=== PATIENT | female | born 1950 | race Caucasian/White ===

== ENCOUNTER → 2021-10-05 09:48 | Outpatient (BNVA) | payer MEDICARE, OTHER, SELFPAY | PROVIDERS: PCP Internal Medicine; Visit Provider Internal Medicine Rheumatology | DX: M17.0 Bilateral primary osteoarthritis of knee (principal) | CPT/HCPCS: 99212 ==

== ENCOUNTER 2024-05-24 13:53 | Outpatient (AMB) | payer MEDICARE, OTHER, SELFPAY ==
[2024-05-24 14:07] VITALS: BP 130/62; PULSE 86; O2SAT 96; BMI 20.4
--- NOTE | 2024-05-24 14:07 | A.OFFVIS_ITS ---
Vital Signs 05/24/24 14:07 Height 5 ft 7 in Weight 130 lb 1.164 oz BMI 20.4 BP 130/62 Blood Pressure Location Lt brachial Position Sitting Pulse 86 Pulse Source Pulse Oximeter Pulse Oximetry (%) 96 Oxygen Delivery Method Nasal Cannula Oxygen Flow Rate 0.5 Intake Visit Reasons: lymph nodes Plating Engineer Required: No Allergies No Known Allergies Allergy (Unverified 05/24/24 14:11) HPI Comments Details: The patient is here for pulmonary evaluation. The patient is a 74-year-old woman with known history of lymphoma who apparently had been on Keytruda started developing worsening respiratory symptoms. Initially back in February she presented to the hospital with acute respiratory failure. She had a CT scan of the chest PE protocol that demonstrated bilateral patchy consolidations and ground-glass opacities. He was given antibiotics and also was evaluated by Lizy adorno there. She did undergo a bronchoscopy. I do not have the results of the cultures but apparently per report there were negative for any infectious process and also had biopsies that I do not have a this time. The patient did have some bleeding during the biopsies so therefore only limited biopsies were gather. She was able to be discharged on oxygen and a prednisone taper. The patient did complete the antibiotics. Once she tapered off the prednisone her symptoms worsen and even on the oxygen she desaturated down to 70%. Therefore her son called 911 she was brought back to [facility] where she was readmitted to the hospital. She had a repeat CT scan of the chest I do not have the results and the patient was evaluated by Oncology. Is felt that based on the negative cultures from the bronchoscopy that this was likely related to the immune therapy resulting in pneumonitis. Therefore she was taken off the immune therapy and placed on prednisone. Currently she is on 30 mg of prednisone and will tapering down slowly from there. The patient also placed on gemcitabine which she seems to be tolerating well for her lymphoma. The patient otherwise is feeling well today we did a 6 minute walk test the patient did very well and did not require any additional oxygen at this time. Although we will reassess as she is weaning off the prednisone. She will come back for a pulmonary function study and also request a chest x-ray at that time. And will follow-up after the breathing studies. Hopefully she can wean off the prednisone and we can consider inhaled cortical steroids to provide her some anti-inflammatory effect in the meantime. She will follow-up with Oncology and she will have additional imaging studies at [facility]. [facility] Medical History (Updated 05/24/24 @ 21:36 by Salvador Feliciano MD) Pneumonia Pneumonitis History of left breast cancer Osteoarthritis of knees, bilateral Hodgkin lymphoma Social History Household Members: Spouse Housing: House Are you a primary director of critical care to a significant other at home: No Do you presently have visiting nurse or other home services: No 75 years or older and lives alone: No Alcohol intake: never Patient Tobacco Use Status: Never used Tobacco e-Cigarette/Vaping Use: Never Used service: No Current occupational status: retired Review of Systems Const Reports weakness Eyes Reports no additional complaints ENT Reports no additional complaints Card Denies chest pain and Reports dyspnea on exertion Resp Reports dyspnea on exertion and Denies wheezing GI Reports no additional complaints Musc Reports myalgias and Reports muscle weakness Skin/Breast Denies rash Neuro Reports weakness Psych Reports no additional complaints Terry/Lymph Denies easy bleeding and Denies easy bruising Aller/Immun Denies wheezing Physical Exam Vital Signs: Last Vital Signs Pulse 86 05/24/24 14:07 BP 130/62 05/24/24 14:07 Pulse Ox 96 05/24/24 14:07 Oxygen Delivery Method Nasal Cannula 05/24/24 14:07 Oxygen Flow Rate 0.5 05/24/24 14:07 BMI result Body Mass Index 20.4 Const General: comfortable HEENT Head: Yes normocephalic Neck Neck: Yes supple Chest Chest palpation & inspection: normal inspection of the chest Resp Effort & Inspection: normal respiratory effort Auscultation: no rales, no rhonchi, no wheezes and diminished lung sounds Cardio Heart sounds: S1 normal heart sound present and S2 normal heart sound present GI Palpation (GI): Soft to palpation Skin General skin exam: no rashes or lesions noted Extrem General: Yes no clubbing, cyanosis or edema Results Reviewed Results Reviewed: reviewed CT chest 02/2024 Assessment & Plan Assessment & Plan (1) Pneumonitis: Comment: Likely due to the Ketruda Code(s): J98.4 - Other disorders of lung Category: Medical (2) Pneumonia: Code(s): J18.9 - Pneumonia, unspecified organism Category: Medical Qualifiers: Pneumonia type: due to unspecified organism Laterality: bilateral Lung location: unspecified part of lung Qualified Code(s): J18.9 - Pneumonia, unspec ified organism (3) Acute respiratory failure: Code(s): J96.00 - Acute respiratory failure, unspecified whether with hypoxia or hypercapnia Category: Medical Qualifiers: Respiratory failure complication: hypoxia Qualified Code(s): J96.01 - Acute respiratory failure with hypoxia (4) Hodgkin lymphoma: Code(s): C81.90 - Hodgkin lymphoma, unspecified, unspecified site Category: Medical Qualifiers: Hodgkin lymphoma type: unspecified type Lymphoma site: unspecified region Qualified Code(s): C81.90 - Hodgkin lymphoma, unspecified, unspecified site Plan Wean off oxygen, keep pox 92-96% continue slow prednisone taper PFTs CXR consider inhaled corticosteroids once on a lower dose prednisone F/U 6-8 weeks Coding Level of Care Code New Pt Level 5 (64152) Diagnoses Pneumonitis J98.4 Pneumonia of both lungs due to infectious organism, unspecified part of lung J18.9 Pneumonia type: due to unspecified organism Laterality: bilateral Lung location: unspecified part of lung Acute respiratory failure with hypoxia J96.01 Respiratory failure complication: hypoxia Hodgkin lymphoma, unspecified Hodgkin lymphoma type, unspecified body region C81.90 Hodgkin lymphoma type: unspecified type Lymphoma site: unspecified region Time Spent (min) 60
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
--- OUTSIDE RECORDS SUMMARY | 2024-05-24 17:47 | XMS_ITS | Encounter Summary ---
Author Organization [facility] Address [address] [place] [address] Care Team Providers Care Car Runner Name Role Phone Justin Larose MD Primary Care Provider [phone] Reason for Visit * Reason Onset Date Comments VNA Order 04/04/2024 [facility] #[id number] Encounter Details Date Type Department Care Team (Late st Contact Info) Description 04/04/2024 Telephone Adult Medicine [address] [phone] Justin Larose MD [address] [place] [address] VNA Order ([facility]Order #[id number]) Social History Tobacco Use Types Packs/Day Years [...] as of this encounter Progress Notes * Harriett Fields MA - 04/24/2024 1:18 PM EST Order signed,faxed,confirmation received * Paulettejuan Praks - 04/04/2024 3:26 PM EST Received faxed order [id number] from [facility] and placed in provider bin. Please review, sign, and fax to [phone]. documented in this encounter Plan of Treatment Upcoming Encounters Date Type Department Care Team (Late st Contact Info) Description 05/29/2024 9:[address] [facility] [address] [facility] 2nd [place] [phone] 06/12/2024 9:45 AM EST Office Visit [facility] Hematology Oncology [address] [place] [phone] Albert Mg MD [address] [place] [phone] 10/01/2024 1:45 PM EDT Office Visit Orthopedic Surgery [facility] [address] [phone] Noemi Jones PA [address] [phone] 11/16/2024 3:30 PM EDT Office Visit Adult Medicine [address] [phone] Justin Larose MD [address] [place] [address] documented as of this encounter Visit Diagnoses Not on filedocumented in this encounter Additional Health Concerns Infection Onset Date Last Indicated Resolved Time Respiratory Rule-Out 04/10/2024 04/10/2024 024 10:55 AM EST COVID-19 Rule-Out 04/10/2024 04/10/2024 04/10/2024 10:55 AM EST documented as of this encounter Care Teams Car Runner Relationship Specialty Start Date End Date Justin Larose MD [address] [place] [address] PCP - General Internal Medicine 02/28/24 Inés Alexander MD, PhD [address] [place] [address] Consulting Physician Hematology and Oncology 04/25/23 documented as of this encounter
--- OUTSIDE RECORDS SUMMARY | 2024-05-24 17:47 | XMS_ITS | Encounter Summary ---
Author Organization [facility] Address [address] [place] [address] Care Team Providers Care Truck Striker Name Role Phone Justin Larose MD Primary Care Provider [phone] Reason for Visit * Reason Onset Date Comments faxed order 03/28/2024 [facility] order# [id number] Encounter Details Date Type Department Care Team ([facility] st Contact Info) Description 03/28/2024 Telephone Adult Medicine [address] [phone] Giovana Barroso [place] faxed order ([facility] order# [id number]) Social History Tobacco Use Types Packs/Day Years [...] Notes * Giovana Barroso MA - 03/28/2024 8:50 PM EST Received orders from [facility] order# [id number]. Please sign and fax to [phone] documented in this encounter Plan of Treatment Upcoming Encounters Date Type Department Care Team (Late st Contact Info) Description 05/29/2024 9:00 AM EST Appointment [facility] [address] [facility] 2nd [place] [phone] 06/12/2024 9:45 AM EST Office Visit [facility] Hematology Oncology [address] [place] [phone] Albert Mg MD [address] [place] [phone] 10/01/2024 1:45 PM EDT Office Visit Orthopedic Surgery [facility] [address] [phone] Noemi Jones PA [address] [phone] 11/16/2024 3:30 PM EDT Office Visit Adult Medicine [facility] [address] [place] [phone] Justin Larose MD [address] [place] [address] documented as of this encounter Visit Diagnoses Not on filedocumented in this encounter Additional Health Concerns Infection Onset Date Last Indicated Resolved Time Respiratory Rule-Out 04/10/2024 04/10/2024 024 10:55 AM EST COVID-19 Rule-Out 04/10/2024 04/10/2024 04/10/2024 10:55 AM EST documented as of this encounter Care Teams Truck Striker Relationship Specialty Start Date End Date Justin Larose MD [address] [place] [address] PCP - General Internal Medicine 02/28/24 Inés Alexander MD, PhD [address] [place] [address] Consulting Physician Hematology and Oncology 04/25/23 documented as of this encounter
--- OUTSIDE RECORDS SUMMARY | 2024-05-24 17:48 | XMS_ITS | Encounter Summary ---
Author Organization [facility] Address [address] [place] [address] Care Team Providers Care Forestry Adviser Name Role Phone Justin Larose MD Primary Care Provider [phone] Reason for Visit * Reason Onset Date Comments faxed order 05/07/2024 [facility] order #[id number] Encounter Details Date Type Department Care Team ([facility] st Contact Info) Description 05/07/2024 Telephone Adult Medicine [address] [phone] Giovana Barroso [place] faxed order ([facility] order #[id number]) Social History Tobacco Use Types Packs/Day Years [...] on file documented as of this encounter Functional Status Functional Status Response Date of Assess ment Are you deaf or do you have serious difficulty h earing? No 04/10/2024 Are you blind or do you have serious difficulty seeing, even when wearing glasses? No 04/10/2024 Do you have serious difficul ty walking or climbing stairs? No 04/10/2024 Do you have serious difficulty dressing or bathi ng? No 04/10/2024 Because of a physical, menta l, or emotional condition, do you have serious difficulty doing errands alone such as visiting the doctor? No 04/10/2024 Cognitive Status Response Date of Assessm ent Because of a physical, menta l, or emotional condition, do you have serious difficulty concentrating, remembering, or making decisions? (5 years old or older) No 04/10/2024 documented as of this encounter Progress Notes * Giovana Barroso MA - 05/07/2024 9:53 AM EST Received orders from [facility] order #[id number]. Please sign and fax to [phone] documented in this encounter Plan of Treatment Upcoming Encounters Date Type Department Care Team (Late st Contact Info) Description 05/29/2024 9:00 AM EST Appointment [facility] [address] [facility] 2nd [place] [phone] 06/12/2024 9:45 AM EST Office Visit [facility] Hematology Oncology [address] [place] [phone] Albert Mg MD [address] [place] [phone] 10/01/2024 1:45 PM EDT Office Visit Orthopedic Surgery [facility] [address] [phone] Noemi Jones PA [address] [phone] 11/16/2024 3:30 PM EDT Office Visit Adult Medicine [address] [phone] Justin Larose MD [address] [place] [address] documented as of this encounter Visit Diagnoses Not on filedocumented in this encounter Care Teams Forestry Adviser Relationship Specialty Start Date End Date Justin Larose MD [address] [place] [address] PCP - General Internal Medicine 02/28/24 Inés Alexander MD, PhD [address] [place] [address] Consulting Physician Hematology and Oncology 04/25/23 documented as of this encounter
--- OUTSIDE RECORDS SUMMARY | 2024-05-24 17:48 | XMS_ITS | Encounter Summary ---
Author Organization [facility] Address [address] [place] [address] Care Team Providers Care Consumer Services Consultant Name Role Phone Justin Larose MD Primary Care Provider [phone] Reason for Visit * Reason Onset Date Comments Referral 04/06/2024 Encounter Details Date Type Department Care Team (Late st Contact Info) Description 04/06/2024 Telephone [facility] Hematology Oncology [address] [place] [address] Albert Mg MD [address] [place] [address] Referral Social History Tobacco Use Types Packs/Day Years [...] as of this encounter Progress Notes * Bianca Lopez - 05/16/2024 9:11 AM EST APPT WITH DR TONEY 05/24/24 215PM, PATIENT NOTIF[place] [facility] * Bianca Lopez - 04/06/2024 4:19 PM EST Referral sent to: [facility] [address] [place] [address] documented in this encounter Plan of Treatment Upcoming Encounters Date Type Department Care Team (Late st Contact Info) Description 05/29/2024 9:00 AM EST Appointment [facility] [address] [facility] 2nd [place] [phone] 06/12/2024 9:45 AM EST Office Visit [facility] Hematology Oncology [address] [place] [phone] Albert Mg MD [address] [place] [phone] 10/01/2024 1:45 PM EDT Office Visit Orthopedic Surgery [facility] [address] [phone] Noemi Jones PA [address] [phone] 11/16/2024 3:30 PM EDT Office Visit Adult Medicine [address] [phone] Justin Larose MD [address] [place] [address] documented as of this encounter Visit Diagnoses Not on filedocumented in this encounter Additional Health Concerns Infection Onset Date Last Indicated Resolved Time Respiratory Rule-Out 04/10/2024 04/10/2024 024 10:55 AM EST COVID-19 Rule-Out 04/10/2024 04/10/2024 04/10/2024 10:55 AM EST documented as of this encounter Care Teams Consumer Services Consultant Relationship Specialty Start Date End Date Justin Larose MD [address] [place] [address] PCP - General Internal Medicine 02/28/24 Inés Alexander MD, PhD [address] [place] [address] Consulting Physician Hematology and Oncology 04/25/23 documented as of this encounter
--- OUTSIDE RECORDS SUMMARY | 2024-05-24 17:48 | XMS_ITS | Encounter Summary ---
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 ([facility]/HCC) Albert Mg MD [address] [place] [phone] [facility] Infusion Center [address] [place] [phone] Referral ID Status Reason Start Date Expiration Date V isits Requested Visits Authorized [id number] Authorized 04/26/2024 04/26/2025 1 15 Encounter Details Date Type Department Care Team (Latest Contact Info) Description 05/08/2024 9:00 AM EST - 05/08/2024 11:59 PM EST Hospital Encounter [facility] Infusion Center [address] [place] [phone] Albert Mg MD [address] [place] [address] Myelodysplasia (myelodysplastic syndrome) (CMS/HCC) (Primary Dx); 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); Lymphadenopathy, generalized; Hodgkin's lymphoma of bone marrow (CMS/HCC) Discharge Disposition: Home or Self Care Social History Tobacco Use Types Packs/Day Years [...] on file documented as of this encounter Last Filed Vital Signs Vital Sign Reading Time Taken Comments Blood Pressure 109/74 05/08/2024 9:24 AM EST Pulse 74 05/08/2024 9:24 AM EST Temperature 36.1 ??C (97 ??F) 05/08/2024 9:2 4 AM EST Respiratory Rate 18 05/08/2024 9:24 AM EST Oxygen Saturation 100% 05/08/2024 9:2 4 AM EST Inhaled Oxygen Concentration - - Weight 55.2 kg (121 lb 9.6 oz) 05/08/2024 9:24 AM EST wearing a winter coat Height - - Body Mass Index 19.05 04/27/2024 1:39 PM EST documented in this encounter Functional Status Functional Status Response [...] No 04/10/2024 documented as of this encounter Medications at Time of Discharge Medication Sig Dispensed Refills Start Date End Date acetaminophen (TYLENOL 8 HOUR) 650 mg 8 hr tablet Take 1 tablet (650 mg total) by mouth 2 (two) times a day. gabapentin (NEURONTIN) 300 mg capsule Take 1 capsule (300 mg total) by mouth at bedtime. 04/11/2023 levothyroxine (SYNTHROID, LEVOTHROID) 50 mcg tablet Take 25 mcg by mouth. 09/01/2023 pantoprazole (PROTONIX) 40 mg EC tablet Take 1 tablet (40 mg total) by mouth 1 (one) time each day before breakfast. Do not crush, chew, or split. 30 each 1 04/26/2024 06/25/2024 predniSONE (DELTASONE) 20 mg tablet Take 2 tablets (40 mg total) by mouth 1 (one) time each day. 60 tablet 04/26/2024 05/26/2024 pregabalin (LYRICA) 50 mg capsule Take 1 capsule (50 mg total) by mouth at bedtime. sertraline (ZOLOFT) 100 mg tablet Take 1 tablet (100 mg total) by mouth 1 (one) time each day. 10/20/2023 05/24/2024 documented as of this encounter Discharge Disposition Disposition Code Departure Means Destination Home or Self Care documented in this encounter Progress Notes * Paige Ravi, RADHA - 05/08/2024 9:00 AM EST Patient arrives via wheelchair, accompanied by her for Cycle 2 Day 1, gemcitibine. Patient states that she's doing ok , stating that the usual . Patient has no questions/concerns for the provider at this time. states that patient is now only on o2 1 LPM. O2 sat today is 100%. Portaccessed, +BR. Labs collected per standing order. Labs sent stat. Patient left accessed, is comfortable in recliner waiting on lab results. at chairside. 2571 Dr. Gurrola aware of labs; hgb 8.0, from 7.7, plt count 87. Orders per Dr. Gurrola is to hold off onblood transfusion. Ok to treat with Gemcitabine. Patient and are in agreement with plan. Treatment released to pharmacy. NS KVO. 1108 Zofran administered IVP without incident. 1152 Gemcitibine infusing at this time, over 30 minutes. Call jara within reach. at chairside. 1224 Patient tolerated treatment well, without adverse reaction/complaint. Patient currently eatinglunch. NS KVO until patient finishes. 1250 Patient ate full lunch, went to the bathroom. Next appt scheduled. Port flushed per protocol. Deaccesed, intact. Patient discharged stable, via wheelchair, accompanied by . documented in this encounter Plan of Treatment Upcoming Encounters Date Type Department Care Team (Late st Contact Info) Description 05/29/2024 9:00 AM EST Appointment [facility] Infusion Center [address] 2nd [place] [phone] 06/12/2024 9:45 AM EST Office Visit [facility] Hematology Oncology [address] [place] [phone] Albert Mg MD [address] [place] [phone] 10/01/2024 1:45 PM EDT Office Visit Orthopedic Surgery [facility] [address] [phone] Noemi Jones PA [address] [phone] 11/16/2024 3:30 PM EDT Office Visit Adult Medicine [address] [phone] Justin Larose MD [address] [place] [phone] documented as of this encounter Procedures Procedure Name Priority Date/Time Associated Diagnosis Comments CBC WITH AUTO DIFFERENTIAL Routine 05/08/2024 9:46 AM EST 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) CBC AND DIFFERENTIAL Routine 05/08/2024 9:46 AM EST 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) TYPE AND SCREEN STAT 05/08/2024 9:46 AM EST 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) Myelodysplasia (myelodysplastic syndrome) (CMS/HCC) COMPREHENSIVE METABOLIC PANEL Routine 05/08/2024 9:46 AM EST 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) documented in this encounter Results * (ABNORMAL) CBC auto differential (05/08/2024 9:46 AM EST) Pathologist [facility] WBC 3.5(L) 4.8 - 10.8 K/mcL LAB HEMETOLOGY METHOD 05/08/2024 10:37 AM [facility] RBC 2.60(L) 3.80 - 4.80 M/mcL LAB HEMETOLOGY METHOD 05/08/2024 10:37 AM [facility] Hemoglobin 8.0(L) 11.5 - 16.0 g/dL LAB HEMETOLOGY METHOD 05/08/2024 10:37 AM [facility] LAB Hematocrit 24.4(L) 35.0 - 47.0 % LAB HEMETOLOGY METHOD 05/08/2024 10:37 AM [facility] MCV 94.2 79.0 - 98.0 FL LAB HEMETOLOGY METHOD 05/08/2024 10:37 AM [facility] LAB MCH 30.9 27.0 - 32.0 pcg LAB HEMETOLOGY METHOD 05/08/2024 10:37 AM [facility] LAB MCHC 32.8 32.0 - 37.0 g/dL LAB HEMETOLOGY METHOD 05/08/2024 10:37 AM [facility] LAB RDW 19.6(H) 11.0 - 15.0 % LAB HEMETOLOGY METHOD 05/08/2024 10:37 AM [facility] Platelets 87(L) 130 - 400 K/mcL LAB HEMETOLOGY METHOD 05/08/2024 10:37 AM [facility] LAB Comment:reviewed by slide MPV 10.6 7.0 - 11.0 FL LAB HEMETOLOGY METHOD 05/08/2024 10:37 AM [facility] LAB NRBC 0.9 <1.0 % LAB HEMETOLOGY METHOD 05/08/2024 10:37 AM [facility] NRBC Absolute 0.03 <0.10 K/mcL LAB HEMETOLOGY METHOD 05/08/2024 10:37 AM [facility] Neutrophils Relative 66.2 % LAB HEMETOLOGY METHOD 05/08/2024 10:37 AM [facility] Lymphocytes Relative 27.2 % LAB HEMETOLOGY METHOD 05/08/2024 10:37 AM [facility] Monocytes Relative 4.9 % LAB HEMETOLOGY METHOD 05/08/2024 10:37 AM [facility] Eosinophils Relative 0.3 % LAB HEMETOLOGY METHOD 05/08/2024 10:37 AM [facility] Basophils Relative 0.0 % LAB HEMETOLOGY METHOD 05/08/2024 10:37 AM [facility] Immature Granulocytes Relative 1.4 % LAB HEMETOLOGY METHOD 05/08/2024 10:37 AM [facility] Neutrophils Absolute 2.29 1.50 - 7.00 K/mcL LAB HEMETOLOGY METHOD 05/08/2024 10:37 AM [facility] LAB Lymphocytes Absolute 0.94(L) 1.00 - 5.00 K/[facility] LAB HEMETOLOGY METHOD 05/08/2024 10:37 AM EST [facility] LAB Monocytes Absolute 0.17(L) 0.20 - 1.00 K/[facility] LAB HEMETOLOGY METHOD 05/08/2024 10:37 AM EST [facility] LAB Eosinophils Absolute 0.01 0.00 - 0.50 K/[facility] LAB HEMETOLOGY METHOD 05/08/2024 10:37 AM EST [facility] Basophils Absolute 0.00 0.00 - 0.20 K/[facility] LAB HEMETOLOGY METHOD 05/08/2024 10:37 AM EST [facility] Immature Granulocytes Absolute 0.05(H) 0.00 - 0.03 K/[facility] LAB HEMETOLOGY METHOD 05/08/2024 10:37 AM EST [facility] Blood Blood sample taken from central line / Unknown Existing Catheter / Unknown 05/08/2024 9:46 AM EST 05/08/2024 10:08 AM EST Subramony Saurav SAMANIE[facility] LAB BLOOD O RDERABLES [facility] [address] [place] [address], * Type and screen (05/08/2024 9:46 AM EST) ABO Group A 05/08/2024 11:08 AM EST [facility] Rh Type Negative 05/08/2024 11:08 AM EST [facility] Antibody Screen Negative 05/08/2024 11:08 AM EST [facility] Blood Blood sample taken from central line / Unknown Existing Catheter / Unknown 05/08/2024 9:46 AM EST 05/08/2024 10:08 AM EST Subramony Saurav SAMANIEGO LAB BLOOD B ANK TEST ORDERABLES [facility] [address] [place] [address], * (ABNORMAL) Comprehensive metabolic panel (05/08/2024 9:46 AM EST) Sodium 136 133 - 145 mmol/L LAB CHEMISTRY METHOD 05/08/2024 10:42 AM EST [facility] Potassium 3.9 3.5 - 5.5 mmol/L LAB CHEMISTRY METHOD 05/08/2024 10:42 AM [facility] Chloride 102 96 - 110 mmol/L LAB CHEMISTRY METHOD 05/08/2024 10:42 AM [facility] CO2 29 21 - 32 mmol/L LAB CHEMISTRY METHOD 05/08/2024 10:42 AM [facility] Anion Gap 5 3 - 11 LAB CHEMISTRY METHOD 05/08/2024 10:42 AM [facility] Glucose 117(H) 70 - 100 mg/dL LAB CHEMISTRY METHOD 05/08/2024 10:42 AM [facility] BUN 24 5 - 25 mg/dL LAB CHEMISTRY METHOD 05/08/2024 10:42 AM [facility] Creatinine 0.77 0.50 - 1.10 mg/dL LAB CHEMISTRY METHOD 05/08/2024 10:42 AM [facility] eGFR 81 >=60 mL/min/1. 73m2 LAB CHEMISTRY METHOD 05/08/2024 10:42 AM [facility] Comment:Calculation based on the??Chronic Kidney Disease Epidemiology Collaboration (CKD-EPI) equation refit??without adjustment for race. BUN/Creatinine Ratio 31.2 LAB CHEMISTRY METHOD 05/08/2024 10:42 AM [facility] Calcium 9.0 8.5 - 10.5 mg/dL LAB CHEMISTRY METHOD 05/08/2024 10:42 AM [facility] AST (SGOT) 11 10 - 42 unit/L LAB CHEMISTRY METHOD 05/08/2024 10:42 AM [facility] ALT (SGPT) 36 10 - 60 unit/L LAB CHEMISTRY METHOD 05/08/2024 10:42 AM [facility] Alkaline Phosphatase 71 42 - 121 unit/L LAB CHEMISTRY METHOD 05/08/2024 10:42 AM [facility] Total Protein 5.6(L) 6.0 - 8.0 g/dL LAB CHEMISTRY METHOD 05/08/2024 10:42 AM [facility] Albumin 3.7 3.2 - 5.0 g/dL LAB CHEMISTRY METHOD 05/08/2024 10:42 AM [facility] Total Bilirubin 1.1 0.0 - 1.4 mg/dL LAB CHEMISTRY METHOD 05/08/2024 10:42 AM [facility] Blood Blood sample taken from central line / Unknown Existing Catheter / Unknown 05/08/2024 9:46 AM EST 05/08/2024 10:08 AM EST Albert Mg MD LAB BLOOD O RDERABLES [facility] [address] [place] [address], documented in this encounter Visit Diagnoses Diagnosis Myelodysplasia (myelodysplastic syndrome) (CMS/HCC)- Primary Myelodysplastic syndrome, unspecified 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 Order Dose 1,000 mg/m2 Admin Dose 1,640 mg. DOSE ROUNDED TO 1640 MG PER PROTOCOL NS Flush Only. HAZARDOUS Drug Precautions - High Risk (Category C/NIOSH Group 1) Antineoplastic: - Double pair of ASTM standard D6978 certified chemotherapy gloves - Chemotherapy gown - Closed-System Transfer Device (CSTD) recommended - Eye protection (goggles or face shield) required only with a potential for facial contact (i.e. concern for spitting or vomiting of the dose during or after administration) New Bag 05/08/2024 11:52 AM EST 1,600 mg 584.2 mL/hr ondansetron (PF) (ZOFRAN) injection 8 mg 8 mg, intravenous, Once, On Tue05/08/24 at 1115, For 1 dose Given 05/08/2024 11:08 AM EST 8 mg sodium chloride 0.9 % infusion 20 mL/hr, intravenous, As needed, To keep vein open per institutional policy, Starting on Tue05/08/24 at 1052, For 1 day New Bag 05/08/2024 11:08 AM EST 20 mL/hr 20 mL/hr documented in this encounter Orders Nursing Count Last Ordered Date First Orde red Date ONC NURSING COMMUNICATION 1 05/08/2024 ONC NURSING COMMUNICATION 10 1 05/08/2024 ONC NURSING COMMUNICATION 11 1 05/08/2024 TREATMENT CONDITIONS 2 05/08/2024 documented in this encounter Care Teams Yeast Distiller Relationship Specialty Start Date End Date Justin Larose MD [address] [place] [phone] PCP - General Internal Medicine 02/28/24 Inés Alexander MD, PhD [address] [place] [phone] Consulting Physician Hematology and Oncology 04/25/23 documented as of this encounter
--- OUTSIDE RECORDS SUMMARY | 2024-05-24 17:48 | XMS_ITS | Encounter Summary ---
Author Organization [facility] Address [address] [place] [address] Care Team Providers Care Math And Science Division Chair Name Role Phone Justin Larose MD Primary Care Provider [phone] Reason for Visit * Reason Comments Follow-up 6 mo Encounter Details Date Type Department Care Team (Late st Contact Info) Description 05/11/2024 2:30 PM EST Office Visit Adult Medicine [address] [phone] Justin Larose MD [address] [place] [phone] Acute on chronic respiratory failure with hypoxia (CMS/HCC) (Primary Dx); Hodgkin's lymphoma of bone marrow (CMS/HCC); Pneumonitis Social History Tobacco Use Types Packs/Day Years Used Date Smoking Tobacco: Never Smokeless Tobacco: Never Tobacco Cessation:Counseling Given: Not Answered Alcohol Use Standard Drinks/Week Comments Not Currently [...] Sign Reading Time Taken Comments Blood Pressure 107/54 05/11/2024 2:10 PM EST Pulse 92 05/11/2024 2:10 PM EST Temperature 36.3 ??C (97.4 ??F) 05/11/2024 2:10 PM ES T Respiratory Rate 14 05/11/2024 2:10 PM EST Oxygen Saturation 99% 05/11/2024 2:10 PM EST Inhaled Oxygen Concentration - - Weight 54.8 kg (120 lb 12.8 oz) 05/11/2024 2:10 PM EST Height 170.2 cm (5' 7 ) 05/11/2024 2:10 PM EST Body Mass Index 18.92 05/11/2024 2:10 PM EST documented in this encounter Functional [...] as of this encounter Progress Notes * Justin Larose MD - 05/11/2024 2:30 PM EST CHIEF COMPLAINT: Follow-up (6 mo) IDENTIFIER: Lynn Reilly is a 74 y.o. old female. HPI: history significant for Hodgkin's lymphoma/myelodysplasia and breast cancer status post left mastectomy currently on immunotherapy followed by oncologist Dr. Gurrola, hypothyroidism, hypercholesteremia Pt was admitted to the [facility] from 04/10-04/16/2024 Pt presented from home wht shortness of breath pt is on chronc 02 at 4lnc via ems sats were in the 70;s pt had hospital stay the prior month for PNA but was later dx immune checkpoint pneumonitis(silva) CT chest angio:No acute pulmonary embolus demonstrated. Incomplete opacification in the subpulmonicaspect of the pulmonary outflow tract. Chest x-ray:At least moderately severe bilateral perihilar opacities could represent edema or pneumonia. In comparison with 03/19/2024 this may be slightly improved. EKG: Sinus rhythm with PACs, T wave abnormality Initial laboratory results: Mainly unremarkable BMP with the exception of glucose 137, CBC with differential reveals H&H 7.5/22.6, respiratory virus panel negative for infection. In the emergency department the above was performed and patient received 3.375 g Zosyn and 1250 mg vancomycin. Bilateral pleural effusions, status post left thoracentesis with 300 cc cloudy yellow fluid removal. Reportedly exudative effusion. Fluid culture and cytology negative Acute on chronic anemia-likely due to lymphoma and chemotherapy related. Status post 2 units of packed RBCs this admission. H&H with improvement and stable. 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 pt was d/aniceto on pred taper pt was d/aniceto on 2lnc Pt is now down to 1lnc pt has 99-100% at home Pt is 99% in the office today Keytruda was d/aniceto Pt has f/u oncology 07/2024 (adriana) Pt is currently on gemcitabine Pt notes dyspnea at baseline Pt has f/u pulm(girish) 05/2024 ROS: GENERAL: Negative for malaise, significant weight loss and fever RESPIRATORY: See HPI CARDIOVASCULAR: Negative for chest pain, leg swelling and palpitations PAST MEDICAL HISTORY: Patient Active Problem List Diagnosis Date Noted Pneumonitis 04/13/2024 Hypoxia 03/15/2024 Acute respiratory failure with hypoxia (CMS/HCC) 03/15/2024 Acute CHF (CMS/HCC) 03/15/2024 Acute hypoxemic respiratory failure (CMS/HCC) 03/15/2024 Hypothyroidism due to medication 03/07/2024 Hungry bone syndrome 03/06/2024 Hodgkin's lymphoma of bone marrow (CMS/HCC) 01/31/2024 Hypothyroidism 11/07/2023 Myelodysplasia (myelodysplastic syndrome) (CMS/HCC) 10/18/2023 Shortness of breath 04/28/2023 Supraclavicular lymphadenopathy 02/14/2023 Dizzy spells 07/30/2021 Acute left-sided low back pain without sciatica 07/30/2021 Primary osteoarthritis of both knees 02/23/2021 Acute cystitis without hematuria 05/19/2020 Nausea 05/05/2020 Drug-induced peripheral neuropathy ([facility]) 04/08/2020 Diarrhea due to drug 2020 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 ([facility]) 02/28/2020 Night sweats 02/28/2020 Symptomatic anemia 01/30/2020 Other fatigue 01/30/2020 Hypercalcemia 01/21/2020 Lymphadenopathy, generalized 01/21/2020 Splenomegaly 01/21/2020 Migraine with aura and without status migrainosus, not intractable 02/23/2017 Hypercholesterolemia 08/27/2016 Osteopenia 08/27/2016 Hearing loss of both ears 08/27/2016 History of left mastectomy 08/27/2016 SOCIAL HISTORY: Social History Tobacco Use Smoking status: Never Smokeless tobacco: Never Substance Use Topics Alcohol use: Not Currently FAMILY HISTORY: Family Status Relation Name Status Mother (Not Specified) Father (Not Specified) MGM (Not Specified) PGM Aunt Uncle (Not Specified) No partnership data on file Family History Problem Relation Name Age of Onset Breast cancer Mother 70.00 at 78 of mets, Arthritis Other (Other: Heart Disease) Father at 78 Other cancer Maternal Grandmother 69.00 stomach CA Other (Other: Other) Paternal Grandmother in her 90s Other cancer Aunt 72.00 pancreatic, maternal aunt Other (Other: pancreatic cancer) Aunt Arthritis Other (Other: pancreatic cancer) Uncle 58.00 maternal aunt ACTIVE MEDICATIONS: Outpatient Medications Marked as Taking for the 05/11/24 encounter (Office Visit) with Justin Larose MD Medication Sig Dispense Refill acetaminophen (TYLENOL 8 HOUR) 650 mg 8 hr tablet Take 1 tablet (650 mg total) by mouth 2 (two) times a day. gabapentin (NEURONTIN) 300 mg capsule Take 1 capsule (300 mg total) by mouth at bedtime. levothyroxine (SYNTHROID, LEVOTHROID) 50 mcg tablet Take 25 mcg by mouth. pantoprazole (PROTONIX) 40 mg EC tablet Take 1 tablet (40 mg total) by mouth 1 (one) time each day before breakfast. Do not crush, chew, or split. 30 each 1 predniSONE (DELTASONE) 20 mg tablet Take 2 tablets (40 mg total) by mouth 1 (one) time each day. 60tablet 0 pregabalin (LYRICA) 50 mg capsule Take 1 capsule (50 mg total) by mouth at bedtime. sertraline (ZOLOFT) 100 mg tablet Take 1 tablet (100 mg total) by mouth 1 (one) time each day. ALLERGIES: Patient has no known allergies. PHYSICAL EXAM: Blood pressure 107/54, pulse 92, temperature 36.3 ??C (97.4 ??F), temperature source Temporal, resp. rate 14, height 1.702 m (67 ), weight 54.8 kg (120 lb 12.8 oz), SpO2 99%. Body mass index is 18.92kg/m??. BMI is 18.5 to 24.9 (within the normal range) and will be followed APPEARANCE: Alert and in no acute distress EYES: PERRLA, conjunctiva and sclera normal HEART: RRR with normal S1 and S2, no murmurs, no gallops, no JVD appreciated LUNG: clear to auscultation bilaterally EXTREMITIES: Extremities warm and well perfused without clubbing, cyanosis, or edema LABS: none IMPRESSION: 1. Acute on chronic respiratory failure with hypoxia (CMS/HCC) 2. Hodgkin's lymphoma of bone marrow (CMS/HCC) 3. Pneumonitis PLAN: Pt with hodgkin's lymphoma,chronic resp failure on , last month pt was admitted to the [facility] for acute on chronic resp failure, pt required high flow , the month previous pt was in house for pna.Pt during the most recent hospital stay noted to not have PNA but instead immune check point pneumonitis as a result keytruda has been d/aniceto. Pt is now back to her baseline breathing 02 has been weaned down to 1lnc 02 today 99%, pt now on gemcitabine. Pt to f/u with oncology as scheduled 07/2024 pt has f/u with pulm next month No orders of the defined types were placed in this encounter. ADDITIONAL ORDERS: None Justin Larose MD on 05/11/2024 at 2:12 PM EST documented in this encounter Plan of Treatment Upcoming Encounters Date Type Department Care Team (Late st Contact Info) Description 05/29/2024 9:00 AM EST Appointment [facility] Infusion Center [address] [facility] 2nd [place] [phone] 06/12/2024 9:45 AM EST Office Visit [facility] Hematology Oncology [address] [place] [phone] Albert Mg MD [address] [place] [phone] 10/01/2024 1:45 PM EDT Office Visit Orthopedic Surgery [facility] [address] [phone] Noemi Jones PA [address] [phone] 11/16/2024 3:30 PM EDT Office Visit Adult [facility] [address] [place] [phone] Justin Larose MD [address] [place] [phone] documented as of this encounter Visit Diagnoses Diagnosis Acute on chronic respiratory failure with hypoxia (CMS/HCC)- Primary Hodgkin's lymphoma of bone marrow (CMS/HCC) Pneumonitis Pneumonia, organism unspecified documented in this encounter Care Teams Math And Science Division Chair Relationship Specialty Start Date End Date Justin Larose MD [address] [place] [phone] PCP - General Internal Medicine 02/28/24 Inés Alexander MD, PhD [address] [place] [phone] Consulting Physician Hematology and Oncology 04/25/23 documented as of this encounter
--- OUTSIDE RECORDS SUMMARY | 2024-05-24 17:48 | XMS_ITS | Encounter Summary ---
Author Organization [facility] Address [address] [place] [address] Care Team Providers Care Label Folder Name Role Phone Justin Larose MD Primary Care Provider [phone] Reason for Visit * Reason Onset Date Comments faxed order 05/21/2024 [facility] order #[id number] Encounter Details Date Type Department Care Team ([facility] st Contact Info) Description 05/21/2024 Telephone Adult Medicine [address] [phone] Giovana Barroso MA faxed order ([facility] order #[id number]) Social History Tobacco Use Types Packs/Day Years [...] Progress Notes * Giovana Barroso MA - 05/21/2024 11:35 AM EST Received orders from [employer] order #[id number]. Please sign and fax to [phone] documented in this encounter Plan of Treatment Upcoming Encounters Date Type Department Care Team (Late st Contact Info) Description 05/29/2024 9:00 AM EST Appointment [facility] Infusion Center 271 [facility] 2nd [place] [phone] 06/12/2024 9:45 AM EST Office Visit [facility] Hematology Oncology [address] [place] [phone] Albert Mg MD 271 [place] [phone] 10/01/2024 1:45 PM EDT Office Visit Orthopedic Surgery [facility] [address] [phone] Noemi Jones PA [address] [phone] 11/16/2024 3:30 PM EDT Office Visit Adult Medicine [address] [phone] Justin Larose MD [address] [place] [address] documented as of this encounter Visit Diagnoses Not on filedocumented in this encounter Care Teams Label Folder Relationship Specialty Start Date End Date Justin Larose MD [address] [place] [address] PCP - General Internal Medicine 02/28/24 Inés Alexander MD, PhD [address] [place] [address] Consulting Physician Hematology and Oncology 04/25/23 documented as of this encounter
--- OUTSIDE RECORDS SUMMARY | 2024-05-24 17:48 | XMS_ITS | Encounter Summary ---
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 ([facility]/HCC) Hypothyroidism due to medication Subramonia-Albert Gurrola MD [address] [place] [phone] [facility] Infusion Center [address] [place] [phone] Referral ID Status Reason Start Date Expiration Date V isits Requested Visits Authorized [id number] Authorized 03/07/2024 03/07/2025 1 20 Encounter Details Date Type Department Care Team (Latest Contact Info) Description 04/24/2024 9:00 AM EST - 04/24/2024 11:59 PM [facility] Hospital Encounter Infusion Center [address] [place] [phone] 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 09/01/2023 pregabalin (LYRICA) 50 mg capsule Take 1 capsule (50 mg total) by mouth at bedtime. pantoprazole (PROTONIX) 40 mg EC tablet Take 1 tablet (40 mg total) by mouth 1 (one) time each day before breakfast. Do not crush, chew, or split. 30 each 04/15/2024 04/26/2024 predniSONE (DELTASONE) 20 mg tablet Take 3 tablets (60 mg total) by mouth 1 (one) time each day for 14 doses. 42 tablet 04/14/2024 04/26/2024 sertraline (ZOLOFT) 100 mg tablet Take 1 tablet (100 mg total) by mouth 1 (one) time each day. 10/20/2023 05/24/2024 documented as of this encounter Discharge Disposition Disposition Code Departure Means Destination Home or Self Care documented in this encounter Progress Notes * Kae Meyer RN - 04/24/2024 9:00 AM EST 0930- Pt arrived today via WC, accompanied by , for stat labs and possible need for transfusion. Pt reports feeling well overall with complaints of mild headache. Denies other acute complaintsor changes at this time. states Her oxygen has been pretty good. It's been staying at 97% and she even hit 99% once! Port accessed without diff. Labs collected/sent stat. Pt resting comfortably watching TV at this time. Call jara in reach. 1110- Labs resulted and WNL. Hgb: 8.5. No need for blood transfusion today. Pt with MD HOLLAND on at 10:15. Infusion room appt scheduled for 9:45. Pt will have stat labs done, go downstairs to see the doctor while labs result, and return to infusion room for any necessary treatment. Pt and verbalized understanding and agree to plan. No further questions. Port flushed/deaccessed per protocol. Pt up to BR without issue. Left unit via WC with . Stable at D/C. documented in this encounter Plan of Treatment Upcoming Encounters Date Type Department Care Team (Late st Contact Info) Description 05/29/2024 9:00 AM EST Appointment Infusion Center 271 [facility] 2nd [place] [phone] 06/12/2024 9:45 AM EST Office Visit Hematology Oncology 271 [place] [phone] Albert Mg MD 271 [place] [phone] 10/01/2024 1:45 PM EDT Office Visit Orthopedic Surgery - [place] [address] [phone] Noemi Jones PA [address] [phone] 11/16/2024 3:30 PM EDT Office Visit Adult [facility] [address] [place] [phone] Justin Larose MD [address] [place] [address] documented as of this encounter Procedures Procedure Name Priority Date/Time Associated Diagnosis Comments CBC WITH AUTO DIFFERENTIAL STAT 04/24/2024 9:25 AM EST 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 RBC 3.00(L) 3.80 - 4.80 M/mcL LAB HEMETOLOGY METHOD 04/24/2024 9:[address] [facility] Hemoglobin 8.5(L) 11.5 - 16.0 g/dL LAB HEMETOLOGY METHOD 04/24/2024 9:[address] [facility] Hematocrit 26.2(L) 35.0 - 47.0 % LAB HEMETOLOGY METHOD 04/24/2024 9:[address] [facility] MCV 88.8 79.0 - 98.0 FL LAB HEMETOLOGY METHOD 04/24/2024 9:[address] [facility] MCH 28.8 27.0 - 32.0 pcg LAB HEMETOLOGY METHOD 04/24/2024 9:[address] [facility] MCHC 32.4 32.0 - 37.0 g/dL LAB HEMETOLOGY METHOD 04/24/2024 9:[address] [facility] RDW 14.4 11.0 - 15.0 % LAB HEMETOLOGY METHOD 04/24/2024 9:[address] [facility] Platelets 306 130 - 400 K/mcL LAB HEMETOLOGY METHOD 04/24/2024 9:[address] [facility] MPV 10.2 7.0 - 11.0 FL LAB HEMETOLOGY METHOD 04/24/2024 9:[address] [facility] NRBC 0.3 <1.0 % LAB HEMETOLOGY METHOD 04/24/2024 9:[address] [facility] NRBC Absolute 0.04 <0.10 K/[facility] LAB HEMETOLOGY METHOD 04/24/2024 9:[address] [facility] Neutrophils Relative 81.0 % LAB HEMETOLOGY METHOD 04/24/2024 9:[address] [facility] Lymphocytes Relative 11.1 % LAB HEMETOLOGY METHOD 04/24/2024 9:[address] [facility] Monocytes Relative 4.2 % LAB HEMETOLOGY METHOD 04/24/2024 9:[address] [facility] Eosinophils Relative 0.1 % LAB HEMETOLOGY METHOD 04/24/2024 9:[address] [facility] Basophils Relative 0.2 % LAB HEMETOLOGY METHOD 04/24/2024 9:[address] [facility] Immature Granulocytes Relative 3.4 % LAB HEMETOLOGY METHOD 04/24/2024 9:[address] [facility] Neutrophils Absolute 10.64(H) 1.50 - 7.00 K/mcL LAB HEMETOLOGY METHOD 04/24/2024 9:[address] [facility] Lymphocytes Absolute 1.46 1.00 - 5.00 K/mcL LAB HEMETOLOGY METHOD 04/24/2024 9:[address] [facility] Monocytes Absolute 0.55 0.20 - 1.00 K/mcL LAB HEMETOLOGY METHOD 04/24/2024 9:[address] [facility] Eosinophils Absolute 0.01 0.00 - 0.50 K/mcL LAB HEMETOLOGY METHOD 04/24/2024 9:[address] [facility] Basophils Absolute 0.03 0.00 - 0.20 K/mcL LAB HEMETOLOGY METHOD 04/24/2024 9:[address] [facility] Immature Granulocytes Absolute 0.45(H) 0.00 - 0.03 K/mcL LAB HEMETOLOGY METHOD 04/24/2024 9:[address] [facility] Blood Blood sample taken from central line / Unknown Existing Catheter / Unknown 04/24/2024 9:25 AM EST 04/24/2024 9:45 AM EST [facility] BLOOD O RDERABLES Performing Organization Address City/[facility]/ZIP Co de Phone Number [facility] [address] [place] [address], * Type and screen (04/24/2024 9:25 AM EST) ABO Group A 04/24/2024 10:43 AM EST [facility] Rh Type Negative 04/24/2024 10:43 AM EST [facility] Antibody Screen Negative 04/24/2024 10:43 AM EST [facility] Blood Blood sample taken from central line / Unknown Existing Catheter / Unknown 04/24/2024 9:25 AM EST 04/24/2024 9:45 AM EST [facility] BLOOD B ANK TEST ORDERABLES Performing Organization Address [facility]/ZIP Co de Phone Number [facility] [address] [place] [address], documented in this encounter Visit Diagnoses Diagnosis 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
--- OUTSIDE RECORDS SUMMARY | 2024-05-24 17:48 | XMS_ITS | Encounter Summary ---
Author Organization [facility] Address [address] [place] [address] Care Team Providers Care Airport Operations Manager Name Role Phone Justin Larose MD Primary Care Provider [phone] Encounter Details Date Type Department Care Team (Latest Contact Info) Description 04/30/2024 7:49 AM EST - 04/30/2024 11:59 PM EST Hospital Encounter [facility] Ortho Xray [address] [place] [address] Pain Discharge Disposition: Home or Self Care Social [...] or Self Care documented in this encounter Plan of Treatment Upcoming Encounters Date Type Department Care Team (Late st Contact Info) Description 05/29/2024 9:00 AM EST Appointment [facility] Infusion Center [address] [phone] 06/12/2024 9:45 AM EST Office Visit [facility] Hematology Oncology [address] [place] [phone] Albert Mg MD 271 [place] [phone] 10/01/2024 1:45 PM EDT Office Visit Orthopedic Surgery - [place] 175 [facility] 140 [place] [phone] Noemi Jones PA 174 [facility] [address] [place] [phone] 11/16/2024 3:30 PM EDT Office Visit Adult Medicine [facility] [address] [place] [address] Justin Larose MD [address] [place] [phone] documented as of this encounter Procedures Procedure Name Priority Date/Time Associated Diagnosis Comments XR SHOULDER 2+ VIEWS LEFT Routine 04/30/2024 9:24 AM EST Pain documented in this encounter Results * XR Shoulder 2+ Views Left (04/30/2024 9:24 AM EST) Narrative RIS PACS/VR - 04/30/2024 9:24 AM EST This order has been auto-finalized and does not contain a result. Nehemias Ordoñez MD IMG XR PROCEDURES RIS PACS/VR documented in this encounter Visit Diagnoses Diagnosis Pain Generalized pain documented in this encounter Care Teams Airport Operations Manager Relationship Specialty Start Date End Date Justin Larose MD [address] [place] [phone] PCP - General Internal Medicine 02/28/24 Inés Alexander MD, PhD [address] [place] [address] Consulting Physician Hematology and Oncology 04/25/23 documented as of this encounter
--- OUTSIDE RECORDS SUMMARY | 2024-05-24 17:48 | XMS_ITS | Encounter Summary ---
Author Organization [facility] Address [address] [place] [address] Care Team Providers Care Project Controls Specialist Name Role Phone Justin Larose MD Primary Care Provider [phone] Reason for Visit * Reason Onset Date Comments faxed order 04/01/2024 [employer] order #[id number] Encounter Details Date Type Department Care Team ([facility] st Contact Info) Description 04/01/2024 Telephone Adult Medicine [address] [phone] Giovana Barroso [place] faxed order ([facility] order #[id number]) Social History Tobacco Use Types Packs/Day Years [...] Progress Notes * Giovana Barroso MA - 04/01/2024 9:03 PM EST Received orders from [facility] order #[id number]. Please sign and fax to [phone] documented in this encounter Plan of Treatment Upcoming Encounters Date Type Department Care Team (Late st Contact Info) Description 05/29/2024 9:00 AM EST Appointment [facility] Infusion Center 271 [facility] 2nd [place] [phone] 06/12/2024 9:45 AM EST Office Visit [facility] Hematology Oncology [address] [place] [phone] Albert Mg MD 271 [place] [phone] 10/01/2024 1:45 PM EDT Office Visit Orthopedic Surgery [facility] [address] [phone] Noemi Jones PA [address] [phone] 11/16/2024 3:30 PM EDT Office Visit Adult [facility] [address] [place] [phone] Justin Larose MD [address] [place] [address] documented as of this encounter Visit Diagnoses Not on filedocumented in this encounter Additional Health Concerns Infection Onset Date Last Indicated Resolved Time Respiratory Rule-Out 04/10/2024 04/10/2024 024 10:55 AM EST COVID-19 Rule-Out 04/10/2024 04/10/2024 04/10/2024 10:55 AM EST documented as of this encounter Care Teams Project Controls Specialist Relationship Specialty Start Date End Date Justin Larose MD [address] [place] [address] PCP - General Internal Medicine 11/5/24 Inés Alexander MD, PhD [address] [place] [address] Consulting Physician Hematology and Oncology 04/25/23 documented as of this encounter
--- OUTSIDE RECORDS SUMMARY | 2024-05-24 17:48 | XMS_ITS | Encounter Summary ---
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) Myelodysplasia (myelodysplastic syndrome) ([facility]/HCC) Albert Mg MD [address] [place] [phone] [facility] Infusion Center [address] [place] [phone] Referral ID Status Reason Start Date Expiration Date V isits Requested Visits Authorized [id number] Pending Review 02/27/2024 02/26/2025 1 1 Encounter Details Date Type Department Care Team (Latest Contact Info) Description 05/17/2024 9:30 AM EST - 05/17/2024 11:59 PM EST Hospital Encounter [facility] Infusion Center [address] [place] [phone] Albert Mg MD [address] [place] [address] 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 ([facility]/HCC) (Primary Dx); Myelodysplasia (myelodysplastic syndrome) ([facility]) Discharge Disposition: Home or Self Care Social [...] Sign Reading Time Taken Comments Blood Pressure 115/55 05/17/2024 1:29 PM EST Pulse 78 05/17/2024 1:29 PM EST Temperature 37 ??C (98.6 ??F) 05/17/2024 1:29 PM EST Respiratory Rate 18 05/17/2024 1:29 PM EST Oxygen Saturation 100% 05/17/2024 1:29 PM EST 1LNC Inhaled Oxygen Concentration - - Weight 55.7 kg (122 lb 12.8 oz) 05/17/2024 9:48 AM EST Height - - Body Mass Index 19.23 05/11/2024 2:10 PM EST documented in this [...] documented in this encounter Progress Notes * Lauren Leiva RN - 05/17/2024 9:30 AM EST Pt arrives for second unit of blood this week due to fluid overload prevention. Pt to receive lasix 20mg with transfusion today per epic plan. Pt will see Dr Gurrola next week with stat labs and treatment. Pt reports stable assessment. Wears 1L NC and denies any issues. Portacath accessed and blood bank notified to release 1 unit PRBC. 1215- Pt resting, enjoying lunch. Blood infusing. at side. Dneies any issues. 1350- Pt completed infusion without issue. Lasix given as ordered and pt up to void prior to discharge. documented in this encounter Plan of Treatment Upcoming Encounters Date Type Department Care Team (Late st Contact Info) Description 05/29/2024 9:00 AM EST Appointment [facility] Infusion Center [address] [facility] 2nd [place] [phone] 06/12/2024 9:45 AM EST Office Visit [facility] Hematology Oncology [address] [place] [phone] Albert Mg MD 271 [place] [phone] 10/01/2024 1:45 PM EDT Office Visit Orthopedic Surgery [facility] [address] [phone] Noemi Jones PA [address] [phone] 11/16/2024 3:30 PM EDT Office Visit Adult [facility] 444 [place] [address] Justin Larose MD [address] [place] [address] documented as of this encounter Procedures Procedure Name Priority Date/Time Associated Diagnosis Comments TRANSFUSE RED BLOOD CELLS Routine 05/17/2024 10:55 AM EST 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) Myelodysplasia (myelodysplastic syndrome) ([facility]/HCC) PREPARE RBC Routine 05/17/2024 10:45 AM EST 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 ([facility]/HCC) Myelodysplasia (myelodysplastic syndrome) ([facility]/HCC) documented in this encounter Results * Transfuse RBC (05/17/2024 1:33 PM EST) Kim Tony DO BLOOD TRANSFU RUPAL ORDERABLES * Transfuse RBC: 1 Units (05/17/2024 1:33 PM EST) Kim Tony DO BLOOD TRANSFU RUPAL ORDERABLES * Prepare RBC: 1 Units (05/17/2024 10:45 AM EST) Product Code [id number] 05/17/2024 10:57 AM EST [facility] Unit Number [id number] 05/17/19 10:57 AM EST [facility] Crossmatch Compatible 05/17/2024 10:46 AM EST [facility] Dispense Status Transfused 05/17/2024 10:57 AM [facility] Unit ABO Rh ANEG 05/17/2024 10:57 AM [facility] Unit Expiration Date Time 05/17/2024 10:57 AM [facility] Unit Blood Type 0600 05/17/2024 10:57 AM [facility] Blood Venous blood specimen / Unknown 05/17/2024 10:45 AM EST 05/15/2024 10:33 AM EST Kim Tony DO BLOOD BANK GA ODUCT ORDERABLES [facility] [address] [place] [address], documented in this encounter Visit Diagnoses Diagnosis 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 Given 05/17/2024 1:31 PM EST 20 mg documented in this encounter Orders Medications Ordered That Juan Carlos ht Not Have Been Administered Count Last Ordered Date First Ordered Date furosemide (LASIX) injection 20 mg 1 2024 Nursing Count Last Ordered Date First Orde red Date ONC NURSING COMMUNICATION 5 1 05/17/2024 documented in this encounter Care Teams Manager Project Management Relationship Specialty Start Date End Date Justin Larose MD [address] [place] [address] PCP - General Internal Medicine 02/28/24 Inés Alexander MD, PhD [address] [place] [address] Consulting Physician Hematology and Oncology 04/25/23 documented as of this encounter
--- OUTSIDE RECORDS SUMMARY | 2024-05-24 17:48 | XMS_ITS | Encounter Summary ---
Author Organization [facility] Address [address] [place] [address] Care Team Providers Care Director Of Revenue Name Role Phone Justin Larose MD Primary Care Provider [phone] Reason for Visit * Reason Onset Date Comments faxed order 05/07/2024 [facility] [facility] order #[id number], Encounter Details Date Type Department Care Team (Late st Contact Info) Description 05/07/2024 Telephone Adult Medicine [address] [phone] Giovana Barroso [place] faxed order ([facility] order #[id number], ) Social History Tobacco Use Types Packs/Day Years [...] Notes * Giovana Barroso MA - 05/07/2024 9:54 AM EST Received orders from [facility] [employer] order #[id number]. Please sign and fax to [phone] documented in this encounter Plan of Treatment Upcoming Encounters Date Type Department Care Team (Late st Contact Info) Description 05/29/2024 9:00 AM EST Appointment [facility] Infusion Center 271 [facility] 2nd [place] [phone] 06/12/2024 9:45 AM EST Office Visit [facility] Hematology Oncology 271 [place] [phone] Albert Mg MD 271 [place] [phone] 10/01/2024 1:45 PM EDT Office Visit Orthopedic Surgery - [place] [address] [phone] Noemi Jones PA [address] [phone] 11/16/2024 3:30 PM EDT Office Visit Adult [address] [phone] Justin Larose MD [address] [place] [phone] documented as of this encounter Visit Diagnoses Not on filedocumented in this encounter Care Teams Director Of Revenue Relationship Specialty Start Date End Date Justin Larose MD [address] [place] [phone] PCP - General Internal Medicine 02/28/24 Inés Alexander MD, PhD [address] [place] [address] Consulting Physician Hematology and Oncology 04/25/23 documented as of this encounter
--- OUTSIDE RECORDS SUMMARY | 2024-05-24 17:48 | XMS_ITS | Encounter Summary ---
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) (Primary Dx); Hodgkin's lymphoma of bone marrow (CMS/HCC); Symptomatic anemia; Supraclavicular lymphadenopathy; Pneumonitis; Acute respiratory failure with hypoxia (CMS/HCC) Social History Tobacco Use Types Packs/Day Years [...] Sign Reading Time Taken Comments Blood Pressure 118/58 05/22/2024 9:31 AM EST Pulse 75 05/22/2024 9:31 AM EST Temperature 36.7 ??C (98.1 ??F) 05/22/2024 9:31 AM ES T Respiratory Rate - - Oxygen Saturation 100% 05/22/2024 9:31 AM EST Inhaled Oxygen Concentration - - Weight 57.8 kg (127 lb 6.4 oz) 05/22/2024 9:31 A M EST Height - - Body Mass Index 19.95 05/11/2024 2:10 PM EST documented in this [...] as of this encounter Progress Notes * Albert Mg MD - 05/22/2024 9:30 AM EST Decrease prednisone to 20 mg daily to Tuesday, continue for 2 weeks thereafter 10 Mg daily x 2 to 3 weeks * Albert Mg MD - 05/22/2024 9:30 AM EST CHIEF COMPLAINT: No chief complaint on file. Hodgkin Lymphoma Stage IV disease - B , weight loss, night sweats August 2020-- A+ AVD regimen March 2023-pembrolizumab for recurrent disease June 2023-Retacrit for anemia; then Lustapercept, then stopped IDENTIFIER:Lynn Reilly is a 74 y.o. female. HPI: The patient returns for follow up of recurrent/progressive Hodgkin lymphoma And new problem-acute hypoxic respiratory failure suspected pneumonitis Enrique For details of initial diagnosis and follow up until FEB 24, 2024- please refer to notes from prior [facility] EMR last note dated 01/26/24 The patient returns for recurrent malignancy-now diagnosed as Hodgkin Lymphoma with bone marrow involvement , Stage IV, with isk factors, low serum albumin, anemia, stage IV disease and older age, therefore 4/7 IPS score. She has completed 6 cycles of brentuximab plus AVD regimen, in July 2020; thereafter developed subcarinal lymph node that was biopsied in September 2020-benign Patient developed widespread recurrence about 2.5 years after clinical surveillance, biopsy-proven right supraclavicular lymph node with recurrence , patient had a second opinion evaluation with Dr. Marsh at [facility]. Recommendation was to initiate pembrolizumab. She completed 13 cycles of the medication However discontinued due to pneumonitis currently on prednisone taper with significant improvement in hypoxia symptoms Prednisone 30 mg daily, will complete 2 weeks by this Tuesday and thereafter will switch to 20 mg daily Systemic therapy-she is on gemcitabine, tolerated first cycle x 2 treatments quite well Today she is ambulating using a rolling walker. No longer using the wheelchair. Weight gain noted. Denies any nausea. Remains more active at home. Has not used antianxiety medication for the last week is tapering the oxygenation, currently on 1 L, planning to cut back to 0.5 L. She also has a second opinion evaluation pulmonology at [place]-Dr. Feliciano The following is copied, reviewed and edited Cancer Staging No matching staging information was found for the patient. 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) 03/08/2024 - 04/03/2024 Chemotherapy alteplase (CATHFLO ACTIVASE) injection 2 mg, 2 mg, intra-catheter, As needed, 2 of 18 cycles pembrolizumab (KEYTRUDA) 200 mg in sodium chloride 108 mL chemo IVPB, 200 mg, intravenous, Once, 2 of 18 cycles Administration: 200 mg (03/08/2024), 200 mg (04/03/2024) 05/01/2024 - Chemotherapy ondansetron (PF) (ZOFRAN) injection 8 mg, 8 mg, intravenous, Once, 2 of 6 cycles Administration: 8 mg (05/01/2024), 8 mg (05/08/2024) gemcitabine (GEMZAR) 1,600 mg in sodium chloride 292.08 mL chemo IVPB, 1,640 mg (80 % of original dose 1,250 mg/m2), intravenous, Once, 2 of 6 cycles Dose modification: 1,000 mg/m2 (80 % of original dose 1,250 mg/m2, Cycle 1, Reason: Dose Not Tolerated) Administration: 1,600 mg (05/01/2024), 1,600 mg (05/08/2024) alteplase (CATHFLO ACTIVASE) injection 2 mg, 2 mg, intra-catheter, As needed, 2 of 6 cycles Hodgkin's lymphoma of bone marrow (CMS/HCC) 01/31/2024 Initial Diagnosis Hodgkin's lymphoma of bone marrow (CMS/HCC) 03/08/2024 - 04/03/2024 Chemotherapy alteplase (CATHFLO ACTIVASE) injection 2 mg, 2 mg, intra-catheter, As needed, 2 of 18 cycles pembrolizumab (KEYTRUDA) 200 mg in sodium chloride 108 mL chemo IVPB, 200 mg, intravenous, Once, 2 of 18 cycles Administration: 200 mg (03/08/2024), 200 mg (04/03/2024) 05/01/2024 - Chemotherapy ondansetron (PF) (ZOFRAN) injection 8 mg, 8 mg, intravenous, Once, 2 of 6 cycles Administration: 8 mg (05/01/2024), 8 mg (05/08/2024) gemcitabine (GEMZAR) 1,600 mg in sodium chloride 292.08 mL chemo IVPB, 1,640 mg (80 % of original dose 1,250 mg/m2), intravenous, Once, 2 of 6 cycles Dose modification: 1,000 mg/m2 (80 % of original dose 1,250 mg/m2, Cycle 1, Reason: Dose Not Tolerated) Administration: 1,600 mg (05/01/2024), 1,600 mg (05/08/2024) alteplase (CATHFLO ACTIVASE) injection 2 mg, 2 mg, intra-catheter, As needed, 2 of 6 cycles Oncology History Overview Note 12/2019-- 69 y/o with weight loss, night sweats, fatigue and near syncope. Also progressive anemia. elevated ferritin, elevated LDH at 460, Hypercalcemia The patient received 1 unit of PRBC transfusion Imaging: Splenomegaly, extensive abdominal adenopathy, SCLN indeterminate lucent lesions in T7 and T11 vertebral bodies. 01/14/2020-- SCLN biopsy - Malignant cells-- no further characterisation PET CT scan- Abnormal FDG uptake within the spleen, multiple lymph nodes, and throughout the bone marrow 02/13-- Bone marrow biopsy -- extensive involvement - classical hodgkin Lymphoma 02/25/2020-- RP LN biopsy -- Classical Hodgkin Lymphoma, MIxed cellularity subtype . 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 CT abdomen and pelvis showed moderate splenomegaly, spleen size was not provided, and ill-defined extensive lymphadenopathy. Review of imaging with a radiologist also indicates left supraclavicular adenopathy about 1-2 cm in size. 01/31/2020 - Initial Cancer Staged PET CT scan-- Abnormal FDG uptake within the spleen, multiple lymph nodes, and throughout the bone marrow 02/14/2020 Biopsy A-C. BONE MARROW ASPIRATE, CELL BLOCK AND CORE BIOPSY: - EXTENSIVE INVOLVEMENT BY LYMPHOMA, HIGHLY SUSPICIOUS FOR CLASSICAL HODGKIN LYMPHOMA. -CONVENTIONAL CHROMOSOME ANALYSIS SHOWED A NORMAL FEMALE KARYOTYPE 02/25/2020 Biopsy LYMPH NODE, RETROPERITONEAL, CORE BIOPSY: - CLASSICAL HODGKIN LYMPHOMA, FAVOR MIXED CELLULARITY SUBTYPE. In situ hybridization for Ezekiel-Leon virus encoded RNA (GIL) is negative. 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 IMPRESSION: Abnormal recurrent metabolically active thoracic lymph nodes when compared to 01/31/2020 must be considered neoplastic (lymphoma) until proven othe rwise. 12/25/[address] scan Positive response to therapy with decreased size and FDG uptake within small mediastinal lymph nodes as above. 04/07/2023 - Chemotherapy [facility] BCN OP PEMBROLIZUMAB (200 MG) Plan Provider: Albert Gurrola MD Treatment goal: Palliative Line of treatment: Second Line The following is copied, reviewed and edited 01/14 -- Hospitalisation The patient is a 69-year-old lady, who was admitted via the Emergency Room, after she presented with an episode of fatigue and near syncope. The patient had evaluation at her PCP office, and was found to have gradually progressive anemia. Her hemoglobin in 10/2018 was 12.4, and more recently on 01/10/2020, she had a hemoglobin of 7.7. Further workup revealed elevated ferritin, consistent with anemia of inflammation. This was rechecked when she came to the hospital showing a ferritin of 1059. She also had an elevated LDH at 460, B12 and folate were normal. The patient received 1 unit of PRBC transfusion; however, reports persistent fatigue. She also reports new onset leg edema and weight loss approximately 12 pounds over the last few weeks. Familial stressors, the patient's is also undergoing workup for possible abnormal cytology of urine and cardiac issues. The patient had imaging studies in the ER with a CT scan of the chest, and abdomen and pelvis, that demonstrated no pulmonary thromboembolism, trace bilateral effusions and indeterminate lucent lesions in T7 and T11 vertebral bodies. CT abdomen and pelvis showed moderate splenomegaly, spleen size was not provided, and ill-defined extensive lymphadenopathy. Review of imaging with a radiologist also indicates left supraclavicular adenopathy about 1-2 cm in size. PLAN -- A 69-year-old lady with anemia of inflammation with elevated ferritin, elevated LDH, who was found to have extensive retroperitoneal and abdominal lymphadenopathy, as well as supraclavicular lymphadenopathy on imaging. I reviewed the imaging studies with the interventional radiologist. These skeletal lesions appear to be quite mild, there is no soft tissue mass associated with the T7 or T11 area. After review, I recommend obtaining a biopsy of the supraclavicular lymph node on the left side, a core biopsy is requested. 1. Hypercalcemia, with low PTH, likely related to malignancy as well. 2. Anemia of inflammation, the patient continues to be quite fatigued despite 03/2024- She had restaging PET CT scan in February. This showed disease progression. Unfortunately over the next 2 weeks he also became more dyspneic and hypoxic. She was admitted with acute respiratory failure. She continues on 2.5 to 4 L of oxygen with saturations in the high 80s to 90s. She has lost someweight. Patient is feeling more fatigued. reports that he is also will be needing to give her more of the anxiety medication. During hospitalization she was followed by Dr. Paul, who performed bronchoscopy, cultures, and a biopsy of the lung. Biopsy of the lung revealed benign tissue. Therewas no clear evidence of drug- induced pneumonitis as suspected, possibly pembrolizumab contributingto her acute hypoxic failure. Patient came back to infusion room and had a further dose of Keytrudaon 04/03/2024. She returns for follow-up. Feels that her breathing has worsened a little. She requests a second opinion pulmonology. She will also need a further discussion with Dr. Marsh regarding changing treatment as she appears to have progressive disease and also intolerance to Keytruda. She may be able to tolerate single agent such as gemcitabine, will discuss 04/2024- Update-since last clinic visit, patient received 1 more dose of pembrolizumab, last treatment on 04/03/2024. Since then she had progressive dyspnea and weakness and was admitted to hospital on 04/10/2024. Shewas placed on high flow oxygen due to hypoxia issues. 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 She was started on high-dose Solu- Medrol injections, as well as antibiotics to cover possible underlying pneumonia. After 2 days she had significant improvement with the steroids antibiotics were discontinued. She was transitioned to prednisone 60 mg daily that she continues now. She has been placed on pantoprazole. Further discussion with the patient and family regarding further steps in treatment could involve a regimen such as gemcitabine/oxaliplatin however she has severe neuropathy t herefore would start with gemcitabine alone. At her request we will also involve Dr. Alexander at [facility],who has evaluated patient before. Today she comes in for follow-up. She is on 2 L of oxygen, oxygen saturation is consistently in the95 to 99% range. She may be able to wean off oxygen in the next 2 weeks. By this Tuesday she wouldhave completed 2 weeks on full dose prednisone and thereafter will reduce to 40 mg x 2 weeks and after that at back by 10 mg each week. She agrees ROS: GENERAL: No malaise, significant weight loss or fever NECK: No lumps, goiter, pain or significant neck swelling RESPIRATORY: No cough, wheezing or shortness of breath CARDIOVASCULAR: No chest pain, leg swelling or palpitations GI: No abdominal discomfort, blood in stools or black stools MUSCULOSKELETAL: No joint pain or swelling, back pain, or muscle pain. 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 ([facility]/HCC) 02/28/2020 Hypercalcemia 01/21/2020 Lymphadenopathy, generalized 01/21/2020 Hypercholesterolemia 08/27/2016 Hypothyroidism 11/07/2023 Symptomatic anemia 01/30/2020 Hodgkin's lymphoma of bone marrow ([facility]/HCC) 01/31/2024 Migraine with aura and without status migrainosus, not intractable 02/23/2017 Osteopenia 08/27/2016 Primary osteoarthritis of both knees 02/23/2021 Hearing loss of both ears 08/27/2016 History of left mastectomy 08/27/2016 Other fatigue 01/30/2020 Hungry bone syndrome 03/06/2024 Hypothyroidism due to medication 03/07/2024 Hypoxia 03/15/2024 Acute respiratory failure with hypoxia ([facility]/HCC) 03/15/2024 Acute CHF ([facility]/HCC) 03/15/2024 Acute hypoxemic respiratory failure ([facility]/HCC) 03/15/2024 Supraclavicular lymphadenopathy 02/14/2023 Splenomegaly 01/21/2020 Shortness of breath 04/28/2023 Night sweats 02/28/2020 Nausea 05/05/2020 Drug-induced peripheral neuropathy ([facility]/HCC) 04/08/2020 Dizzy spells 07/30/2021 Diarrhea due to drug 2020 Acute left-sided low back pain without sciatica 07/30/2021 Acute cystitis without hematuria 05/19/2020 Pneumonitis 04/13/2024 Resolved Ambulatory Problems Diagnosis Date Noted Anemia complicating neoplastic disease 01/11/2020 Pneumonia of both lungs due to infectious organism 03/15/2024 Past Medical History: Diagnosis Date Anemia Arthritis Breast cancer (CMS/HCC) History of breast cancer 08/27/2016 History of vitamin D deficiency 08/27/2016 Hodgkin's lymphoma ([facility]) Hypokalemia Migraine SOCIAL HISTORY: Social History Tobacco Use Smoking status: Never Smokeless tobacco: Never Substance Use Topics Alcohol use: Not Currently FAMILY HISTORY: Family History Problem Relation Name Age of Onset Breast cancer Mother 70.00 at 78 of mets, Arthritis Other (Other: Heart Disease) Father at 78 Other cancer Maternal Grandmother 69.00 stomach CA Other (Other: Other) Paternal Grandmother in her 90s Other cancer Aunt 72.00 pancreatic, maternal aunt Other (Other: pancreatic cancer) Aunt Arthritis Other (Other: pancreatic cancer) Uncle 58.00 maternal aunt Current Outpatient Medications: acetaminophen (TYLENOL 8 HOUR) 650 mg 8 hr tablet, Take 1 tablet (650 mg total) by mouth 2 (two) times a day., Disp: , Rfl: gabapentin (NEURONTIN) 300 mg capsule, Take 1 capsule (300 mg total) by mouth at bedtime., Disp: , Rfl: levothyroxine (SYNTHROID, LEVOTHROID) 50 mcg tablet, Take 25 mcg by mouth., Disp: , Rfl: pantoprazole (PROTONIX) 40 mg EC tablet, Take 1 tablet (40 mg total) by mouth 1 (one) time each daybefore breakfast. Do not crush, chew, or split., Disp: 30 each, Rfl: 1 predniSONE (DELTASONE) 20 mg tablet, Take 2 tablets (40 mg total) by mouth 1 (one) time each day. (Patient taking differently: Take 1.5 tablets (30 mg total) by mouth 1 (one) time each day.), Disp: 60 tablet, Rfl: 0 pregabalin (LYRICA) 50 mg capsule, Take 1 capsule (50 mg total) by mouth at bedtime., Disp: , Rfl: sertraline (ZOLOFT) 100 mg tablet, Take 1 tablet (100 mg total) by mouth 1 (one) time each day., Disp: , Rfl: No current facility-administered medications for this visit. Facility-Administered Medications Ordered in Other Visits: gemcitabine (GEMZAR) 1,600 mg in sodium chloride 292.08 mL chemo IVPB, 1,600 mg, intravenous, Once,Subramony Subramnabila-MD Izabela No Known Allergies PHYSICAL EXAM: Visit Vitals BP 118/58 (BP Location: Right arm, Patient Position: Sitting, BP Cuff Size: Small adult) Pulse 75 Temp 36.7 ??C (98.1 ??F) (Temporal) Wt 57.8 kg (127 lb 6.4 oz) SpO2 100% BMI 19.95 kg/m?? Smoking Status Never BSA 1.67 m?? APPEARANCE: Alert and in no acute distress Fatigued and anxious Hypoxic, oxygen on flow 2.5 L/min EYES: PERRL, conjunctiva pink and sclera are Normal without icterus ORAL CAVITY: No erythema or exudates NECK: Neck supple, no adenopathy, HEART: RRR with normal S1 and S2, no murmurs, no gallops, no JVD appreciated LUNG: clear to auscultation bilaterally Percussion note normal LYMPH NODES: No palpable superficial adenopathy ABDOMEN: Bowel sounds normoactive, no bruits, soft, non-tender, without organomegaly or palpable masses EXTREMITIES: Extremities warm and well perfused without clubbing, cyanosis, rash or edema NEURO: Oriented X 3, no focal weakness; sensation is normal In a wheelchair LABS: Review of Lab results , interpreted Lab Results Component Value Date WBC 4.0 (L) 05/22/2024 HGB 9.6 (L) 05/22/2024 HCT 29.7 (L) 05/22/2024 MCV 95.5 05/22/2024 PLT 312 05/22/2024 Lab Results Component Value Date NA 140 05/22/2024 K 4.1 05/22/2024 CL 104 05/22/2024 CO2 32 05/22/2024 GLUCOSE 101 (H) 05/22/2024 BUN 19 05/22/2024 CREATININE 0.68 05/22/2024 CALCIUM 9.1 05/22/2024 PROT 5.6 (L) 05/22/2024 ALBUMIN 3.6 05/22/2024 BILITOT 1.3 05/22/2024 AST 12 05/22/2024 ALT 22 05/22/2024 PHOS 2.6 04/16/2024 MG 2.3 04/16/2024 ALKPHOS 57 05/22/2024 EGFR 92 05/22/2024 Review of Imaging, interpreted XR Shoulder 2+ Views Left This order has been auto-finalized and does not contain a result. Review of External Documentation Tests ordered - IMPRESSION: 1. 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 Hodgkin's lymphoma of bone marrow (CMS/HCC) 3. Symptomatic anemia 4. Supraclavicular lymphadenopathy 5. Pneumonitis 6. Acute respiratory failure with hypoxia (CMS/HCC) PLAN: 74-year-old lady, ECOG 1 Limited by knee joint arthritis Recurrent Hodgkin lymphoma, mixed cellularity recurrence at 2.5 years after initial therapy with A-AVD regimen #1 Hodgkin lymphoma, mixed cellularity subtype, initial diagnosis in 12/2019, diagnosis after several biopsies, At the time of diagnosis-70 yo female, ECOG 1, with B symptoms, and high risk Stage IV B disease on A + AVD regimen -- Discussed about 80 -85% chance of cure with this regimen 6 cycles were recommended she completed treatment in July 2020. She had dose reduction of brentuximab for the last 2 cycles, due to peripheral neuropathy. 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 On prednisone 60 mg daily, written instructions for taper provided, will plan to wean off in the next 6-8 weeks #3 anemia of neoplastic disease recurrence, increasing transfusion requirements Bone marrow aspiration/biopsy completed, reviewed results in detail with him, likely secondary fibrosis, prior involvement with Hodgkin disease 90% cellularity Likely underlying myelodysplasia, erythroid hyper maturation Appears to have improved significantly with steroids, may plan to maintain on a small dose of prednisone 5 to 10 mg daily Patient has failed Retacrit and Lustapercept #4 peripheral neuropathy --continue gabapentin at nighttime # 5-second opinion evaluation at [facility], since she has had disease progression in the PET CT scan, question of further systemic chemotherapy such as gemcitabine/oxaliplatin However dosing may be limited due to her pre-existing neuropathy after brentuximab #6 fluid overload-plan to continue IV Lasix after each PRBC transfusion, she is off oral Lasix Monitor closely for dyspnea palpitations etc. #9 continue pantoprazole while on prednisone and for 2 to 4 weeks thereafter #7 anxiety-worsening, continues on on Zoloft 100 Mg, and Had to resume lorazepam after about 8 weeks, okay to use 2-3 times a day as needed #8 debility-may benefit from physical therapy/Occupational Therapy via [facility], will await patient's decision whether she wants to go through therapy Follow-up in 3 weeks, and sooner if new issues arise Pain Control--no issues Health Care Proxy--her Jose L Albert Mg MD Cc Justin Larose MD Cc TAWNYA FELICIANO -pulmonology, [place] Cc LISA ALEXANDER - [facility] documented in this encounter Plan of Treatment Upcoming Encounters Date Type Department Care Team (Late st Contact Info) Description 05/29/2024 9:00 AM EST Appointment [facility] [address] [place] [phone] 06/12/2024 9:45 AM EST Office Visit [facility] Hematology Oncology [address] [place] [phone] Albert Mg MD [address] [place] [phone] 10/01/2024 1:45 PM EDT Office Visit Orthopedic Surgery [facility] [address] [phone] Noemi Jones PA [address] [phone] 11/16/2024 3:30 PM EDT Office Visit Adult Medicine [address] [phone] Justin Larose MD [address] [place] [phone] documented as of this encounter Visit Diagnoses Diagnosis 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
--- OUTSIDE RECORDS SUMMARY | 2024-05-24 17:48 | XMS_ITS | Encounter Summary ---
Author Organization [facility] Address [address] [place] [address] Care Team Providers Care Ingredient Scaler Name Role Phone Justin Larose MD Primary Care Provider [phone] Encounter Details Date Type Department Care Team (Latest Contact Info) Description 04/26/2024 9:45 AM EST - 04/26/2024 11:59 PM EST Hospital Encounter [facility] [address] [facility] 2nd [place] [address] Myelodysplasia (myelodysplastic syndrome) (CMS/HCC) (Primary Dx); Hodgkin's lymphoma of bone marrow (CMS/HCC) Discharge [...] documented in this encounter Progress Notes * Nedra Cazares RN - 04/26/2024 9:45 AM EST Pt arrived with her for stat check of hgb to determine need for transfusion. Ricardo cath accessed , lab drawn - pt wearing current type & crossmatch bracelet. Port then flushed , clamped and capped. Pt and her to office for visit with . Pt returns with after visit. Labs resulted - hgb = 8.2. pt would like to wait and be rechecked on 05/01 . made aware , okay to do so . Pt will also be starting gemzar ( pending auth ) . CMP drawn in preparation for possible start on 05/01. Ricardo cath deaccessed per protocol. Pt tolerated well. Pt discharged via wheelchair. documented in this encounter Plan of Treatment Upcoming Encounters Date Type Department Care Team (Late st Contact Info) Description 05/29/2024 9:00 AM EST Appointment [facility] [address] [facility] 2[address] [place] [phone] 06/12/2024 9:45 AM EST Office Visit [facility] Hematology Oncology [address] [place] [phone] Albert Mg MD [address] [place] [phone] 10/01/2024 1:45 PM EDT Office Visit Orthopedic Surgery [facility] [address] [phone] Noemi Jones PA [address] [place] [address] [phone] 11/16/2024 3:30 PM EDT Office Visit Adult Medicine [facility] [address] [place] [phone] Justin Larose MD [address] [place] [address] documented as of this encounter Procedures Procedure Name Priority Date/Time Associated Diagnosis Comments COMPREHENSIVE METABOLIC PANEL Routine 04/26/2024 11:42 AM EST Hodgkin's lymphoma of bone marrow (CMS/HCC) Myelodysplasia (myelodysplastic syndrome) (CMS/HCC) CBC WITH AUTO DIFFERENTIAL STAT 04/26/2024 10:29 AM EST Hodgkin's lymphoma of bone marrow (CMS/HCC) CBC AND DIFFERENTIAL STAT 04/26/2024 10:29 AM EST Hodgkin's lymphoma of bone marrow (CMS/HCC) documented in this encounter Results * (ABNORMAL) Comprehensive metabolic panel (04/26/2024 11:42 AM EST) Pathologist [facility] Sodium 141 133 - 145 mmol/L LAB CHEMISTRY METHOD 04/26/2024 2:49 PM [facility] Potassium 3.9 3.5 - 5.5 mmol/L LAB CHEMISTRY METHOD 04/26/2024 2:49 PM [facility] Chloride 102 96 - 110 mmol/L LAB CHEMISTRY METHOD 04/26/2024 2:49 PM [facility] CO2 32 21 - 32 mmol/L LAB CHEMISTRY METHOD 04/26/2024 2:49 PM [facility] Anion Gap 7 3 - 11 LAB CHEMISTRY METHOD 04/26/2024 2:49 PM [facility] Glucose 76 70 - 100 mg/dL LAB CHEMISTRY METHOD 04/26/2024 2:49 PM [facility] BUN 21 5 - 25 mg/dL LAB CHEMISTRY METHOD 04/26/2024 2:49 PM [facility] Creatinine 0.62 0.50 - 1.10 mg/dL LAB CHEMISTRY METHOD 04/26/2024 2:49 PM [facility] eGFR 94 >=60 mL/min/1. 73m2 LAB CHEMISTRY METHOD 04/26/2024 2:49 PM [facility] Comment:Calculation based on the??Chronic Kidney Disease Epidemiology Collaboration (CKD-EPI) equation refit??without adjustment for race. BUN/Creatinine Ratio 33.9 LAB CHEMISTRY METHOD 04/26/2024 2:49 PM [facility] Calcium 8.8 8.5 - 10.5 mg/dL LAB CHEMISTRY METHOD 04/26/2024 2:49 PM [facility] AST (SGOT) 28 10 - 42 unit/L LAB CHEMISTRY METHOD 04/26/2024 2:49 PM [facility] ALT (SGPT) 59 10 - 60 unit/L LAB CHEMISTRY METHOD 04/26/2024 2:49 PM [facility] Alkaline Phosphatase 74 42 - 121 unit/L LAB CHEMISTRY METHOD 04/26/2024 2:49 PM [facility] Total Protein 5.2(L) 6.0 - 8.0 g/dL LAB CHEMISTRY METHOD 04/26/2024 2:49 PM [facility] Albumin 3.3 3.2 - 5.0 g/dL LAB CHEMISTRY METHOD 04/26/2024 2:49 PM [facility] Total Bilirubin 1.1 0.0 - 1.4 mg/dL LAB CHEMISTRY METHOD 04/26/2024 2:49 PM [facility] Blood Blood sample taken from central line / Unknown Existing Catheter / Unknown 04/26/2024 11:42 AM EST 04/26/2024 1:57 PM EST Subramrosalind Mg MD LAB BLOOD O RDERABLES Performing Organization Address City/State/[facility] Co de Phone Number [facility] [address] [place] [address], * (ABNORMAL) CBC auto differential (04/26/2024 10:29 AM EST) WBC 14.1(H) 4.8 - 10.8 K/mcL LAB HEMETOLOGY METHOD 04/26/2024 10:50 AM [facility] RBC 2.90(L) 3.80 - 4.80 M/mcL LAB HEMETOLOGY METHOD 04/26/2024 10:50 AM [facility] Hemoglobin 8.2(L) 11.5 - 16.0 g/dL LAB HEMETOLOGY METHOD 04/26/2024 10:50 AM [facility] Hematocrit 25.5(L) 35.0 - 47.0 % LAB HEMETOLOGY METHOD 04/26/2024 10:50 AM [facility] MCV 89.5 79.0 - 98.0 FL LAB HEMETOLOGY METHOD 04/26/2024 10:50 AM [facility] MCH 28.8 27.0 - 32.0 pcg LAB HEMETOLOGY METHOD 04/26/2024 10:50 AM [facility] MCHC 32.2 32.0 - 37.0 g/dL LAB HEMETOLOGY METHOD 04/26/2024 10:50 AM [facility] RDW 14.6 11.0 - 15.0 % LAB HEMETOLOGY METHOD 04/26/2024 10:50 AM [facility] Platelets 271 130 - 400 K/mcL LAB HEMETOLOGY METHOD 04/26/2024 10:50 AM [facility] MPV 10.1 7.0 - 11.0 FL LAB HEMETOLOGY METHOD 04/26/2024 10:50 AM [facility] NRBC 0.3 <1.0 % LAB HEMETOLOGY METHOD 04/26/2024 10:50 AM [facility] NRBC Absolute 0.04 <0.10 K/mcL LAB HEMETOLOGY METHOD 04/26/2024 10:50 AM [facility] Neutrophils Relative 81.1 % LAB HEMETOLOGY METHOD 04/26/2024 10:50 AM [facility] Lymphocytes Relative 10.7 % LAB HEMETOLOGY METHOD 04/26/2024 10:50 AM [facility] Monocytes Relative 3.8 % LAB HEMETOLOGY METHOD 04/26/2024 10:50 AM EST [facility] Eosinophils Relative 0.1 % LAB HEMETOLOGY METHOD 04/26/2024 10:50 AM EST [facility] Basophils Relative 0.1 % LAB HEMETOLOGY METHOD 04/26/2024 10:50 AM [facility] Immature Granulocytes Relative 4.2 % LAB HEMETOLOGY METHOD 04/26/2024 10:50 AM EST [facility] Neutrophils Absolute 11.47(H) 1.50 - 7.00 K/mcL LAB HEMETOLOGY METHOD 04/26/2024 10:50 AM EST [facility] Lymphocytes Absolute 1.51 1.00 - 5.00 K/mcL LAB HEMETOLOGY METHOD 04/26/2024 10:50 AM EST [facility] Monocytes Absolute 0.53 0.20 - 1.00 K/mcL LAB HEMETOLOGY METHOD 04/26/2024 10:50 AM EST [facility] Eosinophils Absolute 0.01 0.00 - 0.50 K/mcL LAB HEMETOLOGY METHOD 04/26/2024 10:50 AM EST [facility] Basophils Absolute 0.02 0.00 - 0.20 K/mcL LAB HEMETOLOGY METHOD 04/26/2024 10:50 AM EST [facility] Immature Granulocytes Absolute 0.59(H) 0.00 - 0.03 K/mcL LAB HEMETOLOGY METHOD 04/26/2024 10:50 AM EST [facility] Blood Blood sample taken from central line / Unknown Existing Catheter / Unknown 04/26/2024 10:29 AM EST 04/26/2024 10:41 AM EST Albert Mg MD LAB BLOOD O RDERABLES [facility] [address] [place] [address], documented in this encounter Visit Diagnoses Diagnosis Myelodysplasia (myelodysplastic syndrome) (CMS/HCC)- Primary Myelodysplastic syndrome, unspecified Hodgkin's lymphoma of bone marrow (CMS/HCC) documented in this encounter Care Teams Ingredient Scaler Relationship Specialty Start Date End Date Justin Larose MD [address] [place] [id number] PCP - General Internal Medicine 02/28/24 Inés Alexander MD, PhD [address] [place] [address] Consulting Physician Hematology and Oncology 04/25/23 documented as of this encounter
--- OUTSIDE RECORDS SUMMARY | 2024-05-24 17:48 | XMS_ITS | Encounter Summary ---
Author Organization [facility] Address [address] [place] [address] Care Team Providers Care Plastic Technician Name Role Phone Justin Larose MD Primary Care Provider [phone] Reason for Visit * Reason Onset Date Comments faxed order 04/03/2024 [facility] order #[id number] Encounter Details Date Type Department Care Team (Late st Contact Info) Description 04/03/2024 Telephone Adult Medicine [address] [phone] Giovana Barroso MA faxed order ([facility] order #[id number]) Social History Tobacco Use Types Packs/Day Years [...] Notes * Harriett Fields MA - 04/24/2024 2:02 PM EST Orders signed,faxed,confirmation received * Giovana Barroso MA - 04/03/2024 1:40 PM EST Received orders from [facility] order #[id number]. Please sign and fax to [phone] documented in this encounter Plan of Treatment Upcoming Encounters Date Type Department Care Team (Late st Contact Info) Description 05/29/2024 9:00 AM EST Appointment [facility] [address] [facility] 2nd [place] [phone] 06/12/2024 9:45 AM EST Office Visit [facility] Hematology Oncology [address] [place] [phone] Albert Mg MD [address] [place] [phone] 10/01/2024 1:45 PM EDT Office Visit Orthopedic Surgery [facility] [address] [phone] Noemi Jones PA [address] [phone] 11/16/2024 3:30 PM EDT Office Visit Adult Medicine [address] [phone] Justin Larose MD [address] [place] [address] documented as of this encounter Visit Diagnoses Not on filedocumented in this encounter Additional Health Concerns Infection Onset Date Last Indicated Resolved Time Respiratory Rule-Out 04/10/2024 04/10/2024 024 10:55 AM EST COVID-19 Rule-Out 04/10/2024 04/10/2024 04/10/2024 10:55 AM EST documented as of this encounter Care Teams Plastic Technician Relationship Specialty Start Date End Date Justin Larose MD [address] [place] [id number] PCP - General Internal Medicine 02/28/24 Inés Alexander MD, PhD [address] [place] [address] Consulting Physician Hematology and Oncology 04/25/23 documented as of this encounter
--- OUTSIDE RECORDS SUMMARY | 2024-05-24 17:48 | XMS_ITS | Encounter Summary ---
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 ([facility]/HCC) Albert Mg MD [address] [place] [address] [facility] [address] [place] [phone] Referral ID Status Reason Start Date Expiration Date V isits Requested Visits Authorized [id number] Authorized 04/26/2024 04/26/2025 1 15 Encounter Details Date Type Department Care Team (Latest Contact Info) Description 05/01/2024 9:00 AM EST - 05/01/2024 11:59 PM EST Hospital Encounter [facility] [address] [place] [phone] Albert Mg MD [address] [place] [address] Myelodysplasia (myelodysplastic syndrome) (CMS/HCC) (Primary Dx); 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); Hodgkin's lymphoma of bone marrow (CMS/HCC) Discharge [...] Sign Reading Time Taken Comments Blood Pressure 108/66 05/01/2024 1:30 PM EST Pulse 73 05/01/2024 1:30 PM EST Temperature 37.3 ??C (99.1 ??F) 05/01/2024 1:30 PM ES T Respiratory Rate 16 05/01/2024 1:30 PM EST Oxygen Saturation 99% 05/01/2024 10:02 AM EST Inhaled Oxygen Concentration - - Weight 55 kg (121 lb 4.1 oz) 05/01/2024 10:02 AM EST Height - - Body Mass Index 18.99 04/27/2024 1:39 PM EST documented in this [...] in this encounter Progress Notes * Kae Meyer, RN - 05/01/2024 9:00 AM EST 0930- Pt arrived today via , accompanied by , for stat labs and possible transfusion and possible start of chemotherapy. Pt reports feeling well overall. Denies acute complaints or changes since last visit. expressed that O2 at rest while home has been great and he decreased from 2L to 1.5LNC. Port accessed without diff. Labs collected/sent stat. Pt resting comfortably and watching TV at this time. Call jara in reach. 1120- Labs resulted and reviewed with Dr. Gurrola. OK to proceed with Gemcitabine, which this RN confirmed authorization with Jaymie. Hgb: 7.7. Orders obtained for 1 unit PRBC per hospital protocol today. Discussed plan for today with pt and who both verbalize understanding and agree to plan. Consent obtained. Blood obtained from blood bank. Transfusion initiated. Pt resting comfortably at this time. Call estefani in reach. 1340- Blood transfusion completed without incident. VSS throughout treatment. requested thelasix be given after chemotherapy so she doesn't need to get up too many times to use the bathroom.Chemotherapy reviewed in detail. All questions addressed. Consent obtained. Chemotherapy released. Pre meds given. Pt resting comfortably at this time. Call estefani in [facility]. 1515- Gemcitabine initiated and completed without incident. Pt rested comfortably throughout treatment. Lasix given. Port flushed/deaccessed per protocol. Pt up to BR without issue. Next appt made and provided via calendar. Pt will return in 1 week for stat labs, treatment, and possible transfusion. No further questions. Pt left unit, stable at D/C. documented in this encounter Plan of Treatment Upcoming Encounters Date Type Department Care Team (Late st Contact Info) Description 05/29/2024 9:00 AM EST Appointment [facility] [address] [facility] [address] [place] [phone] 06/12/2024 9:45 AM EST Office Visit [facility] Hematology Oncology [address] [place] [phone] Albert Mg MD [address] [place] [phone] 10/01/2024 1:45 PM EDT Office Visit Orthopedic Surgery [facility] [address] [phone] Noemi Jones PA [address] [phone] 11/16/2024 3:30 PM EDT Office Visit [facility] [address] [place] [phone] Justin Larose MD [address] [place] [address] documented as of this encounter Procedures Procedure Name Priority Date/Time Associated Diagnosis Comments TRANSFUSE RED BLOOD CELLS Routine 05/01/2024 11:20 AM EST 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) Myelodysplasia (myelodysplastic syndrome) (CMS/HCC) PREPARE RBC Routine 05/01/2024 10:14 AM EST 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) Myelodysplasia (myelodysplastic syndrome) (CMS/HCC) CBC WITH AUTO DIFFERENTIAL STAT 05/01/2024 9:25 AM EST 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) Myelodysplasia (myelodysplastic syndrome) (CMS/HCC) CBC AND DIFFERENTIAL STAT 05/01/2024 9:25 AM EST 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) Myelodysplasia (myelodysplastic syndrome) (CMS/HCC) TYPE AND SCREEN STAT 05/01/2024 9:25 AM EST 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) Myelodysplasia (myelodysplastic syndrome) (CMS/HCC) COMPREHENSIVE METABOLIC PANEL Routine 05/01/2024 9:25 AM EST 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) documented in this encounter Results * Transfuse RBC (05/01/2024 1:34 PM EST) Subramony Saurav SAMANIEGO BLOOD TRANS FUSION ORDERABLES * Transfuse RBC: 1 Units (05/01/2024 1:34 PM EST) Subramony Saurav SAMANIEGO BLOOD TRANS FUSION ORDERABLES * Prepare RBC: 1 Units (05/01/2024 10:14 AM EST) [facility] Signature Product Code [id number] 05/01/2024 11:16 AM EST [facility] Unit Number [id number] 05/01/19 11:16 AM [facility] Crossmatch Compatible 05/01/2024 10:37 AM [facility] Dispense Status Transfused 05/01/2024 11:16 AM [facility] Unit ABO Rh ANEG 05/01/2024 11:16 AM [facility] Unit Expiration Date Time [id number] 05/01/2024 11:16 AM [facility] Unit Blood Type 0600 05/01/2024 11:16 AM [facility] Blood Venous blood specimen / Unknown 05/01/2024 10:14 AM EST 05/01/2024 9:40 AM EST Subramony Saurav SAMANIEGO BLOOD BANK PRODUCT ORDERABLES [facility] [address] [place] [address], * (ABNORMAL) CBC auto differential (05/01/2024 9:25 AM EST) WBC 8.2 4.8 - 10.8 K/mcL LAB HEMETOLOGY METHOD 05/01/2024 9:54 AM [facility] RBC 2.60(L) 3.80 - 4.80 M/mcL LAB HEMETOLOGY METHOD 05/01/2024 9:54 AM [facility] Hemoglobin 7.7(L) 11.5 - 16.0 g/dL LAB HEMETOLOGY METHOD 05/01/2024 9:54 AM [facility] Hematocrit 24.2(L) 35.0 - 47.0 % LAB HEMETOLOGY METHOD 05/01/2024 9:54 AM [facility] MCV 94.9 79.0 - 98.0 FL LAB HEMETOLOGY METHOD 05/01/2024 9:54 AM [facility] MCH 30.2 27.0 - 32.0 pcg LAB HEMETOLOGY METHOD 05/01/2024 9:54 AM [facility] MCHC 31.8(L) 32.0 - 37.0 g/dL LAB HEMETOLOGY METHOD 05/01/2024 9:54 AM [facility] RDW 18.5(H) 11.0 - 15.0 % LAB HEMETOLOGY METHOD 05/01/2024 9:54 AM [facility] Platelets 182 130 - 400 K/mcL LAB HEMETOLOGY METHOD 05/01/2024 9:54 AM [facility] MPV 10.5 7.0 - 11.0 FL LAB HEMETOLOGY METHOD 05/01/2024 9:54 AM [facility] NRBC 0.2 <1.0 % LAB HEMETOLOGY METHOD 05/01/2024 9:54 AM [facility] NRBC Absolute 0.02 <0.10 K/mcL LAB HEMETOLOGY METHOD 05/01/2024 9:54 AM [facility] Neutrophils Relative 83.5 % LAB HEMETOLOGY METHOD 05/01/2024 9:54 AM [facility] Lymphocytes Relative 10.8 % LAB HEMETOLOGY METHOD 05/01/2024 9:54 AM [facility] Monocytes Relative 4.0 % LAB HEMETOLOGY METHOD 05/01/2024 9:54 AM [facility] Eosinophils Relative 0.1 % LAB HEMETOLOGY METHOD 05/01/2024 9:54 AM [facility] Basophils Relative 0.1 % LAB HEMETOLOGY METHOD 05/01/2024 9:54 AM [facility] Immature Granulocytes Relative 1.5 % LAB HEMETOLOGY METHOD 05/01/2024 9:54 AM [facility] Neutrophils Absolute 6.86 1.50 - 7.00 K/mcL LAB HEMETOLOGY METHOD 05/01/2024 9:54 AM EST [facility] Lymphocytes Absolute 0.89(L) 1.00 - 5.00 K/mcL LAB HEMETOLOGY METHOD 05/01/2024 9:54 AM EST [facility] Monocytes Absolute 0.33 0.20 - 1.00 K/[facility] LAB HEMETOLOGY METHOD 05/01/2024 9:54 AM EST [facility] Eosinophils Absolute 0.01 0.00 - 0.50 K/mcL LAB HEMETOLOGY METHOD 05/01/2024 9:54 AM EST [facility] Basophils Absolute 0.01 0.00 - 0.20 K/mcL LAB HEMETOLOGY METHOD 05/01/2024 9:54 AM [facility] Immature Granulocytes Absolute 0.12(H) 0.00 - 0.03 K/[facility] LAB HEMETOLOGY METHOD 05/01/2024 9:54 AM EST [facility] Blood Blood sample taken from central line / Unknown Existing Catheter / Unknown 05/01/2024 9:25 AM EST 05/01/2024 9:40 AM EST Subramrosalind Mg MD LAB BLOOD O RDERABLES [facility] [address] [place] [address], * (ABNORMAL) Comprehensive metabolic panel (05/01/2024 9:25 AM EST) Sodium 139 133 - 145 mmol/L LAB CHEMISTRY METHOD 05/01/2024 10:17 AM EST [facility] Potassium 4.0 3.5 - 5.5 mmol/L LAB CHEMISTRY METHOD 05/01/2024 10:17 AM EST [facility] Chloride 106 96 - 110 mmol/L LAB CHEMISTRY METHOD 05/01/2024 10:17 AM [facility] CO2 31 21 - 32 mmol/L LAB CHEMISTRY METHOD 05/01/2024 10:17 AM [facility] Anion Gap 2(L) 3 - 11 LAB CHEMISTRY METHOD 05/01/2024 10:17 AM [facility] Glucose 137(H) 70 - 100 mg/dL LAB CHEMISTRY METHOD 05/01/2024 10:17 AM [facility] BUN 20 5 - 25 mg/dL LAB CHEMISTRY METHOD 05/01/2024 10:17 AM [facility] Creatinine 0.67 0.50 - 1.10 mg/dL LAB CHEMISTRY METHOD 05/01/2024 10:17 AM [facility] eGFR 92 >=60 mL/min/1. 73m2 LAB CHEMISTRY METHOD 05/01/2024 10:17 AM [facility] Comment:Calculation based on the??Chronic Kidney Disease Epidemiology Collaboration (CKD-EPI) equation refit??without adjustment for race. BUN/Creatinine Ratio 29.9 LAB CHEMISTRY METHOD 05/01/2024 10:17 AM [facility] Calcium 8.7 8.5 - 10.5 mg/dL LAB CHEMISTRY METHOD 05/01/2024 10:17 AM [facility] AST (SGOT) 22 10 - 42 unit/L LAB CHEMISTRY METHOD 05/01/2024 10:17 AM [facility] ALT (SGPT) 41 10 - 60 unit/L LAB CHEMISTRY METHOD 05/01/2024 10:17 AM [facility] Alkaline Phosphatase 75 42 - 121 unit/L LAB CHEMISTRY METHOD 05/01/2024 10:17 AM [facility] Total Protein 5.3(L) 6.0 - 8.0 g/dL LAB CHEMISTRY METHOD 05/01/2024 10:17 AM [facility] Albumin 3.3 3.2 - 5.0 g/dL LAB CHEMISTRY METHOD 05/01/2024 10:17 AM EST [facility] Total Bilirubin 1.5(H) 0.0 - 1.4 mg/dL LAB CHEMISTRY METHOD 05/01/2024 10:17 AM EST [facility] Blood Blood sample taken from central line / Unknown Existing Catheter / Unknown 05/01/2024 9:25 AM EST 05/01/2024 9:40 AM EST Albert Mg MD LAB BLOOD O RDERABLES Performing Organization Address [facility]/ZIP Co de Phone Number [facility] [address] [place] [address], [place] [phone] * Type and screen (05/01/2024 9:25 AM EST) ABO Group A 05/01/2024 10:34 AM EST [facility] Rh Type Negative 05/01/2024 10:34 AM EST [facility] Antibody Screen Negative 05/01/2024 10:34 AM [facility] Blood Blood sample taken from central line / Unknown Existing Catheter / Unknown 05/01/2024 9:25 AM EST 05/01/2024 9:40 AM EST Albert Mg MD LAB BLOOD B ANK TEST ORDERABLES Performing Organization Address [facility]/ZIP Co de Phone Number [facility] [address] [place] [address], [place] [phone] documented in this encounter Visit Diagnoses Diagnosis Myelodysplasia (myelodysplastic syndrome) (CMS/HCC)- Primary Myelodysplastic syndrome, unspecified 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 Given 05/01/2024 3:09 PM EST 20 mg gemcitabine (GEMZAR) 1,600 mg in sodium chloride 292.08 mL chemo IVPB 1,600 mg, intravenous, at 584.2 mL/hr, Administer over 30 Minutes, Once, On Tue05/01/24 at 1400, For 1 dose, This agent is an irritant. Order Dose 1,000 mg/m 2= 1,640 mg rounded to 1600mg per policy NS Flush Only. HAZARDOUS Drug Precautions - High Risk (Category C/NIOSH Group 1) Antineoplastic: - Double pair of ASTM standard D6978 certified chemotherapy gloves - Chemotherapy gown - Closed-System Transfer Device (CSTD) recommended - Eye protection (goggles or face shield) required only with a potential for facial contact (i.e. concern for spitting or vomiting of the dose during or after administration) New Bag 05/01/2024 2:32 PM EST 1,600 mg 584.2 mL/hr ondansetron (PF) (ZOFRAN) injection 8 mg 8 mg, intravenous, Once, On Tue05/01/24 at 1330, For 1 dose Given 05/01/2024 1:38 PM EST 8 mg documented in this encounter Orders Medications Ordered That Juan Carlos ht Not Have Been Administered Count Last Ordered Date First Ordered Date sodium chloride 0.9 % infusion 1 05/01/2024 Nursing Count Last Ordered Date First Orde red Date NCCN PARAMETERS 1 05/01/2024 NCCN PARAMETERS - GEMCITABINE 1 05/01/2024 ONC NURSING COMMUNICATION 1 05/01/2024 ONC NURSING COMMUNICATION 10 1 05/01/2024 ONC NURSING COMMUNICATION 11 1 05/01/2024 ONC NURSING COMMUNICATION 5 1 05/01/2024 TREATMENT CONDITIONS 2 05/01/2024 TREATMENT CONDITIONS 32 1 05/01/2024 documented in this encounter Care Teams Blueprint Cutter Relationship Specialty Start Date End Date Justin Larose MD [address] [place] [address] PCP - General Internal Medicine 02/28/24 Inés Alexander MD, PhD [address] [place] [address] Consulting Physician Hematology and Oncology 04/25/23 documented as of this encounter
--- OUTSIDE RECORDS SUMMARY | 2024-05-24 17:48 | XMS_ITS | Encounter Summary ---
Author Organization [facility] Address [address] [place] [address] Care Team Providers Care Intermediate Teacher Name Role Phone Justin Larose MD Primary Care Provider [phone] Reason for Visit * Reason Onset Date Comments faxed order 04/01/2024 [facility] order #[id number] Encounter Details Date Type Department Care Team ([facility] st Contact Info) Description 04/01/2024 Telephone Adult Medicine [address] [phone] Giovana Barroso [place] faxed order ([facility] order #[id number]) Social History Tobacco Use Types Packs/Day Years [...] Notes * Giovana Barroso MA - 04/01/2024 9:02 PM EST Received orders from [employer] [facility] order #[id number]. Please sign and fax to [phone] documented in this encounter Plan of Treatment Upcoming Encounters Date Type Department Care Team (Late st Contact Info) Description 05/29/2024 9:00 AM EST Appointment [facility] [address] [facility] 2nd [place] [phone] 06/12/2024 9:45 AM EST Office Visit [facility] Hematology Oncology [address] [place] [phone] Albert Mg MD [address] [place] [phone] 10/01/2024 1:45 PM EDT Office Visit Orthopedic Surgery [facility] [address] [phone] Noemi Jones PA [address] [phone] 11/16/2024 3:30 PM EDT Office Visit Adult Medicine [facility] [address] [place] [phone] Justin Larose MD [address] [place] [address] documented as of this encounter Visit Diagnoses Not on filedocumented in this encounter Additional Health Concerns Infection Onset Date Last Indicated Resolved Time Respiratory Rule-Out 04/10/2024 04/10/2024 024 10:55 AM EST COVID-19 Rule-Out 04/10/2024 04/10/2024 04/10/2024 10:55 AM EST documented as of this encounter Care Teams Intermediate Teacher Relationship Specialty Start Date End Date Justin Larose MD [address] [place] [address] PCP - General Internal Medicine 02/28/24 Inés Alexander MD, PhD [address] [place] [address] Consulting Physician Hematology and Oncology 04/25/23 documented as of this encounter
--- OUTSIDE RECORDS SUMMARY | 2024-05-24 17:48 | XMS_ITS | Encounter Summary ---
Author Organization [facility] Address [address] [place] [address] Care Team Providers Care Agricultural Adviser Name Role Phone Justin Larose MD Primary Care Provider Reason for Visit * Reason Onset Date Comments faxed order 05/04/2024 [facility] [facility] order #[id number] Encounter Details Date Type Department Care Team ([facility] st Contact Info) Description 05/04/2024 Telephone Adult [address] [phone] Giovana Barroso [place] faxed order ([facility] order #[id number]) Social History Tobacco Use Types Packs/Day Years [...] Progress Notes * Giovana Barroso MA - 05/04/2024 10:11 AM EST Received orders from [employer] order #[id number]. Please sign and fax to [phone] documented in this encounter Plan of Treatment Upcoming Encounters Date Type Department Care Team (Late st Contact Info) Description 05/29/2024 9:00 AM EST Appointment [facility] Infusion Center [address] [facility] 2nd [place] [phone] 06/12/2024 9:45 AM EST Office Visit [facility] Hematology Oncology [address] [place] [phone] Albert Mg MD [address] [place] [phone] 10/01/2024 1:45 PM EDT Office Visit Orthopedic Surgery [facility] [address] [phone] Noemi Jones PA [address] [phone] 11/16/2024 3:30 PM EDT Office Visit Adult Medicine [address] [phone] Justin Larose MD [address] [place] [address] documented as of this encounter Visit Diagnoses Not on filedocumented in this encounter Care Teams Agricultural Adviser Relationship Specialty Start Date End Date Justin Larose MD [address] [place] [address] PCP - General Internal Medicine 02/28/24 Inés Alexander MD, PhD [address] [place] [address] Consulting Physician Hematology and Oncology 04/25/23 documented as of this encounter
--- OUTSIDE RECORDS SUMMARY | 2024-05-24 17:48 | XMS_ITS | Encounter Summary ---
Author Organization [facility] Address [address] [place] [address] Care Team Providers Care Utility Technician Name Role Phone Justin Larose MD Primary Care Provider [phone] Encounter Details Date Type Department Care Team (Latest Contact Info) Description 04/26/2024 10:15 AM EST Office Visit [facility] Hematology Oncology [address] [place] [address] Albert Mg MD [address] [place] [address] Drug-induced peripheral neuropathy (CMS/HCC) (Primary Dx); Acute respiratory failure with hypoxia (CMS/HCC); Osteopenia of multiple sites; Primary osteoarthritis of both knees; Hypercalcemia; 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); Lymphadenopathy, generalized; Hodgkin's lymphoma of bone marrow (CMS/HCC); Supraclavicular lymphadenopathy Social History Tobacco Use Types Packs/Day Years [...] Sign Reading Time Taken Comments Blood Pressure 100/53 04/26/2024 10:45 AM EST Pulse - - Temperature 36.7 ??C (98.1 ??F) 04/26/2024 1 0:45 AM EST Respiratory Rate - - Oxygen Saturation 100% 04/26/2024 10: 45 AM EST Inhaled Oxygen Concentration - - Weight 55.2 kg (121 lb 12.8 oz) 025 10:45 AM EST Height - - Body Mass Index 19.08 04/10/2024 9:07 AM EST documented in this encounter Functional Status [...] No 04/10/2024 documented as of this encounter Ordered Prescriptions Prescription Sig Dispensed Refills Start Date End Da te pantoprazole (PROTONIX) 40 mg EC tablet Take 1 tablet (40 mg total) by mouth 1 (one) time each day before breakfast. Do not crush, chew, or split. 30 each 1 04/26/2024 06/25/2024 predniSONE (DELTASONE) 20 mg tablet Take 2 tablets (40 mg total) by mouth 1 (one) time each day. 60 tablet 04/26/2024 05/26/2024 documented in this encounter Progress Notes * Subramony Scott-MD [place] - 04/26/2024 10:15 AM EST Prednisone 60 mg today / tomorrow From 1/4 -- Prednisone 40 mg From 05/12- Prednisone 30 mg ( 1.5 tablets of 20 mg) From 05/19 -- Prednisone 20 mg for a week * Albert Mg MD - 04/26/2024 10:15 AM EST Update-will forward notes to Dr. Lisa Alexander, [facility] regarding plan to initiate gemcitabine as we had to discontinue Keytruda due to pneumonitis. Holding of oxaliplatin as patient has significant neuropathy from brentuximab in the past CHIEF COMPLAINT: No chief complaint on file. Hodgkin Lymphoma Stage IV disease - B , weight loss, night sweats August 2020-- A+ AVD regimen March 2023-pembrolizumab for recurrent disease June 2023-Retacrit for anemia; then Lustapercept, then stopped IDENTIFIER:Lynn Reilly is a 74 y.o. female. HPI: The patient returns for follow up of recurrent/progressive Hodgkin lymphoma And new problem-acute hypoxic respiratory failure suspected pneumonitis Keytruda For details of initial diagnosis and follow up until FEB 24, 2024- please refer to notes from prior [facility] EMR last note dated 01/26/24 The patient [...] second opinion evaluation with Dr. Marsh at [facility]. Recommendation was to initiate pembrolizumab. Patient has been continuing on the medication completed 13 cycles Update-since last clinic visit, patient received 1 [...] the patient and family regarding further steps intreatment could involve a regimen such as gemcitabine/oxaliplatin however she has severe neuropathy therefore would start with gemcitabine alone. At her request we will also involve Dr. Alexander at [facility], who has evaluated patient before. Today she comes [...] by 10 mg each week. She agrees The following is copied, reviewed and edited [...] injection 8 mg, 8 mg, intravenous, Once, 0 of 6 cycles gemcitabine (GEMZAR) chemo IVPB, 1,000 mg/m2 = 1,640 mg (80 % of original dose 1,250 mg/m2), intravenous, Once, 0 of 6 cycles Dose modification: 1,000 mg/m2 (80 % of original dose 1,250 mg/m2, Cycle 1, Reason: Dose Not Tolerated) alteplase (CATHFLO ACTIVASE) injection 2 mg, 2 mg, intra-catheter, As needed, 0 of 6 cycles Hodgkin's lymphoma of bone [...] injection 8 mg, 8 mg, intravenous, Once, 0 of 6 cycles gemcitabine (GEMZAR) chemo IVPB, 1,000 mg/m2 = 1,640 mg (80 % of original dose 1,250 mg/m2), intravenous, Once, 0 of 6 cycles Dose modification: 1,000 mg/m2 (80 % of original dose 1,250 mg/m2, Cycle 1, Reason: Dose Not Tolerated) alteplase (CATHFLO ACTIVASE) injection 2 mg, 2 mg, intra-catheter, As needed, 0 of 6 cycles Oncology History Overview Note [...] Gurrola MD 07/05/2023 - 09/29/2023 Supportive Therapy [facility] BCN EPOETIN SUZETTE-EPBX (RETACRIT, EPOGEN) Plan Provider: [...] lymph nodes as above. 04/07/2023 - Chemotherapy [facility] BCN OP PEMBROLIZUMAB (200 MG) Plan Provider: [...] patient continues to be quite fatigued despite 1 03/2024- She had restaging PET CT scan [...] single agent such as gemcitabine, will discuss ROS: GENERAL: No malaise, significant weight loss [...] lymph nodes of multiple regions (CMS/HCC) 02/28/2020 Hypercalcemia 01/21/2020 Lymphadenopathy, generalized 01/21/2020 Hypercholesterolemia 08/27/2016 Hypothyroidism 11/07/2023 Symptomatic anemia 01/30/2020 Hodgkin's lymphoma of bone marrow ([facility]/HCC) 01/31/2024 Migraine with aura and without status migrainosus, not intractable 02/23/2017 Osteopenia 08/27/2016 Primary osteoarthritis of both knees 02/23/2021 Hearing loss of both ears 08/27/2016 History of left mastectomy 08/27/2016 Other fatigue 01/30/2020 Hungry bone syndrome 03/06/2024 Hypothyroidism due to medication 03/07/2024 Hypoxia 03/15/2024 Acute respiratory failure with hypoxia ([facility]) 03/15/2024 Acute CHF ([facility]) 03/15/2024 Acute hypoxemic respiratory failure ([facility]) 03/15/2024 Supraclavicular lymphadenopathy 02/14/2023 Splenomegaly 01/21/2020 Shortness of breath 04/28/2023 Night sweats 02/28/2020 Nausea 05/05/2020 Drug-induced peripheral neuropathy ([facility]) 04/08/2020 Dizzy spells 07/30/2021 Diarrhea due to drug 2020 Acute left-sided low back pain without sciatica 07/30/2021 Acute cystitis without hematuria 05/19/2020 Pneumonitis 04/13/2024 Resolved Ambulatory Problems Diagnosis Date Noted Anemia complicating neoplastic disease 01/11/2020 Pneumonia of both lungs due to infectious organism 03/15/2024 Past Medical History: Diagnosis Date Anemia Arthritis Breast cancer ([facility]) History of breast cancer 08/27/2016 History of vitamin D deficiency 08/27/2016 Hodgkin's lymphoma ([facility]) Hypokalemia Migraine SOCIAL HISTORY: Social History Tobacco [...] Uncle 58.00 maternal aunt Current Outpatient Medications: pantoprazole (PROTONIX) 40 mg EC tablet, Take 1 tablet (40 mg total) by mouth 1 (one) time each daybefore breakfast. Do not crush, chew, or split., Disp: 30 each, Rfl: 1 predniSONE (DELTASONE) 20 mg tablet, Take 2 tablets (40 mg total) by mouth 1 (one) time each day., Disp: 60 tablet, Rfl: 0 acetaminophen (TYLENOL 8 HOUR) 650 mg 8 hr tablet, Take 1 tablet (650 mg total) by mouth 2 (two) times a day., Disp: , Rfl: gabapentin (NEURONTIN) 300 mg capsule, Take 1 capsule (300 mg total) by mouth at bedtime., Disp: , Rfl: levothyroxine (SYNTHROID, LEVOTHROID) 50 mcg tablet, Take 25 mcg by mouth., Disp: , Rfl: pregabalin (LYRICA) 50 mg capsule, Take 1 capsule (50 mg total) by mouth at bedtime. Max Daily Amount: 50 mg, Disp: , Rfl: sertraline (ZOLOFT) 100 mg tablet, Take 1 tablet (100 mg total) by mouth 1 (one) time each day., Disp: , Rfl: No Known Allergies PHYSICAL EXAM: Visit Vitals BP 100/53 (BP Location: Right arm, Patient Position: Sitting, BP Cuff Size: Small adult) Temp 36.7 ??C (98.1 ??F) (Temporal) Wt 55.2 kg (121 lb 12.8 oz) SpO2 100% BMI 19.08 kg/m?? Smoking Status Never BSA 1.64 m?? APPEARANCE: Alert and in no acute [...] interpreted Lab Results Component Value Date WBC 14.1 (H) 04/26/2024 HGB 8.2 (L) 04/26/2024 HCT 25.5 (L) 04/26/2024 MCV 89.5 04/26/2024 PLT 271 04/26/2024 Lab Results Component Value Date NA 140 04/16/2024 K 3.6 04/16/2024 CL 104 04/16/2024 CO2 31 04/16/2024 GLUCOSE 106 (H) 04/16/2024 BUN 20 04/16/2024 CREATININE 0.52 04/16/2024 CALCIUM 9.0 04/16/2024 PROT 4.7 (L) 04/11/2024 ALBUMIN 1.9 (L) 04/11/2024 BILITOT 0.5 04/11/2024 AST 19 04/11/2024 ALT 34 04/11/2024 PHOS 2.6 04/16/2024 MG 2.3 04/16/2024 ALKPHOS 73 04/11/2024 EGFR 98 04/16/2024 Review of Imaging, interpreted Vascular US duplex lower extremity venous bilateral Narrative: EXAMINATION: Ultrasound duplex bilateral lower extremity venous study. CLINICAL INDICATION: Edema. COMPARISON: None. TECHNIQUE: Routine grayscale, color and Doppler imaging of bilateral legs was performed. FINDINGS: There is normal color flow, augmentation with respiration and Doppler imaging of bilateral common femoral, superficial femoral, popliteal, gastrocnemius, peroneal and posterior tibial veins. Normal flow seen in distal greater saphenous femoral veins as well. No Loaiza's cyst seen. The soft tissues are normal. Impression: Normal bilateral lower extremity venous study. No evidence of DVT. No Loaiza's cyst. -------- FINAL REPORT -------- Dictated By: Walter Davis Dictated Date: 04/17/2024 07:23 ET Assigned Physician: Walter Davis Reviewed and Electronically Signed By: Walter Davis Signed Date: 04/17/2024 07:26 ET Workstation ID: [id number] Transcribed By: Self Edit Transcribed Date: 04/17/2024 07:23 ET Review of External Documentation Tests ordered - IMPRESSION: 1. Drug-induced peripheral neuropathy (CMS/HCC) 2. Acute respiratory failure with hypoxia (CMS/HCC) 3. Osteopenia of multiple sites 4. Primary osteoarthritis of both knees 5. Hypercalcemia 6. 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 Lymphadenopathy, generalized 8. Hodgkin's lymphoma of bone marrow (CMS/HCC) 9. Supraclavicular lymphadenopathy PLAN: 73 -year-old lady, ECOG 1 Limited by knee joint [...] induced pneumonitis--and also disease progression Currently on steroids Will discuss with Dr. 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 Austin in [place] Total time today-review of clinicals, examination, counseling, care coordination, documentation- 45minutes Follow-up in 1 month, will initiate gemcitabine next week Pain Control--no issues Health Care Proxy--her Jose L Albert Mg MD Cc Justin Larose MD Cc TAWNYA TONEY -pulmonology, [place] Cc LISA ALEXANDER - DFCI documented in this encounter Plan of Treatment Upcoming Encounters Date Type Department Care Team (Late st Contact Info) Description 05/29/2024 9:00 AM EST Appointment [facility] [address] [facility] [address] [place] [phone] 06/12/2024 9:45 AM EST Office Visit [facility] Hematology Oncology [address] [place] [phone] Albert Mg MD [address] [place] [phone] 10/01/2024 1:45 PM EDT Office Visit Orthopedic Surgery [facility] [address] [phone] Noemi Jones PA [address] [phone] 11/16/2024 3:30 PM EDT Office Visit Adult [address] [phone] Justin Larose MD [address] [place] [address] Scheduled Orders Name Type Priority Associated Diagnoses Orde r Schedule CBC and differential Lab Routine 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) Hodgkin's lymphoma of bone marrow ([facility]/HCC) Expected: 05/29/2024, Expires: 05/29/2025 documented as of this encounter Results * (ABNORMAL) Comprehensive metabolic panel (05/22/2024 9:09 AM EST) Sodium 140 133 - 145 mmol/L LAB CHEMISTRY METHOD 05/22/2024 10:[address] [facility] Potassium 4.1 3.5 - 5.5 mmol/L LAB CHEMISTRY METHOD 05/22/2024 10:[address] [facility] Chloride 104 96 - 110 mmol/L LAB CHEMISTRY METHOD 05/22/2024 10:[address] [facility] CO2 32 21 - 32 mmol/L LAB CHEMISTRY METHOD 05/22/2024 10:[address] [facility] Anion Gap 4 3 - 11 LAB CHEMISTRY METHOD 05/22/2024 10:[address] [facility] Glucose 101(H) 70 - 100 mg/dL LAB CHEMISTRY METHOD 05/22/2024 10:[address] [facility] BUN 19 5 - 25 mg/dL LAB CHEMISTRY METHOD 05/22/2024 10:[address] [facility] Creatinine 0.68 0.50 - 1.10 mg/dL LAB CHEMISTRY METHOD 05/22/2024 10:[address] [facility] eGFR 92 >=60 mL/min/1. 73m2 LAB CHEMISTRY METHOD 05/22/2024 10:[address] [facility] Comment:Calculation based on the??Chronic Kidney Disease Epidemiology Collaboration (CKD-EPI) equation refit??without adjustment for race. BUN/Creatinine Ratio 27.9 LAB CHEMISTRY METHOD 05/22/2024 10:[address] [facility] Calcium 9.1 8.5 - 10.5 mg/dL LAB CHEMISTRY METHOD 05/22/2024 10:[address] [facility] AST (SGOT) 12 10 - 42 unit/L LAB CHEMISTRY METHOD 05/22/2024 10:[address] [facility] ALT (SGPT) 22 10 - 60 unit/L LAB CHEMISTRY METHOD 05/22/2024 10:[address] [facility] Alkaline Phosphatase 57 42 - 121 unit/L LAB CHEMISTRY METHOD 05/22/2024 10:[address] [facility] Total Protein 5.6(L) 6.0 - 8.0 g/dL LAB CHEMISTRY METHOD 05/22/2024 10:[address] [facility] Albumin 3.6 3.2 - 5.0 g/dL LAB CHEMISTRY METHOD 05/22/2024 10:[address] [facility] Total Bilirubin 1.3 0.0 - 1.4 mg/dL LAB CHEMISTRY METHOD 05/22/2024 10:[address] [facility] Blood Blood sample taken from central line / Unknown Existing Catheter / Unknown 05/22/2024 9:09 AM EST 05/22/2024 9:31 AM EST Subramrosalind Mg MD LAB BLOOD O RDERABLES [facility] [address] [place] [address], * (ABNORMAL) Comprehensive metabolic panel (05/01/2024 9:25 AM EST) Sodium 139 133 - 145 mmol/L LAB CHEMISTRY METHOD 05/01/2024 10:[address] [facility] Potassium 4.0 3.5 - 5.5 mmol/L LAB CHEMISTRY METHOD 05/01/2024 10:[address] [facility] Chloride 106 96 - 110 mmol/L LAB CHEMISTRY METHOD 05/01/2024 10:[address] [facility] CO2 31 21 - 32 mmol/L LAB CHEMISTRY METHOD 05/01/2024 10:[address] [facility] Anion Gap 2(L) 3 - 11 LAB CHEMISTRY METHOD 05/01/2024 10:[address] [facility] Glucose 137(H) 70 - 100 mg/dL LAB CHEMISTRY METHOD 05/01/2024 10:[address] [facility] BUN 20 5 - 25 mg/dL LAB CHEMISTRY METHOD 05/01/2024 10:[address] [facility] Creatinine 0.67 0.50 - 1.10 mg/dL LAB CHEMISTRY METHOD 05/01/2024 10:[address] [facility] eGFR 92 >=60 mL/min/1. 73m2 LAB CHEMISTRY METHOD 05/01/2024 10:[address] [facility] Comment:Calculation based on the??Chronic Kidney Disease Epidemiology Collaboration (CKD-EPI) equation refit??without adjustment for race. BUN/Creatinine Ratio 29.9 LAB CHEMISTRY METHOD 05/01/2024 10:[address] [facility] Calcium 8.7 8.5 - 10.5 mg/dL LAB CHEMISTRY METHOD 05/01/2024 10:[address] [facility] AST (SGOT) 22 10 - 42 unit/L LAB CHEMISTRY METHOD 05/01/2024 10:[address] [facility] ALT (SGPT) 41 10 - 60 unit/L LAB CHEMISTRY METHOD 05/01/2024 10:[address] [facility] Alkaline Phosphatase 75 42 - 121 unit/L LAB CHEMISTRY METHOD 05/01/2024 10:[address] [facility] Total Protein 5.3(L) 6.0 - 8.0 g/dL LAB CHEMISTRY METHOD 05/01/2024 10:[address] [facility] Albumin 3.3 3.2 - 5.0 g/dL LAB CHEMISTRY METHOD 05/01/2024 10:17 AM EST [facility] Total Bilirubin 1.5(H) 0.0 - 1.4 mg/dL LAB CHEMISTRY METHOD 05/01/2024 10:17 AM EST [facility] Blood Blood sample taken from central line / Unknown Existing Catheter / Unknown 05/01/2024 9:25 AM EST 05/01/2024 9:40 AM EST Albert Mg MD LAB BLOOD O RDERABLES [facility] [address] [place] [address], documented in this encounter Visit Diagnoses Diagnosis Drug-induced peripheral neuropathy (CMS/HCC)- Primary Acute respiratory failure with hypoxia (CMS/HCC) Osteopenia of multiple sites Primary osteoarthritis of both knees Hypercalcemia 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 Reorder 04/14/2024 04/26/2024 pantoprazole (PROTONIX) 40 mg EC tablet Take 1 tablet (40 mg total) by mouth 1 (one) time each day before breakfast. Do not crush, chew, or split. Reorder 04/15/2024 04/26/2024 documented as of this encounter Orders Appointment Requests Count Last Ordered Date Fi rst Ordered Date ONCBCN CALCULATED LENGTH INF USION APPOINTMENT REQUEST 1 1 05/22/2024 ONCBCN CALCULATED LENGTH INF USION APPOINTMENT REQUEST 2 1 04/26/2024 documented in this encounter Care Teams Utility Technician Relationship Specialty Start Date End Date Justin Larose MD [address] [place] [id number] PCP - General Internal Medicine 02/28/24 Lisa Alexander MD, PhD [address] [place] [address] Consulting Physician Hematology and Oncology 04/25/23 documented as of this encounter
--- OUTSIDE RECORDS SUMMARY | 2024-05-24 17:48 | XMS_ITS | Encounter Summary ---
Author Organization [facility] Address [address] [place] [address] Care Team Providers Care Client Associate Name Role Phone Justin Larose MD Primary Care Provider [phone] Reason for Visit * Reason Comments Follow-up Hosp f/u chronic res piratory failure Encounter Details Date Type Department Care Team (Late st Contact Info) Description 04/27/2024 1:30 PM EST Office Visit Adult Medicine [address] [phone] Justin Larose MD [address] [place] [address] Pneumonitis (Primary Dx); Acute hypoxemic respiratory failure (CMS/HCC); 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 IDENTIFIER: Lynn Reilly is a 74 y.o. old female. HPI: Pt with hodgkin's lymphoma/myleodysplasia hx of breast cancer s/p left mastectomy pt on immunotherapy(adriana), with pembrolizumab/keytruda, pt with hypothyroidism,high cholesterol, o2 dependent 4lnc Pt was admitted to the [facility] 04/10-04/16/2024 pt was sent for evaluation for shortness of breath pt present ems and was noted to be hypoxic with o2 in the 70's pt had recent hospital stay for pna. CTA (-) PE Incomplete opacification in the subpulmonic aspect of the pulm outflow tract. 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 Pt with chronic anemia pt gets scheduled tx next 05/01/2024 Pt immunotherapy has been d/aniceto. 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 ALLERGIES: Patient has no known allergies. PHYSICAL EXAM: Blood pressure 114/50, pulse 84, temperature 36.6 ??C (97.8 ??F), resp. rate 12, height 1.702 m (67 ), SpO2 100%. There is no height or weight on file to calculate BMI. Plan is deferred because the patient is aged 65 or older and a weight gain/reduction plan would complicate other health conditions APPEARANCE: Alert and in no acute distress EYES: PERRLA, conjunctiva and sclera normal HEART: RRR with normal S1 and S2, no murmurs, no gallops, no JVD appreciated LUNG: clear to auscultation bilaterally EXTREMITIES: Extremities warm and well perfused without clubbing, cyanosis, or edema LABS: Echo 03/2024 Left ventricle cavity size is normal. Left ventricular systolic function is in the normal range with an ejection fraction of 60-65%. No regional LV wall motion abnormalities noted. Right ventricle cavity is normal. Right ventricular systolic function is normal. Right atrium cavity is normal. Prominent chiari network/eustachian valve. There is trace regurgitation. The right ventricular systolic pressure is elevated at 40 mmHg. There is left pleural effusion. IMPRESSION: 1. Pneumonitis 2. Acute hypoxemic respiratory failure (CMS/HCC) 3. 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 Hodgkin's lymphoma of bone marrow (CMS/HCC) PLAN: Pt with hodgkin Lymphoma with bone marrow involvement , Stage IV pt with recent dx pna was /25/2025 pt returned the the [facility] 04/10/2024 with worsening shortness of breath and was in acute hypoxic failure. Pt was treated initially for pna with abx however it was determined pt had pneumonitis 2nd to the keytruda. This has since been d/aniceto. Pt on prolonged prednisone taper and Improvement in respiratory status. Pt is 100% on 2l oncology has suggested tapering down on the pt has notes sats > 90 on 1.5 liters. Pt encouraged to continue to wean down on the o2. Pt is to see pulmand oncology next week. Pt is to start gemcitabine next week. Pt continues with slow prednisone taper. Pt notes chest pressure in house pt has had non-ischemic EKG echo w/o wall motion abnormality. Pt will resume prn ativan, d.w pt if pain does not improve to contact me as at that point I would consider stress testing vs referral to cardiology Pt has f/u with me 05/11/2024 No orders of the defined types were placed in this encounter. ADDITIONAL ORDERS: None Justin Larose MD on 04/27/2024 at 11:52 AM EST documented in this encounter Plan of Treatment Upcoming Encounters Date Type Department Care Team (Late st Contact Info) Description 05/29/2024 9:00 AM EST Appointment [facility] [address] [facility] 2nd [place] [phone] 06/12/2024 9:45 AM EST Office Visit [facility] Hematology Oncology [address] [place] [phone] Albert Mg MD [address] [place] [phone] 10/01/2024 1:45 PM EDT Office Visit Orthopedic Surgery - [place] [address] [phone] Noemi Jones PA [address] [phone] 11/16/2024 3:30 PM EDT Office Visit Adult Medicine [facility] [address] [place] [phone] Justin Larose MD [address] [place] [address] documented as of this encounter Visit Diagnoses Diagnosis Pneumonitis- Primary Pneumonia, organism unspecified Acute hypoxemic respiratory failure (CMS/HCC) 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
--- OUTSIDE RECORDS SUMMARY | 2024-05-24 17:48 | XMS_ITS | Encounter Summary ---
Author Organization [facility] Address [address] [place] [address] Care Team Providers Care Soapstoner Name Role Phone Justin Larose MD Primary Care Provider [phone] Reason for Visit * Reason Onset Date Comments faxed order 05/07/2024 [facility] order #[id number] Encounter Details Date Type Department Care Team ([facility] st Contact Info) Description 05/07/2024 Telephone Adult Medicine [address] [phone] Giovana Barroso MA faxed order ([facility] order #[id number]) Social History Tobacco Use Types Packs/Day Years [...] Notes * Giovana Barroso MA - 05/07/2024 9:52 AM EST Received orders from [employer] order #[id number]. Please sign and fax to [phone] documented in this encounter Plan of Treatment Upcoming Encounters Date Type Department Care Team (Late st Contact Info) Description 05/29/2024 9:00 AM EST Appointment [facility] [address] [facility] 2nd [place] [phone] 06/12/2024 9:45 AM EST Office Visit [facility] Hematology Oncology [address] [place] [phone] Albert Mg MD 271 [place] [phone] 10/01/2024 1:45 PM EDT Office Visit Orthopedic Surgery [facility] [address] [phone] Noemi Jones PA [address] [phone] 11/16/2024 3:30 PM EDT Office Visit Adult Medicine [address] [phone] Justin Larose MD [address] [place] [address] documented as of this encounter Visit Diagnoses Not on filedocumented in this encounter Care Teams Soapstoner Relationship Specialty Start Date End Date Justin Larose MD [address] [place] [address] PCP - General Internal Medicine 02/28/24 Inés Alexander MD, PhD [address] [place] [address] Consulting Physician Hematology and Oncology 04/25/23 documented as of this encounter
--- OUTSIDE RECORDS SUMMARY | 2024-05-24 17:49 | XMS_ITS | Encounter Summary ---
Author Organization [facility] Address [address] [place] [address] Care Team Providers Care Edge Cutter Name Role Phone Justin Larose MD Primary Care Provider [phone] Reason for Visit * Reason Onset Date Comments Request For Order(s) 05/23/2024 [facility] order #'s [id number] (missed visit), [id number], [id number]. Placed in provider's bin. Please sign, date and fax back to [phone]. Encounter Details Date Type Department Care Team ([facility] Contact Info) Description 05/23/2024 Telephone Adult Medicine [address] [phone] Justin Larose MD [address] [place] [address] Request For Order(s) ([facility] order #'s [id number] (missed visit), [id number], [id number]. Placed in provider's bin. Please sign, date and fax back to [phone].) Social History Tobacco Use Types Packs/Day Years [...] as of this encounter Progress Notes * Lucie Silva - 05/23/2024 1:45 PM EST [facility] order #'s [id number] (missed visit), [id number], [id number]. Placed in provider's bin. Please sign, date and fax back to [phone]. documented in this encounter Plan of Treatment Upcoming Encounters Date Type Department Care Team (Late st Contact Info) Description 05/29/2024 9:00 AM EST Appointment [facility] Infusion Center [address] [place] [phone] 06/12/2024 9:45 AM EST Office Visit [facility] Hematology Oncology [address] [place] [phone] Albert Mg MD [address] [place] [phone] 10/01/2024 1:45 PM EDT Office Visit Orthopedic Surgery - [place] 175 [facility] [address] [place] [address] Noemi Jones PA 174 [facility] [address] [place] [phone] 11/16/2024 3:30 PM EDT Office Visit Adult Medicine [facility] [address] [place] [phone] Justin Larose MD [address] [place] [address] documented as of this encounter Visit Diagnoses Not on filedocumented in this encounter Care Teams Edge Cutter Relationship Specialty Start Date End Date Justin Larose MD [address] [place] [address] PCP - General Internal Medicine 02/28/24 Inés Alexander MD, PhD [address] [place] [address] Consulting Physician Hematology and Oncology 04/25/23 documented as of this encounter
--- OUTSIDE RECORDS SUMMARY | 2024-05-24 17:49 | XMS_ITS | Encounter Summary ---
Author Organization [facility] Address [address] [place] [address] Care Team Providers Care Chemical Inspector Name Role Phone Justin Larose MD Primary Care Provider [phone] Encounter Details Date Type Department Care Team (Late st Contact Info) Description 02/21/2024 10:32 AM EDT Hospital Encounter TH HISTORIC ENCOUNTERS EASTERN CONVERSION ONLY Social History Tobacco Use Types Packs/Day Years [...] - Inhaled Oxygen Concentration - - Weight 61.3 kg (135 lb 3.2 oz) 02/02/2024 10:58 AM EDT Height 170.2 cm (5' 7.01 ) 01/26/2024 10:52 AM E DT Body Mass Index 21.17 01/26/2024 10:52 AM EDT documented in this encounter Progress Notes * Historical, Notes Results - 02/21/2024 10:30 AM EDT Arrived in wheelchair with her , feeling weak, pt is pale. Left arm in sling, pain 1-2/10 atrest, but hurts when moving it. Now using tylenol at home for pain. CBC-d and hold clot drawn and sent STAT. 1111 Labs resulted, Hg 8.7 reported to Sary SEPULVEDA bone drier operator. No orders for blood today. Pt returnsfor luspatercept on , will get labs rechecked next week. Left in wheelchair with , stable at D/C. documented in this encounter Plan of Treatment Upcoming Encounters Date Type Department Care Team (Late st Contact Info) Description 05/29/2024 9:00 AM EST Appointment [facility] [address] [facility] 2nd [place] [phone] 06/12/2024 9:45 AM EST Office Visit [facility] Hematology Oncology [address] [place] [phone] Albert Mg MD 271 [place] [phone] 10/01/2024 1:45 PM EDT Office Visit Orthopedic Surgery [facility] [address] [phone] Noemi Jones PA [address] [phone] 11/16/2024 3:30 PM EDT Office Visit Adult Medicine [facility] [address] [place] [phone] Justin Larose MD [address] [place] [address] documented as of this encounter Visit Diagnoses [...] documented as of this encounter Care Teams Chemical Inspector Relationship Specialty Start Date End Date Justin Larose MD PCP - General Internal Medicine 09/29/20 02/27/24 Inés Alexander MD, PhD [address] [place] [address] Consulting Physician Hematology and Oncology 04/25/23 documented as of this encounter
--- OUTSIDE RECORDS SUMMARY | 2024-05-24 17:49 | XMS_ITS | Encounter Summary ---
Author Organization [facility] Address [address] [place] [address] Care Team Providers Care Transformer Inspector Name Role Phone Justin Larose MD Primary Care Provider [phone] Encounter Details Date Type Department Care Team (Latest Contact Info) Description 02/14/2024 10:30 AM EDT Hospital Encounter TH HISTORIC ENCOUNTERS EASTERN CONVERSION ONLY Hodgkin lymphoma, unspecified, unspecified site (CMS/HCC); Anemia in neoplastic disease Social History Tobacco [...] Progress Notes * Historical, Notes Results - 02/14/2024 10:30 AM EDT Patient arrives via wheelchair accompanied by for STAT labs and possible blood transfusion.Patient reporting increased fatigue and weakness. Patient's port accessed without difficulty. + blood return. Labs drawn and sent to lab. Patient resting comfortably in chair with call jara in reach. Labs resulted and reviewed with DERICK Okeefe. Due to patient being more symptomatic decision tariq to transfuse patient with 1 unit PRBC's today. Patient also wishes to have transfusion today and in agreement. Delay in receiving blood due to analyzer being down. 1505-1 unit PRBC's initiated per protocol. Patient rested during transfusion Per DERICK Okeefe administer 20 mg IV lasix at the end of transfusion. 1645-Patient resting with blood transfusing, report given to RADHA Pal. * Historical, Notes Results - 02/14/2024 10:30 AM EDT 1733- This RN assumed care of pt. Pt rested comfortably and watched TV throughout treatment. Pt tolerated remainder of blood transfusion without incident. VSS at completion of transfusion. Per orders, 20mg IVP lasix given. Port flushed/deaccessed per protocol. Pt up to BR without issue. Left unit via WC with , stable at D/C. documented in this encounter Plan of Treatment Upcoming Encounters Date Type Department Care Team (Late st Contact Info) Description 05/29/2024 9:00 AM EST Appointment [facility] Infusion Center [address] [phone] 06/12/2024 9:45 AM EST Office Visit [facility] Hematology Oncology [address] [place] [phone] Scott-Albert Gurrola MD [address] [place] [phone] 10/01/2024 1:45 PM EDT Office Visit Orthopedic Surgery - [place] [address] [facility] [address] [place] [phone] Noemi Jones PA [address] [facility] [address] [place] [phone] 11/16/2024 3:30 PM EDT Office Visit [facility] [address] [place] [address] Justin Larose MD [address] [place] [address] documented as of this encounter Visit Diagnoses Diagnosis Hodgkin lymphoma, unspecified, unspecified site (CMS/HCC) Anemia in neoplastic disease documented in this [...] documented as of this encounter Care Teams Transformer Inspector Relationship Specialty Start Date End Date Justin Larose MD PCP - General Internal Medicine 09/29/20 02/27/24 Inés Alexander MD, PhD [address] [place] [address] Consulting Physician Hematology and Oncology 04/25/23 documented as of this encounter
--- OUTSIDE RECORDS SUMMARY | 2024-05-24 17:49 | XMS_ITS | Encounter Summary ---
Author Organization [facility] Address [address] [place] [address] Care Team Providers Care Sole Layer Name Role Phone Justin Larose MD Primary Care Provider [phone] Encounter Details Date Type Department Care Team (Late st Contact Info) Description 02/16/2024 10:28 AM EDT Hospital Encounter TH HISTORIC ENCOUNTERS [...] Progress Notes * Historical, Notes Results - 02/16/2024 10:30 AM EDT Pt arrives with via wheelchair for treatment. Pt assessed and reports she feels okay but continues to have pain in left arm - pt taking tylenol but reports getting better relief at night withoxycodone 2.5 mg ( prescribed from ER Physician. Pt no longer has oxycodone - per pts , they will call pts PCP to inquire about getting a few more pills. Polly cath accessed . Pt tolerated well, watching television while waiting for treatment. Call jara in reach . Pembrolizumab infused without issue. Pt tolerating lunch easily. Pt reports pain is 3/10 ( acceptable to pt) . Line flushed and polly cath Polly cath flushed and deaccessed per protocol. Pt discharged with via wheelchair . Pt and aware of schedule. documented in this encounter Plan of Treatment Upcoming Encounters Date Type Department Care Team (Late st Contact Info) Description 05/29/2024 9:00 AM EST Appointment [facility] Infusion Center [address] [facility] 2nd [place] [phone] 06/12/2024 9:45 AM EST Office Visit [facility] Hematology Oncology 271 [place] [phone] Albert Mg MD 271 [place] [phone] 10/01/2024 1:45 PM EDT Office Visit Orthopedic Surgery [facility] [address] [phone] Noemi Jones PA [address] [phone] 11/16/2024 3:30 PM EDT Office Visit Adult Medicine [address] [phone] Justin Larose MD [address] [place] [address] documented as of this encounter Visit Diagnoses [...] documented as of this encounter Care Teams Sole Layer Relationship Specialty Start Date End Date Justin Larose MD PCP - General Internal Medicine 09/29/20 02/27/24 Inés Alexander MD, PhD [address] [place] [address] Consulting Physician Hematology and Oncology 04/25/23 documented as of this encounter
--- OUTSIDE RECORDS SUMMARY | 2024-05-24 17:49 | XMS_ITS | Encounter Summary ---
Author Organization [facility] Address [address] [place] [address] Care Team Providers Care Dock Grader Name Role Phone Justin Larose MD Primary Care Provider [phone] Reason for Visit * Reason Onset Date Comments Request For Order(s) 05/24/2024 [facility] order # [id number], discharge order. Please sign, date and fax back to [phone]. Placed in provider's bin. Encounter Details Date Type Department Care Team (Late st Contact Info) Description 05/24/2024 Telephone Adult Medicine [address] [phone] Justin Larose MD [address] [place] [address] [phone] Request For Order(s) ([facility] order # [id number], discharge order. Please sign, date and fax back to [phone]. Placed in provider's bin.) Social History Tobacco Use Types Packs/Day Years [...] encounter Progress Notes * Lucie Silva - 05/24/2024 1:37 PM EST [facility] order # [id number], discharge order. Please sign, date and fax back to [phone]. Placed in provider's bin. documented in this encounter Plan of Treatment Upcoming Encounters Date Type Department Care Team (Late st Contact Info) Description 05/29/2024 9:00 AM EST Appointment [facility] Infusion Center [address] [facility] 2nd [place] [address] 06/12/2024 9:45 AM EST Office Visit [facility] Hematology Oncology [address] [place] [phone] Ablert Mg MD [address] [place] [phone] 10/01/2024 1:45 PM EDT Office Visit Orthopedic Surgery - [place] [address] [facility] [address] [place] [phone] Noemi Jones PA [address] [phone] 11/16/2024 3:30 PM EDT Office Visit Adult Medicine [address] [phone] Justin Larose MD [address] [place] [address] documented as of this encounter Visit Diagnoses Not on filedocumented in this encounter Care Teams Dock Grader Relationship Specialty Start Date End Date Justin Larose MD [address] [place] [address] PCP - General Internal Medicine 02/28/24 Inés Alexander MD, PhD [address] [place] [address] Consulting Physician Hematology and Oncology 04/25/23 documented as of this encounter
--- OUTSIDE RECORDS SUMMARY | 2024-05-24 17:49 | XMS_ITS | Encounter Summary ---
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) Albert Mg MD [address] [place] [address] [facility] Infusion Center [address] [place] [phone] Referral ID Status Reason Start Date Expiration Date V isits Requested Visits Authorized [id number] Authorized 04/26/2024 04/26/2025 1 15 Encounter Details Date Type Department Care Team (Latest Contact Info) Description 05/22/2024 9:04 AM EST Hospital Encounter [facility] Infusion [facility] [address] [place] [phone] Albert Mg MD [address] [place] [address] 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) (Primary Dx); Hodgkin's lymphoma of bone marrow ([facility]); Myelodysplasia (myelodysplastic syndrome) ([facility]) Social History Tobacco Use Types Packs/Day Years [...] Time Taken Comments Blood Pressure 118/58 05/22/2024 10:05 AM EST Pulse 75 05/22/2024 10:05 AM EST Temperature 36.7 ??C (98.1 ??F) 05/22/2024 10:[address] Respiratory Rate - - Oxygen Saturation 100% 05/22/2024 10:05 AM EST Inhaled Oxygen Concentration - - [...] as of this encounter Progress Notes * Lauren Leiva RN - 05/22/2024 10:00 AM EST 0910- Pt arrives to unit with via rolling walker. Labs drawn per protocol and ran stat. Pt to MD HOLLAND downstairs and will return. Left in stable condition. * Lizeth Reynolds RN - 05/22/2024 10:00 AM EST Pt returns to unit using rolling walker accompanied by after MD HOLLAND. Pt reports feeling ok. No new changes. Medications, allergies and assessment reviewed. Awaiting lab results. 1046 labs resulted and reviewed with MD. Ok to treat received. Medications released to pharmacy. Premeds given. 1150 Gemzar infusing. Pt tolerating well. Pt resting in chair. Call jara in reach. 1225 infusion complete. Pt tolerated well. Port deaccessed without difficulty. Appointment in placefor next treatment. Stable at discharge. documented in this encounter Plan of Treatment Upcoming Encounters Date Type Department Care Team (Late st Contact Info) Description 05/29/2024 9:00 AM EST Appointment [facility] Infusion [facility] [address] [facility] 2nd [place] [phone] 06/12/2024 9:45 AM EST Office Visit [facility] Hematology Oncology [address] [place] [phone] Albert Mg MD [address] [place] [phone] 10/01/2024 1:45 PM EDT Office Visit Orthopedic Surgery - [place] [address] [phone] Noemi Jones PA [address] [phone] 11/16/2024 3:30 PM EDT Office Visit [address] [phone] Justin Larose MD [address] [place] [address] documented as of this encounter Procedures Procedure Name Priority Date/Time Associated Diagnosis Comments TYPE AND SCREEN STAT 05/22/2024 9:10 AM EST 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) Myelodysplasia (myelodysplastic syndrome) (CMS/HCC) MANUAL DIFFERENTIAL - [facility] WAM Routine 05/22/2024 9:09 AM EST 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) CBC WITH AUTO DIFFERENTIAL Routine 05/22/2024 9:09 AM EST 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) CBC AND DIFFERENTIAL Routine 05/22/2024 9:09 AM EST 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) COMPREHENSIVE METABOLIC PANEL Routine 05/22/2024 9:09 AM EST 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) documented in this encounter Results * Type and screen (05/22/2024 9:10 AM EST) ABO Group A 05/22/2024 10:[address] [facility] Rh Type Negative 05/22/2024 10:[address] [facility] Antibody Screen Negative 05/22/2024 10:[address] [facility] Blood Blood sample taken from central line / Unknown Existing Catheter / Unknown 05/22/2024 9:10 AM EST 05/22/2024 9:30 AM EST Subramony Subramonia-Izabela MD LAB BLOOD B ANK TEST ORDERABLES [facility] [address] [place] [address], * (ABNORMAL) Manual differential (05/22/2024 9:09 AM EST) Neutrophils % 68.0 % LAB HEMETOLOGY METHOD 05/22/2024 10:[address] [facility] Lymphocytes % 23.0 % LAB HEMETOLOGY METHOD 05/22/2024 10:[address] [facility] Monocytes % 5.0 % LAB HEMETOLOGY METHOD 05/22/2024 10:45 AM [facility] Eosinophils % 0.0 % LAB HEMETOLOGY METHOD 05/22/2024 10:[address] [facility] Basophils % 0.0 % LAB HEMETOLOGY METHOD 05/22/2024 10:[address] [facility] Metamyelocytes % 4.0(H) % LAB HEMETOLOGY METHOD 05/22/2024 10:45 AM [facility] Neutrophils Absolute Manual 2.72 1.50 - 7.00 K/mcL LAB HEMETOLOGY METHOD 05/22/2024 10:45 AM [facility] Lymphocytes Absolute 0.92(L) 1.00 - 5.00 K/mcL LAB HEMETOLOGY METHOD 05/22/2024 10:45 AM [facility] Monocytes Absolute Manual 0.20 0.20 - 1.00 K/mcL LAB HEMETOLOGY METHOD 05/22/2024 10:45 AM [facility] Eosinophils Absolute Manual 0.00 0.00 - 0.50 K/mcL LAB HEMETOLOGY METHOD 05/22/2024 10:45 AM [facility] Basophils Absolute Manual 0.00 0.00 - 0.20 K/mcL LAB HEMETOLOGY METHOD 05/22/2024 10:[address] [facility] Metamyelocytes Absolute Manual 0.16(H) 0.00 - 0.00 K/mcL LAB HEMETOLOGY METHOD 05/22/2024 10:[address] [facility] Rbc Morphology Present( A) Consistent with indices, Normal for LAB HEMETOLOGY METHOD 05/22/2024 10:[address] [facility] Comment:RBC: Morphology agre es with CBC Platelet Morphology - WAM See Note(A) Normal LAB HEMETOLOGY METHOD 05/22/2024 10:45 AM [facility] Comment:PLT: Normal Ovalocytes Present 5 - 10%(A) (none) LAB HEMETOLOGY METHOD 05/22/2024 10:45 AM [facility] Blood Blood sample taken from central line / Unknown Existing Catheter / Unknown 05/22/2024 9:09 AM EST 05/22/2024 9:30 AM EST Subramrosalind Mg MD LAB BLOOD O RDERABLES [facility] [address] [place] [address], * (ABNORMAL) CBC auto differential (05/22/2024 9:09 AM EST) WBC 4.0(L) 4.8 - 10.8 K/[facility] LAB HEMETOLOGY METHOD 05/22/2024 10:[address] [facility] RBC 3.10(L) 3.80 - 4.80 M/mcL LAB HEMETOLOGY METHOD 05/22/2024 10:45 AM [facility] Hemoglobin 9.6(L) 11.5 - 16.0 g/dL LAB HEMETOLOGY METHOD 05/22/2024 10:45 AM [facility] Hematocrit 29.7(L) 35.0 - 47.0 % LAB HEMETOLOGY METHOD 05/22/2024 10:[address] [facility] MCV 95.5 79.0 - 98.0 FL LAB HEMETOLOGY METHOD 05/22/2024 10:45 AM [facility] MCH 30.9 27.0 - 32.0 pcg LAB HEMETOLOGY METHOD 05/22/2024 10:[address] [facility] MCHC 32.3 32.0 - 37.0 g/dL LAB HEMETOLOGY METHOD 05/22/2024 10:[address] [facility] RDW 20.5(H) 11.0 - 15.0 % LAB HEMETOLOGY METHOD 05/22/2024 10:45 AM [facility] Platelets 312 130 - 400 K/mcL LAB HEMETOLOGY METHOD 05/22/2024 10:[address] [facility] MPV 10.5 7.0 - 11.0 FL LAB HEMETOLOGY METHOD 05/22/2024 10:45 AM [facility] NRBC 1.0(H) <1.0 % LAB HEMETOLOGY METHOD 05/22/2024 10:45 AM [facility] NRBC Absolute 0.04 <0.10 K/mcL LAB HEMETOLOGY METHOD 05/22/2024 10:45 AM [facility] Blood Blood sample taken from central line / Unknown Existing Catheter / Unknown 05/22/2024 9:09 AM EST 05/22/2024 9:30 AM EST Albert Mg MD LAB BLOOD O RDERABLES [facility] [address] [place] [address], * (ABNORMAL) Comprehensive metabolic panel (05/22/2024 9:09 AM EST) Sodium 140 133 - 145 mmol/L LAB CHEMISTRY METHOD 05/22/2024 10:00 AM [facility] Potassium 4.1 3.5 - 5.5 mmol/L LAB CHEMISTRY METHOD 05/22/2024 10:00 AM [facility] Chloride 104 96 - 110 mmol/L LAB CHEMISTRY METHOD 05/22/2024 10:00 AM [facility] CO2 32 21 - 32 mmol/L LAB CHEMISTRY METHOD 05/22/2024 10:00 AM [facility] Anion Gap 4 3 - 11 LAB CHEMISTRY METHOD 05/22/2024 10:00 AM [facility] Glucose 101(H) 70 - 100 mg/dL LAB CHEMISTRY METHOD 05/22/2024 10:00 AM [facility] BUN 19 5 - 25 mg/dL LAB CHEMISTRY METHOD 05/22/2024 10:00 AM [facility] Creatinine 0.68 0.50 - 1.10 mg/dL LAB CHEMISTRY METHOD 05/22/2024 10:00 AM [facility] eGFR 92 >=60 mL/min/1. 73m2 LAB CHEMISTRY METHOD 05/22/2024 10:00 AM [facility] Comment:Calculation based on the??Chronic Kidney Disease Epidemiology Collaboration (CKD-EPI) equation refit??without adjustment for race. BUN/Creatinine Ratio 27.9 LAB CHEMISTRY METHOD 05/22/2024 10:00 AM [facility] Calcium 9.1 8.5 - 10.5 mg/dL LAB CHEMISTRY METHOD 05/22/2024 10:00 AM [facility] AST (SGOT) 12 10 - 42 unit/L LAB CHEMISTRY METHOD 05/22/2024 10:00 AM [facility] ALT (SGPT) 22 10 - 60 unit/L LAB CHEMISTRY METHOD 05/22/2024 10:00 AM [facility] Alkaline Phosphatase 57 42 - 121 unit/L LAB CHEMISTRY METHOD 05/22/2024 10:[address] [facility] Total Protein 5.6(L) 6.0 - 8.0 g/dL LAB CHEMISTRY METHOD 05/22/2024 10:[address] [facility] Albumin 3.6 3.2 - 5.0 g/dL LAB CHEMISTRY METHOD 05/22/2024 10:00 AM [facility] Total Bilirubin 1.3 0.0 - 1.4 mg/dL LAB CHEMISTRY METHOD 05/22/2024 10:[address] [facility] Blood Blood sample taken from central line / Unknown Existing Catheter / Unknown 05/22/2024 9:09 AM EST 05/22/2024 9:31 AM EST Subramony Subramonia-Izabela [facility] LAB BLOOD O RDERABLES [facility] [address] [place] [address], documented in this encounter Visit Diagnoses Diagnosis 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 This agent is an irritant. NS Flush Only. HAZARDOUS Drug Precautions - High Risk (Category C/NIOSH Group 1) Antineoplastic: - Double pair of ASTM standard D6978 certified chemotherapy gloves - Chemotherapy gown - Closed-System Transfer Device (CSTD) recommended - Eye protection (goggles or face shield) required only with a potential for facial contact (i.e. concern for spitting or vomiting of the dose during or after administration) New Bag 05/22/2024 11:45 AM EST 1,600 mg 584.2 mL/hr ondansetron (PF) (ZOFRAN) injection 8 mg 8 mg, intravenous, Once, On Tue05/22/24 at 1115, For 1 dose Given 05/22/2024 11:00 AM EST 8 mg documented in this encounter Orders Appointment Requests Count Last Ordered Date Fi rst Ordered Date ONCBCN CALCULATED LENGTH INF USION APPOINTMENT REQUEST 1 1 05/22/2024 documented in this encounter Care Teams Recreation Facility Manager Relationship Specialty Start Date End Date Justin Larose MD [address] [place] [phone] PCP - General Internal Medicine 02/28/24 Inés Alexander MD, PhD [address] [place] [address] Consulting Physician Hematology and Oncology 04/25/23 documented as of this encounter
--- OUTSIDE RECORDS SUMMARY | 2024-05-24 17:49 | XMS_ITS | Encounter Summary ---
Author Organization [facility] Address [address] [place] [address] Care Team Providers Care Child And Family Therapist Name Role Phone Justin Larose MD Primary Care Provider Encounter Details Date Type Department Care Team [...] Description 05/29/2024 9:[address] [facility] Infusion Center [address] [phone] 06/12/2024 9:45 AM EST Office Visit [facility] Hematology Oncology [address] [place] [phone] Albert Mg MD [address] [place] [phone] 10/01/2024 1:45 PM EDT Office Visit Orthopedic Surgery - [place] [address] [phone] Noemi Jones PA [address] [phone] 11/16/2024 3:30 PM EDT Office Visit [address] [place] [address] Justin Larose MD [address] [place] [phone] documented as of this encounter Visit Diagnoses [...] documented as of this encounter Care Teams Child And Family Therapist Relationship Specialty Start Date End Date Justin Larose MD PCP - General Internal Medicine 09/29/20 02/27/24 Inés Alexander MD, PhD [address] [place] [address] Consulting Physician Hematology and Oncology 04/25/23 documented as of this encounter
--- OUTSIDE RECORDS SUMMARY | 2024-05-24 17:49 | XMS_ITS ---
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) Other fatigue 06/09/2023 Shortness of breath 04/28/2023 Supraclavicular lymphadenopathy 02/14/2023 Primary osteoarthritis of both knees 07/19/2022 Acute left-sided low back pain without sciatica 07/30/2021 Dizzy spells 07/30/2021 Acute cystitis without hematuria 05/19/2020 Nausea 05/05/2020 Drug-induced peripheral neuropathy 04/08/2020 Diarrhea due to drug 2020 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 02/28/2020 Cancer Staging:Clinical stage from 02/25/2020:Stage IV(Hodgkin lymphoma, B - Symptoms) - Signed by Albert Lomas MD on 03/27/2020 Night sweats 02/28/2020 Lymphadenopathy, generalized 01/21/2020 Anemia complicating neoplastic disease 0 Hypercalcemia of malignancy 01/21/2020 Splenomegaly 01/21/2020 Current Oncology Plans [facility] LUSPATERCEPT (REBLOZYL) INJECTION* Plan Start Date:10/20/2023 Plan Provider:Albert Lomas MD Linked Problems Myelodysplasia (myelodysplas tic syndrome) (HCC) Treatment Medications luspatercept-aamt (REBLOZYL) [facility] BCN OP PEMBROLIZUMAB (200 MG)* Plan Start Date:04/05/2023 Plan Provider:Albert Lomas MD Linked Problems 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 (HCC) Treatment Medications Current Day (Day 1 , Cycle 17 - Planned for 03/08/2024) Next Day (Day 1, Cycle 18 - Planned for 03/29/2024) albuterol (PROVENTIL)diphenhydrAMINE (BENADRYL)EPINEPHrinefamoti dine (PF) (PEPCID)furosemide (LASIX)hydrocortisone (SOLU-CORTEF) IVmeperidine (DEMEROL) 25 MG/MLpembrolizumab (KEYTRUDA) infusionSaline Flush 0.9 %sodium chloride (NS) 0.9 %sodium chloride 0.9% bolus (NS) albuterol (PROVENTIL) nebulizer solution 2.5 mgdiphenhydrAMINE (BENADRYL) injection 50 mgEPINEPHrine (Anaphylaxis) (ADRENALIN) 1 mg/ml (1:1000) inj amp/vial 0.3 mgfamotidine (PEPCID) 20 mg in water for injection, sterile 5 mL Injectionfurosemide (LASIX) injection 20 mghydrocortisone sodium succinate (Solu-CORTEF) injection (PF) 100 mgmeperidine (DEMEROL) 25 MG/ML injection 25 mgpembrolizumab (KEYTRUDA) 200 mg in sodium chloride (NS) 0.9 % 100 mL infusionSaline Flush 0.9 % injection 1 Syringesodium chloride 0.9% (NS) infusionsodium chloride 0.9% bolus (NS) 500 mL albuterol (PROVENTIL) nebulizer solution 2.5 mgdiphenhydrAMINE (BENADRYL) injection 50 mgEPINEPHrine (Anaphylaxis) (ADRENALIN) 1 mg/ml (1:1000) inj amp/vial 0.3 mgfamotidine (PEPCID) 20 mg in water for injection, sterile 5 mL Injectionfurosemide (LASIX) injection 20 mghydrocortisone sodium succinate (Solu-CORTEF) injection (PF) 100 mgmeperidine (DEMEROL) 25 MG/ML injection 25 mgpembrolizumab (KEYTRUDA) 200 mg in sodium chloride (NS) 0.9 % 100 mL infusionSaline Flush 0.9 % injection 1 Syringesodium chloride 0.9% (NS) infusionsodium chloride 0.9% bolus (NS) 500 mL Past Plans Radiation Treatments * No radiation treatments are documented for this patient in [facility]. Treatments may have been administered in another system. Resolved Problems Problem Noted Date Diagnosed Date Resolved Date Recurrent Hodgkin's lymphoma of lymph node 09/18/2020 11/20/2020 Cancer with unknown primary site 01/21/2020 03/27/2020
--- OUTSIDE RECORDS SUMMARY | 2024-05-24 17:49 | XMS_ITS | Encounter Summary ---
Author Organization [facility] Address [address] [place] [address] Care Team Providers Care [employer] Floorperson Name Role Phone Justin Larose MD Primary Care Provider [phone] Encounter Details Date Type Department Care Team (Latest Contact Info) Description 01/26/2024 10:30 AM EDT Hospital Encounter [facility] HISTORIC ENCOUNTERS [facility] CONVERSION ONLY Mixed cellularity Hodgkin lymphoma, lymph nodes of multiple sites (CMS/HCC) Social History Tobacco Use Types Packs/Day [...] - Inhaled Oxygen Concentration - - Weight 62.1 kg (136 lb 12.8 oz) 024 10:04 AM EDT Height 170.2 cm (5' 7.01 ) 01/26/2024 1 0:52 AM EDT Body Mass Index 21.42 01/26/2024 10:04 AM EDT documented in this encounter Progress Notes * Historical, Notes Results - 01/26/2024 10:30 AM EDT Pt arrives with via wheelchair for treatment. Pt assessed and reports she does have some weakness today - I had blood on Tuesday but I feel tired. Labs from 8 reviewed and okay to treat. CBCDRepeated today . Ricardo cath accessed . Pt tolerated well, watching television while waiting for treatment. Call jara in reach . Pembrolizumab infused without issue.Plan for 1 unit of PRBC today following treatment .Hgb- 7.7 ( order received form Dr Gurrola. Pt updated and in agreement with plan. Ricardo cath flushed . First unit of blood hung as ordered. Call jara in reach . Pt comfortable. Vitals stable at 15 minute vital check. Pt denies complaints. Report given to Kae Meyer RN. * Historical, Notes Results - 01/26/2024 10:30 AM EDT 1510- Transfusion completed without incident. VSS at completion of transfusion. Lasix 20mg IVP given without incident. Port flushed/deaccesed per protocol. Pt up to BR without issue. Pt left unit, stable at D/C via WC with . documented in this encounter Plan of Treatment Upcoming Encounters Date Type Department Care Team (Late st Contact Info) Description 05/29/2024 9:00 AM EST Appointment [facility] Infusion Center [address] [phone] 06/12/2024 9:45 AM EST Office Visit [facility] Hematology Oncology [address] [place] [phone] Albert Mg MD [address] [place] [address] 10/01/2024 1:45 PM EDT Office Visit Orthopedic Surgery [facility] 175 [facility] [address] [place] [phone] Noemi Jones PA 174 [facility] [address] [place] [phone] 11/16/2024 3:30 PM EDT Office Visit Adult [facility] [address] [place] [address] Justin Larose MD [address] [place] [phone] documented as of this encounter Visit Diagnoses Diagnosis Mixed cellularity Hodgkin lymphoma, lymph nodes of multiple sites (CMS/HCC) documented in this encounter Additional Health Concerns [...] documented as of this encounter Care Teams [employer] Floorperson Relationship Specialty Start Date End Date Justin Larose MD PCP - General Internal Medicine 09/29/20 02/27/24 Inés Alexander MD, PhD [address] [place] [address] Consulting Physician Hematology and Oncology 04/25/23 documented as of this encounter
--- OUTSIDE RECORDS SUMMARY | 2024-05-24 17:49 | XMS_ITS | Encounter Summary ---
Author Organization [facility] Address [address] [place] [address] Care Team Providers Care Manager Drug Safety Name Role Phone Justin Larose MD Primary Care Provider [phone] Encounter Details Date Type Department Care Team (Latest Contact Info) Description 02/02/2024 10:30 AM EDT Hospital Encounter TH HISTORIC ENCOUNTERS EASTERN CONVERSION ONLY Myelodysplastic syndrome, unspecified (CMS/HCC); Hodgkin lymphoma, unspecified, unspecified site (CMS/HCC) Social History Tobacco Use Types Packs/Day [...] Progress Notes * Historical, Notes Results - 02/02/2024 10:30 AM EDT Patient arrives via wheelchair for Luspatercept injections accompanied by . Patient wishing to have her labs rechecked today for possible blood transfusion. Stable patient assessment. Per Dr. Izabela WALLACE to redraw CBCd today. Patient's port accessed without difficulty. + blood return. Labs drawnand sent to lab. Patient resting comfortably in chair with call jara in reach. Labs resulted and reviewed with Dr. Gurrola- per Dr. Izabela WALLACE for 1 unit PRBC's. Order faxed to blood bank. 1227-Luspatercept injections given in bilateral lower abdomen without incident. 1300-Patient completed observation period without incident. Patient's port flushed and deaccessed per protocol. Due to possibility of insurance not covering blood transfusion on same day as injections, tansfusion scheduled for tomorrow. Patient discharged in stable condition. documented in this encounter Plan of Treatment Upcoming Encounters Date Type Department Care Team (Late st Contact Info) Description 05/29/2024 9:00 AM EST Appointment [facility] 271 [facility] 2nd [place] [phone] 06/12/2024 9:45 AM EST Office Visit [facility] Hematology Oncology [address] [place] [phone] Albert Mg MD [address] [place] [phone] 10/01/2024 1:45 PM EDT Office Visit Orthopedic Surgery [facility] [place] [address] [phone] Noemi Jones PA 174 [facility] 140 [place] [phone] 11/16/2024 3:30 PM EDT Office Visit Adult Medicine [facility] [address] [place] [address] Justin Larose MD [address] [place] [phone] documented as of this encounter Procedures Procedure Name Priority Date/Time Associated Diagnosis Comments ..MISCELLANEOUS REFERENCE LAB TEST 02/02/2024 documented in this encounter Results * Miscellaneous reference lab test (02/02/2024) Provider Onbase MD LAB BLOOD ORDERABLES documented in this encounter Visit Diagnoses Diagnosis Myelodysplastic syndrome, unspecified (CMS/HCC) Myelodysplastic syndrome, unspecified Hodgkin lymphoma, unspecified, unspecified site (CMS/HCC) documented in this encounter Additional Health Concerns Infection Onset Date Last Indicated Resolved Time Respiratory Rule-Out 03/15/2024 03/15/2024 7:23 PM EST COVID-19 Rule-Out 03/15/2024 03/15/2024 03/15/2024 7:23 PM EST Tuberculosis Rule-Out Comment:No indication for TB precautions per Dr Navarro. 03/19/2024 03/19/2024 03/19/2024 7:30 PM EST Respiratory Rule-Out 04/10/2024 04/10/2024 024 10:55 AM EST COVID-19 Rule-Out 04/10/2024 04/10/2024 04/10/2024 10:55 AM EST documented as of this encounter Care Teams Manager Drug Safety Relationship Specialty Start Date End Date Justin Larose MD PCP - General Internal Medicine 09/29/20 02/27/24 Inés Alexander MD, PhD [address] [place] [phone] Consulting Physician Hematology and Oncology 04/25/23 documented as of this encounter
--- OUTSIDE RECORDS SUMMARY | 2024-05-24 17:49 | XMS_ITS | Clinical Summary ---
Author Organization [facility] Address [address] [place] [address] Care Team Providers Care Celery Wrapper Name Role Phone Jutsin Larose MD Primary Care Provider [phone] Allergies No known active allergies Medications Medication Sig Dispensed Refills Start Date End Date Status vitamin D3 (VITAMIN D3) 25 MCG (1000 UT) tablet Take 1 tablet (1,000 Units total) by mouth daily. 0 Active Multiple Vitamin (MULTI-VITAMIN DAILY PO) Take by mouth. 0 Active ibuprofen 200 MG tablet Take 2 tablets (400 mg total) by mouth every 6 (six) hours as needed for pain. 0 Active acetaminophen (TYLENOL) 325 MG tablet Take 1 tablet (325 mg total) by mouth every 6 (six) hours as needed for pain. 0 Active folic acid (FOLVITE) tablet 1 mg Take 1 tablet (1 mg total) by mouth every other day. 0 Active Cyanocobalamin (VITAMIN B 12 PO) Take by mouth. 0 Act martin gabapentin (NEURONTIN) 300 MG capsule TAKE 1 CAPSULE BY MOUTH EVERY DAY IN THE EVENING 90 capsule 3 04/11/2023 Active Additional Information Patient taking differently: Oral, TAKE 1 CAPSULE BY MOUTH EVERY DAY IN THE EVENING, Reported on 06/30/2023 ondansetron (ZOFRAN-ODT) 8 MG disintegrating tablet Take 1 tablet (8 mg total) by mouth every 8 (eight) hours as needed for nausea. 15 tablet 11 05/19/2023 Active prochlorperazine (COMPAZINE) 10 MG tablet Take 1 tablet (10 mg total) by mouth every 6 (six) hours as needed. 60 tablet 1 07/08/2023 Active cyclobenzaprine (FLEXERIL) 5 MG tablet Take 1 tablet (5 mg total) by mouth 3 (three) times a day as needed for muscle spasms. 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 60 tablet 2 10/11/2023 Active sertraline (ZOLOFT) 100 MG tablet Take 1 tablet (100 mg total) by mouth daily. 90 tablet 1 10/20/2023 Active Senexon-S 8.6-50 MG TAKE 1 TABLET BY MOUTH EVERY DAY 60 tablet 5 10/26/2023 Active lidocaine-prilocaine (EMLA) cream APPLY OVER PORT AREA 1 HOUR PRIOR TO CHEMOTHERAPY 30 g 0 01/17/2024 Active levothyroxine (SYNTHROID) tablet 50 mcg Take 1 tablet (50 mcg total) by mouth every morning. 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 Splenomegaly 01/21/2020 Resolved Problems Problem Noted Date Diagnosed Date Resolved Date Recurrent Hodgkin's lymphoma of lymph node 09/18/2020 11/20/2020 Cancer with unknown primary site 01/21/2020 03/27/2020 Encounters Date Type Department Care Team Description 02/23/2024 10:30 AM EDT Infusion [facility] Oncology Infusion Services [address] [place] [address] Hardy Cornejo RN Myelodysplasia (myelodysplastic syndrome) (HCC) (Primary Dx) 02/23/2024 Travel from Last 3 Months Immunizations Name Administration Dates Next Due Covid-19 (Moderna 12+) 100mcg/0.5mL dosage 07/23 Social History Tobacco Use Types Packs/Day Years Used Date Smoking Tobacco: Never Smokeless Tobacco: Never Alcohol Use Standard Drinks/Week Comments Yes 0 (1 standard drink = 0.6 oz pur e alcohol) rarely Sex and Gender Information Value Date Recorded Sex Assigned at Female 12/07/2021 12:53 PM EDT Gender Identity Not on file Sexual Orientation Not on file Job Start Date Occupation Industry Not on file Not on file Not on file Last Filed Vital Signs Vital Sign Reading Time Taken Comments Blood Pressure 104/58 02/23/2024 10:00 AM EDT Pulse 86 02/23/2024 10:00 AM EDT Temperature 36.6 ??C (97.8 ??F) 02/23/2024 10:00 AM E DT Respiratory Rate 18 02/23/2024 10:00 AM EDT Oxygen Saturation 98% 02/23/2024 10:00 AM EDT Inhaled Oxygen Concentration - - Weight 59 kg (130 lb 1.1 oz) 02/23/2024 10:00 AM EDT Height 170.2 cm (5' 7.01 ) 01/26/2024 10:52 AM E DT Body Mass Index 20.37 01/26/2024 10:52 AM EDT Plan of Treatment Health Maintenance Due Date Last Done Comments Hepatitis C Screening 1950 Depression Screening 1962 Preventative Health Evaluation 1968 Shingrix-Zoster Vaccine (1 of 2) 1969 Colon Cancer Screening (Colonoscopy) 1995 Breast Cancer Screening (Mammogram) 2000 RSV Adult > 60+ Yrs or (1 - Risk 60-74 years 1-dose series) 2010 Fall Risk Assessment 2015 Osteoporosis Screening (DEXA Scan) 2015 COVID-19 Vaccine ( season) 2024 12/30/2023, 07/23/2021, 09/19/2020 DTap / Tdap / Td (2 - Td or Tdap) 01/03/2028 01/02/2018 Pneumococcal Vaccine Completed 02/23/2017, 05/09/19 16 Influenza Vaccine Completed 12/30/2023, , 01/27/2021, Additional history exists Hepatitis B Vaccines Aged Out No long er eligible based on patient's age to complete this topic RSV Ped < 20 months Aged Out No longe r eligible based on patient's age to complete this topic Care Teams Celery Wrapper Relationship Specialty Start Date End Date Justin Larose MD PCP - General Internal Medicine 10/20/20 Inés Alexander MD, PhD Lymphoma Program [facility] [place] Consulting Physician Hematology and Oncology 10/17/20
--- OUTSIDE RECORDS SUMMARY | 2024-05-24 17:49 | XMS_ITS | Encounter Summary ---
Author Organization [facility] Address [address] [place] [address] Care Team Providers Care Direct Sales Representative Name Role Phone Justin Larose MD Primary Care Provider [phone] Encounter Details Date Type Department Care Team (Late Contact Info) Description 01/26/2024 10:00 AM EDT Hospital Encounter TH HISTORIC ENCOUNTERS EASTERN CONVERSION ONLY Scott-Albert Gurrola MD [address] [place] [phone] Social History Tobacco Use Types Packs/Day Years [...] on file documented as of this encounter Plan of Treatment Upcoming Encounters Date Type Department Care Team (Late Contact Info) Description 05/29/2024 9:00 AM EST Appointment [facility] Infusion Center [address] [phone] 06/12/2024 9:45 AM EST Office Visit [facility] Hematology Oncology [address] [place] [phone] Albert Mg MD [address] [place] [phone] 10/01/2024 1:45 PM EDT Office Visit Orthopedic Surgery [facility] [address] [phone] Noemi Jones PA [address] [phone] 11/16/2024 3:30 PM EDT Office Visit [facility] [address] [place] [address] Justin Larose MD [address] [place] [address] documented as of this encounter Visit Diagnoses [...] documented as of this encounter Care Teams Direct Sales Representative Relationship Specialty Start Date End Date Justin Larose MD PCP - General Internal Medicine 09/29/20 02/27/24 Inés Alexander MD, PhD [address] [place] [phone] Consulting Physician Hematology and Oncology 04/25/23 documented as of this encounter
--- OUTSIDE RECORDS SUMMARY | 2024-05-24 17:49 | XMS_ITS | Encounter Summary ---
Author Organization 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) Myelodysplasia (myelodysplastic syndrome) ([facility]/HCC) Albert Mg MD [address] [place] [address] [facility] Infusion Center [address] [place] [phone] Referral ID Status Reason Start Date Expiration Date V isits Requested Visits Authorized [id number] Pending Review 02/27/2024 02/26/2025 1 1 Encounter Details Date Type Department Care Team (Latest Contact Info) Description 05/15/2024 9:30 AM EST - 05/15/2024 11:59 PM EST Hospital Encounter [facility] Infusion Center [address] [place] [phone] Albert Mg MD [address] [place] [address] Myelodysplasia (myelodysplastic syndrome) ([facility]) (Primary Dx); 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 Patient reports that she's fatigued. A little sob but not much different than her usual. Patient has no questions/concerns for the provider at this time. Port accessed, +BR. Cbcd,type and screen drawn, sent stat. Patient left accessed, anticipating a blood transfusion. Patient is comfortable in recliner, watching tv. 1040 Critical lab results reported to Dr. Tony hgb 6.4. Waiting on response. 1100 Orders are to administer one unit of PRBC today and another on Tuesday or . Patient prefers . One unit released to blood bank for today. Lasix released to administered once done. Patient in agreement with plan. Vitals are stable. 1243 Blood transfusion started, infusing over 15 minutes at 100 ml/hr. Patient is comfortable in recliner, call jara within reach. 1309 Vitals remain stable. Blood transfusion rate increased to 175 ml/hr. Call jara within reach. at chairside. 1513 Patient tolerated transfusion without adverse reaction/complaint. Vitals are stable. Lasix administered per protocol. Patient has no questions/concerns at this time. Port flushed per protocol. Deaccessed, intact. Next appt scheduled. Patient discharged via wheelchair, accompanied by instable condition. documented in this encounter Plan of Treatment Upcoming Encounters Date Type Department Care Team (Late st Contact Info) Description 05/29/2024 9:00 AM EST Appointment [facility] Infusion [facility] 271 [facility] 2nd [place] [phone] 06/12/2024 9:45 AM EST Office Visit [facility] Hematology Oncology [address] [place] [phone] Albert Mg MD [address] [place] [phone] 10/01/2024 1:45 PM EDT Office Visit Orthopedic Surgery [facility] [address] [phone] Noemi Jones PA [address] [phone] 11/16/2024 3:30 PM EDT Office Visit Adult Medicine [address] [phone] Justin Larose MD [address] [place] [phone] documented as of this encounter Procedures Procedure Name Priority Date/Time Associated Diagnosis Comments TRANSFUSE RED BLOOD CELLS Routine 05/15/2024 12:43 PM EST 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) Myelodysplasia (myelodysplastic syndrome) (CMS/HCC) PREPARE RBC Routine 05/15/2024 11:17 AM EST 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) Myelodysplasia (myelodysplastic syndrome) (CMS/HCC) TYPE AND SCREEN STAT 05/15/2024 10:33 AM EST 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) Myelodysplasia (myelodysplastic syndrome) (CMS/HCC) CBC WITH AUTO DIFFERENTIAL STAT 05/15/2024 10:06 AM EST 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) Myelodysplasia (myelodysplastic syndrome) (CMS/HCC) CBC AND DIFFERENTIAL STAT 05/15/2024 10:06 AM EST 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) Myelodysplasia (myelodysplastic syndrome) (CMS/HCC) documented in this encounter Results * Transfuse RBC (05/15/2024 3:13 PM EST) Kim Tony DO BLOOD TRANSFU RUPAL ORDERABLES * Prepare RBC: 2 Units (05/15/2024 11:17 AM EST) Product Code [id number] 05/15/2024 12:44 PM [facility] Unit Number [id number] 05/15/19 25 12:44 PM [facility] Crossmatch Compatible 05/15/2024 12:02 PM [facility] Dispense Status Transfused 05/15/2024 12:44 PM [facility] Unit ABO Rh ANEG 05/15/2024 12:44 PM [facility] Unit Expiration Date Time [id number] 05/15/2024 12:44 PM [facility] Unit Blood Type 0600 05/15/2024 12:44 PM [facility] Blood Venous blood specimen / Unknown 05/15/2024 11:17 AM EST 05/15/2024 10:33 AM EST Kim Tony DO BLOOD BANK CT ODUCT ORDERABLES [facility] [address] [place] [address], [place] [phone] * Type and screen (05/15/2024 10:33 AM EST) Pathologist [facility] ABO Group A 05/15/2024 11:58 AM EST [facility] Rh Type Negative 05/15/2024 11:58 AM EST [facility] Antibody Screen Negative 05/15/2024 11:58 AM EST [facility] Blood Blood sample taken from central line / Unknown Existing Catheter / Unknown 05/15/2024 10:33 AM EST 05/15/2024 10:33 AM EST Albert Mg MD LAB BLOOD B ANK TEST ORDERABLES [facility] [address] [place] [address], [place] [phone] * (ABNORMAL) CBC auto differential (05/15/2024 10:06 AM EST) WBC 2.2(L) 4.8 - 10.8 K/mcL LAB HEMETOLOGY METHOD 05/15/2024 10:58 AM EST [facility] RBC 2.10(L) 3.80 - 4.80 M/mcL LAB HEMETOLOGY METHOD 05/15/2024 10:58 AM EST [facility] Hemoglobin 6.4(LL) 11.5 - 16.0 g/dL LAB HEMETOLOGY METHOD 05/15/2024 10:58 AM EST [facility] Hematocrit 19.3(LL) 35.0 - 47.0 % LAB HEMETOLOGY METHOD 05/15/2024 10:58 AM [facility] MCV 95.1 79.0 - 98.0 FL LAB HEMETOLOGY METHOD 05/15/2024 10:58 AM [facility] MCH 31.2 27.0 - 32.0 pcg LAB HEMETOLOGY METHOD 05/15/2024 10:58 AM [facility] MCHC 32.8 32.0 - 37.0 g/dL LAB HEMETOLOGY METHOD 05/15/2024 10:58 AM [facility] RDW 19.9(H) 11.0 - 15.0 % LAB HEMETOLOGY METHOD 05/15/2024 10:58 AM [facility] Platelets 29(L) 130 - 400 K/mcL LAB HEMETOLOGY METHOD 05/15/2024 10:58 AM [facility] Comment:previously verified by slide MPV 11.3(H) 7.0 - 11.0 FL LAB HEMETOLOGY METHOD 05/15/2024 10:58 AM [facility] NRBC 1.4(H) <1.0 % LAB HEMETOLOGY METHOD 05/15/2024 10:58 AM [facility] NRBC Absolute 0.03 <0.10 K/mcL LAB HEMETOLOGY METHOD 05/15/2024 10:58 AM [facility] Neutrophils Relative 66.3 % LAB HEMETOLOGY METHOD 05/15/2024 10:58 AM [facility] Lymphocytes Relative 24.9 % LAB HEMETOLOGY METHOD 05/15/2024 10:58 AM [facility] Monocytes Relative 5.1 % LAB HEMETOLOGY METHOD 05/15/2024 10:58 AM [facility] Eosinophils Relative 0.0 % LAB HEMETOLOGY METHOD 05/15/2024 10:58 AM [facility] Basophils Relative 0.0 % LAB HEMETOLOGY METHOD 05/15/2024 10:58 AM EST [facility] Immature Granulocytes Relative 3.7 % LAB HEMETOLOGY METHOD 05/15/2024 10:58 AM EST [facility] Neutrophils Absolute 1.44(L) 1.50 - 7.00 K/mcL LAB HEMETOLOGY METHOD 05/15/2024 10:58 AM EST [facility] Lymphocytes Absolute 0.54(L) 1.00 - 5.00 K/mcL LAB HEMETOLOGY METHOD 05/15/2024 10:58 AM EST [facility] Monocytes Absolute 0.11(L) 0.20 - 1.00 K/[facility] LAB HEMETOLOGY METHOD 05/15/2024 10:58 AM EST [facility] Eosinophils Absolute 0.00 0.00 - 0.50 K/mcL LAB HEMETOLOGY METHOD 05/15/2024 10:58 AM EST [facility] Basophils Absolute 0.00 0.00 - 0.20 K/mcL LAB HEMETOLOGY METHOD 05/15/2024 10:58 AM EST [facility] Immature Granulocytes Absolute 0.08(H) 0.00 - 0.03 K/mcL LAB HEMETOLOGY METHOD 05/15/2024 10:58 AM [facility] Blood Blood sample taken from central line / Unknown Existing Catheter / Unknown 05/15/2024 10:06 AM EST 05/15/2024 10:17 AM EST Albert Mg MD LAB BLOOD O RDERABLES [facility] [address] [place] [address], documented in this encounter Visit Diagnoses Diagnosis Myelodysplasia (myelodysplastic syndrome) (CMS/HCC)- Primary Myelodysplastic syndrome, unspecified 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 Given 05/15/2024 3:14 PM EST 20 mg documented in this encounter Orders Medications Ordered That Juan Carlos ht Not Have Been Administered Count Last Ordered Date First Ordered Date furosemide (LASIX) injection 20 mg 1 2024 Lab Orders Without Results Count Last Ordered D ate First Ordered Date TYPE AND SCREEN 1 05/15/2024 documented in this encounter Care Teams Budget Director Relationship Specialty Start Date End Date Justin Larose MD [address] [place] [phone] PCP - General Internal Medicine 02/28/24 Inés Alexander MD, PhD [address] [place] [address] Consulting Physician Hematology and Oncology 04/25/23 documented as of this encounter
--- OUTSIDE RECORDS SUMMARY | 2024-05-24 17:49 | XMS_ITS | Encounter Summary ---
Author Organization [facility] Address [address] [place] [address] Care Team Providers Care Solar/[employer] Sales Name Role Phone Justin Larose MD Primary Care Provider [phone] Encounter Details Date Type Department Care Team (Late Contact Info) Description 02/13/2024 7:39 AM EDT Hospital Encounter TH HISTORIC ENCOUNTERS EASTERN CONVERSION ONLY Mannie Quinteros MD [address] [place] [address] Social History Tobacco Use Types Packs/Day Years [...] Info) Description 05/29/2024 9:00 AM EST Appointment [address] [phone] 06/12/2024 9:45 AM EST Office Visit [facility] Hematology Oncology [address] [place] [phone] Albert Mg MD [address] [place] [phone] 10/01/2024 1:45 PM EDT Office Visit Orthopedic Surgery [facility] [address] [phone] Noemi Jones PA [address] [phone] 11/16/2024 3:30 PM EDT Office Visit Adult [facility] [address] [place] [address] Justin Larose MD [address] [place] [phone] documented as of this encounter Visit Diagnoses [...] documented as of this encounter Care Teams Solar/Renewable Energy Sales Relationship Specialty Start Date End Date Justin Larose MD PCP - General Internal Medicine 09/29/20 02/27/24 Inés Alexander MD, PhD [address] [place], [place] [phone] Consulting Physician Hematology and Oncology 04/25/23 documented as of this encounter
--- OUTSIDE RECORDS SUMMARY | 2024-05-24 17:49 | XMS_ITS | Encounter Summary ---
Author Organization [facility] Address [address] [place] [address] Care Team Providers Care Sleever Name Role Phone Justin Larose MD Primary Care Provider [phone] Encounter Details Date Type Department Care Team (Latest Contact Info) Description 01/31/2024 10:00 AM EDT Hospital Encounter TH HISTORIC [...] Progress Notes * Historical, Notes Results - 01/31/2024 10:00 AM EDT Patient arrives via wheelchair accompanied by for STAT labs and possible blood transfusion.Stable patient assessment. Patient's port accessed without difficulty. + blood return. Labs drawn and sent STAT to lab. Patient resting comfortably in chair with call jara in reach. Labs resulted- Hgb 8.2. Patient reports feeling well and wishes to hold off on blood transfusion atthis time. 1200-Patient's port flushed and deaccessed per protocol. Patient's next appointments in place. Patient stable upon discharge. documented in this encounter Plan of Treatment Upcoming Encounters Date Type Department Care Team (Late st Contact Info) Description 05/29/2024 9:00 AM EST Appointment [facility] [address] [facility] 2nd [place] [phone] 06/12/2024 9:45 AM EST Office Visit [facility] Hematology Oncology [address] [place] [phone] Albert Mg MD [address] [place] [phone] 10/01/2024 1:45 PM EDT Office Visit Orthopedic Surgery [facility] [address] [phone] Noemi Jones PA [address] [phone] 11/16/2024 3:30 PM EDT Office Visit Adult Medicine [address] [phone] Justin Larose MD [address] [place] [address] documented as of this encounter Procedures Procedure Name Priority Date/Time Associated Diagnosis Comments ..MISCELLANEOUS REFERENCE LAB TEST 01/31/2024 documented in this encounter Results * Miscellaneous reference lab test (01/31/2024) Provider Onbase MD LAB BLOOD ORDERABLES documented in this encounter Visit Diagnoses Diagnosis Hodgkin lymphoma, [...] documented as of this encounter Care Teams Sleever Relationship Specialty Start Date End Date Justin Larose MD PCP - General Internal Medicine 09/29/20 02/27/24 Inés Alexander MD, PhD [address] [place] [address] Consulting Physician Hematology and Oncology 04/25/23 documented as of this encounter
--- OUTSIDE RECORDS SUMMARY | 2024-05-24 17:49 | XMS_ITS | Encounter Summary ---
Author Organization [facility] Address [address] [place] [address] Care Team Providers Care Research Computing Specialist Name Role Phone Justin Larose MD Primary Care Provider [phone] Encounter Details Date Type Department Care Team (Late st Contact Info) Description 02/03/2024 10:58 AM EDT Hospital Encounter TH HISTORIC ENCOUNTERS [...] Progress Notes * Historical, Notes Results - 02/03/2024 11:00 AM EDT Patient arrives via wheelchair accompanied by for blood transfusion. Labs reviewed with yesterday and order received for 1 unit PRBC's. Stable patient assessment. Patient's port accessed without difficulty. + blood return. Patient resting comfortably in chair with call jara in reach. 1130-1 unit PRBC's initiated per protocol. Patient rested during transfusion and ate well for lunch. Per Dr. Gurrola administer 20 mg IV lasix at the end of transfusion. 1340-Patient completed transfusion without incident. Lasix administered IV push. Patient's port flushed and deaccessed per protocol. Patient has her next appointment in place. Patient stable upon discharge. documented in this encounter Plan of Treatment Upcoming Encounters Date Type Department Care Team (Late st Contact Info) Description 05/29/2024 9:00 AM EST Appointment [facility] [address] [facility] 2nd [place] [address] 06/12/2024 9:45 AM EST Office Visit [facility] Hematology Oncology [address] [place] [phone] Albert Mg MD [address] [place] [phone] 10/01/2024 1:45 PM EDT Office Visit Orthopedic Surgery [facility] [address] [phone] Noemi Jones PA [address] [phone] 11/16/2024 3:30 PM EDT Office Visit Adult Medicine [facility] [address] [place] [phone] Justin Larose MD [address] [place] [address] documented as of this encounter Visit Diagnoses [...] documented as of this encounter Care Teams Research Computing Specialist Relationship Specialty Start Date End Date Justin Larose MD PCP - General Internal Medicine 09/29/20 02/27/24 Inés Alexander MD, PhD [address] [place] [address] Consulting Physician Hematology and Oncology 04/25/23 documented as of this encounter
--- OUTSIDE RECORDS SUMMARY | 2024-05-24 17:49 | XMS_ITS | Encounter Summary ---
Author Organization [facility] Address [address] [place] [address] Care Team Providers Care Neurological Surgeon Name Role Phone Justin Larose MD Primary Care Provider [phone] Reason for Visit * Reason Comments home health cert Encounter Details Date Type Department Care Team (Late st Contact Info) Description 05/11/2024 Billing Patient Not Present Adult Medicine [address] [phone] Justin Larose MD [address] [place] [address] Hodgkin lymphoma, unspecified Hodgkin lymphoma type, unspecified body region (CMS/HCC) (Primary Dx); Pure hypercholesterolemia , unspecified; Anemia in chronic kidney disease (CODE); Pneumonia due to infectious organism, unspecified laterality, unspecified part of lung; Acute on chronic diastolic congestive heart failure (CMS/HCC); Hypothyroidism, unspecified type; Dependence on supplemental oxygen Social History Tobacco Use Types Packs/Day Years [...] as of this encounter Progress Notes * Jaymie Kirkpatrick MA - 05/11/2024 7:19 AM EST Order # [id number] Start of Care Date: 03/21/2024 Date of certification period: 03/21/2024 - 05/19/2024 Date of service = signature date 04/03/2024 Hospice patient: no Home Care Agency: [facility] [address] [phone] documented in this encounter Plan of Treatment Upcoming Encounters Date Type Department Care Team (Late st Contact Info) Description 05/29/2024 9:00 AM EST Appointment [facility] [address] [facility] [address] [place] [address] 06/12/2024 9:45 AM EST Office Visit [facility] Hematology Oncology [address] [place] [phone] Albert Mg MD [address] [place] [phone] 10/01/2024 1:45 PM EDT Office Visit Orthopedic Surgery - [place] 175 [facility] [address] [place] [phone] Noemi Jones PA 174 [facility] [address] [place] [phone] 11/16/2024 3:30 PM EDT Office Visit Adult Medicine [facility] [address] [place] [phone] Justin Larose MD [address] [place] [address] documented as of this encounter Visit Diagnoses Diagnosis Hodgkin lymphoma, unspecified Hodgkin lymphoma type, unspecified body region (CMS/HCC)- Primary Pure hypercholesterolemia, unspecified Anemia in chronic kidney disease (CODE) Pneumonia due to infectious organism, unspecified laterality, unspecified part of lung Acute on chronic diastolic congestive heart failure (CMS/HCC) Hypothyroidism, unspecified type Dependence on supplemental oxygen documented in this encounter Care Teams Neurological Surgeon Relationship Specialty Start Date End Date Justin Larose MD [address] [place] [address] PCP - General Internal Medicine 02/28/24 Inés Alexander MD, PhD [address] [place] [address] Consulting Physician Hematology and Oncology 04/25/23 documented as of this encounter
--- OUTSIDE RECORDS SUMMARY | 2024-05-24 17:50 | XMS_ITS | Clinical Summary ---
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 Active gabapentin (NEURONTIN) 300 mg capsule Take 1 capsule (300 mg total) by mouth at bedtime. 04/11/2023 Active levothyroxine (SYNTHROID, LEVOTHROID) 50 mcg tablet Take 25 mcg by mouth. 09/01/2023 Active pregabalin (LYRICA) 50 mg capsule Take 1 capsule (50 mg total) by mouth at bedtime. Active predniSONE (DELTASONE) 20 mg tablet Take 2 tablets (40 mg total) by mouth 1 (one) time each day. 60 tablet 04/26/2024 05/26/19 25 Active Additional Information Patient taking differently: 30 mgoral Daily, Reported on 05/22/2024 pantoprazole (PROTONIX) 40 mg EC tablet Take 1 tablet (40 mg total) by mouth 1 (one) time each day before breakfast. Do not crush, chew, or split. 30 each 1 04/26/2024 06/26/19 25 Active sertraline (ZOLOFT) 100 mg tablet TAKE 1 TABLET BY MOUTH EVERY DAY 90 tablet 1 05/24/2024 Active sertraline (ZOLOFT) 100 mg tablet Take 1 tablet (100 mg total) by mouth 1 (one) time each day. 10/20/2023 05/24/19 25 Discontinued predniSONE (DELTASONE) 20 mg tablet Take 3 tablets (60 mg total) by mouth 1 (one) time each day for 14 doses. 42 tablet 04/14/2024 04/26/19 25 Discontinued(Reo rder) pantoprazole (PROTONIX) 40 mg EC tablet Take 1 tablet (40 mg total) by mouth 1 (one) time each day before breakfast. Do not crush, chew, or split. 30 each 04/15/2024 04/26/19 25 Discontinued(Reo rder) Active Problems Problem Noted Date Diagnosed Date Pneumonitis 04/13/2024 Hypoxia 03/15/2024 Acute respiratory failure with hypoxia Acute CHF 03/15/2024 Acute hypoxemic respiratory failure 03/15/2024 Hypothyroidism due to medication 03/07/2024 Hungry bone syndrome 03/06/2024 Hodgkin's lymphoma of bone marrow 01/31/2024 Overview (01/31/2024): Follows with Hematology (Izabela) S/p brentuxiimab Hypothyroidism 11/07/2023 Myelodysplasia (myelodysplastic syndrome) 2023 Overview (01/12/2024): Bone marrow erythroid dysplasia (DFCI) Shortness of breath 04/28/2023 Supraclavicular lymphadenopathy 02/14/2023 Dizzy spells 07/30/2021 Acute left-sided low back pain without sciatica 07/30/2021 Primary osteoarthritis of both knees 02/23/2021 Acute cystitis without hematuria 05/19/2020 Nausea 05/05/2020 Drug-induced peripheral neuropathy 04/08/2020 Diarrhea due to drug 2020 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 02/28/2020 Night sweats 02/28/2020 Symptomatic anemia 01/30/2020 Other fatigue 01/30/2020 Hypercalcemia 01/21/2020 Lymphadenopathy, generalized 01/21/2020 Splenomegaly 01/21/2020 Migraine with aura and witho ut status migrainosus, not intractable 02/23/2017 Hypercholesterolemia 08/27/2016 Osteopenia 08/27/2016 Overview (01/31/2024): Took fosamax for six years Hearing loss of both ears 08/27/2016 History of left mastectomy 08/27/2016 Overview (01/31/2024): 1988 Resolved Problems Problem Noted Date Diagnosed Date Resolved Date Pneumonia of both lungs due to infectious organism 03/15/2024 03/19/2024 Anemia complicating neoplastic disease 01/11/2020 03/15/2024 Overview (01/31/2024): Pending iron studies, referred to GI and hematology. Encounters Date Type Department Care Team Description 05/24/2024 Telephone Adult Medicine [address] [phone] Justin Larose MD Request For Order(s) ([facility] order # [id number], discharge order. Please sign, date and fax back to [phone]. Placed in provider's bin.) 05/23/2024 Telephone Adult Medicine [address] [phone] Justin Larose MD Request For Order(s) ([facility] order #'s [id number] (missed visit), [id number], [id number]. Placed in provider's bin. Please sign, date and fax back to [phone].) 05/22/2024 9:30 AM EST Office Visit [facility] Hematology Oncology [address] [place] [phone] Albert Mg MD 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) (Primary Dx); Hodgkin's lymphoma of bone marrow (CMS/HCC); Symptomatic anemia; Supraclavicular lymphadenopathy; Pneumonitis; Acute respiratory failure with hypoxia (CMS/HCC) 05/22/2024 9:04 AM EST Hospital Encounter [facility] Infusion Center [address] [place] [phone] Albert Mg MD 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) (Primary Dx); Hodgkin's lymphoma of bone marrow (CMS/HCC); Myelodysplasia (myelodysplastic syndrome) (CMS/HCC) 05/21/2024 Telephone Adult Medicine [address] [phone] Giovana Barroso [place] faxed order ([facility] order #[id number]) 05/17/2024 9:30 AM EST - 05/17/2024 11:59 PM EST Hospital Encounter [facility] Infusion Center [address] [place] [phone] Albert Mg MD 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) (Primary Dx); Myelodysplasia (myelodysplastic syndrome) (CMS/HCC) Discharge Disposition: Home or Self Care 05/15/2024 9:30 AM EST - 05/15/2024 11:59 PM EST Hospital Encounter [address] [phone] Albert Mg MD Myelodysplasia (myelodysplastic syndrome) (CMS/HCC) (Primary Dx); 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) Discharge Disposition: Home or Self Care 05/11/2024 2:30 PM EST Office Visit Adult Medicine [address] [phone] Justin Larose MD Acute on chronic respiratory failure with hypoxia (CMS/HCC) (Primary Dx); Hodgkin's lymphoma of bone marrow (CMS/HCC); Pneumonitis 05/11/2024 Billing Patient Not Present Adult Medicine [address] [phone] Justin Larose MD Hodgkin lymphoma, unspecified Hodgkin lymphoma type, unspecified body region (CMS/HCC) (Primary Dx); Pure hypercholesterolemia, unspecified; Anemia in chronic kidney disease (CODE); Pneumonia due to infectious organism, unspecified laterality, unspecified part of lung; Acute on chronic diastolic congestive heart failure (CMS/HCC); Hypothyroidism, unspecified type; Dependence on supplemental oxygen 05/08/2024 9:00 AM EST - 05/08/2024 11:59 PM EST Hospital Encounter [address] [phone] Albert Mg MD Myelodysplasia (myelodysplastic syndrome) (CMS/HCC) (Primary Dx); 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); Lymphadenopathy, generalized; Hodgkin's lymphoma of bone marrow ([facility]/HCC) Discharge Disposition: Home or Self Care 05/07/2024 Telephone Adult Medicine [address] [phone] Giovana Barroso [place] faxed order ([facility] order #[id number], ) 05/07/2024 Telephone Adult [address] [phone] Giovana Barroso [place] faxed order ([facility] order #[id number]) 05/07/2024 Telephone Adult [address] [phone] Giovana Barroso [place] faxed order ([facility] order #[id number]) 05/04/2024 Telephone Adult Medicine [address] [phone] Giovana Barroso [place] faxed order ([facility] order #[id number]) 05/01/2024 9:00 AM EST - 05/01/2024 11:59 PM EST Hospital Encounter [facility] Center [address] [place] [phone] Albert Mg MD Myelodysplasia (myelodysplastic syndrome) ([facility]/HCC) (Primary Dx); 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); Hodgkin's lymphoma of bone marrow (CMS/HCC) Discharge Disposition: Home or Self Care 04/30/2024 7:49 AM EST - 04/30/2024 11:59 PM EST Hospital Encounter [facility] Ortho Xray [address] [place] [phone] Pain Discharge Disposition: Home or Self Care 04/27/2024 1:30 PM EST Office Visit [address] [phone] Justin Larose MD Pneumonitis (Primary Dx); Acute hypoxemic respiratory failure (CMS/HCC); 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); Hodgkin's lymphoma of bone marrow (CMS/HCC) 04/26/2024 10:15 AM EST Office Visit [facility] Hematology Oncology [address] [place] [phone] Albert Mg MD Drug-induced peripheral neuropathy (CMS/HCC) (Primary Dx); Acute respiratory failure with hypoxia (CMS/HCC); Osteopenia of multiple sites; Primary osteoarthritis of both knees; Hypercalcemia; 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); Lymphadenopathy, generalized; Hodgkin's lymphoma of bone marrow (CMS/HCC); Supraclavicular lymphadenopathy 04/26/2024 9:45 AM EST - 04/26/2024 11:59 PM EST Hospital Encounter [facility] Infusion Center [address] [place] [phone] Myelodysplasia (myelodysplastic syndrome) (CMS/HCC) (Primary Dx); Hodgkin's lymphoma of bone marrow (CMS/HCC) Discharge Disposition: Home or Self Care 04/24/2024 9:00 AM EST - 04/24/2024 11:59 PM EST Hospital Encounter [facility] Infusion Center [address] [place] [phone] 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); Myelodysplasia (myelodysplastic syndrome) (CMS/HCC) Discharge Disposition: Home or Self Care 04/20/2024 1:30 PM EST - 04/20/2024 11:59 PM EST Hospital Encounter [facility] Infusion Center [address] [place] [phone] 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); Myelodysplasia (myelodysplastic syndrome) (CMS/HCC) Discharge Disposition: Home or Self Care 04/10/2024 8:52 AM EST - 04/16/2024 5:48 PM EST Hospital Encounter [facility] Intermediate Care Unit B [address] [place] [phone] Surjit Amador MD Bukalo, Nermina, MD Bell, Alistair A, MD Japaridze, Anna, MD Acute respiratory failure with hypoxia (CMS/HCC) (Primary Dx); Hypoxia; Pneumonia of both lower lobes due to infectious organism; Bilateral pleural effusion; Acute hypoxemic respiratory failure (CMS/HCC); Shortness of breath Discharge Disposition: [place] [facility] [place]/06/2024 Telephone [facility] Hematology Oncology [address] [place] [phone] Albert Mg MD Referral 04/05/2024 10:00 AM EST Office Visit [facility] Hematology Oncology [address] [place] [phone] Albert Mg MD 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) (Primary Dx); Lymphadenopathy, generalized; Symptomatic anemia; Supraclavicular lymphadenopathy; Acute respiratory failure with hypoxia (CMS/HCC); Drug-induced peripheral neuropathy (CMS/HCC); Hodgkin's lymphoma of bone marrow (CMS/HCC); Hypothyroidism due to medication 04/04/[address] [phone] Justin Larose MD VNA Order ([facility]/Order #[id number]) 04/03/2024 9:00 AM EST - 04/03/2024 11:59 PM EST Hospital Encounter [facility] Infusion Center [address] [place] [phone] Hypothyroidism, unspecified type (Primary Dx); 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); Myelodysplasia (myelodysplastic syndrome) (CMS/HCC); Hodgkin's lymphoma of bone marrow (CMS/HCC); Hypothyroidism due to medication Discharge Disposition: Home or Self Care 04/03/2024 Telephone Adult Medicine [address] [phone] Giovana Barroso [place] faxed order ([facility] order #[id number]) 04/02/2024 1:00 PM EST Procedure visit Orthopedic Surgery - [place] [address] [facility] [address] [place] [phone] Noemi Jones PA Primary osteoarthritis of both knees (Primary Dx) 04/01/2024 Telephone Adult [address] [phone] Giovana Barroso [place] faxed order ([facility] order #[id number]) 04/01/[address] [phone] Giovana Barroso [place] faxed order ([facility] order #[id number]) 03/29/2024 9:00 AM EST - 03/29/2024 11:59 PM [facility] [address] [facility] 2nd [place] [phone] Myelodysplasia (myelodysplastic syndrome) (CMS/HCC) (Primary Dx) Discharge Disposition: Home or Self Care 03/28/2024 Telephone [facility] Medicine [address] [phone] Giovana Barroso [place] faxed order ([facility] order# [id number]) 03/28/2024 Telephone Adult [address] [phone] Giovana Barroso [place] Faxed order ([facility] order# [id number]) 03/27/2024 10:00 AM EST - 03/27/2024 11:59 PM EST Hospital Encounter [facility] Infusion Center [address] [place] [phone] Myelodysplasia (myelodysplastic syndrome) (CMS/HCC) (Primary Dx); 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) Discharge Disposition: Home or Self Care 03/20/[address] [phone] Justin Larose MD [facility] CALL 03/19/2024 3:16 PM EST Anesthesia Event [facility] Endoscopy [address] [place] [phone] Lito Goins DO Chang, Daniel J, MD 03/15/2024 1:27 PM EST - 03/19/2024 7:38 PM EST Hospital Encounter [facility] Medical Surgical Unit [address] [place] [phone] Leda Collins DO Kim, Tae Hyong, DO Flores, Carlos M, MD Zipagan, James T, MD Kokosadze, Estate, MD Hypoxia (Primary Dx); Acute respiratory failure with hypoxia (CMS/HCC); Pneumonia of both lungs due to infectious organism, unspecified part of lung; Acute congestive heart failure, unspecified heart failure type (CMS/HCC); Acute hypoxemic respiratory failure (CMS/HCC); Hodgkin's lymphoma of bone marrow (CMS/HCC); Pneumonia of both upper lobes due to infectious organism Discharge Disposition: [place] [facility] 03/15/2024 10:30 AM EST - 03/15/2024 11:59 PM EST Hospital Encounter [facility] Center [address] [place] [phone] Myelodysplasia (myelodysplastic syndrome) (CMS/HCC) (Primary Dx) Discharge Disposition: Home or Self Care 03/14/2024 Telephone [facility] Infusion Center [address] [place] [phone] Kae Meyer RN 03/13/2024 11:52 AM EST - 03/13/2024 11:59 PM EST Hospital Encounter [facility] Xray [address] [place] [phone] Discharge Disposition: Home or Self Care 03/13/2024 10:00 AM EST - 03/13/2024 11:59 PM EST Hospital Encounter [facility] Infusion Center [address] [place] [phone] 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) (Primary Dx); Myelodysplasia (myelodysplastic syndrome) (CMS/HCC) Discharge Disposition: Home or Self Care 03/12/2024 3:00 PM EST Office Visit Orthopedic Surgery [address] [phone] Noemi Jones PA Arthritis of knee (Primary Dx) 03/12/2024 7:41 AM EST - 03/12/2024 11:59 PM EST Hospital Encounter [facility] Ortho Xray [address] [place] [address] Pain Discharge Disposition: Home or Self Care 03/12/2024 [facility] [address] [phone] Rhonda Osborn MA Injections (B/L knee Durolane) 03/08/2024 10:16 AM EST - 03/08/2024 11:59 PM EST Hospital Encounter [facility] Infusion Center [address] [place] [phone] Hodgkin's lymphoma of bone marrow (CMS/HCC) (Primary Dx); 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); Hypothyroidism due to medication; Myelodysplasia (myelodysplastic syndrome) (CMS/HCC) Discharge Disposition: Home or Self Care 03/08/2024 9:45 AM EST Office Visit [facility] Hematology Oncology [address] [place] [phone] Albert Mg MD 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) (Primary Dx); Lymphadenopathy, generalized; Symptomatic anemia; Primary osteoarthritis of both knees; Hypothyroidism due to medication; Weakness 03/06/2024 10:23 AM EST - 03/06/2024 11:59 PM EST Hospital Encounter [facility] Infusion Center [address] [place] [phone] Myelodysplasia (myelodysplastic syndrome) (CMS/HCC) (Primary Dx); Hungry bone syndrome; 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) Discharge Disposition: Home or Self Care 03/01/2024 9:22 AM EST - 03/01/2024 11:59 PM EST Hospital Encounter [facility] PET Scan [address] [place] [phone] Hodgkin's lymphoma ([facility]/HCC) Discharge Disposition: Home or Self Care 03/01/2024 8:28 AM EST - 03/01/2024 11:59 PM EST Hospital Encounter [facility] Infusion Center [address] [place] [phone] 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) (Primary Dx); Myelodysplasia (myelodysplastic syndrome) (CMS/HCC) Discharge Disposition: Home or Self Care 02/28/2024 10:30 AM EST - 02/28/2024 11:59 PM EST Hospital Encounter [facility] Infusion Center [address] [place] [phone] 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 ([facility]/HCC) (Primary Dx); Myelodysplasia (myelodysplastic syndrome) (CMS/HCC) Discharge Disposition: Home or Self Care 02/23/2024 10:32 AM EDT Hospital Encounter TH HISTORIC ENCOUNTERS EASTERN CONVERSION ONLY 02/21/2024 10:57 AM EDT - 02/23/2024 11:59 PM EDT Hospital Encounter [facility] Infusion Center [address] [place] [phone] Albert Mg MD from Last 3 Months Immunizations Name Administration Dates Next Due Influenza trivalent, 0.5mL ( Fluad) 65yo and older 01/28/2022,01/27/2021,01/29/2020,01/23,01/01/2018,01/30/2017 ABEL/Fran SARS-CoV-2 COVID -19, vector-nr, rS-Ad26, preservative free 09/19/2020 Moderna SARS-CoV-2 COVID-19, mRNA, LNP-S, preservative free 01/08/2022,02/15/2021 Pneumococcal conjugate 13 va lent (Prevnar 13, PCV13) 2mo and older 05/09/2015 Pneumococcal polysaccharide 23 valent (Pneumovax 23) 2yo and older 02/23/2017 SARS-COV-2 (COVID-19) Vaccin e, Unspecified 12/30/2023 Tdap Tetanus diptheria acell ular pertussis (Boostrix; Adacel) 7yo and older 01/02/2018,07/25/2007 Zoster Live 09/13/2014 Surgical History Surgery Date Site/Laterality Comments MASTECTOMY PROCEDURE: HISTORICAL MASTECTOMY; COMMENT: 1988 BUNIONECTOMY PROCEDURE: BUNION SURGERY, SIMPLE REMOVAL COLONOSCOPY 05/13/2014 PROCEDURE: HISTORICAL COLONOSCOPY; COMMENT: normal repeat in 10 years CATARACT EXTRACTION Bilateral PROCEDURE: HISTORICAL CATARACT REMOVAL; COMMENT: [id number] OTHER SURGICAL HISTORY PROCEDURE: LEUKEMIA/LYMPHOMA EVALUATION; COMMENT: multiple biopsy of throacic lymphnodes MASTECTOMY 1988 Left PROCEDURE:MASTECTOMY BUNIONECTOMY 2012 PROCEDURE:BUNIONECTOMY CATARACT EXTRACTION, BILATERAL 2006, 2007 PROCEDURE:CATARACT EXTRACTION, BILATERAL Medical History Medical History Date Comments History of left mastectomy 08/27/2016 DX:Hi story of left mastectomy; COMMENT: 1988 Osteopenia 08/27/2016 DX:Osteopenia Hypercholesterolemia 08/27/2016 DX:Hypercho lesterolemia History of breast cancer 08/27/2016 DX:Hist ory of breast cancer; COMMENT: L, s/p mastectomy Hearing loss of both ears 08/27/2016 DX:Hea ring loss of both ears History of vitamin D deficiency 08/27/2016 DX:History of vitamin D deficiency Migraine DX:Migraine Hodgkin's lymphoma (CMS/HCC) DX: Hodgkin's lymphoma (HCC) Hodgkin's lymphoma of bone m arrow (CMS/HCC) DX:Hodgkin's lymphoma of bon e marrow (HCC) Anemia DX:Anemia Arthritis DX:Arthritis Hypokalemia DX:Hypokalemia Hypercalcemia DX:Hypercalcemia Breast cancer (CMS/HCC) DX:Breas t cancer (HCC) Anemia complicating neoplastic disease 0 Pending iron studies, referred to GI and hematology. Family History Medical History Relation Name Comments Other cancer Aunt pancreatic, lyndsey riceal aunt Other: pancreatic cancer Aunt Art hritis Other: Heart Disease Father d at 78 Other cancer Maternal Grandmother stomach CA Breast cancer Mother at 78 of mets, Arthritis Other: Other Paternal Grandmother in her 90s Other: pancreatic cancer Uncle mat dwayneal aunt Relation Name Status Comments Aunt Father Maternal Grandmother Mother Paternal Grandmother Uncle Social History Tobacco Use Types Packs/Day Years [...] file Not on file Not on file Obstetrics History Last Filed Vital Signs Vital Sign Reading Time Taken Comments Blood Pressure 118/58 05/22/2024 10:05 AM EST Pulse 75 05/22/2024 10:05 AM EST Temperature 36.7 ??C (98.1 ??F) 05/22/2024 10:[address] Respiratory Rate 18 05/17/2024 1:29 PM EST Oxygen Saturation 100% 05/22/2024 10:05 AM EST Inhaled Oxygen Concentration - - Weight 57.8 kg (127 lb 6.4 oz) 05/22/2024 9:31 A M EST Height 170.2 cm (5' 7 ) 05/11/2024 2:10 PM EST Body Mass Index 19.95 05/11/2024 2:10 PM EST Plan of Treatment Upcoming Encounters Date Type Department Care Team (Late st Contact Info) Description 05/29/2024 9:00 AM EST Appointment [facility] Center [address] [place] [address] [address] [place] [phone] 06/12/2024 9:45 AM EST Office Visit [facility] Hematology Oncology [address] [place] [phone] Albert Mg MD [address] [place] [phone] 10/01/2024 1:45 PM EDT Office Visit Orthopedic Surgery [facility] [address] [phone] Noemi Jones PA [address] [phone] 11/16/2024 3:30 PM EDT Office Visit [facility] Medicine [facility] [address] [place] [phone] Justin Larose MD [address] [place] [address] Health Maintenance Due Date Last Done Comments Breast Cancer Screening 1950 Depression Screening 04/02/2022 Medicare Annual Wellness Visit 04/02/2022 Social Influencers of Health Screening 04/02/2022 Colorectal Cancer Screening: Colonoscopy 05/13/2024 05/13/2014 Falls Risk Assessment 05/17/2025 05/17/2024, 024 Hypertension/CHF/CAD Annual BMP Blood Test 05/22/2025 05/22/2024, 05/08/2024, 05/01/2024, Additional history exists Cholesterol Screening (Lipid Panel) 03/23/2027 03/23/2022 DTaP,Tdap,and Td Vaccines (3 - Td or Tdap) 01/03/2028 01/02/2018, 07/25/2007 Osteoporosis Screening (Bone Density Screening) 08/19/2032 08/19/2022, 02/24/2018 Pneumococcal Vaccine: 65+ Years Completed 02/23/2017, 05/09/2015 Hepatitis C Screening Completed 01/18/2018 Zoster Vaccines Completed 01/31/2018, 10/24, 09/13/2014 RSV Immunization Patients 60+ Years Old Completed 12/21/2022 COVID-19 Vaccine Completed 12/30/2023, 05/2022, 09/24/2022, Additional history exists Influenza Vaccine Completed 12/30/2023, , 01/28/2022, Additional history exists HIB Vaccines Aged Out No longer eligi ble based on patient's age to complete this topic HPV Vaccines Aged Out No longer eligi ble based on patient's age to complete this topic Hepatitis A Vaccines Aged Out No long er eligible based on patient's age to complete this topic Hepatitis B Vaccines Aged Out No long er eligible based on patient's age to complete this topic IPV Vaccines Aged Out No longer eligi ble based on patient's age to complete this topic MMR Vaccines Aged Out No longer eligi ble based on patient's age to complete this topic Meningococcal ACWY Vaccine Aged Out N o longer eligible based on patient's age to complete this topic RSV Immunization Patients Under 20 months Aged Out No longer eligible based on patient's age to complete this topic Varicella Vaccines Aged Out No longer eligible based on patient's age to complete this topic Procedures Procedure Name Priority Date/Time Associated Diagnosis [...] of lymph nodes of multiple regions (CMS/HCC) TRANSFUSE RED BLOOD CELLS Routine 05/17/2024 10:55 AM EST 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) Myelodysplasia (myelodysplastic syndrome) (CMS/HCC) PREPARE RBC Routine 05/17/2024 10:45 AM EST 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) Myelodysplasia (myelodysplastic syndrome) (CMS/HCC) TRANSFUSE RED BLOOD CELLS Routine 05/15/2024 12:43 [...] (myelodysplastic syndrome) (CMS/HCC) CBC WITH AUTO DIFFERENTIAL Routine 05/08/2024 9:46 AM EST 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) COMPREHENSIVE METABOLIC PANEL Routine 05/08/2024 9:46 [...] multiple regions (CMS/HCC) Myelodysplasia (myelodysplastic syndrome) (CMS/HCC) TRANSFUSE RED BLOOD CELLS Routine 05/01/2024 11:20 [...] multiple regions (CMS/HCC) TYPE AND SCREEN STAT 05/01/2024 9:25 AM EST 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) Myelodysplasia (myelodysplastic syndrome) (CMS/HCC) CBC AND DIFFERENTIAL STAT 05/01/2024 9:25 AM EST 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) Myelodysplasia (myelodysplastic syndrome) (CMS/HCC) XR SHOULDER 2+ VIEWS LEFT Routine 04/30/2024 9:24 AM EST Pain COMPREHENSIVE METABOLIC PANEL Routine 04/26/2024 11:42 AM EST Hodgkin's lymphoma of bone marrow (CMS/HCC) Myelodysplasia (myelodysplastic syndrome) (CMS/HCC) CBC WITH AUTO DIFFERENTIAL STAT 04/26/2024 10:29 AM EST Hodgkin's lymphoma of bone marrow (CMS/HCC) CBC AND DIFFERENTIAL STAT 04/26/2024 10:29 AM EST Hodgkin's lymphoma of bone marrow (CMS/HCC) CBC WITH AUTO DIFFERENTIAL STAT 04/24/2024 9:25 [...] syndrome) (CMS/HCC) CBC WITH AUTO DIFFERENTIAL STAT 04/20/2024 1:50 PM EST 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) Myelodysplasia (myelodysplastic syndrome) (CMS/HCC) TYPE AND SCREEN STAT 04/20/2024 1:50 PM EST 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) Myelodysplasia (myelodysplastic syndrome) (CMS/HCC) CBC AND DIFFERENTIAL STAT 04/20/2024 1:50 PM EST 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) Myelodysplasia (myelodysplastic syndrome) (CMS/HCC) VAS US DUPLEX LOWER EXT VENOUS BILAT STAT 04/16/2024 5:04 PM EST Shortness of breath CBC WITH AUTO DIFFERENTIAL Routine 04/16/2024 6:11 AM EST PHOSPHORUS Routine 04/16/2024 6:11 AM EST MAGNESIUM Routine 04/16/2024 6:11 AM EST BASIC METABOLIC PANEL Routine 04/16/2024 6:11 AM EST CBC AND DIFFERENTIAL Routine 04/16/2024 6:11 AM EST XR CHEST 2 VIEWS Routine 04/15/2024 9:55 AM EST OXYGEN THERAPY, ADULT Routine 04/15/2024 8:01 AM EST CBC WITH AUTO DIFFERENTIAL Routine 04/15/2024 5:42 AM EST PHOSPHORUS Routine 04/15/2024 5:42 AM EST MAGNESIUM Routine 04/15/2024 5:42 AM EST BASIC METABOLIC PANEL Routine 04/15/2024 5:42 AM EST CBC AND DIFFERENTIAL Routine 04/15/2024 5:42 AM EST OXYGEN THERAPY, ADULT Routine 04/14/2024 8:01 PM EST OXYGEN THERAPY, ADULT Routine 04/14/2024 8:01 AM EST CBC WITH AUTO DIFFERENTIAL Routine 04/14/2024 5:51 AM EST PHOSPHORUS Routine 04/14/2024 5:51 AM EST MAGNESIUM Routine 04/14/2024 5:51 AM EST BASIC METABOLIC PANEL Routine 04/14/2024 5:51 AM EST CBC AND DIFFERENTIAL Routine 04/14/2024 5:51 AM EST OXYGEN THERAPY, ADULT Routine 04/13/2024 8:01 PM EST OXYGEN THERAPY, ADULT Routine 04/13/2024 12:31 PM EST OXYGEN THERAPY, ADULT Routine 04/13/2024 12:31 PM EST PROCALCITONIN Add-On 04/13/2024 5:26 AM EST CBC WITH AUTO DIFFERENTIAL Routine 04/13/2024 5:26 AM EST PHOSPHORUS Routine 04/13/2024 5:26 AM EST MAGNESIUM Routine 04/13/2024 5:26 AM EST BASIC METABOLIC PANEL Routine 04/13/2024 5:26 AM EST CBC AND DIFFERENTIAL Routine 04/13/2024 5:26 AM EST MRSA PCR Routine 04/12/2024 2:21 PM EST DIFFERENTIAL BODY FLUID Routine 04/12/2024 2:08 PM EST PROTEIN, BODY FLUID Routine 04/12/2024 2 :08 PM EST LACTATE DEHYDROGENASE, BODY FLUID Routine 04/12/2024 2:08 PM EST CELL COUNT WITH REFLEX DIFFERENTIAL, BODY FLUID Routine 04/12/2024 2:08 PM EST CULTURE BODY FLUID WITH GRAM STAIN Routine 04/12/2024 2:08 PM EST US THORACENTESIS W IMAGE GUIDANCE LEFT Routine 04/12/2024 2:06 PM EST OXYGEN THERAPY, ADULT Routine 04/12/2024 8:03 AM EST CBC WITH AUTO DIFFERENTIAL Routine 04/12/2024 5:46 AM EST BASIC METABOLIC PANEL Routine 04/12/2024 5:46 AM EST CBC AND DIFFERENTIAL Routine 04/12/2024 5:46 AM EST VANCOMYCIN, TROUGH Timed 04/12/2024 1: 03 AM EST OXYGEN THERAPY, ADULT Routine 04/11/2024 8:01 PM EST TRANSTHORACIC ECHOCARDIOGRAM (TTE) COMPLETE Routine 04/11/2024 2:02 PM EST Acute hypoxemic respiratory failure (CMS/HCC) LEGIONELLA ANTIGEN URINE, EIA Routine 04/11/2024 1:29 PM EST TRANSFUSE RED BLOOD CELLS Routine 04/11/2024 12:57 PM EST TRANSFUSE RED BLOOD CELLS Routine 04/11/2024 9:38 AM EST OXYGEN THERAPY, ADULT Routine 04/11/2024 8:02 AM EST PREPARE RBC Routine 04/11/2024 7:55 AM EST PROCALCITONIN Add-On 04/11/2024 5:37 AM EST HAPTOGLOBIN Add-On 04/11/2024 5:37 AM EST LACTATE DEHYDROGENASE Add-On 04/11/2024 5:37 AM EST HEPATIC FUNCTION PANEL Add-On 5:37 AM EST RETICULOCYTE COUNT Add-On 04/11/2024 5: 37 AM EST FERRITIN Add-On 04/11/2024 5:37 AM EST IRON AND TIBC Add-On 04/11/2024 5:37 AM EST COMPLETE BLOOD COUNT Routine 04/11/2024 5:37 AM EST BASIC METABOLIC PANEL Routine 04/11/2024 5:37 AM EST OXYGEN THERAPY, ADULT Routine 04/10/2024 8:[address] ANGIO CHEST WO AND/OR W CONTRAST STAT 04/10/2024 11:29 AM EST Hypoxia OXYGEN THERAPY, ADULT Routine 04/10/2024 11:22 AM EST OXYGEN THERAPY, ADULT Routine 04/10/2024 11:22 AM EST TROPONIN I HIGH SENSITIVITY STAT 04/10/2024 11:05 AM EST RESPIRATORY VIRUS PANEL MOLECULAR STUDY STAT 04/10/2024 10:27 AM EST ECG 12-LEAD STAT 04/10/2024 9:38 AM EST XR CHEST 1 VIEW STAT 04/10/2024 9:36 AM EST [id number], RSV, FLU A AND B QUALITATIVE RT-PCR, INTERNAL LAB STAT 04/10/2024 9:35 AM EST CULTURE BLOOD STAT 04/10/2024 9:24 AM EST CULTURE BLOOD STAT 04/10/2024 9:24 AM EST CBC WITH AUTO DIFFERENTIAL STAT 04/10/2024 9:20 AM EST LACTATE STAT 04/10/2024 9:20 AM EST TYPE AND SCREEN STAT 04/10/2024 9:20 AM EST PROTHROMBIN TIME WITH INR STAT 04/10/2024 9:20 AM EST ACTIVATED PARTIAL THROMBOPLASTIN TIME STAT 04/10/2024 9:20 AM EST TROPONIN I HIGH SENSITIVITY STAT 04/10/2024 9:20 AM EST B-TYPE NATRIURETIC PEPTIDE STAT 04/10/2024 9:20 AM EST BASIC METABOLIC PANEL STAT 04/10/2024 9:20 AM EST CBC AND DIFFERENTIAL STAT 04/10/2024 9:20 AM EST WI CRITICAL CARE 30-74 MINUTES Routine 04/10/2024 8:46 AM EST ECG ANNOTATED 04/10/2024 ECG OUTSIDE 04/10/2024 PREPARE RBC Routine 04/03/2024 10:05 AM EST 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) Myelodysplasia (myelodysplastic syndrome) (CMS/HCC) THYROID STIMULATING HORMONE STAT 04/03/2024 9:31 AM EST Myelodysplasia (myelodysplastic syndrome) (CMS/HCC) Hypothyroidism, unspecified type COMPREHENSIVE METABOLIC PANEL STAT 04/03/2024 9:31 AM EST Myelodysplasia (myelodysplastic syndrome) (CMS/HCC) CBC WITH AUTO DIFFERENTIAL STAT 04/03/2024 9:31 AM EST 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) Myelodysplasia (myelodysplastic syndrome) (CMS/HCC) TYPE AND SCREEN STAT 04/03/2024 9:31 AM EST 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) Myelodysplasia (myelodysplastic syndrome) (CMS/HCC) CBC AND DIFFERENTIAL STAT 04/03/2024 9:31 AM EST 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) Myelodysplasia (myelodysplastic syndrome) (CMS/HCC) WI ARTHROCENTESIS/ASPIRAT ION/INJECTION MAJOR JOINT/BURSA W/O U/S GUIDANCE Routine 04/02/2024 1:00 PM EST Primary osteoarthritis of both knees CBC WITH AUTO DIFFERENTIAL STAT 03/29/2024 11:05 AM EST Myelodysplasia (myelodysplastic syndrome) (CMS/HCC) CBC AND DIFFERENTIAL STAT 03/29/2024 11:05 AM EST Myelodysplasia (myelodysplastic syndrome) (CMS/HCC) TRANSFUSE RED BLOOD CELLS Routine 03/27/2024 2:03 PM EST 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) Myelodysplasia (myelodysplastic syndrome) (CMS/HCC) PREPARE RBC Routine 03/27/2024 12:12 PM EST 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) Myelodysplasia (myelodysplastic syndrome) (CMS/HCC) CBC WITH AUTO DIFFERENTIAL STAT 03/27/2024 10:52 AM EST 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) Myelodysplasia (myelodysplastic syndrome) (CMS/HCC) TYPE AND SCREEN STAT 03/27/2024 10:52 AM EST 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) Myelodysplasia (myelodysplastic syndrome) (CMS/HCC) CBC AND DIFFERENTIAL STAT 03/27/2024 10:52 AM EST 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) Myelodysplasia (myelodysplastic syndrome) (CMS/HCC) XR CHEST 1 VIEW Routine 03/19/2024 4:24 PM EST ..CONCENTRATION Routine 03/19/2024 4:13 PM EST ACID FAST BACILLI STAIN Routine 03/19/2024 4:13 PM EST CULTURE BRONCHIAL WITH GRAM STAIN Routine 03/19/2024 4:13 PM EST Hypoxia Acute respiratory failure with hypoxia (CMS/HCC) Pneumonia of both lungs due to infectious organism, unspecified part of lung Acute congestive heart failure, unspecified heart failure type (CMS/HCC) Acute hypoxemic respiratory failure (CMS/HCC) Hodgkin's lymphoma of bone marrow (CMS/HCC) Pneumonia of both upper lobes due to infectious organism PNEUMOCYSTIS JIROVECII PCR Routine 03/19/2024 4:13 PM EST Hypoxia Acute respiratory failure with hypoxia (CMS/HCC) Pneumonia of both lungs due to infectious organism, unspecified part of lung Acute congestive heart failure, unspecified heart failure type (CMS/HCC) Acute hypoxemic respiratory failure (CMS/HCC) Hodgkin's lymphoma of bone marrow (CMS/HCC) Pneumonia of both upper lobes due to infectious organism CULTURE FUNGAL, OTHER Routine 03/19/2024 4:13 PM EST Hypoxia Acute respiratory failure with hypoxia (CMS/HCC) Pneumonia of both lungs due to infectious organism, unspecified part of lung Acute congestive heart failure, unspecified heart failure type (CMS/HCC) Acute hypoxemic respiratory failure (CMS/HCC) Hodgkin's lymphoma of bone marrow (CMS/HCC) Pneumonia of both upper lobes due to infectious organism CULTURE, AFB AND SMEAR WITH REFLEX TO IDENTIFICATION AND SUSCEPTIBILITY Routine 03/19/2024 4:13 PM EST XR CHEST 1 VIEW Routine 03/19/2024 4:12 PM EST CULTURE ANAEROBIC WITH GRAM STAIN Routine 03/19/2024 4:10 PM EST Hypoxia Acute respiratory failure with hypoxia (CMS/HCC) Pneumonia of both lungs due to infectious organism, unspecified part of lung Acute congestive heart failure, unspecified heart failure type (CMS/HCC) Acute hypoxemic respiratory failure (CMS/HCC) Hodgkin's lymphoma of bone marrow (CMS/HCC) Pneumonia of both upper lobes due to infectious organism ACID FAST BACILLI STAIN Routine 03/19/2024 4:06 PM EST PNEUMOCYSTIS JIROVECII PCR Routine 03/19/2024 4:06 PM EST CULTURE FUNGAL, OTHER Routine 03/19/2024 4:06 PM EST CULTURE BRONCHIAL WITH GRAM STAIN Routine 03/19/2024 4:06 PM EST NON-GYNECOLOGIC CYTOLOGY Routine 03/19/2024 4:01 PM EST Hypoxia Acute respiratory failure with hypoxia (CMS/HCC) Pneumonia of both lungs due to infectious organism, unspecified part of lung Acute congestive heart failure, unspecified heart failure type (CMS/HCC) Acute hypoxemic respiratory failure (CMS/HCC) Hodgkin's lymphoma of bone marrow (CMS/HCC) Pneumonia of both upper lobes due to infectious organism BRONCHOSCOPY Routine 03/19/2024 3:59 PM EST TISSUE EXAM Routine 03/19/2024 3:57 PM EST Hypoxia Acute respiratory failure with hypoxia (CMS/HCC) Pneumonia of both lungs due to infectious organism, unspecified part of lung Acute congestive heart failure, unspecified heart failure type (CMS/HCC) Acute hypoxemic respiratory failure (CMS/HCC) Hodgkin's lymphoma of bone marrow (CMS/HCC) Pneumonia of both upper lobes due to infectious organism TH AN ENDOTRACHEAL(NO CHARGE) Routine 03/19/2024 3:37 PM EST HOME O2 EVAL (DESATURATION SCREEN) Routine 03/19/2024 8:03 AM EST CBC WITH AUTO DIFFERENTIAL Routine 03/19/2024 6:17 AM EST PROTHROMBIN TIME WITH INR Routine 03/19/2024 6:17 AM EST BASIC METABOLIC PANEL Routine 03/19/2024 6:17 AM EST MAGNESIUM Timed 03/19/2024 6:17 AM EST CBC AND DIFFERENTIAL Routine 03/19/2024 6:17 AM EST CBC WITH AUTO DIFFERENTIAL Routine 03/18/2024 6:42 AM EST BASIC METABOLIC PANEL Routine 03/18/2024 6:42 AM EST MAGNESIUM Timed 03/18/2024 6:42 AM EST CBC AND DIFFERENTIAL Routine 03/18/2024 6:42 AM EST TRANSFUSE RED BLOOD CELLS Routine 03/17/2024 11:34 AM EST PREPARE RBC Routine 03/17/2024 10:08 AM EST CBC WITH AUTO DIFFERENTIAL Routine 03/17/2024 6:40 AM EST TYPE AND SCREEN Routine 03/17/2024 6:40 AM EST BASIC METABOLIC PANEL Routine 03/17/2024 6:40 AM EST MAGNESIUM Timed 03/17/2024 6:40 AM EST CBC AND DIFFERENTIAL Routine 03/17/2024 6:40 AM EST TRANSTHORACIC ECHOCARDIOGRAM (TTE) COMPLETE W/ CONTRAST Routine 03/16/2024 11:54 AM EST Acute respiratory failure with hypoxia (CMS/HCC) Acute congestive heart failure, unspecified heart failure type (CMS/HCC) TROPONIN I HIGH SENSITIVITY STAT 03/16/2024 5:25 AM EST COMPLETE BLOOD COUNT Routine 03/16/2024 5:25 AM EST MAGNESIUM Routine 03/16/2024 5:25 AM EST COMPREHENSIVE METABOLIC PANEL Routine 03/16/2024 5:25 AM EST ECG 12-LEAD Routine 03/16/2024 3:34 AM EST RESPIRATORY VIRUS PANEL MOLECULAR STUDY Routine 03/15/2024 6:[address] ANGIO CHEST WO AND/OR W CONTRAST STAT 03/15/2024 3:45 PM EST Hypoxia B-TYPE NATRIURETIC PEPTIDE STAT 03/15/2024 3:14 PM EST LACTATE STAT 03/15/2024 3:14 PM EST CBC WITH AUTO DIFFERENTIAL STAT 03/15/2024 2:09 PM EST CBC AND DIFFERENTIAL STAT 03/15/2024 2:09 PM EST ECG 12-LEAD STAT 03/15/2024 2:08 PM EST PROCALCITONIN Add-On 03/15/2024 2:08 PM EST C-REACTIVE PROTEIN Add-On 03/15/2024 2: 08 PM EST MAGNESIUM STAT 03/15/2024 2:08 PM EST BASIC METABOLIC PANEL STAT 03/15/2024 2:08 PM EST POCT GLUCOSE BLOOD Routine 03/15/2024 2: 02 PM EST CBC WITH AUTO DIFFERENTIAL STAT 03/15/2024 11:19 AM EST Myelodysplasia (myelodysplastic syndrome) (CMS/HCC) CBC AND DIFFERENTIAL STAT 03/15/2024 11:19 AM EST Myelodysplasia (myelodysplastic syndrome) (CMS/HCC) ECG OUTSIDE 03/15/2024 ECG ANNOTATED 03/15/2024 ECG ANNOTATED 03/15/2024 XR CHEST 2 VIEWS STAT 03/13/2024 12:3 6 PM EST Myelodysplasia (myelodysplastic syndrome) (CMS/HCC) TRANSFUSE RED BLOOD CELLS Routine 03/13/2024 12:35 PM EST 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) Myelodysplasia (myelodysplastic syndrome) (CMS/HCC) PREPARE RBC Routine 03/13/2024 11:31 AM EST 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) Myelodysplasia (myelodysplastic syndrome) (CMS/HCC) CBC WITH AUTO DIFFERENTIAL STAT 03/13/2024 10:29 AM EST 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) Myelodysplasia (myelodysplastic syndrome) (CMS/HCC) CBC AND DIFFERENTIAL STAT 03/13/2024 10:29 AM EST 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) Myelodysplasia (myelodysplastic syndrome) (CMS/HCC) TYPE AND SCREEN STAT 03/13/2024 10:29 AM EST 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) Myelodysplasia (myelodysplastic syndrome) (CMS/HCC) XR SHOULDER 2+ VIEWS LEFT Routine 03/12/2024 8:57 AM EST Pain CBC WITH AUTO DIFFERENTIAL Routine 03/08/2024 10:37 AM EST 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) Myelodysplasia (myelodysplastic syndrome) (CMS/HCC) CBC AND DIFFERENTIAL Routine 03/08/2024 10:37 AM EST 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) Myelodysplasia (myelodysplastic syndrome) (CMS/HCC) ..MISCELLANEOUS REFERENCE LAB TEST 03/08/2024 PREPARE RBC Routine 03/06/2024 12:11 PM EST Myelodysplasia (myelodysplastic syndrome) (CMS/HCC) 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) CBC WITH AUTO DIFFERENTIAL STAT 03/06/2024 11:18 AM EST Myelodysplasia (myelodysplastic syndrome) (CMS/HCC) Hungry bone syndrome THYROID STIMULATING HORMONE STAT 03/06/2024 11:18 AM EST Myelodysplasia (myelodysplastic syndrome) (CMS/HCC) Hungry bone syndrome TYPE AND SCREEN STAT 03/06/2024 11:18 AM EST Myelodysplasia (myelodysplastic syndrome) (CMS/HCC) Hungry bone syndrome COMPREHENSIVE METABOLIC PANEL STAT 03/06/2024 11:18 AM EST Myelodysplasia (myelodysplastic syndrome) (CMS/HCC) Hungry bone syndrome CBC AND DIFFERENTIAL STAT 03/06/2024 11:18 AM EST Myelodysplasia (myelodysplastic syndrome) (CMS/HCC) Hungry bone syndrome PET CT SKULL TO MID THIGH SUBSEQUENT Routine 03/01/2024 10:43 AM EST Hodgkin's lymphoma (CMS/HCC) CBC WITH AUTO DIFFERENTIAL Routine 03/01/2024 8:38 AM EST 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) Myelodysplasia (myelodysplastic syndrome) (CMS/HCC) CBC AND DIFFERENTIAL Routine 03/01/2024 8:38 AM EST 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) Myelodysplasia (myelodysplastic syndrome) (CMS/HCC) PREPARE RBC Routine 02/28/2024 12:10 PM EST 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) Myelodysplasia (myelodysplastic syndrome) (CMS/HCC) CBC WITH AUTO DIFFERENTIAL Routine 02/28/2024 11:01 AM EST 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) Myelodysplasia (myelodysplastic syndrome) (CMS/HCC) CBC AND DIFFERENTIAL Routine 02/28/2024 11:01 AM EST 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) Myelodysplasia (myelodysplastic syndrome) (CMS/HCC) TYPE AND SCREEN Routine 02/28/2024 11:01 AM EST 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 Pathologist [facility] ABO Group A 05/22/2024 10:53 AM EST [facility] Rh Type Negative 05/22/2024 10:53 AM [facility] Antibody Screen Negative 05/22/2024 10:53 AM [facility] Blood Blood sample taken from central line / Unknown Existing Catheter / Unknown 05/22/2024 9:10 AM EST 05/22/2024 9:30 AM EST Subramony Saurav SAMANIEGO LAB BLOOD B ANK TEST ORDERABLES [facility] [address] [place] [address], * (ABNORMAL) Manual differential (05/22/2024 9:09 AM EST) [facility] Neutrophils % 68.0 % LAB HEMETOLOGY METHOD 05/22/2024 10:45 AM [facility] Lymphocytes % 23.0 % LAB HEMETOLOGY METHOD 05/22/2024 10:45 AM [facility] Monocytes % 5.0 % LAB HEMETOLOGY METHOD 05/22/2024 10:45 AM [facility] Eosinophils % 0.0 % LAB HEMETOLOGY METHOD 05/22/2024 10:45 AM [facility] Basophils % 0.0 % LAB HEMETOLOGY METHOD 05/22/2024 10:45 AM [facility] Metamyelocytes % 4.0(H) % LAB HEMETOLOGY METHOD 05/22/2024 10:45 AM [facility] Neutrophils Absolute Manual 2.72 1.50 - 7.00 K/mcL LAB HEMETOLOGY METHOD 05/22/2024 10:45 AM [facility] Lymphocytes Absolute 0.92(L) 1.00 - 5.00 K/mcL LAB HEMETOLOGY METHOD 05/22/2024 10:45 AM EST [facility] Monocytes Absolute Manual 0.20 0.20 - 1.00 K/mcL LAB HEMETOLOGY METHOD 05/22/2024 10:45 AM [facility] Eosinophils Absolute Manual 0.00 0.00 - 0.50 K/mcL LAB HEMETOLOGY METHOD 05/22/2024 10:45 AM EST [facility] Basophils Absolute Manual 0.00 0.00 - 0.20 K/[facility] LAB HEMETOLOGY METHOD 05/22/2024 10:45 AM [facility] Metamyelocytes Absolute Manual 0.16(H) 0.00 - 0.00 K/mcL LAB HEMETOLOGY METHOD 05/22/2024 10:45 AM [facility] Rbc Morphology Present( A) Consistent with indices, Normal for LAB HEMETOLOGY METHOD 05/22/2024 10:45 AM [facility] Comment:RBC: Morphology agre es with CBC Platelet Morphology - [facility] See Note(A) Normal LAB HEMETOLOGY METHOD 05/22/2024 10:45 AM [facility] Comment:PLT: Normal Ovalocytes Present 5 - 10%(A) (none) LAB HEMETOLOGY METHOD 05/22/2024 10:45 AM [facility] Blood Blood sample taken from central line / Unknown Existing Catheter / Unknown 05/22/2024 9:09 AM EST 05/22/2024 9:30 AM EST Albert Mg MD LAB BLOOD O RDERABLES [facility] [address] [place] [address], * (ABNORMAL) CBC auto differential (05/22/2024 9:09 AM EST) Only the most recent of26 resultswithin the time period is included. [facility] WBC 4.0(L) 4.8 - 10.8 K/mcL LAB HEMETOLOGY METHOD 05/22/2024 10:45 AM [facility] RBC 3.10(L) 3.80 - 4.80 M/mcL LAB HEMETOLOGY METHOD 05/22/2024 10:45 AM [facility] Hemoglobin 9.6(L) 11.5 - 16.0 g/dL LAB HEMETOLOGY METHOD 05/22/2024 10:45 AM [facility] Hematocrit 29.7(L) 35.0 - 47.0 % LAB HEMETOLOGY METHOD 05/22/2024 10:45 AM [facility] MCV 95.5 79.0 - 98.0 FL LAB HEMETOLOGY METHOD 05/22/2024 10:45 AM [facility] MCH 30.9 27.0 - 32.0 pcg LAB HEMETOLOGY METHOD 05/22/2024 10:45 AM [facility] MCHC 32.3 32.0 - 37.0 g/dL LAB HEMETOLOGY METHOD 05/22/2024 10:45 AM [facility] RDW 20.5(H) 11.0 - 15.0 % LAB HEMETOLOGY METHOD 05/22/2024 10:45 AM [facility] Platelets 312 130 - 400 K/mcL LAB HEMETOLOGY METHOD 05/22/2024 10:45 AM [facility] MPV 10.5 7.0 - 11.0 FL LAB HEMETOLOGY METHOD 05/22/2024 10:45 AM [facility] NRBC 1.0(H) <1.0 % LAB HEMETOLOGY METHOD 05/22/2024 10:45 AM [facility] NRBC Absolute 0.04 <0.10 K/mcL LAB HEMETOLOGY METHOD 05/22/2024 10:45 AM [facility] Blood Blood sample taken from central line / Unknown Existing Catheter / Unknown 05/22/2024 9:09 AM EST 05/22/2024 9:30 AM EST Albert Mg MD LAB BLOOD O RDERABLES [facility] [address] [place] [address], * (ABNORMAL) Comprehensive metabolic panel (05/22/2024 9:09 AM EST) Only the most recent of7 resultswithin the time period is included. Sodium 140 133 - 145 mmol/L LAB CHEMISTRY METHOD 05/22/2024 10:00 AM [facility] Potassium 4.1 3.5 - 5.5 mmol/L LAB CHEMISTRY METHOD 05/22/2024 10:00 AM [facility] Chloride 104 96 - 110 mmol/L LAB CHEMISTRY METHOD 05/22/2024 10:00 AM [facility] CO2 32 21 - 32 mmol/L LAB CHEMISTRY METHOD 05/22/2024 10:00 AM [facility] Anion Gap 4 3 - 11 LAB CHEMISTRY METHOD 05/22/2024 10:00 AM [facility] Glucose 101(H) 70 - 100 mg/dL LAB CHEMISTRY METHOD 05/22/2024 10:00 AM [facility] BUN 19 5 - 25 mg/dL LAB CHEMISTRY METHOD 05/22/2024 10:00 AM [facility] Creatinine 0.68 0.50 - 1.10 mg/dL LAB CHEMISTRY METHOD 05/22/2024 10:00 AM [facility] eGFR 92 >=60 mL/min/1. 73m2 LAB CHEMISTRY METHOD 05/22/2024 10:00 AM [facility] Comment:Calculation based on the??Chronic Kidney Disease Epidemiology Collaboration (CKD-EPI) equation refit??without adjustment for race. BUN/Creatinine Ratio 27.9 LAB CHEMISTRY METHOD 05/22/2024 10:00 AM [facility] Calcium 9.1 8.5 - 10.5 mg/dL LAB CHEMISTRY METHOD 05/22/2024 10:00 AM [facility] AST (SGOT) 12 10 - 42 unit/L LAB CHEMISTRY METHOD 05/22/2024 10:00 AM [facility] ALT (SGPT) 22 10 - 60 unit/L LAB CHEMISTRY METHOD 05/22/2024 10:00 AM [facility] Alkaline Phosphatase 57 42 - 121 unit/L LAB CHEMISTRY METHOD 05/22/2024 10:00 AM [facility] Total Protein 5.6(L) 6.0 - 8.0 g/dL LAB CHEMISTRY METHOD 05/22/2024 10:00 AM [facility] Albumin 3.6 3.2 - 5.0 g/dL LAB CHEMISTRY METHOD 05/22/2024 10:00 AM [facility] Total Bilirubin 1.3 0.0 - 1.4 mg/dL LAB CHEMISTRY METHOD 05/22/2024 10:00 AM [facility] Blood Blood sample taken from central line / Unknown Existing Catheter / Unknown 05/22/2024 9:09 AM EST 05/22/2024 9:31 AM EST Albert Mg MD LAB BLOOD O RDERABLES [facility] [address] [place] [address], * Transfuse RBC (05/17/2024 1:33 PM EST) Only the most recent of11 resultswithin the time period is included. Kim Tony DO BLOOD TRANSFU RUPAL ORDERABLES * Prepare RBC: 1 Units (05/17/2024 10:45 AM EST) Only the most recent of10 resultswithin the time period is included. Product Code [id number] 05/17/2024 10:57 AM [facility] Unit Number [id number] 05/17/19 10:57 AM [facility] Crossmatch Compatible 05/17/2024 10:46 AM [facility] Dispense Status Transfused 05/17/2024 10:57 AM [facility] Unit ABO Rh ANEG 05/17/2024 10:57 AM [facility] Unit Expiration Date Time [id number] 05/17/2024 10:57 AM [facility] Unit Blood Type 0600 05/17/2024 10:57 AM [facility] Blood Venous blood specimen / Unknown 05/17/2024 10:45 AM EST 05/15/2024 10:33 AM EST Kim Tony DO BLOOD BANK WI ODUCT ORDERABLES Performing Organization Address City/[facility] Co de Phone Number [facility] [address] [place] [address], * XR Shoulder 2+ Views Left (04/30/2024 9:24 AM EST) Only the most recent of2 resultswithin the time period is included. Narrative RIS PACS/VR - 04/30/2024 9:24 AM EST This order has been auto-finalized and does not contain a result. Nehemias Ordoñez MD IMG XR PROCEDURES Performing Organization Address City/[facility]/ZIP Co de Phone Number RIS PACS/VR * Vascular US duplex lower extremity venous bilateral (04/16/2024 5:04 PM EST) Anatomical Region Laterality Modality Vascular, Abdomen Ultrasound 04/17/2024 7:23 AM EST Impressions 04/17/2024 7:26 AM EST Normal bilateral lower extremity venous study. No evidence of DVT. No Loaiza's cyst. -------- FINAL REPORT -------- Dictated By: Walter Davis Dictated Date: 04/17/2024 07:23 ET Assigned Physician: Walter Davis Reviewed and Electronically Signed By: Walter Davis Signed Date: 04/17/2024 07:26 ET Workstation ID: [id number] Transcribed By: Self Edit Transcribed Date: 04/17/2024 07:23 ET Narrative 04/17/2024 7:26 AM EST EXAMINATION: Ultrasound duplex bilateral lower extremity venous [...] cyst seen. The soft tissues are normal. Procedure Note Walter Davis MD - 04/17/2024 EXAMINATION: Ultrasound duplex bilateral lower extremity venous study. CLINICAL INDICATION: Edema. COMPARISON: None. TECHNIQUE: Routine grayscale, color and Doppler imaging of bilateral legswas performed. FINDINGS: There is normal color flow, augmentation with respiration andDoppler imaging of bilateral common femoral, superficial femoral,popliteal, gastrocnemius, peroneal and posterior tibial veins. Normal flowseen in distal greater saphenous femoral veins as well. No Loaiza's cyst seen. The soft tissues are normal. IMPRESSION: Normal bilateral lower extremity venous study. No evidence of DVT. NoBaker's cyst. -------- FINAL REPORT -------- Dictated By: Walter Davis Dictated Date: 04/17/2024 07:23 ET Assigned Physician: Walter Davis Reviewed and Electronically Signed By: Walter Davis Signed Date: 04/17/2024 07:26 ET Workstation ID: [id number] Transcribed By: Self Edit Transcribed Date: 04/17/2024 07:23 ET Eli Cooper MD CV VASCULAR PROCEDUR ES * Phosphorus (04/16/2024 6:11 AM EST) Only the most recent of4 resultswithin the time period is included. Phosphorus 2.6 2.5 - 4.5 mg/dL LAB CHEMISTRY METHOD 04/16/2024 8:04 AM EST [facility] Blood Venous blood specimen / Unknown Venipuncture / Unknown 04/16/2024 6:11 AM EST 04/16/2024 6:44 AM EST Kendall Edge MD LAB BLOOD ORDERABLES [facility] [address] [place] [address], [place] [phone] * Magnesium (04/16/2024 6:11 AM EST) Only the most recent of9 resultswithin the time period is included. Magnesium 2.3 1.9 - 2.6 mg/dL LAB CHEMISTRY METHOD 04/16/2024 8:04 AM EST [facility] Blood Venous blood specimen / Unknown Venipuncture / Unknown 04/16/2024 6:11 AM EST 04/16/2024 6:44 AM EST Kendall Edge MD LAB BLOOD ORDERABLES [facility] [address] [place] [address], [place] [phone] * (ABNORMAL) Basic metabolic panel (04/16/2024 6:11 AM EST) Only the most recent of11 resultswithin the time period is included. Sodium 140 133 - 145 mmol/L LAB CHEMISTRY METHOD 04/16/2024 8:04 AM EST [facility] Potassium 3.6 3.5 - 5.5 mmol/L LAB CHEMISTRY METHOD 04/16/2024 8:04 AM [facility] Chloride 104 96 - 110 mmol/L LAB CHEMISTRY METHOD 04/16/2024 8:04 AM [facility] CO2 31 21 - 32 mmol/L LAB CHEMISTRY METHOD 04/16/2024 8:04 AM [facility] Anion Gap 5 3 - 11 LAB CHEMISTRY METHOD 04/16/2024 8:04 AM [facility] Glucose 106(H) 70 - 100 mg/dL LAB CHEMISTRY METHOD 04/16/2024 8:04 AM [facility] BUN 20 5 - 25 mg/dL LAB CHEMISTRY METHOD 04/16/2024 8:04 AM [facility] Creatinine 0.52 0.50 - 1.10 mg/dL LAB CHEMISTRY METHOD 04/16/2024 8:04 AM [facility] eGFR 98 >=60 mL/min/1. 73m2 LAB CHEMISTRY METHOD 04/16/2024 8:04 AM [facility] Comment:Calculation based on the??Chronic Kidney Disease Epidemiology Collaboration (CKD-EPI) equation refit??without adjustment for race. BUN/Creatinine Ratio 38.5 LAB CHEMISTRY METHOD 04/16/2024 8:04 AM [facility] Calcium 9.0 8.5 - 10.5 mg/dL LAB CHEMISTRY METHOD 04/16/2024 8:04 AM [facility] Blood Venous blood specimen / Unknown Venipuncture / Unknown 04/16/2024 6:11 AM EST 04/16/2024 6:44 AM EST Kendall Edge MD LAB BLOOD ORDERABLES [facility] [address] [place] [address], * XR Chest 2 Views (04/15/2024 9:55 AM EST) Only the most recent of2 resultswithin the time period is included. Anatomical Region Laterality Modality Body Radiographic Nika ging 04/15/2024 10:3 2 AM EST Impressions 04/15/2024 10:34 AM EST Hypoinflation. Extensive lung disease right greater than left. There may be slight interval worsening -------- FINAL REPORT -------- Dictated By: Edmar Yanes Dictated Date: 04/15/2024 10:32 ET Assigned Physician: Edmar Yanes Reviewed and Electronically Signed By: Edmar Yanes Signed Date: 04/15/2024 10:34 ET Workstation ID: [id number] Transcribed By: Self Edit Transcribed Date: 04/15/2024 10:32 ET Narrative 04/15/2024 10:34 AM EST EXAMINATION: CHEST CLINICAL INFORMATION: Dyspnea on exertion COMPARISON: Frontal view 04/10/2024 TECHNIQUE: 2 views of the chest FINDINGS: The study is limited. There is severe kyphosis and rotation. Numerous devices overlie the patient. There is a reservoir associated with a right-sided vascular catheter. Probably no change in the mediastinum. The gina are obscured. There is moderate to severe opacity in the central right lung and mild to moderate disease in the central and lower left lung. This may have slightly worsened. Overall lung volumes are decreased when compared to 04/10/2024. No definite pneumothorax. Limited bone detail. Procedure Note Edmar Yanes MD - 04/15/2024 EXAMINATION: CHEST CLINICAL INFORMATION: Dyspnea on exertion COMPARISON: Frontal view 04/10/2024 TECHNIQUE: 2 views of the chest FINDINGS: The study is limited. There is severe kyphosis and rotation. Numerousdevices overlie the patient. There is a reservoir associated with a right-sided vascular catheter.Probably no change in the mediastinum. The gina are obscured. There ismoderate to severe opacity in the central right lung and mild to moderatedisease in the central and lower left lung. This may have slightlyworsened. Overall lung volumes are decreased when compared to04/10/2024. No definite pneumothorax. Limited bone detail. IMPRESSION: Hypoinflation. Extensive lung disease right greater than left. There maybe slight interval worsening -------- FINAL REPORT -------- Dictated By: Edmar Yanes Dictated Date: 04/15/2024 10:32 ET Assigned Physician: Edmar Yanes Reviewed and Electronically Signed By: Edmar Yanes Signed Date: 04/15/2024 10:34 ET Workstation ID: [id number] Transcribed By: Self Edit Transcribed Date: 04/15/2024 10:32 ET Alfonso Navarro MD IMG XR PROCEDURES * Procalcitonin (04/13/2024 5:26 AM EST) Only the most recent of3 resultswithin the time period is included. Procalcitonin 0.12 <=0.16 ng/mL LAB CHEMISTRY METHOD 04/13/2024 2:45 PM EST [facility] Blood Venous blood specimen / Unknown Venipuncture / Unknown 04/13/2024 5:26 AM EST 04/13/2024 6:36 AM EST Narrative [facility] - 04/13/2024 2:45 PM EST Procalcitonin > 2.00 ng/ml: Procalcitonin Levels above 2.00 ng/ml, on the first day of ICU admission represent a high risk for progression to severe sepsis and/or septic shock. Procalcitonin < 0.50 ng/ml: Procalcitonin levels below 0.50 ng/ml on the first day of ICU admission represent a low risk for progression to severe sepsis and/or septic shock. Concentrations <0.5 ng/mL do not exclude an infection, on account of local ized infections (without systemic signs) which can be associated with such low concentrations, or a systemic infection in its initial stages (<6 hours). Furthermore, increased procalcitonin can occur without infection. PCT concentrations between 0.5 and 2.0 ng/mL should be interpreted taking into account the patient's history. It is recommended to retest PCT within 6-24 hours if any concentrations <2.0 ng/mL are obtained. Brisa Wild MD LAB BLOOD ORDERABLES Performing Organization Address [facility]/ZIP Co de Phone Number [facility] [address] [place] [address], [place] [phone] * MRSA molecular study (04/12/2024 2:21 PM EST) [facility] MRSA Screen PCR Not Detected Not Detected LAB MICROBIOLOGY METHOD 04/12/2024 8:07 PM EST [facility] Swab Both anterior nares / Unknown Non-blood Collection / Unknown 04/12/2024 2:21 PM EST 04/12/2024 5:38 PM EST Kendall Edge MD LAB MICROBIOLOGY - G ENERAL ORDERABLES Performing Organization Address [facility]/ZIP Co de Phone Number [facility] [address] [place] [address], [place] [phone] * Cell count with reflex differential, body fluid (04/12/2024 2:08 PM EST) [facility] Body Fluid Total Nucleated Cells 42 /mm3 LAB HEMETOLOGY METHOD 04/12/2024 3:45 PM EST [facility] Body Fluid RBC 0 /mm3 LAB HEMETOLOGY METHOD 04/12/2024 3:45 PM EST [facility] Body Fluid Color Yellow 04/12/2024 3:45 PM EST [facility] Body Fluid Clarity Clear 04/12/2024 3:45 PM EST [facility] Body Fluid Source Pleural 04/12/2024 3:45 PM EST [facility] Pleural Fluid Structure of left pleural cavity / Unknown Non-blood Collection / Unknown 04/12/2024 2:08 PM EST 04/12/2024 2:17 PM EST Narrative [facility] - 04/12/2024 3:45 PM EST No reference ranges have been established for body fluids. Clinical correlation recommended. Kendall Edge MD LAB BODY FLUIDS AND STOOLS ORDERABLES Performing Organization Address City/[facility]/ZIP Co de Phone Number [facility] [address] [place] [address], [place] [phone] * Culture body fluid with gram stain (04/12/2024 2:08 PM EST) Fluid Culture No growth LAB MICROBIOLOGY METHOD 04/15/2024 9:46 AM EST [facility] Gram Stain Result No polymorphonuclear leukocytes, No epithelial cells, and No organisms noted 04/15/2024 9:46 AM [facility] Pleural Fluid Structure of left pleural cavity / Unknown Non-blood Collection / Unknown 04/12/2024 2:08 PM EST 04/12/2024 2:17 PM EST Kendall Edge MD LAB MICROBIOLOGY - G ENERAL ORDERABLES Performing Organization Address [facility]/ZIP Co de Phone Number [facility] [address] [place] [address], [place] [phone] * Differential body fluid (04/12/2024 2:08 PM EST) Fluid Neutrophils % 18 % 04/12/2024 3:45 PM EST [facility] Fluid Lymphocytes % 32 % 04/12/2024 3:45 PM [facility] Fluid Monocytes/Macrop hages 50 % 04/12/2024 3:45 PM EST [facility] Fluid Eosinophils % 0 % 04/12/2024 3:45 PM EST [facility] Fluid Basophils % 0 % 04/12/2024 3:45 PM EST [facility] Fluid Other Cells % 0 % 04/12/2024 3:45 PM [facility] Pleural Fluid Structure of left pleural cavity / Unknown Non-blood Collection / Unknown 04/12/2024 2:08 PM EST 04/12/2024 2:17 PM EST [facility] - 04/12/2024 3:45 PM EST No reference ranges have been established for body fluids. Clinical correlation recommended. Kendall Edge MD LAB BODY FLUIDS AND STOOLS ORDERABLES Performing Organization Address [facility] de Phone Number [facility] [address] [place] [address], * Protein, body fluid (04/12/2024 2:08 PM EST) Protein, Fluid 2.8 See Comment g/dL LAB CHEMISTRY METHOD 04/12/2024 3:00 PM EST [facility] Pleural Fluid Structure of left pleural cavity / Unknown Non-blood Collection / Unknown 04/12/2024 2:08 PM EST 04/12/2024 2:17 PM EST [facility] - 04/12/2024 3:00 PM EST No reference ranges have been established for body fluids. Clinical correlation recommended. Kendall Edge MD LAB BODY FLUIDS AND STOOLS ORDERABLES Performing Organization Address [facility] Phone Number [facility] [address] [place] [address], * Lactate dehydrogenase, body fluid (04/12/2024 2:08 PM EST) LD, Fluid 125 See Comment unit/L LAB CHEMISTRY METHOD 04/12/2024 3:02 PM EST [facility] Pleural Fluid Structure of left pleural cavity / Unknown Non-blood Collection / Unknown 04/12/2024 2:08 PM EST 04/12/2024 2:17 PM EST [facility] - 04/12/2024 3:02 PM EST No reference ranges have been established for body fluids. Clinical correlation recommended. Kendall Edge MD LAB BODY FLUIDS AND STOOLS ORDERABLES [facility] ([facility] [address] [place] [address], * US Thoracentesis w Image Guidance Left (04/12/2024 2:06 PM EST) Anatomical Region Laterality Modality Body Left Ultrasound 04/12/2024 2:31 PM EST Impressions 04/13/2024 8:35 AM EST Ultrasound guided left-sided thoracentesis performed with removal of 300 cc of cloudy yellow fluid. -------- FINAL REPORT -------- Dictated By: Vicky Grover Dictated Date: 04/12/2024 14:31 ET Assigned Physician: Papa Vásquez Reviewed and Electronically Signed By: Papa Vásquez Signed Date: 04/13/2024 08:35 ET Workstation ID: [id number] Transcribed By: Self Edit Transcribed Date: 04/12/2024 14:32 ET Resident/PA/C PROGRAMMER: Vciky Grover Narrative 04/13/2024 8:35 AM EST HISTORY: Diagnostic thoracentesis, bedside. PROCEDURE/FINDINGS: Preliminary ultrasound performed documenting small left pleural effusion. Skin at the left lung base marked and prepped and draped sterilely. Buffered lidocaine anesthetic placed superficially and deeply. Effusion accessed with a 5 Romansh One Step catheter. Catheter connected to suction tubing and 300 cc of fluid drained. Catheter removed during suspended inspiration and a sterile gauze dressing was applied. Completion ultrasound performed showing little to no residual left- sided pleural effusion. Thoracentesis well-tolerated. No immediate complication. Fluid sent for requested studies. Exam performed and dictated by: Vicky Grover PA-C Supervising physician: Papa Vásquez MD Procedure Note Papa Vásquez MD - 04/13/2024 HISTORY: Diagnostic thoracentesis, bedside. PROCEDURE/FINDINGS: Preliminary ultrasound performed documenting smallleft pleural effusion. Skin at the left lung base marked and prepped and draped sterilely.Buffered lidocaine anesthetic placed superficially and deeply. Effusionaccessed with a 5 Romansh One Step catheter. Catheter connected to suctiontubing and 300 cc of fluid drained. Catheter removed during suspendedinspiration and a sterile gauze dressing was applied. Completionultrasound performed showing little to no residual left-sided pleuraleffusion. Thoracentesis well-tolerated. No immediate complication. Fluidsent for requested studies. Exam performed and dictated by: Vicky Grover PA-C Supervising physician: Papa Vásquez MD IMPRESSION: Ultrasound guided left-sided thoracentesis performed with removal of 300cc of cloudy yellow fluid. -------- FINAL REPORT -------- Dictated By: Vicky Grover Dictated Date: 04/12/2024 14:31 ET Assigned Physician: Papa Vásquez Reviewed and Electronically Signed By: Papa Vásquez Signed Date: 04/13/2024 08:35 ET Workstation ID: [id number] Transcribed By: Self Edit Transcribed Date: 04/12/2024 14:32 ET Resident/PA/C PROGRAMMER: Vicky Grover Kendall Edge MD IMG US PROCEDURES * (ABNORMAL) Vancomycin, trough (04/12/2024 1:03 AM EST) [facility] Vancomycin Trough 6.9(L) 10.0 - 20.0 mcg/mL LAB CHEMISTRY METHOD 04/12/2024 1:46 AM EST [facility] Blood Venous blood specimen / Unknown Venipuncture / Unknown 04/12/2024 1:03 AM EST 04/12/2024 1:07 AM EST Guillermina Mijares MD LAB BLOOD ORDERABLES [facility] [address] [place] [address], [place] [phone] * TRANSTHORACIC ECHOCARDIOGRAM (TTE) COMPLETE (04/11/2024 2:02 PM EST) [facility] RA Area 11.3 cm2 CV PACS RA 2D Volume 24 mL CV PACS IVC Proximal 1.2 cm CV PACS PV Acceleration Time 123 ms CV PACS RV Diastolic Basal Dimension 3.0 2.5 - 4.1 cm CV PACS RV S' 19 cm/s CV PACS TAPSE 21 mm CV PACS TR Peak Velocity 2.81 m/s CV PACS TR Peak Gradient 32 mmHg CV PACS RA 2D Volume Index 14 mL/m2 CV PACS BSA 1.67 m2 CV PACS Right Ventricular Peak Systolic Pressure 40 mmHg CV PACS Est. RA Pressure 8 mmHg CV PACS Anatomical Region Laterality Modality Ultrasound Narrative 04/11/2024 2:29 PM EST ?Left ventricle cavity size is normal. Left ventricular systolic function is in the normal range with an ejection fraction of 60-65%. No regional LV wall motion abnormalities noted. ?Right ventricle cavity is normal. Right ventricular systolic function is normal. ?Right atrium cavity is normal. Prominent chiari network/eustachian valve. ?There is trace regurgitation. The right ventricular systolic pressure is elevated at 40 mmHg. ?There is left pleural effusion. Left Ventricle Left ventricle cavity size is normal. Systolic function is normal with an ejection fraction of 60-65%. There are no regional LV wall motion abnormalities. Right Ventricle Right ventricle cavity appears normal. Systolic function is normal. Right Atrium Right atrium cavity is normal. Prominent chiari network/eustachian valve. IVC/SVC RA pressures is estimated to be 8 mmHg (IVC diameter <21 mm and decreases <50% during inspiration). Mitral Valve The leaflets are moderately thickened. There is mild annular calcification. Tricuspid Valve Tricuspid valve structure is normal. There is trace regurgitation. The right ventricular systolic pressure is elevated at 40 mmHg. Pulmonic Valve Pulmonic valve structure is normal. There is mild pulmonic valve regurgitation. Pericardium There is no pericardial effusion. There is left pleural effusion. Study Details Overall the study quality was adequate. Kendall Edge MD CV ECHO PROCEDURES * Legionella antigen urine, EIA (04/11/2024 1:29 PM EST) Legionella Antigen, Ur Negative Negative 04/11/2024 2:03 PM EST [facility] Urine Urine specimen from urinary conduit / Unknown Non-blood Collection / Unknown 04/11/2024 1:29 PM EST 04/11/2024 1:34 PM EST Narrative [facility] - 04/11/2024 2:03 PM EST Negative for Legionella pneumophilia serogroup 1 antigen. This presumptive result suggests no current or recent infection due to L. pneumophilia serogroup 1. Culture is recommended if Legionella infection is till suspected, as other serogroups and species of Legionella are not detected by this test. Brisa Wild MD LAB URINE ORDERABLES Performing Organization Address [facility]/ZIP Co de Phone Number [facility] [address] [place] [address], [place] [phone] * (ABNORMAL) Iron and TIBC (04/11/2024 5:37 AM EST) Iron 78 40 - 150 mcg/dL LAB CHEMISTRY METHOD 04/11/2024 8:22 AM EST [facility] TIBC 67(L) 250 - 450 mcg/dL LAB CHEMISTRY METHOD 04/11/2024 8:22 AM EST [facility] Iron Saturation 116(H) 15 - 50 % LAB CHEMISTRY METHOD 04/11/2024 8:22 AM EST [facility] Blood Venous blood specimen / Unknown Venipuncture / Unknown 04/11/2024 5:37 AM EST 04/11/2024 6:34 AM EST Kendall Edge MD LAB BLOOD ORDERABLES [facility] [address] [place] [address], [place] [phone] * (ABNORMAL) Reticulocyte count (04/11/2024 5:37 AM EST) Retic Ct Abs 0.010(L) 0.030 - 0.090 M/mcL LAB HEMETOLOGY METHOD 04/11/2024 8:10 AM EST [facility] Retic Ct Pct 0.3(L) 0.7 - 1.7 % LAB HEMETOLOGY METHOD 04/11/2024 8:10 AM [facility] Immature Retic Fract 4.0 2.3 - 15.9 % LAB HEMETOLOGY METHOD 04/11/2024 8:10 AM [facility] Reticulocyte Hemoglobin 31.1 >29.0 pcg LAB HEMETOLOGY METHOD 04/11/2024 8:10 AM [facility] Blood Venous blood specimen / Unknown Venipuncture / Unknown 04/11/2024 5:37 AM EST 04/11/2024 6:34 AM EST Kendall Edge MD LAB BLOOD ORDERABLES [facility] [address] [place] [address], * (ABNORMAL) Complete blood count (04/11/2024 5:37 AM EST) Only the most recent of2 resultswithin the time period is included. WBC 6.6 4.8 - 10.8 K/mcL LAB HEMETOLOGY METHOD 04/11/2024 7:15 AM [facility] RBC 2.10(L) 3.80 - 4.80 M/mcL LAB HEMETOLOGY METHOD 04/11/2024 7:15 AM [facility] Hemoglobin 5.9(LL) 11.5 - 16.0 g/dL LAB HEMETOLOGY METHOD 04/11/2024 7:15 AM [facility] Hematocrit 18.2(LL) 35.0 - 47.0 % LAB HEMETOLOGY METHOD 04/11/2024 7:15 AM [facility] MCV 89.8 79.0 - 98.0 FL LAB HEMETOLOGY METHOD 04/11/2024 7:15 AM [facility] MCH 28.6 27.0 - 32.0 pcg LAB HEMETOLOGY METHOD 04/11/2024 7:15 AM EST [facility] MCHC 31.9(L) 32.0 - 37.0 g/dL LAB HEMETOLOGY METHOD 04/11/2024 7:15 AM EST [facility] RDW 13.8 11.0 - 15.0 % LAB HEMETOLOGY METHOD 04/11/2024 7:15 AM EST [facility] Platelets 288 130 - 400 K/mcL LAB HEMETOLOGY METHOD 04/11/2024 7:15 AM EST [facility] MPV 11.2(H) 7.0 - 11.0 FL LAB HEMETOLOGY METHOD 04/11/2024 7:15 AM EST [facility] NRBC 0.0 <1.0 % LAB HEMETOLOGY METHOD 04/11/2024 7:15 AM EST [facility] NRBC Absolute 0.00 <0.10 K/mcL LAB HEMETOLOGY METHOD 04/11/2024 7:15 AM EST [facility] Blood Venous blood specimen / Unknown Venipuncture / Unknown 04/11/2024 5:37 AM EST 04/11/2024 6:34 AM EST Guillermina Mijares MD LAB BLOOD ORDERABLES [facility] [address] [place] [address], * Lactate dehydrogenase (04/11/2024 5:37 AM EST) LDH 127 120 - 246 unit/L LAB CHEMISTRY METHOD 04/11/2024 8:56 AM EST [facility] Blood Venous blood specimen / Unknown Venipuncture / Unknown 04/11/2024 5:37 AM EST 04/11/2024 6:34 AM EST Kendall Edge MD LAB BLOOD ORDERABLES Performing Organization Address [facility] Co de Phone Number [facility] [address] [place] [address], * (ABNORMAL) Haptoglobin (04/11/2024 5:37 AM EST) Pathologist [facility] Haptoglobin 433(H) 16 - 200 mg/dL LAB CHEMISTRY METHOD 04/11/2024 8:22 AM EST [facility] Blood Venous blood specimen / Unknown Venipuncture / Unknown 04/11/2024 5:37 AM EST 04/11/2024 6:34 AM EST Kendall Edge MD LAB BLOOD ORDERABLES Performing Organization Address [facility] Co de Phone Number [facility] [address] [place] [address], * (ABNORMAL) Ferritin (04/11/2024 5:37 AM EST) [facility] Ferritin 4,023(H) 8 - 252 ng/mL LAB CHEMISTRY METHOD 04/11/2024 9:28 AM EST [facility] Blood Venous blood specimen / Unknown Venipuncture / Unknown 04/11/2024 5:37 AM EST 04/11/2024 6:34 AM EST Kendall Edge MD LAB BLOOD ORDERABLES Performing Organization Address [facility]/ZIP Co de Phone Number [facility] [address] [place] [address], [place] [phone] * (ABNORMAL) Hepatic function panel (04/11/2024 5:37 AM EST) Pathologist [facility] Total Protein 4.7(L) 6.0 - 8.0 g/dL LAB CHEMISTRY METHOD 04/11/2024 8:56 AM EST [facility] Albumin 1.9(L) 3.2 - 5.0 g/dL LAB CHEMISTRY METHOD 04/11/2024 8:56 AM EST [facility] Total Bilirubin 0.5 0.0 - 1.4 mg/dL LAB CHEMISTRY METHOD 04/11/2024 8:56 AM EST [facility] Bilirubin, Direct 0.2 0.0 - 0.3 mg/dL LAB CHEMISTRY METHOD 04/11/2024 8:56 AM EST [facility] Bilirubin, Indirect 0.3 0.0 - 1.1 mg/dL LAB CHEMISTRY METHOD 04/11/2024 8:56 AM EST [facility] ALT (SGPT) 34 10 - 60 unit/L LAB CHEMISTRY METHOD 04/11/2024 8:56 AM [facility] AST (SGOT) 19 10 - 42 unit/L LAB CHEMISTRY METHOD 04/11/2024 8:56 AM [facility] Alkaline Phosphatase 73 42 - 121 unit/L LAB CHEMISTRY METHOD 04/11/2024 8:56 AM [facility] Blood Venous blood specimen / Unknown Venipuncture / Unknown 04/11/2024 5:37 AM EST 04/11/2024 6:34 AM EST Kendall Edge MD LAB BLOOD ORDERABLES [facility] [address] [place] [address], * CT Angio Chest wo and/or w Contrast (04/10/2024 11:29 AM EST) Only the most recent of2 resultswithin the time period is included. Anatomical Region Laterality Modality Body Computed Tomogra phy 04/10/2024 12:2 0 PM EST Impressions 04/10/2024 12:42 PM EST No acute pulmonary embolus demonstrated. Incomplete opacification in the subpulmonic aspect of the pulmonary outflow tract. Whether this is related to pulsation artifact or some eccentric chronic thickening/old thrombus cannot be determined. Consider echocardiography with attention to the subpulmonic pulmonary outflow tract. Severe worsening airspace disease. Bilateral pleural fluid. ?? -------- FINAL REPORT -------- Dictated By: Edmar Yanes Dictated Date: 04/10/2024 12:20 ET Assigned Physician: Edmar Yanes Reviewed and Electronically Signed By: Edmar Yanes Signed Date: 04/10/2024 12:42 ET Workstation ID: [id number] Transcribed By: Self Edit Transcribed Date: 04/10/2024 12:20 ET Narrative 04/10/2024 12:42 PM EST EXAMINATION: CTA CHEST WITH CONTRAST CLINICAL INFORMATION: Shortness of breath. ??Clinical suspicion for pulmonary embolus. COMPARISON: Portions of a CT 03/15/2024 ?? TECHNIQUE: CT angiography using pulmonary embolus timing Multidetector CT. Examination of the chest. Examination of the chest following the IV administration of nonionic contrast. Reformatting in the coronal and sagittal planes. DLP: 348 mGy-cm Dose optimization was performed including the use of low-dose iterative reconstruction technique with automatic exposure control based on patient size. Type of contrast: ISOVUE 370 Volume of IV contrast: 90 mL Volume of contrast discarded: 0 mL FINDINGS: QUALITY: ??There is some artifact and there is extensive underlying lung disease PULMONARY ARTERIES: ??There is no acute pulmonary embolus demonstrated. There is some eccentric incomplete opacification of the subpulmonic pulmonary outflow (2/189). Whether this is related eccentric thrombus or pulsation artifact is uncertain. Consider echocardiography with attention to the poor outflow. LUNG: Lungs are markedly abnormal. There is no abnormality of the trachea. There are secretions along the left side of the upper trachea. There are areas of consolidation and groundglass opacities with volume loss in both lungs. There is severe airspace disease in the central and lower lungs on each side. There are some patchy opacities in the nondependent midlung zones. Overall aeration has markedly worsened. ?? MEDIASTINUM: ??No new abnormality. CARDIAC: There is a small amount of pericardial fluid. ?? There is no CT evidence of elevated right heart pressures. CORONARY CALCIFICATION: Moderate coronary calcification VASCULAR: The main pulmonary artery is prominent. ?? PLEURAL: There is a moderate amount of left pleural fluid. There is a small amount right pleural fluid. ?? AXILLA/CHEST WALL: There is a reservoir associated with a right-sided catheter. ??The left breast is not demonstrated. MUSCULOSKELETAL: Severe kyphosis. ?? VISUALIZED UPPER ABDOMEN: ??No suspicious abnormality on limited assessment of the visualized upper abdomen ??There is no reflux of contrast into the IVC or hepatic veins. Procedure Note Edmar Yanes MD - 04/10/2024 EXAMINATION: CTA CHEST WITH CONTRAST CLINICAL INFORMATION: Shortness of breath. Clinical suspicion for pulmonary embolus. COMPARISON: Portions of a CT 03/15/2024 TECHNIQUE: CT angiography using pulmonary embolus timing Multidetector CT. Examination of the chest. Examination of the chest following the IV administration of nonioniccontrast. Reformatting in the coronal and sagittal planes. DLP: 348 mGy-cm Dose optimization was performed including the use of low-dose iterativereconstruction technique with automatic exposure control based on patientsize. Type of contrast: ISOVUE 370 Volume of IV contrast: 90 mL Volume of contrast discarded: 0 mL FINDINGS: QUALITY: There is some artifact and there is extensive underlying lungdisease PULMONARY ARTERIES: There is no acute pulmonary embolus demonstrated. There is some eccentric incomplete opacification of the subpulmonicpulmonary outflow (2/189). Whether this is related eccentric thrombus orpulsation artifact is uncertain. Consider echocardiography with attentionto the poor outflow. LUNG: Lungs are markedly abnormal. There is no abnormality of the trachea.There are secretions along the left side of the upper trachea. There are areas of consolidation and groundglass opacities with volumeloss in both lungs. There is severe airspace disease in the central andlower lungs on each side. There are some patchy opacities in the nondependent midlung zones. Overallaeration has markedly worsened. MEDIASTINUM: No new abnormality. CARDIAC: There is a small amount of pericardial fluid. There is no CT evidence of elevated right heart pressures. CORONARY CALCIFICATION: Moderate coronary calcification VASCULAR: The main pulmonary artery is prominent. PLEURAL: There is a moderate amount of left pleural fluid. There is asmall amount right pleural fluid. AXILLA/CHEST WALL: There is a reservoir associated with a right-sidedcatheter. The left breast is not demonstrated. MUSCULOSKELETAL: Severe kyphosis. VISUALIZED UPPER ABDOMEN: No suspicious abnormality on limited assessmentof the visualized upper abdomen There is no reflux of contrast into theIVC or hepatic veins. IMPRESSION: No acute pulmonary embolus demonstrated. Incomplete opacification in the subpulmonic aspect of the pulmonaryoutflow tract. Whether this is related to pulsation artifact or someeccentric chronic thickening/old thrombus cannot be determined. Considerechocardiography with attention to the subpulmonic pulmonary outflowtract. Severe worsening airspace disease. Bilateral pleural fluid. -------- FINAL REPORT -------- Dictated By: Edmar Yanes Dictated Date: 04/10/2024 12:20 ET Assigned Physician: Edmar Yanes Reviewed and Electronically Signed By: Edmar Yanes Signed Date: 04/10/2024 12:42 ET Workstation ID: [id number] Transcribed By: Self Edit Transcribed Date: 04/10/2024 12:20 ET Surjit Amador MD IMG CT PROCEDURES * Troponin I high sensitivity (04/10/2024 11:05 AM EST) Only the most recent of3 resultswithin the time period is included. High Sensitivity Troponin I 11 <=54 ng/L LAB CHEMISTRY METHOD 04/10/2024 11:54 AM EST [facility] Blood Venous blood specimen / Unknown Venipuncture / Unknown 04/10/2024 11:05 AM EST 04/10/2024 11:25 AM EST Narrative [facility] - 04/10/2024 11:54 AM EST High levels of biotin in samples may falsely decrease hsTroponin values. ??Use caution when interpreting hsTroponin results in patients taking biotin who exhibit renal impairment (eGFR <60) or in patients taking more than 20 mg/day of biotin. Surjit Amador MD LAB BLOOD ORDERAB LES [facility] [address] [place] [address], * Respiratory virus panel molecular study (04/10/2024 10:27 AM EST) Only the most recent of2 resultswithin the time period is included. Adenovirus Detection by PCR Not Detected Not Detected LAB MICROBIOLOGY METHOD 04/10/2024 11:44 AM [facility] Influenza A PCR Not Detected Not Detected LAB MICROBIOLOGY METHOD 04/10/2024 11:44 AM [facility] Influenza B PCR Not Detected Not Detected LAB MICROBIOLOGY METHOD 04/10/2024 11:44 AM [facility] Coronavirus 229E Not Detected Not Detected LAB MICROBIOLOGY METHOD 04/10/2024 11:44 AM [facility] Coronavirus HKU1 Not Detected Not Detected LAB MICROBIOLOGY METHOD 04/10/2024 11:44 AM [facility] Coronavirus OC43 Not Detected Not Detected LAB MICROBIOLOGY METHOD 04/10/2024 11:44 AM [facility] Coronavirus NL63 Not Detected Not Detected LAB MICROBIOLOGY METHOD 04/10/2024 11:44 AM [facility] Parainfluenza Virus 1 Not Detected Not Detected LAB MICROBIOLOGY METHOD 04/10/2024 11:44 AM [facility] Parainfluenza Virus 2 Not Detected Not Detected LAB MICROBIOLOGY METHOD 04/10/2024 11:44 AM [facility] Parainfluenza Virus 3 Not Detected Not Detected LAB MICROBIOLOGY METHOD 04/10/2024 11:44 AM [facility] Parainfluenza Virus 4 Not Detected Not Detected LAB MICROBIOLOGY METHOD 04/10/2024 11:44 AM [facility] RSV PCR Not Detected Not Detected LAB MICROBIOLOGY METHOD 04/10/2024 11:44 AM [facility] Human Metapneumovirus A and B Not Detected Not Detected LAB MICROBIOLOGY METHOD 04/10/2024 11:44 AM [facility] Rhinovirus/Entero virus Not Detected Not Detected LAB MICROBIOLOGY METHOD 04/10/2024 11:44 AM [facility] Bordetella pertussis Not Detected Not Detected LAB MICROBIOLOGY METHOD 04/10/2024 11:44 AM EST [facility] Bordetella parapertussis Not Detected Not Detected LAB MICROBIOLOGY METHOD 04/10/2024 11:44 AM EST [facility] Mycoplasma pneumo by PCR Not Detected Not Detected LAB MICROBIOLOGY METHOD 04/10/2024 11:44 AM EST [facility] Chlamydia pneumoniae Not Detected Not Detected LAB MICROBIOLOGY METHOD 04/10/2024 11:44 AM EST [facility] SARS COV-2 Not Detected Not Detected LAB MICROBIOLOGY METHOD 04/10/2024 11:44 AM [facility] Swab Both anterior nares / Unknown Non-blood Collection / Unknown 04/10/2024 10:27 AM EST 04/10/2024 10:29 AM EST [facility] - 04/10/2024 11:44 AM EST Testing was performed using the [employer] system master Respiratory Pathogen PCR Assay. All results must be correlated with the clinical findings. Results should not be used as the sole basis for diagnosis. False Negative results may occur from the presence of sequence variants in the region targeted by the assay or the presence of inhibitors. Results may be affected by concurrent antiviral/antimicrobial therapy or levels of organisms that are below the limit of detection. Surjit Amador MD LAB MICROBIOLOGY - GENERAL ORDERABLES [facility] [address] [place] [address], * ECG 12 lead (04/10/2024 9:38 AM EST) Only the most recent of3 resultswithin the time period is included. Ventricular Rate ECG 94 BPM GEMUSE Atrial Rate 94 BPM GEMUSE P-R Interval 140 ms GEMUSE QRS Duration 78 ms GEMUSE Q-T Interval 344 ms GEMUSE QTc 430 ms GEMUSE P Wave [place] 64 degrees GEMUSE R [place] 85 degrees GEMUSE T [place] 34 degrees GEMUSE ECG Interpretation Sinus rhythm with Premature atrial complexes T wave abnormality, consider inferior ischemia Abnormal ECG When compared with ECG of 16-MAR-2024 03:34, Premature atrial complexes are now Present T wave inversion no longer evident in Anterior leads Confirmed by Baron LOPEZ JAMES ([id number]) on 04/10/2024 5:07:00 PM GEMUSE 04/10/2024 9:38 AM EST 04/10/2024 5:07 PM EST Surjit Amador MD ECG ORDERABLES GEMUSE * XR Chest 1 View (04/10/2024 9:36 AM EST) Only the most recent of3 resultswithin the time period is included. Anatomical Region Laterality Modality Body Radiographic Nika ging 04/10/2024 9:40 AM EST Impressions 04/10/2024 9:42 AM EST At least moderately severe bilateral perihilar opacities could represent edema or pneumonia. In comparison with 03/19/2024 this may be slightly improved. -------- FINAL REPORT -------- Dictated By: Edmar Yanes Dictated Date: 04/10/2024 09:40 ET Assigned Physician: Edmar Yanes Reviewed and Electronically Signed By: Edmar Yanes Signed Date: 04/10/2024 09:42 ET Workstation ID: [id number] Transcribed By: Self Edit Transcribed Date: 04/10/2024 09:40 ET Narrative 04/10/2024 9:42 AM EST EXAMINATION: CHEST CLINICAL INFORMATION: Dyspnea COMPARISON: Frontal view 03/19/2024 TECHNIQUE: Sitting frontal portable view of the chest FINDINGS: Devices overlie the patient. Marked rotation and kyphosis limits the exam Calcified aortic arch. The cardiac size is within normal limits. The hilar obscured. There are bilateral moderate perihilar opacities again demonstrated. A reservoir associated with right-sided vascular catheter. The tip extends into the expected region of the right atrium. No convincing pneumothorax. The left breast shadow is not well demonstrated. There is a broad convex right spinal curvature. Chronic appearing abnormality of the left proximal humerus. Procedure Note Edmar Yanes MD - 04/10/2024 EXAMINATION: CHEST CLINICAL INFORMATION: Dyspnea COMPARISON: Frontal view 03/19/2024 TECHNIQUE: Sitting frontal portable view of the chest FINDINGS: Devices overlie the patient. Marked rotation and kyphosis limits theexam Calcified aortic arch. The cardiac size is within normal limits. The hilarobscured. There are bilateral moderate perihilar opacities againdemonstrated. A reservoir associated with right-sided vascular catheter. The tip extendsinto the expected region of the right atrium. No convincing pneumothorax. The left breast shadow is not well demonstrated. There is a broad convexright spinal curvature. Chronic appearing abnormality of the left proximalhumerus. IMPRESSION: At least moderately severe bilateral perihilar opacities could representedema or pneumonia. In comparison with 03/19/2024 this may be slightlyimproved. -------- FINAL REPORT -------- Dictated By: Edmar Yanes Dictated Date: 04/10/2024 09:40 ET Assigned Physician: Edmar Yanes Reviewed and Electronically Signed By: Edmar Yanes Signed Date: 04/10/2024 09:42 ET Workstation ID: [id number] Transcribed By: Self Edit Transcribed Date: 04/10/2024 09:40 ET Surjit Amador MD IMG XR PROCEDURES * [id number], RSV, Influenza A and B qualitative RT-PCR (04/10/2024 9:35 AM EST) Influenza A PCR Not Detected Not Detected LAB MICROBIOLOGY METHOD 04/10/2024 10:55 AM [facility] Influenza B PCR Not Detected Not Detected LAB MICROBIOLOGY METHOD 04/10/2024 10:55 AM [facility] RSV PCR Not Detected Not Detected LAB MICROBIOLOGY METHOD 04/10/2024 10:55 AM [facility] SARS COV-2 Not Detected Not Detected LAB MICROBIOLOGY METHOD 04/10/2024 10:55 AM [facility] Swab Both anterior nares / Unknown Non-blood Collection / Unknown 04/10/2024 9:35 AM EST 04/10/2024 10:11 AM EST Narrative [facility] - 04/10/2024 10:55 AM EST Disclaimer: ??Testing was performed using the [employer] GeneXpert Xpress SARS-CoV-2 _Flu_RSV PLUS PCR assay. ??The manner in which this information is used to guide patient care is the responsibility of the healthcare provider. ??Results should be correlated with the clinical history, epidemiological data, and other data available to the clinician evaluating the patient. ??Negative results do not preclude infection. ??This test has been authorized by the FDA under an Emergency Use Authorization (EUA). ??This test is only authorized for the duration of time the declaration that circumstances exist justifying the authorization of the emergency use of in vitro diagnostic tests for detection of SARS-CoV-2 virus and/or diagnosis of COVID-19 infection under section 564 (b) (1) of the Act, 21 U.S.C 360bbb-3 (b) (1), unless the authorization is terminated or revoked sooner. ?? Reference Range: Not Detected Fact sheet for Healthcare providers can be found at https://www.fda.gov/media/407730/download. ?? Fact sheet for Healthcare patients can be found at https://www.fda.gov/media/076638/download. Surjit Amador MD LAB MICROBIOLOGY - GENERAL ORDERABLES [facility] [address] [place] [address], * Blood Culture, Peripheral Draw #1 (04/10/2024 9:24 AM EST) Only the most recent of2 resultswithin the time period is included. Culture, Blood No growth at 5 days LAB MICROBIOLOGY METHOD 04/15/2024 10:01 AM EST [facility] Blood Venous blood specimen / Unknown Venipuncture / Unknown 04/10/2024 9:24 AM EST 04/10/2024 9:31 AM EST Surjit Amador MD LAB MICROBIOLOGY - GENERAL ORDERABLES Performing Organization Address [facility]/ZIP Co de Phone Number [facility] [address] [place] [address], [place] [phone] * APTT (04/10/2024 9:20 AM EST) aPTT 35.5 24.1 - 39.3 sec LAB COAGULATION METHOD 04/10/2024 9:58 AM EST [facility] Blood Venous blood specimen / Unknown Venipuncture / Unknown 04/10/2024 9:20 AM EST 04/10/2024 9:32 AM EST Surjit Amador MD LAB BLOOD ORDERAB LES Performing Organization Address [facility] de Phone Number [facility] [address] [place] [address], [place] [phone] * (ABNORMAL) Protime-INR (04/10/2024 9:20 AM EST) Only the most recent of2 resultswithin the time period is included. Protime 17.0(H) 10.6 - 13.9 sec LAB COAGULATION METHOD 04/10/2024 9:58 AM EST [facility] INR 1.4 LAB COAGULATION METHOD 04/10/2024 9:58 AM EST [facility] Blood Venous blood specimen / Unknown Venipuncture / Unknown 04/10/2024 9:20 AM EST 04/10/2024 9:32 AM EST Surjit Amador MD LAB BLOOD ORDERAB LES Performing Organization Address [facility]/ZIP Co de Phone Number [facility] [address] [place] [address], [place] [phone] * B-type natriuretic peptide (04/10/2024 9:20 AM EST) Only the most recent of2 resultswithin the time period is included. BNP 73 <=100 pcg/mL LAB CHEMISTRY METHOD 04/10/2024 10:03 AM EST [facility] Blood Venous blood specimen / Unknown Venipuncture / Unknown 04/10/2024 9:20 AM EST 04/10/2024 9:32 AM EST Surjit Amador MD LAB BLOOD ORDERAB LES Performing Organization Address [facility] de Phone Number [facility] [address] [place] [address], * Lactate (04/10/2024 9:20 AM EST) Only the most recent of2 resultswithin the time period is included. Lactate 1.4 0.4 - 2.0 mmol/L LAB CHEMISTRY METHOD 04/10/2024 9:56 AM EST [facility] Blood Venous blood specimen / Unknown Venipuncture / Unknown 04/10/2024 9:20 AM EST 04/10/2024 9:31 AM EST Surjit Amador MD LAB BLOOD ORDERAB LES Performing Organization Address [facility] Co de Phone Number [facility] [address] [place] [address], * [place] CRITICAL CARE 30-74 MINUTES (04/10/2024 8:46 AM EST) Narrative Surjit Amador MD - 04/10/2024 8:46 AM EST Surjit Amador MD ? 04/10/2024 ??5:26 PM Critical Care Performed by: Surjit Amador MD Authorized by: Surjit Amador MD ?? Critical care provider statement: ??Critical care time (minutes): ??60 ??Critical care time was exclusive of: ??Separately billable procedures and treating other patients ??Critical care was necessary to treat or prevent imminent or life-threatening deterioration of the following conditions: ??Respiratory failure ??Critical care was time spent personally by me on the following activities: ??Re-evaluation of patient's condition, ordering and review of laboratory studies, ordering and review of radiographic studies, ordering and performing treatments and interventions, interpretation of cardiac output measurements and review of old charts ??I assumed direction of critical care for this patient from another provider in my specialty: no ?Care discussed with: admitting provider ?? Comments: ?? Patient required stabilization for acute and emergent hypoxic respiratory failure requiring BiPAP initially, continuous cardiac monitoring, frequent bedside reassessment and transition to high flow nasal cannula. ??Imaging reviewed independently contributed to decision making regarding care and treatment. Surjit Amador MD IN CLINIC/BEDSIDE ORDERABLES * ECG-Outside (04/10/2024) Only the most recent of2 resultswithin the time period is included. Provider Onbase MD ECG ORDERABLES * ECG-Annotated (04/10/2024) Only the most recent of3 resultswithin the time period is included. Provider Onbase MD ECG ORDERABLES * Thyroid stimulating hormone (04/03/2024 9:31 AM EST) Only the most recent of2 resultswithin the time period is included. TSH 2.16 0.40 - 4.00 mcIU/mL LAB CHEMISTRY METHOD 04/03/2024 10:09 AM EST [facility] Blood Blood sample taken from central line / Unknown Existing Catheter / Unknown 04/03/2024 9:31 AM EST 04/03/2024 9:36 AM EST Albert Mg MD LAB BLOOD O RDERABLES [facility] [address] [place] [address], * [place] ARTHROCENTESIS/ASPIRATION/INJECTION MAJOR JOINT/BURSA W/O U/S GUIDANCE (04/02/2024 1:00 PM EST) Narrative Noemi Jones PA - 04/02/2024 1:00 PM EST DERICK Patel ? 04/02/2024 ??1:44 PM L Inj/Asp: bilateral knee Indications: pain Details: 22 G needle, medial approach Medications (Right): 60 mg hyaluronate sodium, stabilized 60 mg/3 mL Medications (Left): 60 mg hyaluronate sodium, stabilized 60 mg/3 mL Informed Consent: ??Laterality: ??Bilateral ??Relevant images/test results available and reviewed: yes ?Health status cleared: ??Yes ??Procedure/treatment, purpose, treatment alternatives, risks/potential complications and benefits explained: yes ?Patient questions answered: yes ?Patient agrees, verbalizes understanding, and wants to proceed: yes ?Consent given by: ??Patient ??Informed consent discussion completed by Physician/TAZ with patient: ?? Verbal ??Pre-procedure timeout performed: yes ?? Noemi SEPULVEDA IN CLINIC/BEDSIDE OR DERABLES * Culture bronchial with gram stain (03/19/2024 4:13 PM EST) Only the most recent of2 resultswithin the time period is included. Bronchial Culture No growth at 3 days 03/22/2024 10:47 AM EST [facility] Gram Stain Result Few Polymorphonuclear leukocytes 03/22/2024 10:47 AM EST [facility] Gram Stain Result No epithelial cells seen 03/22/2024 10:47 AM EST [facility] Gram Stain Result No organisms seen 03/22/2024 10:47 AM EST [facility] Bronchoalveolar lavage fluid specimen (specimen) Structure of lower lobe of left lung / Unknown 03/19/2024 4:13 PM EST 03/19/2024 4:32 PM EST Alfonso Navarro MD LAB MICROBIOLOGY - G ENERAL ORDERABLES [facility] [address] [place] [address], * Concentration (03/19/2024 4:13 PM EST) AFB Concentration Performed 025 4:05 PM EST [facility] Unspecified Body Fluid Structure of lower lobe of left lung / Unknown Non-blood Collection / Unknown 03/19/2024 4:13 PM EST 03/19/2024 6:04 PM EST Narrative [facility] - 05/02/2024 4:05 PM EST Performed at: ?? - [facility] [address] ??[id number] Day Care Attendant: Eileen Perez MD, Phone: ??[phone] Alfonso Navarro MD LAB BLOOD ORDERABLES Performing Organization Address City/[facility]/ZIP Co de Phone Number [facility] * Culture, afb and smear with reflex to identification and susceptibility (03/19/2024 4:13 PM EST) AFB Specimen Processing Concentration 05/02/2024 4:05 PM EST [facility] Acid Fast Smear Negative 05/02/2024 4:05 PM EST [facility] Acid Fast Culture Negative 05/02/2024 4:05 PM EST [facility] Comment:No acid fast bacilli isolated after 6 weeks. Unspecified Body Fluid Structure of lower lobe of left lung / Unknown Non-blood Collection / Unknown 03/19/2024 4:13 PM EST 03/19/2024 6:04 PM EST Narrative [facility] - 05/02/2024 4:05 PM EST Performed at: ??01 - [facility] [address] ??[id number] Day Care Attendant: Eileen Perez MD, Phone: ??[phone] Alfonso Navarro MD LAB MICROBIOLOGY - G ENERAL ORDERABLES Performing Organization Address [facility]/ZIP Co de Phone Number [facility] * Pneumocystis jirovecii molecular study (03/19/2024 4:13 PM EST) Only the most recent of2 resultswithin the time period is included. Pneumocystis PCR Result Negative 03/25/2024 9:05 PM EST [facility] Comment: ADDITIONAL INFORMATION This test was developed and its performance characteristics determined by [facility] in a manner consistent with CLIA requirements. This test has not been cleared or approved by the U.S. Food and Drug Administration. REFERENCE RANGE: Not Applicable Specimen Source LUNG, LEFT LOWER LOBE 03/25/2024 9:05 PM EST [facility] Bronchoalveolar lavage fluid specimen (specimen) Structure of lower lobe of left lung / Unknown 03/19/2024 4:13 PM EST 03/19/2024 4:31 PM EST Narrative [facility] - 03/25/2024 9:05 PM EST Performed at: ??01 - [facility] [address] ??[id number] Day Care Attendant: Jon Castellano PhD, Phone: ??[phone] Alfonso Navarro MD LAB MICROBIOLOGY - G ENERAL ORDERABLES Performing Organization Address [facility]/ZIP Co de Phone Number [facility] * Acid fast bacilli stain (03/19/2024 4:13 PM EST) Only the most recent of2 resultswithin the time period is included. AFB Stain Result No Acid fast bacilli seen on direct smear (Fuchsin method, 1000x) No Acid Fast Bacilli seen on direct smear 03/19/2024 10:19 PM EST [facility] Unspecified Body Fluid Structure of lower lobe of left lung / Unknown Non-blood Collection / Unknown 03/19/2024 4:13 PM EST 03/19/2024 6:04 PM EST Alfonso Navarro MD LAB MICROBIOLOGY - G ENERAL ORDERABLES Performing Organization Address [facility]/ZIP Co de Phone Number [facility] [address] [place] [address], * Culture fungal, other (03/19/2024 4:13 PM EST) Only the most recent of2 resultswithin the time period is included. Culture, Fungus Negative for Fungus after 4 Weeks 04/16/2024 8:26 AM EST [facility] Bronchoalveolar lavage fluid specimen (specimen) Structure of lower lobe of left lung / Unknown 03/19/2024 4:13 PM EST 03/19/2024 4:31 PM EST Alfonso Navarro MD LAB MICROBIOLOGY - G ENERAL ORDERABLES Performing Organization Address City/[facility]/ZIP Co de Phone Number [facility] [address] [place] [address], [place] [phone] * Culture anaerobic with gram stain (03/19/2024 4:10 PM EST) Pathologist [facility] Culture, Anaerobic No Growth of Anaerobes. 2024 9:00 AM EST [facility] Brushing Structure of lower lobe of left lung / Unknown 03/19/2024 4:10 PM EST 03/19/2024 4:32 PM EST Comment:FOR MICROBIOLOGY Alfonso Navarro MD LAB MICROBIOLOGY - G ENERAL ORDERABLES Performing Organization Address City/[facility]/ZIP Co de Phone Number [facility] [address] [place] [address], [place] [phone] * Non-gynecologic cytology (03/19/2024 4:01 PM EST) Final Diagnosis Lung, Right Upper Lobe, BAL (ThinPrep, cell block): Negative for malignant cells. Scattered bland mixed inflammatory cells, macrophages, and benign bronchial cells present. 03/21/2024 8:11 AM EST [facility] Specimen A Adequacy Satisfactory for evaluation 03/21/2024 8:11 AM EST [facility] Clinical Information FOR CYTOLOGY 03/21/2024 8:11 AM [facility] Gross Description A. Lung, Right Upper Lobe, RIGHT UPPER LUNG LOBE BAL: Received 10 ml of clear with white flakes in fluid; 1 ThinPrep, 1 Cell block Cell block in formalin @11:00-total formalin fixation time 10 hours. 03/21/2024 8:11 AM EST [facility] Disclaimer Unless otherwise specified, all tissue is 10% NB formalin fixed and paraffin embedded. Technical cytopathology services provided by [facility], at [address] [place] [address] (CLIA # [id number]/Helen Tolbert MD, Tractor Mechanic Helper.) 03/21/2024 8:11 AM [facility] Bronchoalveolar lavage fluid specimen (specimen) Structure of upper lobe of right lung / Unknown 03/19/2024 4:01 PM EST 03/20/2024 10:19 AM EST Comment:FOR CYTOLOGY Alfonso Navarro MD LAB CYTOLOGY ORDERAB LES [facility] [address] [place] [id number], * BRONCHOSCOPY Anesthesia - General; [facility] ENDOSCOPY (03/19/2024 3:59 PM EST) Anatomical Region Laterality Modality Endoscopy 03/19/2024 3:08 PM EST Impressions 03/19/2024 4:30 PM EST dilated airwat with no evidence of malignancy Recommendation: ?await culture and pathology Narrative 03/19/2024 4:30 PM EST [facility] Pulmonology Patient Name: Lynn Reilly Procedure Date: 03/19/2024 3:08 PM Date of : 1950 Age: 73 Gender: Female Note Status: Finalized Attending MD: Alfonso Navarro MD, Procedure Date No Time: 03/19/2024 Procedure: ? Bronchoscopy Indications: ? Suspicious left lower lobe lesion Providers: ? Alfonso Navarro MD Referring MD: ?Alfonso Navarro MD Medicines: ? See the Anesthesia note for documentation of the ? administered medications Complications: ? no immediate except for bleeding post biopsy. Estimated Blood Loss: ? Estimated blood loss was minimal. Procedure: ? After obtaining informed consent, the Olympus ? Bronchoscope was introduced through the mouth, via the ? endotracheal tube and advanced to the tracheobronchial ? tree of both lungs. Findings: ?ETT place be anesthesia. Tracheal midline and ajit ? sharp. The pt's right lung murray was visulaized- no ? significant abnormalities except for dilated airways ? noted with area of narrowing noted. Pictures was ? taken. I perform bronchial washing on right upper lob. ? I next went to left side, the left main bronchus was ? patent. The left upper, lingula lobe and lower lobe ? were all dilated. There was no secretions or ? endobronchial debri. I perform transbronchial biopsy ? with fluro x 1 in the left lower lobe. There was ? signficant bleeding with the biopsy. The bleeding ? control was achieve with suctioning and tamponade of ? site. I decide not to do more biopsy at this point. I ? proceed to do one more lavage in the LLL. The pt ? tolerate it well. The dilated airways is likely due to ? kyphosis with resultant volume changes MD Alfonso Cosme MD 03/19/2024 4:30:12 PM This report has been signed electronically.Alfonso Navarro MD Number of Addenda: 0 Note Initiated On: 03/19/2024 3:08 PM ? Endoscopy Department at [facility] - [address] [place] [address] [address] ? [address] [place] [id number] Procedure Note Alfonso Navarro MD - 03/19/2024 [facility] Pulmonology Patient Name: Lynn Reilly Procedure Date: 03/19/2024 3:08 PM Date of : 1950 Age: 73 Gender: Female Note Status: Finalized Attending MD: Alfonso Navarro MD, Procedure Date No Time: 03/19/2024 Procedure: Bronchoscopy Indications: Suspicious left lower lobe lesion Providers: Alfonso Navarro MD Referring MD: Alfonso Navarro MD Medicines: See the Anesthesia note for documentation of the administered medications Complications: no immediate except for bleeding post biopsy. Estimated Blood Loss: Estimated blood loss was minimal. Procedure: After obtaining informed consent, the Olympus Bronchoscope was introduced through the mouth, viathe endotracheal tube and advanced to thetracheobronchial tree of both lungs. Findings: ETT place be anesthesia. Tracheal midline andcarina sharp. The pt's right lung murray was visulaized-no significant abnormalities except for dilatedairways noted with area of narrowing noted. Pictures was taken. I perform bronchial washing on right upperlob. I next went to left side, the left main bronchuswas patent. The left upper, lingula lobe and lower lobe were all dilated. There was no secretions or endobronchial debri. I perform transbronchialbiopsy with fluro x 1 in the left lower lobe. There was signficant bleeding with the biopsy. The bleeding control was achieve with suctioning and tamponadeof site. I decide not to do more biopsy at this point.I proceed to do one more lavage in the LLL. The pt tolerate it well. The dilated airways is likely dueto kyphosis with resultant volume changes MD Alfonso Cosme MD 03/19/2024 4:30:12 PM This report has been signed electronically.Alfonso Navarro MD Number of Addenda: 0 Note Initiated On: 03/19/2024 3:08 PM Endoscopy Department at [facility] - [address] [place] [address] [address] [place] [address] IMPRESSION: dilated airwat with no evidence of malignancy Recommendation: await culture and pathology Alfonso Navarro MD GI~PROCEDURE ORDERAB LES * Tissue exam (03/19/2024 3:57 PM EST) Final Diagnosis Lung, Left Lower Lobe, biopsy: Benign fragment of lung, not diagnostic of a mass lesion. No organizing pneumonia or lesion identified; multiple levels evaluated. 03/21/2024 12:25 PM EST [facility] LAB Comment Please also see microbiology report. 03/21/2024 12:25 PM EST [facility] Gross Description A. Lung, Left Lower Lobe, left lower lung lobe biopsy: Labeled left lower lobe . Received in formalin is a 0.1 cm irregular quiles tissue fragment which is wrapped in paper and submitted in toto in one cassette, one piece, one H&E and six unstained slides, conserving tissue AFTAB 03/21/2024 12:25 PM EST [facility] Disclaimer Unless otherwise specified, all tissue is 10% NB formalin fixed and paraffin embedded. 03/21/2024 12:25 PM EST [facility] Tissue Structure of lower lobe of left lung / Unknown 03/19/2024 3:57 PM EST 03/19/2024 4:36 PM EST Alfonso Navarro MD LAB PATHOLOGY ORDERA BLES [facility] [address] [place] [address], * TH AN ENDOTRACHEAL(NO CHARGE) (03/19/2024 3:37 PM EST) Narrative Renae Darling CRNA - 03/19/2024 3:37 PM EST Renae Darling CRNA ? 03/19/2024 ??3:46 PM General Information and Staff Patient location during procedure: OR (Endo 18) Anesthesiologist: Lito Goins DO Resident/LEGAL CLERK: Renae Darling CRNA Performed by: Renae Darling CRNA Authorized by: Renae Darling CRNA ?? Intubation Airway not difficult Urgency: elective Final Airway Details Successful airway: ETT Cuffed: yes Successful intubation technique: direct laryngoscopy Facilitating devices/methods: anterior pressure/BURP Blade: Vitale Blade size: #3 ETT size (mm): 8.0 Placement verified by: chest auscultation and capnometry Measured from: lips ETT to lips (cm): 20 Number of attempts at approach: 2 (bed lowered and time given for greater relaxation) Ventilation between attempts: BVMFinal airway type: endotracheal airway Indications and Patient Condition Indications for airway management: anesthesia Soft Tissue Damage: No Dentition Unchanged: Yes Patient position: pillows for comfort to support pt's kyphosis. Mask difficulty assessment: 1 - vent by mask Renae Darling LEGAL CLERK ANESTHESIA ORDERABLE S * (ABNORMAL) TRANSTHORACIC ECHOCARDIOGRAM (TTE) COMPLETE W/ CONTRAST (03/16/2024 11:54 AM EST) Left Atrium [facility] [place] 4.5 cm CV PACS LA Area Sys (A4C) 13 cm2 CV PACS RA Area 12.4 cm2 CV PACS RA 2D Volume 29 mL CV PACS AV Mean Gradient 8 mmHg CV PACS Ao VTI 39.8 cm CV PACS AV Peak Jg 1.9 m/s CV PACS AV Peak Gradient 15 mmHg CV PACS AV Area Continuity Equation 2.0 cm2 CV PACS AV Area Peak Velocity 2.1 cm2 CV PACS Aortic Sinus Valsalva 3.3 cm CV PACS Ascending Aorta 3.4 cm CV PACS IVSD 0.7 0.6 - 0.9 cm CV PACS LVIDD 3.2(A) 3.8 - 5.2 cm CV PACS LVIDS 2.0(A) 2.2 - 3.5 cm CV PACS LVOT Diameter 1.8 cm CV PACS LVOT Mean Jg 1.1 m/s CV PACS LVOT Mean Grad 6 mmHg CV PACS LVOT Peak VTI 31.1 cm CV PACS LVOT Peak Jg 1.6 m/s CV PACS LVOT Peak Gradient 10 mmHg CV PACS LVPWD 0.9 0.6 - 0.9 cm CV PACS MV E' Tissue Velocity Lateral 8 cm/s CV PACS MV E' Tissue Velocity Septal 5 cm/s CV PACS LVOT Area 2.5 cm2 CV PACS LVOT Stroke Volume 79 mL CV PACS MV Deceleration [place] 2.8 m/s2 CV PACS E Wave Deceleration Time 262(A) 119 - 242 ms CV PACS MV PHT 77 ms CV PACS MV Peak A Jg 1.05 m/s CV PACS MV Peak E Jg 0.73 m/s CV PACS MV Area PHT 2.9 cm2 CV PACS PV Acceleration Time 123 ms CV PACS RV Diastolic Basal Dimension 2.9 2.5 - 4.1 cm CV PACS RV S' 17 cm/s CV PACS TAPSE 24 mm CV PACS TR Peak Velocity 2.42 m/s CV PACS TR Peak Gradient 23 mmHg CV PACS E/E' Ratio Septal 15 CV PACS E/E' Ratio Averaged 12 CV PACS LVOT Stroke Index 46 mL/m2 CV PACS Relative Wall Thickness ratio 0.56 CV PACS LVOT:AV VTI Index 0.78 CV PACS FS 38 % CV PACS LV Mass 2D 65 g CV PACS Ascending Aorta Index 2.00 cm/m2 CV PACS LVOT flow 280 mL/s CV PACS RA 2D Volume Index 17 mL/m2 CV PACS AMANDO Index (VTI) 1.17 cm2/m2 CV PACS AMANDO Index (Pk Jg) 1.24 cm2/m2 CV PACS LVIDD Index 1.88 cm/m2 CV PACS LVIDS Index 1.18 cm/m2 CV PACS AV Velocity Ratio 0.84 CV PACS E/A Ratio 0.7 CV PACS E/E' Ratio Lateral 9 CV PACS LV Mass Index 2D 38 g/m2 CV PACS BSA 1.68 m2 CV PACS Anatomical Region Laterality Modality Ultrasound Narrative 03/16/2024 3:06 PM EST ?Left ventricle cavity size is normal. Left ventricular systolic function is in the normal range with an ejection fraction of 60-65%. ?? Definity used for endocardial definition ?No regional LV wall motion abnormalities noted. ?Left ventricle wall thickness is normal. ?Right ventricle cavity is normal. Right ventricular systolic function is normal. ?Tricuspid valve leaflets exhibit probably normal excursion. ??Trace tricuspid insufficiency Left Ventricle Left ventricle cavity size is normal. Wall thickness is normal. Systolic function is normal with an ejection fraction of 60-65%. There are no regional LV wall motion abnormalities. There is no diastolic dysfunction. Right Ventricle Right ventricle cavity appears normal. Systolic function is normal. Left Atrium Left atrium cavity size is normal. Right Atrium Right atrium cavity is normal. Mitral Valve The leaflets are thickened. There is trace regurgitation. There is no evidence of mitral valve stenosis. Tricuspid Valve The leaflets exhibit probably normal excursion. There is mild regurgitation. Aortic Valve The aortic valve is trileaflet. There is no regurgitation or stenosis. Pulmonic Valve There is trace pulmonic valve regurgitation. Ascending Aorta The aorta appears normal in size. Pericardium Pericardium appears normal. Study Details Overall the study quality was adequate. Additional technique includes myocardial contrast perfusion. Definity contrast was given to enhance imaging. Study was difficult due to: patient body habitus and low parasternal window. Lilia SEPULVEDA CV ECHO PROCEDURES * (ABNORMAL) C-reactive protein (03/15/2024 2:08 PM EST) [facility] C-Reactive Protein 27.00(H) <=0.50 mg/dL LAB CHEMISTRY METHOD 03/15/2024 6:35 PM EST [facility] Comment:Results verified by repeat testing Blood Venous blood specimen / Unknown Venipuncture / Unknown 03/15/2024 2:08 PM EST 03/15/2024 2:10 PM EST Aguila Butt MD LAB BLOOD ORDERABLES [facility] [address] [place] [address], [place] [phone] * (ABNORMAL) POCT Glucose, blood (03/15/2024 2:02 PM EST) [facility] Glucose POCT 163(H) 70 - 100 mg/dL 03/15/2024 2:03 PM EST [facility] Blood Capillary blood specimen / Unknown 03/15/2024 2:02 PM EST 03/15/2024 2:04 PM EST Generic Provider Poct LAB POINT OF CARE TEST DOCKED DEVICE UNSOLICITED RESULTS Performing Organization Address City/[facility]/ZIP Co de Phone Number [facility] [address] [place] [address], [place] [phone] * Miscellaneous reference lab test (03/08/2024) Hellen Urbano MD LAB BLOOD ORDERABLES * PET CT Skull to Mid Thigh Subsequent (03/01/2024 10:43 AM EST) Anatomical Region Laterality Modality Body Radiographic Nika ging 03/01/2024 11:4 3 AM EST Impressions 03/01/2024 12:[address] visualized lung nodules. Some of the lung nodules described above are FDG active especially in right lower lobe left upper lobe. There is new FDG active lymph nodes in bilateral supraclavicular , left subcarinal and anterior mediastinal space. 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 The lung nodules could be metastatic disease. -------- FINAL REPORT -------- Dictated By: Walter Davis Dictated Date: 03/01/2024 11:43 ET Assigned Physician: Walter Davis Reviewed and Electronically Signed By: Walter Davis Signed Date: 03/01/2024 12:26 ET Workstation ID: [id number] Transcribed By: Self Edit Transcribed Date: 03/01/2024 11:43 ET Narrative 03/01/2024 12:26 PM EST EXAMINATION: PET/CT skull to the mid thigh. CLINICAL INDICATION: ??Hodgkin's lymphoma. COMPARISON: PET/CT skull to thigh 06/10/2023 TECHNIQUE: Following intravenous administration of 12.1 mCi of F-18 FDG in right chest port, whole-body PET emission scan was obtained from top of the vertex to the mid thighs approximately 49 minutes post injection. 5 mm thin axial nondiagnostic CT transmission scan was obtained without oral or IV contrast for attenuation correction and correlative imaging. Baseline glucose measures 91 mg/DL. DLP 873 mGy/cm. FINDINGS: Brain: There is no abnormal metabolic activity seen in the scalp, skull brain or the soft tissues. NECK: There is a focal right supraclavicular paratracheal lymph node with max SUV 3.57. Left suprahilar paratracheal lymph node SUV max 4.92. Left upper lobe posterior segment These nodes were negative on previous PET study Chest: Left upper lobe 6 mm pulmonary nodule max SUV 1.16 on axial PET slice 69/3. Inferiorly second 1.65 cm nodule PET/CT slice 73/3 with max SUV of 0.64. Left subcarinal 1 cm nodule with Max SUV 4.15 axial PET slice 80/3, anterior mediastinal 1.5 cm lymph node with Max SUV ??axial PET slice 83/3, 9 mm nodule right lower lobe max SUV 2.99 axial PET slice 87/3. On CT there is diffuse emphysema with patchy nodular disease in both lower lobes more so on the right some of the nodules have faint PET uptake on axial slice 90/4. There are other nodules which are not metabolically active in the left lower lobe. Abdomen and pelvis: No abnormal metabolic activity seen in the solid organs, retroperitoneal or mesenteric lymph nodes. Nonspecific metabolic activity seen in ascending colon. On CT there is visualized with no focal mass or annular narrowing. CT reveals unremarkable solid organs. No radiopaque renal calculi. There are small gallstones without wall thickening. Moderate stool is seen in the colon without significant distention. MSK: No abnormal metabolic activity seen in the muscular social system. There is mild thoracic scoliosis and exaggerated thoracic kyphosis. Liver maximum SUV 2.4 Thoracic aorta maximum SUV 2.26 Procedure Note Walter Davis MD - 03/01/2024 EXAMINATION: PET/CT skull to the mid thigh. CLINICAL INDICATION: Hodgkin's lymphoma. COMPARISON: PET/CT skull to thigh 06/10/2023 TECHNIQUE: Following [facility] 12.[facility]Ci [facility], whole-body PET emission scan was obtained from top ofthe vertex to the mid thighs approximately 49 minutes post injection. [address] transmission scan was obtained without oral orIV contrast for attenuation correction and correlative imaging. Baselineglucose measures 91 mg/DL. DLP 873 mGy/cm. FINDINGS: Brain: There is no abnormal metabolic activity seen in the scalp, skullbrain or the soft tissues. NECK: There is a focal right supraclavicular paratracheal lymph node withmax SUV 3.57. Left suprahilar paratracheal lymph node SUV max 4.92. Leftupper lobe posterior segment These nodes were negative on previous PETstudy Chest: Left upper lobe 6 mm pulmonary nodule max SUV 1.16 on axial PETslice 69/3. Inferiorly second 1.65 cm nodule PET/CT slice 73/3 with maxSUV of 0.64. Left subcarinal 1 cm nodule with Max SUV 4.15 axial PET slice80/3, anterior mediastinal 1.5 cm lymph node with Max SUV axial PET slice83/3, 9 mm nodule right lower lobe max SUV 2.99 axial PET slice 87/3. OnCT there is diffuse emphysema with patchy nodular disease in both lowerlobes more so on the right some of the nodules have faint PET uptake onaxial slice 90/4. There are other nodules which are not metabolicallyactive in the left lower lobe. Abdomen and pelvis: No abnormal metabolic activity seen in the solidorgans, retroperitoneal or mesenteric lymph nodes. Nonspecific metabolicactivity seen in ascending colon. On CT there is visualized with no focalmass or annular narrowing. CT reveals unremarkable solid organs. Noradiopaque renal calculi. There are small gallstones without wallthickening. Moderate stool is seen in the colon without significantdistention. MSK: No abnormal metabolic activity seen in the muscular social system.There is mild thoracic scoliosis and exaggerated thoracic kyphosis. Liver maximum SUV 2.4 Thoracic aorta maximum SUV 2.26 IMPRESSION: Multiple CT visualized lung nodules. Some of the lung nodules describedabove are FDG active especially in right lower lobe left upper lobe. There is new FDG active lymph nodes in bilateral supraclavicular , leftsubcarinal and anterior mediastinal space. 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 Thelung nodules could be metastatic disease. -------- FINAL REPORT -------- Dictated By: Walter Davis Dictated Date: 03/01/2024 11:43 ET Assigned Physician: Walter Davis Reviewed and Electronically Signed By: Walter Davis Signed Date: 03/01/2024 12:26 ET Workstation ID: [id number] Transcribed By: Self Edit Transcribed Date: 03/01/2024 11:43 ET Subramony Subramonia-Izabela SAMANIEGO [facility] PROC EDURES * Falls Risk Assessment (11/07/2023) Falls Risk Assessment abstracted Historical Provider [facility] MELISSA E * DXA BONE DENSITY STUDY 1+ SITS AXIAL SKEL (08/19/2022 11:36 AM EDT) Anatomical Region Laterality Modality Bone Densitometr y 09/08/2021 3:30 PM EDT Narrative 08/19/2022 5:16 PM EDT BONE DENSITY ? Lumbar Spine T-score is -0.5 ?? (SD relative to 20-29 y/o adult) Z-score is +1.8 ??(SD relative to age matched peers) This is normal by criteria defined by the WHO. Left Hip T-score is -1.3 Z-score is +0.6 This is consistent with osteopenia by criteria defined by the WHO. Comparison exam(s): significant decrease in bone density of ??hip when compared to most recent bone density examination ?? Confidence level is +/-95%. Impression: Based on the World Health Organization criteria, Lynn Reilly should be classified as having osteopenia. The [facility] Department of Internal Medicine recommends using National Osteoporosis Foundation (NOF) guidelines in treatment decisions related to osteoporosis. NOF guidelines suggest considering treatment for postmenopausal women and men aged 50 or older presenting with the following: History of hip or vertebral fracture. T-score less than or equal to -2.5 (DXA) at the femoral neck, total hip, or spine, after appropriate evaluation to exclude secondary causes. Low bone mass (T-score between -1.0 and -2.5 at the femoral neck or spine) AND a 10-year probability of a hip fracture greater than or equal to 3% OR a 10-year probability of a major osteoporosis-related fracture greater than or equal to 20% based on the [place]-adapted WHO algorithm Please note that all treatment decisions require clinical judgment and consideration of individual patient factors, including patient preferences, co-morbidities, previous drug use, risk factors not captured in the FRAX model (e.g., frailty, falls, vitamin D deficiency, increased bone turnover, interval significant decline in bone density) and possible under- or over-estimation of fracture risk by FRAX. Procedure Note Eli Monique MD - 05/30/2023 BONE DENSITY Lumbar Spine T-score is -0.5 (SD relative to 20-29 y/o adult) Z-score is +1.8 (SD relative to age matched peers) This is normal by criteria defined by the WHO. Left Hip T-score is -1.3 Z-score is +0.6 This is consistent with osteopenia by criteria defined by the WHO. Comparison exam(s): significant decrease in bone density of hip whencompared to most recent bone density examination Confidence level is +/-95%. Impression: Based on the World Health Organization criteria, Lynn Reilly should beclassified as having osteopenia. The [facility] Department of Internal Medicine recommendsusing National Osteoporosis Foundation (NOF) guidelines in treatmentdecisions related to osteoporosis. NOF guidelines suggest consideringtreatment for postmenopausal women and men aged 50 or older presentingwith the following: History of hip or vertebral fracture. T-score less than or equal to -2.5 (DXA) at the femoral neck, total hip,or spine, after appropriate evaluation to exclude secondary causes. Low bone mass (T-score between -1.0 and -2.5 at the femoral neck or spine)AND a 10-year probability of a hip fracture greater than or equal to 3% ORa 10-year probability of a major osteoporosis-related fracture greaterthan or equal to 20% based on the US-adapted WHO algorithm Please note that all treatment decisions require clinical judgment andconsideration of individual patient factors, including patientpreferences, co-morbidities, previous drug use, risk factors not capturedin the FRAX model (e.g., frailty, falls, vitamin D deficiency, increasedbone turnover, interval significant decline in bone density) and possibleunder- or over-estimation of fracture risk by FRAX. Justin Larose MD [facility] DXA PROCEDURES * (ABNORMAL) Lipid panel (03/23/2022) LDL/HDL Ratio 4 0 - 4 Triglycerides 138 0 - 150 mg/dL Cholesterol 198 0 - 200 mg/dL HDL 54 40 mg/dL LDL Cholesterol 117(A) 0 - 100 mg/dL Blood Venous blood specimen / Unknown Historical Provider LAB BLOOD ORDERAB LES * Hepatitis C Screening (01/18/2018) Hepatitis C Screening abstracted Historical Provider MD SIOBHAN TORRES E * Colonoscopy (05/13/2014) Colonoscopy no interpretation , abstracted Anatomical Region Laterality Modality Other Historical Provider MD SIOBHAN Last from Last 3 Months or Most Recently Relevant to Health Maintenance Advance Directives Documents on File Type Date Recorded Patient Surgical Nurse Practitioner Expl anation Advance Directives and Living Will 04/17/2024 2:17 PM Advance Directives and Living Will 04/17/2024 2:11 PM Advance Directives and Living Will 04/11/2024 12:36 PM Jose L Tommie Health Care Proxy * Full Code - Confirmed (Latest Code Status on File) Date Activated Date Inactivated Comments 04/10/2024 3:34 PM 04/16/2024 7:49 PM This code status was ascertained in the following way: Code status discussion: discussion with patient To update the patient's code status, place a code status order. Do not modify or discontinue any currently active code status orders. * Full Code - Default Date Activated Date Inactivated Comments 04/10/2024 1:28 PM 04/10/2024 3:34 PM This is or artur is used when code status has not been discussed with the patient, or code status is otherwise unknown/unconfirmed To update the patient's code status, place a code status order. Do not modify or discontinue any currently active code status orders. * Full Code - Confirmed Date Activated Date Inactivated Comments 03/15/2024 6:55 PM 03/19/2024 9:43 PM This code status was ascertained in the following way: Code status discussion: discussion with patient and To update the patient's code status, place a code status order. Do not modify or discontinue any currently active code status orders. * Full Code - Default Date Activated Date Inactivated Comments 03/15/2024 6:00 PM 03/15/2024 6:55 PM This is or artur is used when code status has not been discussed with the patient, or code status is otherwise unknown/unconfirmed To update the patient's code status, place a code status order. Do not modify or discontinue any currently active code status orders. Healthcare Agents on File Name Relationship Healthcare Agent [facility] Communication Jose L Reilly Spouse Health Care Agent Care Teams Stove Carriage Operator Relationship Specialty Start Date End Date Justin Larose MD [address] [place] [address] PCP - General Internal Medicine 02/28/24 Inés Alexander MD, PhD [address] [place] [address] Consulting Physician Hematology and Oncology 04/25/23
--- OUTSIDE RECORDS SUMMARY | 2024-05-24 17:50 | XMS_ITS | Encounter Summary ---
Author Organization [facility] Address [address] [place] [address] Care Team Providers Care Bulbs Farmworker Name Role Phone Justin Larose MD Primary Care Provider [phone] Encounter Details Date Type Department Care Team (Latest Contact Info) Description 02/09/2024 9:00 AM EDT Hospital Encounter TH HISTORIC ENCOUNTERS EASTERN CONVERSION ONLY Myelodysplastic syndrome, unspecified (CMS/HCC) Social History Tobacco Use Types Packs/Day [...] Progress Notes * Historical, Notes Results - 02/09/2024 9:00 AM EDT Pt arrives for stat blood work to determine the need for a blood transfusion . Pt assessed and reports she had a fall at home on Tuesday and has a humeral fracture. - pt wearing sling and swath , reports pain is controlled at this time- taking 2.5 mg oxycodone as needed. Ricardo cath accessed and labs - CBCD and HOLD CLOT drawn as ordered. Port flushed , clamped and capped. Pt made comfortable withhusband at chair side . Call jara in reach. Labs resulted - hgb 7.8. Pt and made aware. Message sent to Dr Gurrola concerning- per MD order received for 1 unit PRBC. Pt and updated . Pt verbalized understanding. Consent signed . Pt remains comfortable at this time. Unit of blood transfused, vitals stable. Pt medicated with lasix 20 mg IVP post transfusion. Pt andhusband given calendar of appointments. Ricardo cath flushed and deaccessed per protocol. Pt tolerated well. Pt discharged with via wheelchair. documented in this encounter Plan of Treatment Upcoming Encounters Date Type Department Care Team (Late st Contact Info) Description 05/29/2024 9:00 AM EST Appointment [facility] [address] [facility] 2nd [place] [phone] 06/12/2024 9:45 AM EST Office Visit [facility] Hematology Oncology [address] [place] [phone] Scott-Albert Gurrola MD [address] [place] [phone] 10/01/2024 1:45 PM EDT Office Visit [facility] - [place] [address] [phone] Noemi Jones PA 174 [facility] [address] [place] [phone] 11/16/2024 3:30 PM EDT Office Visit Adult [facility] [place] [address] [place] [address] Justin Larose MD [address] [place] [address] documented as of this encounter Visit Diagnoses Diagnosis Myelodysplastic syndrome, unspecified (CMS/HCC) Myelodysplastic syndrome, unspecified documented in this encounter Additional Health Concerns [...] documented as of this encounter Care Teams Bulbs Farmworker Relationship Specialty Start Date End Date Justin Larose MD PCP - General Internal Medicine 09/29/20 02/27/24 Inés Alexander MD, PhD [address] [place] [address] Consulting Physician Hematology and Oncology 04/25/23 documented as of this encounter
--- OUTSIDE RECORDS SUMMARY | 2024-05-24 17:50 | XMS_ITS | Encounter Summary ---
Author Organization [facility] Address [address] [place] [address] Care Team Providers Care Sewer Cleaner Name Role Phone Justin Larose MD Primary Care Provider [phone] Encounter Details Date Type Department Care Team (Late st Contact Info) Description 02/23/2024 10:32 AM EDT Hospital Encounter TH [...] Progress Notes * Historical, Notes Results - 02/23/2024 10:30 AM EDT Patient arrives via wheelchair for Luspatercept injections accompanied by . Stable patient assessment. Patient resting comfortably in chair with call jara in reach. 1158-Luspatercept injections given in bilateral lower abdomen without incident. Patient has her next few appointments in place. Patient discharged in stable condition. documented in this encounter Plan of Treatment Upcoming Encounters Date Type Department Care Team (Late st Contact Info) Description 05/29/2024 9:[address] [facility] [address] [facility] 2nd [place] [phone] 06/12/2024 9:45 AM EST Office Visit [facility] Hematology Oncology [address] [place] [phone] Albert Mg MD [address] [place] [phone] 10/01/2024 1:45 PM EDT Office Visit Orthopedic Surgery - [place] [address] [phone] Noemi Jones PA [address] [phone] 11/16/2024 3:30 PM EDT Office Visit Adult Medicine [facility] [address] [place] [phone] Justin Larose MD [address] [place] [address] documented as of this encounter Visit Diagnoses [...] documented as of this encounter Care Teams Sewer Cleaner Relationship Specialty Start Date End Date Justin Larose MD PCP - General Internal Medicine 09/29/20 02/27/24 Inés Alexander MD, PhD [address] [place] [address] Consulting Physician Hematology and Oncology 04/25/23 documented as of this encounter
--- OUTSIDE RECORDS SUMMARY | 2024-05-24 17:50 | XMS_ITS ---
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 Past Plans Oncology Treatment Plan Name Start Date Discontinue Date Treatment Medications Discontinue Reason Plan Provider Cycles Pembrolizumab ( 21-day cycle, 200 mg ) 03/08/2004/12/2024 pembrolizumab (KEYTRUDA)pembr olizumab (KEYTRUDA) chemo IVPB (adult) Toxicity/Comp lication Albert Gurrola MD 2 of 18 cycles started Radiation Treatments * No radiation treatments are documented for this patient in [facility] [place]. Treatments may have been administered in another system. Resolved Problems Problem Noted Date Diagnosed Date Resolved Date Pneumonia of both lungs due to infectious organism 03/15/2024 03/19/2024 Anemia complicating neoplastic disease 01/11/2020 03/15/2024 Overview (01/31/2024): Pending iron studies, referred to GI and hematology.
== END 2024-05-24 14:49 | disposition home or self-care (01) ==
PROVIDERS: PCP Internal Medicine; Referring Provider Internal Medicine; Visit Provider Hospitalist
DX: J98.4 Other disorders of lung (principal); J18.9 Pneumonia, unspecified organism; J96.01 Acute respiratory failure with hypoxia; C81.90 Hodgkin lymphoma, unspecified, unspecified site
CPT/HCPCS: 99205

== ENCOUNTER → 2024-05-24 13:53 | Outpatient (BNVA) | payer MEDICARE, OTHER, SELFPAY | PROVIDERS: PCP Internal Medicine; Referring Provider Internal Medicine; Visit Provider Hospitalist | DX: J98.4 Other disorders of lung (principal); J18.9 Pneumonia, unspecified organism; J96.01 Acute respiratory failure with hypoxia; C81.90 Hodgkin lymphoma, unspecified, unspecified site; Z79.52 Long term (current) use of systemic steroids | CPT/HCPCS: 99202 ==

== ENCOUNTER 2024-06-29 14:42 | Outpatient (REF) | payer MEDICARE, OTHER, SELFPAY ==
--- NOTE | 2024-06-29 14:45 | PFT_ITS ---
Indication: Dyspnea Spirometry [FEV1 to FVC 81%; FEV1 1.94 L; FVC 2.4 L. there was a significant response to bronchodilators noted. However, the patient had a difficult time with the maneuver.] Lung Volumes [Telephone capacity 74% predicted; residual volume 67% predicted; expiratory reserve volume 43% predicted] Diffusion Capacity [DLCO 50% predicted; corrected for hemoglobin 60% predicted] Comparisons [None] Interpretation [No obstructive ventilatory defects. Response to bronchodilators was not clearly determined. The patient does have a restrictive ventilatory defect consistent with mild restrictive lung disease. There also appears to be a moderate diffusion impairment out of proportion to the restriction. Need to consider underlying interstitial lung conditions and or pulmonary vascular diseases. Clinical correlation warranted. MTDD
[2024-06-29 15:32] VITALS: PULSE 100
--- OUTSIDE RECORDS SUMMARY | 2024-06-29 16:25 | XMS_ITS | Encounter Summary ---
Author Organization [facility] Address [address] [place] [address] Care Team Providers Care Associate Juvenile Court Judge Name Role Phone Justin Larose MD Primary [...] Care Team (Late st Contact Info) Description 07/03/2024 9:15 AM EDT Office Visit [facility] Hematology Oncology [address] [place] [phone] Scott-Albert Gurrola MD [address] [place] [address] 07/03/2024 9:30 AM EDT Appointment [facility] [address] [place] [phone] 07/10/2024 9:00 AM EDT Appointment [facility] [address] [facility] 2nd [place] [phone] 10/01/2024 1:45 PM EDT Office Visit Orthopedic Surgery - [place] 175 [facility] [address] [place] [phone] Noemi Jones PA 174 [facility] [address] [place] [phone] 11/16/2024 3:30 PM EDT Office Visit Adult Medicine [facility] [address] [place] [address] Justin Larose MD 4 [place] [address] documented as of this encounter Visit Diagnoses [...] documented as of this encounter Care Teams Associate Juvenile Court Judge Relationship Specialty Start Date End Date Justin Larose MD PCP - General Internal Medicine 09/29/20 02/27/24 Inés Alexander MD, PhD [address] [place] [address] Consulting Physician Hematology and Oncology 04/25/23 documented as of this encounter
--- OUTSIDE RECORDS SUMMARY | 2024-06-29 16:25 | XMS_ITS | Encounter Summary ---
Author Organization [facility] Address [address] [place] [address] Care Team Providers Care Tribal Council Member Name Role Phone Justin Larose MD Primary Care Provider [phone] Encounter Details Date Type Department Care Team [...] Description 07/03/2024 9:15 AM EDT Office Visit [facility] Hematology Oncology [address] [place] [phone] Albert Mg MD [address] [place] [address] 07/03/2024 9:30 AM EDT Appointment [facility] [address] [place] [phone] 07/10/2024 9:00 AM EDT Appointment [facility] [address] [place] [phone] 10/01/2024 1:45 PM EDT Office Visit Orthopedic Surgery [facility] [address] [phone] Noemi Jones PA [address] [phone] 11/16/2024 3:30 PM EDT Office Visit Adult Medicine [address] [phone] Justin Larose MD [address] [place] [address] documented as of this encounter Procedures Procedure Name Priority Date/Time Associated Diagnosis Comments ..MISCELLANEOUS REFERENCE LAB TEST 01/31/2024 documented in this encounter Results * Miscellaneous reference lab test (01/31/2024) us Provider Onbase MD LAB BLOOD ORDERABLES Final Re sult documented in this encounter Visit Diagnoses Diagnosis [...] documented as of this encounter Care Teams Tribal Council Member Relationship Specialty Start Date End Date Justin Larose MD PCP - General Internal Medicine 09/29/20 02/27/24 Inés Alexander MD, PhD [address] [place] [address] Consulting Physician Hematology and Oncology 04/25/23 documented as of this encounter
--- OUTSIDE RECORDS SUMMARY | 2024-06-29 16:25 | XMS_ITS | Encounter Summary ---
Author Organization [facility] Address [address] [place] [address] Care Team Providers Care Etcher Aircraft Name Role Phone Justin Larose MD Primary Care Provider [phone] Encounter Details Date Type Department Care Team (Late Contact Info) Description 01/26/2024 10:00 AM EDT Hospital Encounter TH HISTORIC ENCOUNTERS EASTERN CONVERSION ONLY Albert Mg MD [address] [place] [phone] Social History Tobacco Use Types Packs/Day Years [...] AM EST documented as of this encounter Plan of Treatment Upcoming Encounters Date Type Department Care Team (Late Contact Info) Description 07/03/2024 9:15 AM EDT Office Visit [facility] Hematology Oncology [address] [place] [phone] Albert Mg MD [address] [place] [phone] 07/03/2024 9:30 AM EDT Appointment [facility]fusion [facility] [address] [phone] 07/10/2024 9:00 AM EDT Appointment [facility] Infusion [address] [phone] 10/01/2024 1:45 PM EDT Office Visit Orthopedic [facility] [address] [phone] Noemi Jones PA [address] [phone] 11/16/2024 3:30 PM EDT Office Visit Adult Medicine [facility] [address] [place] [address] Justin Larose MD [address] [place] [address] documented as of this encounter Visit Diagnoses [...] documented as of this encounter Care Teams Etcher Aircraft Relationship Specialty Start Date End Date Justin Larose MD PCP - General Internal Medicine 09/29/20 02/27/24 Inés Alexander MD, PhD [address] [place], [place] [phone] Consulting Physician Hematology and Oncology 04/25/23 documented as of this encounter
--- OUTSIDE RECORDS SUMMARY | 2024-06-29 16:25 | XMS_ITS | Encounter Summary ---
Author Organization [facility] Address [address] [place] [address] Care Team Providers Care Reheat Furnace Operator Name Role Phone Justin Larose MD Primary Care Provider [phone] Encounter Details Date Type Department Care Team [...] Description 07/03/2024 9:15 AM EDT Office Visit [facility] Hematology Oncology [address] [place] [address] Albert Mg MD [address] [place] [address] 07/03/2024 9:30 AM EDT Appointment [facility] Infusion Center [address] [phone] 07/10/2024 9:[address] [facility] [address] [place] [phone] 10/01/2024 1:45 PM EDT Office Visit Orthopedic Surgery - [place] [address] [phone] Noemi Jones PA [address] [phone] 11/16/2024 3:30 PM EDT Office Visit Adult Medicine [facility] [address] [place] [phone] Justin Larose MD [address] [place] [address] documented as of this encounter Visit Diagnoses [...] documented as of this encounter Care Teams Reheat Furnace Operator Relationship Specialty Start Date End Date Justin Larose MD PCP - General Internal Medicine 09/29/20 02/27/24 Inés Alexander MD, PhD [address] [place] [address] Consulting Physician Hematology and Oncology 04/25/23 documented as of this encounter
--- OUTSIDE RECORDS SUMMARY | 2024-06-29 16:25 | XMS_ITS | Encounter Summary ---
Author Organization [facility] Address [address] [place] [address] Care Team Providers Care Computer Game Designer Name Role Phone Justin Larose MD Primary Care Provider [phone] Reason for Visit * Reason Onset Date Comments faxed order 05/07/2024 [facility] order #[id number] Encounter Details Date Type Department Care Team (Late st Contact Info) Description 05/07/2024 Telephone Adult Medicine [address] [phone] Giovana Barroso [place] faxed order ([facility] order #[id number]) Social History Tobacco Use Types Packs/Day Years [...] AM EST documented as of this encounter Functional Status * Are you deaf or do you have serious difficulty hearing? Answer Date of Assessment Author No 04/10/2024 2:42 PM EST Donna Mcdonnell RN * Are you blind or do you have serious difficulty seeing, even when wearing glasses? Answer Date of Assessment Author No 04/10/2024 2:42 PM Donna Mahajan RN * Do you have serious difficulty walking or climbing stairs? Answer Date of Assessment Author No 04/10/2024 2:42 PM Donna Mahajan RN * Do you have serious difficulty dressing or bathing? Answer Date of Assessment Author No 04/10/2024 2:42 PM Donna Mahajan RN * Because of a physical, mental, or emotional condition, do you have serious difficulty doing errandsalone such as visiting the doctor? Answer Date of Assessment Author No 04/10/2024 2:42 PM Donna Mahajan RN documented as of this encounter Mental Status * Because of a physical, mental, or emotional condition, do you have serious difficulty concentrating, remembering, or making decisions? (5 years old or older) Answer Entry Date Author No 04/10/2024 2:42 PM Donna Mahajan RN documented in this encounter Progress Notes * Giovana Barroso MA - 05/07/2024 9:53 AM EST Received orders from [facility] order #[id number]. Please sign and fax to [phone] documented in this encounter Plan of Treatment Upcoming Encounters Date Type Department Care Team (Late st Contact Info) Description 07/03/2024 9:15 AM EDT Office Visit [facility] Hematology Oncology [address] [place] [phone] Albert Mg MD [address] [place] [phone] 07/03/2024 9:30 AM EDT Appointment [address] [phone] 07/10/2024 9:00 AM EDT Appointment [address] [phone] 10/01/2024 1:45 PM EDT Office Visit Orthopedic Surgery - [place] 175 [facility] [address] [place] [phone] Noemi Jones PA 174 [facility] 140 [place] [phone] 11/16/2024 3:30 PM EDT Office Visit Adult Medicine [facility] [address] [place] [phone] Justin Larose MD [address] [place] [address] documented as of this encounter Visit Diagnoses Not on filedocumented in this encounter Care Teams Computer Game Designer Relationship Specialty Start Date End Date Justin Larose MD [address] [place] [address] PCP - General Internal Medicine 02/28/24 Inés Alexander MD, PhD [address] [place] [address] Consulting Physician Hematology and Oncology 04/25/23 documented as of this encounter
--- OUTSIDE RECORDS SUMMARY | 2024-06-29 16:25 | XMS_ITS | Encounter Summary ---
Author Organization [facility] Address [address] [place] [address] Care Team Providers Care Fire Sprinkler Service Technician Name Role Phone Justin Larose MD Primary Care Provider [phone] Reason for Visit * Reason Onset Date Comments faxed order 05/21/2024 [facility] order #[id number] Encounter Details Date Type Department Care Team (Late st Contact Info) Description 05/21/2024 Telephone Adult Medicine [address] [phone] Giovana Barroso [place] faxed order ([facility] order #[id number]) Social History Tobacco Use Types Packs/Day Years [...] 05/21/2024 11:35 AM EST Received orders from [facility] order #[id number]. Please sign and fax to [phone] documented in this encounter Plan of Treatment Upcoming Encounters Date Type Department Care Team (Late st Contact Info) Description 07/03/2024 9:15 AM EDT Office Visit [facility] Hematology Oncology [address] [place] [phone] Albert Mg MD [address] [place] [phone] 07/03/2024 9:30 AM EDT Appointment [address] [address] 07/10/2024 9:00 AM EDT Appointment [address] [phone] 10/01/2024 1:45 PM EDT Office Visit [facility] [place] 175 [facility] 140 [place] [phone] Noemi Jones PA 174 [facility] 140 [place] [phone] 11/16/2024 3:30 PM EDT Office Visit Adult Medicine [facility] [address] [place] [phone] Justin Larose MD [address] [place] [address] documented as of this encounter Visit Diagnoses Not on filedocumented in this encounter Care Teams Fire Sprinkler Service Technician Relationship Specialty Start Date End Date Justin Larose MD [address] [place] [address] PCP - General Internal Medicine 02/28/24 Inés Alexander MD, PhD [address] [place] [address] Consulting Physician Hematology and Oncology 04/25/23 documented as of this encounter
--- OUTSIDE RECORDS SUMMARY | 2024-06-29 16:25 | XMS_ITS | Encounter Summary ---
Author Organization [facility] Address [address] [place] [address] Care Team Providers Care Maintenance Craftsman Name Role Phone Justin Larose MD Primary Care Provider [phone] Reason for Visit * Reason Onset Date Comments faxed order 05/07/2024 [facility] order #[id number] Encounter Details Date Type Department Care Team (Late st Contact Info) Description 05/07/2024 Telephone Adult Medicine [address] [phone] Giovana Barroso [place] faxed order ([facility] order #[id number]) Social History Tobacco Use Types Packs/Day Years [...] 05/07/2024 9:52 AM EST Received orders from [facility] order #[id number]. Please sign and fax to [phone] documented in this encounter Plan of Treatment Upcoming Encounters Date Type Department Care Team (Late st Contact Info) Description 07/03/2024 9:15 AM EDT Office Visit [facility] Hematology Oncology [address] [place] [phone] Albert Mg MD [address] [place] [phone] 07/03/2024 9:30 AM EDT Appointment [address] [phone] 07/10/2024 9:00 AM EDT Appointment [address] [phone] 10/01/2024 1:45 PM EDT Office Visit Orthopedic Surgery - [place] 175 [facility] 140 [place] [phone] Noemi Jones PA 174 [facility] 140 [place] [phone] 11/16/2024 3:30 PM EDT Office Visit Adult Medicine [facility] [address] [place] [phone] Justin Larose MD [address] [place] [address] documented as of this encounter Visit Diagnoses Not on filedocumented in this encounter Care Teams Maintenance Craftsman Relationship Specialty Start Date End Date Justin Larose MD [address] [place] [address] PCP - General Internal Medicine 02/28/24 Inés Alexander MD, PhD [address] [place] [address] Consulting Physician Hematology and Oncology 04/25/23 documented as of this encounter
--- OUTSIDE RECORDS SUMMARY | 2024-06-29 16:25 | XMS_ITS | Encounter Summary ---
Author Organization [facility] Address [address] [place] [address] Care Team Providers Care Crew Scheduler Name Role Phone Justin Larose MD Primary Care Provider [phone] Reason for Visit * Reason Onset Date Comments Request For Order(s) 05/24/2024 [facility] order # [id number], discharge order. Please sign, date and fax back to [phone]. Placed in provider's bin. Encounter Details Date Type Department Care Team (Late st Contact Info) Description 05/24/2024 Telephone Adult Medicine [address] [phone] Justin Larose MD [address] [place] [address] [phone] Request For Order(s) ([facility] order # [id number], discharge order. Please sign, date and fax back to [phone]. Placed in provider's bin.) Social History Tobacco [...] 04/10/2024 2:42 PM Donna Mahajan RN * Are you blind or do [...] documented in this encounter Progress Notes * Harriett Fields MA - 06/22/2024 4:23 PM EST Order faxed,confirmation received,scanned * Lucie Silva - 05/24/2024 1:37 PM EST [facility] order # [id number], discharge order. Please sign, date and fax back to [phone]. Placed in provider's bin. documented in this encounter Plan of Treatment Upcoming Encounters Date Type Department Care Team (Late st Contact Info) Description 07/03/2024 9:15 AM EDT Office Visit [facility] Hematology Oncology [address] [place] [phone] Albert Mg MD [address] [place] [phone] 07/03/2024 9:30 AM EDT Appointment [facility] [address] [phone] 07/10/2024 9:00 AM EDT Appointment [facility] [address] [phone] 10/01/2024 1:45 PM EDT Office Visit Orthopedic Surgery [facility] [address] [phone] Noemi Jones PA [address] [phone] 11/16/2024 3:30 PM EDT Office Visit Adult Medicine [facility] [address] [place] [phone] Justin Larose MD [address] [place] [address] documented as of this encounter Visit Diagnoses Not on filedocumented in this encounter Care Teams Crew Scheduler Relationship Specialty Start Date End Date Justin Larose MD [address] [place] [address] PCP - General Internal Medicine 02/28/24 Inés Alexander MD, PhD [address] [place] [address] Consulting Physician Hematology and Oncology 04/25/23 documented as of this encounter
--- OUTSIDE RECORDS SUMMARY | 2024-06-29 16:25 | XMS_ITS | Clinical Summary ---
Author Organization [facility] Address [address] [place] [address] Care Team Providers Care Web Assistant Name Role Phone Justin Larose MD Primary Care Provider [phone] Allergies No known active allergies Medications Medication [...] Cancer with unknown primary site 01/21/2020 03/27/2020 Immunizations Name Administration Dates Next Due Covid-19 [...] age to complete this topic Care Teams Web Assistant Relationship Specialty Start Date End Date Justin Larose MD PCP - General Internal Medicine 10/20/20 Inés Alexander MD, PhD [facility] [place] Consulting Physician Hematology and Oncology 10/17/20
--- OUTSIDE RECORDS SUMMARY | 2024-06-29 16:25 | XMS_ITS | Encounter Summary ---
Author Organization [facility] Address [address] [place] [address] Care Team Providers Care Linux Architect Name Role Phone Jutsin Larose MD Primary Care Provider [phone] Reason for Visit * Reason Onset Date Comments faxed order 05/04/2024 [facility] order #[id number] Encounter Details Date Type Department Care Team ([facility] st Contact Info) Description 05/04/2024 Telephone Adult [address] [phone] Giovana Barroso [place] faxed order ([facility] order #[id number]) Social History Tobacco Use Types Packs/Day Years [...] 05/04/2024 10:11 AM EST Received orders from [facility] order #[id number]. Please sign and fax to [phone] documented in this encounter Plan of Treatment Upcoming Encounters Date Type Department Care Team (Late st Contact Info) Description 07/03/2024 9:15 AM EDT Office Visit [facility] Hematology Oncology [address] [place] [phone] Albert Mg MD [address] [place] [phone] 07/03/2024 9:30 AM EDT Appointment [address] [address] 07/10/2024 9:00 AM EDT Appointment [address] [phone] 10/01/2024 1:45 PM EDT Office Visit Orthopedic Surgery - [place] 175 [facility] 140 [place] [phone] Noemi Jones PA 174 [facility] 140 [place] [phone] 11/16/2024 3:30 PM EDT Office Visit Adult Medicine [facility] [address] [place] [phone] Justin Larose MD [address] [place] [address] documented as of this encounter Visit Diagnoses Not on filedocumented in this encounter Care Teams Linux Architect Relationship Specialty Start Date End Date Justin Larose MD [address] [place] [address] PCP - General Internal Medicine 02/28/24 Inés Alexander MD, PhD [address] [place] [address] Consulting Physician Hematology and Oncology 04/25/23 documented as of this encounter
--- OUTSIDE RECORDS SUMMARY | 2024-06-29 16:25 | XMS_ITS | Encounter Summary ---
Author Organization [facility] Address [address] [place] [address] Care Team Providers Care Developer Programmer Name Role Phone Justin Larose MD Primary Care Provider Reason for Visit * Reason Onset Date Comments faxed order 05/07/2024 [facility] order #[id number], Encounter Details Date Type Department Care Team (Late st Contact Info) Description 05/07/2024 Telephone Adult Medicine [address] [phone] Giovana Barroso [place] faxed order ([facility] order #[id number], ) Social History Tobacco Use Types Packs/Day [...] 05/07/2024 9:54 AM EST Received orders from [facility] order #[id number]. Please sign and fax to [phone] documented in this encounter Plan of Treatment Upcoming Encounters Date Type Department Care Team (Late st Contact Info) Description 07/03/2024 9:15 AM EDT Office Visit [facility] Hematology Oncology [address] [place] [phone] Albert Mg MD [address] [place] [phone] 07/03/2024 9:30 AM EDT Appointment [address] [phone] 07/10/2024 9:00 AM EDT Appointment [address] [phone] 10/01/2024 1:45 PM EDT Office Visit Orthopedic Surgery - [place] 175 [facility] 140 [place] [phone] Noemi Jones PA 174 [facility] 140 [place] [phone] 11/16/2024 3:30 PM EDT Office Visit Adult Medicine [facility] [address] [place] [phone] Justin Larose MD [address] [place] [address] documented as of this encounter Visit Diagnoses Not on filedocumented in this encounter Care Teams Developer Programmer Relationship Specialty Start Date End Date Justin Larose MD [address] [place] [address] PCP - General Internal Medicine 02/28/24 Inés Alexander MD, PhD [address] [place] [address] Consulting Physician Hematology and Oncology 04/25/23 documented as of this encounter
--- OUTSIDE RECORDS SUMMARY | 2024-06-29 16:25 | XMS_ITS | Encounter Summary ---
Author Organization [facility] Address [address] [place] [address] Care Team Providers Care Property Underwriter Name Role Phone Justin Larose MD Primary Care Provider [phone] Encounter Details Date Type Department Care Team [...] Description 07/03/2024 9:15 AM EDT Office Visit [facility] Hematology Oncology [address] [place] [address] Albert Mg MD [address] [place] [address] 07/03/2024 9:[address] [facility] Infusion [facility] [address] [place] [phone] 07/10/2024 9:[address] [facility] [address] [address] 10/01/2024 1:45 PM EDT Office Visit Orthopedic Surgery - [place] [address] [phone] Noemi Jones PA [address] [phone] 11/16/2024 3:30 PM EDT Office Visit [address] [phone] Justin Larose MD [address] [place] [address] documented as of this encounter Visit Diagnoses [...] documented as of this encounter Care Teams Property Underwriter Relationship Specialty Start Date End Date Justin Larose MD PCP - General Internal Medicine 09/29/20 02/27/24 Inés Alexander MD, PhD [address] [place] [address] Consulting Physician Hematology and Oncology 04/25/23 documented as of this encounter
--- OUTSIDE RECORDS SUMMARY | 2024-06-29 16:25 | XMS_ITS | Encounter Summary ---
Author Organization [facility] Address [address] [place] [address] Care Team Providers Care Advertising Assistant Name Role Phone Justin Larose MD Primary Care Provider [phone] Reason for Visit * Reason Onset Date Comments Request For Order(s) 05/23/2024 [facility] order #'s [id number] (missed visit), [id number], [id number]. Placed in provider's bin. Please sign, date and fax back to [phone]. Encounter Details Date Type Department Care Team ([facility] st Contact Info) Description 05/23/2024 Telephone Adult Medicine [address] [phone] Justin Larose MD [address] [place] [address] Request For Order(s) ([facility] order #'s [id number] (missed visit), [id number], [id number]. Placed in provider's bin. Please sign, date and fax back to [phone].) Social History Tobacco Use Types Packs/Day Years [...] documented in this encounter Progress Notes * Lucie Silva - 05/23/2024 1:45 PM EST [facility] order #'s [id number] (missed visit), [id number], [id number]. Placed in provider's bin. Please sign, date and fax back to [phone]. documented in this encounter Plan of Treatment Upcoming Encounters Date Type Department Care Team (Late st Contact Info) Description 07/03/2024 9:15 AM EDT Office Visit [facility] Hematology Oncology [address] [place] [phone] Albert Mg MD 271 [place] [phone] 07/03/2024 9:30 AM EDT Appointment [facility] [address] [phone] 07/10/2024 9:00 AM EDT Appointment [facility] [address] [phone] 10/01/2024 1:45 PM EDT Office Visit Orthopedic Surgery [facility] [address] [phone] Noemi Jones PA [address] [phone] 11/16/2024 3:30 PM EDT Office Visit Adult Medicine [facility] [address] [place] [phone] Justin Larose MD [address] [place] [address] documented as of this encounter Visit Diagnoses Not on filedocumented in this encounter Care Teams Advertising Assistant Relationship Specialty Start Date End Date Justin Larose MD [address] [place] [address] PCP - General Internal Medicine 02/28/24 Inés Alexander MD, PhD [address] [place] [address] Consulting Physician Hematology and Oncology 04/25/23 documented as of this encounter
--- OUTSIDE RECORDS SUMMARY | 2024-06-29 16:26 | XMS_ITS | Encounter Summary ---
Author Organization [facility] Address [address] [place] [address] Care Team Providers Care Maintenance Craftsman Name Role Phone Justin Larose MD Primary Care Provider [phone] Encounter Details Date Type Department Care Team (Late st Contact Info) Description 06/20/2024 Billing Patient Not Present Adult Medicine [address] [phone] Justin Larose MD [address] [place] [address] Social History Tobacco Use Types Packs/Day Years [...] Donna Mahajan RN documented in this encounter Plan of Treatment Upcoming Encounters Date Type Department Care Team (Late st Contact Info) Description 07/03/2024 9:15 AM EDT Office Visit [facility] Hematology Oncology [address] [place] [address] Albert Mg MD 271 [place] [address] 07/03/2024 9:30 AM EDT Appointment [facility] [address] [phone] 07/10/2024 9:00 AM EDT Appointment [address] [phone] 10/01/2024 1:45 PM EDT Office Visit Orthopedic Surgery [facility] [address] [phone] Noemi Jones PA [address] [phone] 11/16/2024 3:30 PM EDT Office Visit Adult Medicine [address] [phone] Justin Larose MD [address] [place] [address] documented as of this encounter Visit Diagnoses Not on filedocumented in this encounter Care Teams Maintenance Craftsman Relationship Specialty Start Date End Date Justin Larose MD [address] [place] [address] PCP - General Internal Medicine 02/28/24 Inés Alexander MD, PhD [address] [place] [address] Consulting Physician Hematology and Oncology 04/25/23 documented as of this encounter
--- OUTSIDE RECORDS SUMMARY | 2024-06-29 16:26 | XMS_ITS | Encounter Summary ---
Author Organization [facility] Address [address] [place] [address] Care Team Providers Care Graduate Internship Name Role Phone Justin Larose MD Primary Care Provider [phone] Encounter Details Date Type Department Care Team [...] 07/03/2024 9:15 AM EDT Office Visit [facility] Hematology Oncology [address] [place] [phone] Albert Mg MD 271 [place] [phone] 07/03/2024 9:30 AM EDT Appointment [facility] [address] [phone] 07/10/2024 9:00 AM EDT Appointment [facility] 271 [facility] [address] [place] [phone] 10/01/2024 1:45 PM EDT Office Visit Orthopedic Surgery [facility] 175 [facility] [address] [place] [phone] Noemi Jones PA 174 [facility] 140 [place] [phone] 11/16/2024 3:30 PM EDT Office Visit Adult Medicine [facility] [address] [place] [address] Justin Larose MD 4 [place] [address] documented as of this encounter Visit Diagnoses [...] documented as of this encounter Care Teams Graduate Internship Relationship Specialty Start Date End Date Justin Larose MD PCP - General Internal Medicine 09/29/20 02/27/24 Inés Alexander MD, PhD [address] [place], [place] [phone] Consulting Physician Hematology and Oncology 04/25/23 documented as of this encounter
--- OUTSIDE RECORDS SUMMARY | 2024-06-29 16:26 | XMS_ITS | Encounter Summary ---
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) Myelodysplasia (myelodysplastic syndrome) ([facility]/HCC) Albert Mg MD [address] [place] [address] Phone: tel: fax: [facility] [address] [place] [phone] Phone: tel: fax: Referral ID Status Reason Start Date Expiration Date V isits Requested Visits Authorized [id number] Authorized 02/27/2024 02/26/2025 1 29 Encounter Details Date Type Department Care Team (Latest Contact Info) Description 06/26/2024 9:00 AM EST Hospital Encounter [address] [phone] Albert Mg MD [address] [place] [phone] 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 Port in right chest accessed per protocol, +brisk blood return noted. Labs drawn - CBC-D & Type and Screen - sent to lab. Port flushed, salinelocked and capped. Awaiting lab results. Patient reports feeling good - last blood transfusion was 40 days ago!! Patient resting comfortably in recliner with call jara in reach - given warm blanket -watching tv - given snacks and refreshments. CTM. 1050 - labs resulted - hgb 8.6 - per MD Gurrola - no blood transfusion needed - ok to recheck next week. 1055 - Patient made aware - port flushed and deaccessed per protocol. Patient has next appts in place. Stable upon discharge. documented in this encounter Plan of Treatment Upcoming Encounters Date Type Department Care Team (Late st Contact Info) Description 07/03/2024 9:15 AM EDT Office Visit [facility] Hematology Oncology [address] [place] [phone] Subramonia-Albert Gurrola MD [address] [place] [phone] 07/03/2024 9:30 AM EDT Appointment [facility] [address] [place] [phone] 07/10/2024 9:00 AM EDT Appointment [facility] In[facility] [address] [place] [phone] 10/01/2024 1:45 PM EDT Office Visit Orthopedic Surgery - [place] [address] [phone] Noemi Jones PA [address] [phone] 11/16/2024 3:30 PM EDT Office Visit Adult Medicine [facility] [address] [place] [phone] Justin Larose MD [address] [place], [place] [phone] documented as of this encounter Procedures Procedure Name Priority Date/Time Associated Diagnosis Comments MANUAL DIFFERENTIAL - SYSMEX WAM STAT 06/26/2024 9:19 AM EST 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) Myelodysplasia (myelodysplastic syndrome) (CMS/HCC) CBC WITH AUTO DIFFERENTIAL STAT 06/26/2024 9:19 AM EST 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) Myelodysplasia (myelodysplastic syndrome) (CMS/HCC) CBC AND DIFFERENTIAL STAT 06/26/2024 9:19 AM EST 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) Myelodysplasia (myelodysplastic syndrome) (CMS/HCC) TYPE AND SCREEN STAT 06/26/2024 9:19 AM EST 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) Myelodysplasia (myelodysplastic syndrome) (CMS/HCC) documented in this encounter Results * (ABNORMAL) Manual differential (06/26/2024 9:19 AM EST) Neutrophils % 80.0 % LAB HEMETOLOGY METHOD 06/26/2024 10:49 AM [facility] Lymphocytes % 10.0 % LAB HEMETOLOGY METHOD 06/26/2024 10:49 AM [facility] Monocytes % 7.0 % LAB HEMETOLOGY METHOD 06/26/2024 10:49 AM [facility] Eosinophils % 0.0 % LAB HEMETOLOGY METHOD 06/26/2024 10:49 AM [facility] Basophils % 0.0 % LAB HEMETOLOGY METHOD 06/26/2024 10:49 AM [facility] Metamyelocytes % 1.0(H) % LAB HEMETOLOGY METHOD 06/26/2024 10:49 AM [facility] Myelocytes % 2.0(H) % LAB HEMETOLOGY METHOD 06/26/2024 10:49 AM [facility] Neutrophils Absolute Manual 4.48 1.50 - 7.00 K/mcL LAB HEMETOLOGY METHOD 06/26/2024 10:49 AM [facility] Lymphocytes Absolute 0.56(L) 1.00 - 5.00 K/mcL LAB HEMETOLOGY METHOD 06/26/2024 10:49 AM [facility] Monocytes Absolute Manual 0.39 0.20 - 1.00 K/mcL LAB HEMETOLOGY METHOD 06/26/2024 10:49 AM [facility] Eosinophils Absolute Manual 0.00 0.00 - 0.50 K/mcL LAB HEMETOLOGY METHOD 06/26/2024 10:49 AM [facility] Basophils Absolute Manual 0.00 0.00 - 0.20 K/mcL LAB HEMETOLOGY METHOD 06/26/2024 10:49 AM [facility] Metamyelocytes Absolute Manual 0.06(H) 0.00 - 0.00 K/mcL LAB HEMETOLOGY METHOD 06/26/2024 10:49 AM [facility] Myelocytes Absolute Manual 0.11(H) 0.00 - 0.00 K/mcL LAB HEMETOLOGY METHOD 06/26/2024 10:49 AM [facility] Rbc Morphology Present( A) Consistent with indices, Normal for LAB HEMETOLOGY METHOD 06/26/2024 10:49 AM [facility] Comment:RBC: Morphology agre es with CBC Platelet Morphology - WAM See Note(A) Normal LAB HEMETOLOGY METHOD 06/26/2024 10:49 AM [facility] Comment:PLT: Normal Polychromasia Present Present( A) (none) LAB HEMETOLOGY METHOD 06/26/2024 10:49 AM EST [facility] Schistocytes Present < 5%(A) (none) LAB HEMETOLOGY METHOD 06/26/2024 10:49 AM [facility] Blood Blood sample taken from central line / Unknown Existing Catheter / Unknown 06/26/2024 9:19 AM EST 06/26/2024 9:35 AM EST us Albert Mg MD LAB BLOOD ORDERABLE S Final Result Performing Organization Address [facility]/ZIP Co de Phone Number [facility] [address] [place] [address], [place] [phone] * Type and screen (06/26/2024 9:19 AM EST) ABO Group A 06/26/2024 10:29 AM [facility] Rh Type Negative 06/26/2024 10:29 AM [facility] Antibody Screen Negative 06/26/2024 10:29 AM [facility] Blood Blood sample taken from central line / Unknown Existing Catheter / Unknown 06/26/2024 9:19 AM EST 06/26/2024 9:35 AM EST us Albert Mg MD LAB BLOOD BANK TEST ORDERABLES Final Result [facility] [address] [place] [address], [place] [phone] * (ABNORMAL) CBC auto differential (06/26/2024 9:19 AM EST) WBC 5.6 4.8 - 10.8 K/mcL LAB HEMETOLOGY METHOD 06/26/2024 10:49 AM [facility] RBC 2.50(L) 3.80 - 4.80 M/mcL LAB HEMETOLOGY METHOD 06/26/2024 10:49 AM [facility] Hemoglobin 8.6(L) 11.5 - 16.0 g/dL LAB HEMETOLOGY METHOD 06/26/2024 10:49 AM [facility] Hematocrit 26.1(L) 35.0 - 47.0 % LAB HEMETOLOGY METHOD 06/26/2024 10:49 AM [facility] MCV 105.7(H) 79.0 - 98.0 FL LAB HEMETOLOGY METHOD 06/26/2024 10:49 AM [facility] MCH 34.8(H) 27.0 - 32.0 pcg LAB HEMETOLOGY METHOD 06/26/2024 10:49 AM [facility] MCHC 33.0 32.0 - 37.0 g/dL LAB HEMETOLOGY METHOD 06/26/2024 10:49 AM [facility] RDW 25.0(H) 11.0 - 15.0 % LAB HEMETOLOGY METHOD 06/26/2024 10:49 AM [facility] Platelets 73(L) 130 - 400 K/mcL LAB HEMETOLOGY METHOD 06/26/2024 10:49 AM [facility] Comment:previously verified by slide MPV 12.9(H) 7.0 - 11.0 FL LAB HEMETOLOGY METHOD 06/26/2024 10:49 AM [facility] NRBC 2.3(H) <1.0 % LAB HEMETOLOGY METHOD 06/26/2024 10:49 AM [facility] NRBC Absolute 0.13(H) <0.10 K/mcL LAB HEMETOLOGY METHOD 06/26/2024 10:49 AM [facility] Blood Blood sample taken from central line / Unknown Existing Catheter / Unknown 06/26/2024 9:19 AM EST 06/26/2024 9:35 AM EST Albert Mg MD LAB BLOOD ORDERABLE S Final Result [facility] [address] [place] [address], documented in this encounter Visit Diagnoses Diagnosis 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
--- OUTSIDE RECORDS SUMMARY | 2024-06-29 16:26 | XMS_ITS | Encounter Summary ---
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 ([facility]/HCC) Albert Mg MD [address] [place] [phone] Phone: tel: fax: [facility] [address] [place] [phone] Phone: tel: fax: Referral ID Status Reason Start Date Expiration Date V isits Requested Visits Authorized [id number] Authorized 04/26/2024 04/26/2025 1 20 Encounter Details Date Type Department Care Team (Latest Contact Info) Description 06/19/2024 8:31 AM EST - 06/19/2024 11:59 PM EST Hospital Encounter [facility] [address] [place] [phone] Albert Mg MD [address] [place] [phone] Hodgkin's lymphoma of bone marrow (CMS/HCC) (Primary Dx); 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); Myelodysplasia (myelodysplastic syndrome) (CMS/HCC); Hypothyroidism due to medication Discharge Disposition: Home or Self Care Social [...] Sign Reading Time Taken Comments Blood Pressure 120/67 06/19/2024 9:01 AM EST Pulse 78 06/19/2024 9:01 AM EST Temperature 35.9 ??C (96.6 ??F) 06/19/2024 9:01 AM ES T Respiratory Rate 18 06/19/2024 9:01 AM EST Oxygen Saturation 98% 06/19/2024 9:01 AM EST Inhaled Oxygen Concentration - - Weight 58.3 kg (128 lb 8.5 oz) 06/19/2024 9:01 A M EST Height - - Body Mass Index 20.13 05/11/2024 2:10 PM EST documented in this encounter Functional Status * Are you deaf or do you have serious difficulty hearing? Answer Date of Assessment Author No 04/10/2024 2:42 PM EST Donna Mcdonnell RN * Are you blind or do you have serious difficulty seeing, even when wearing glasses? Answer Date of Assessment Author No 04/10/2024 2:42 PM EST Donna Mcdonnell RN * Do you have serious difficulty walking or climbing stairs? Answer Date of Assessment Author No 04/10/2024 2:42 PM EST Donna Mcdonnell RN * Do you have serious difficulty [...] Donna Mahajan RN documented in this encounter Medications at Time of Discharge acetaminophen (TYLENOL 8 HOUR) 650 mg 8 hr tablet Take 1 tablet (650 mg total) by mouth 2 (two) times a day. gabapentin (NEURONTIN) 300 mg capsule Take 1 capsule (300 mg total) by mouth at bedtime. 04/11/2023 levothyroxine (SYNTHROID, LEVOTHROID) 50 mcg tablet Take 25 mcg by mouth. 09/01/2023 LORazepam (ATIVAN) 0.5 mg tablet Take 1 tablet (0.5 mg total) by mouth every 8 (eight) hours if needed for anxiety. Max Daily Amount: 1.5 mg 60 tablet 06/12/2024 07/12/2024 predniSONE (DELTASONE) 10 mg tablet Take 2 tablets (20 mg total) by mouth 2 (two) times a day. 60 tablet 2 06/12/2024 07/12/2024 pregabalin (LYRICA) 50 mg capsule Take 1 capsule (50 mg total) by mouth at bedtime. sertraline (ZOLOFT) 100 mg tablet TAKE 1 TABLET BY MOUTH EVERY DAY 90 tablet 1 05/24/2024 pantoprazole (PROTONIX) 40 mg EC tablet Take 1 tablet (40 mg total) by mouth 1 (one) time each day before breakfast. Do not crush, chew, or split. 30 each 1 04/26/2024 06/25/2024 documented as of this encounter Discharge Disposition Disposition Code Departure Means Destination Home or Self Care documented in this encounter Progress Notes * Paige Ravi RN - 06/19/2024 9:00 AM EST Patient arrives ambulatory with walker to unit for stat labs and chemotherapy, cycle 3, day 8 gemcitabine. Patient states that she's doing fairly well. Patient states that she's been able to do all her PT exercises, walk laps around the house, take a shower without feeling weak and sob. Patient has no questions/concerns for the provider at this time. Vitals are stable. Port accessed, +BR.Cbcd, cmp, tsh and type and screen drawn, sent stat. Patient is comfortable in recliner, call jara within reach. 0940 Labs are stable for treatment. Potassium 3.4 Dr. Gurrola orders are to give potassium 20 meq PO. HGB 8.3. No blood transfusion needed at this time. Appt scheduled on 06/26 to recheck labs for possible blood transfusion. Treatment released to pharmacy. 1015 Patient swallowed potassium with apple sauce without difficulty. Zofran administered IVP without incident. 1043 Gemcitabine infusing at this time, over 30 minutes. Call jara within reach. at chairside. 1115 Patient tolerated treatment well, without adverse reaction/complaint. Next appt scheduled, calendar given. Port flushed per protocol. Deaccessed intact. Patient discharged stable, with steady gait using a walker. documented in this encounter Plan of Treatment Upcoming Encounters Date Type Department Care Team (Late st Contact Info) Description 07/03/2024 9:15 AM EDT Office Visit [facility] Hematology Oncology [address] [place] [phone] Albert Mg MD [address] [place] [phone] 07/03/2024 9:30 AM EDT Appointment [facility] [address] [place] [phone] 07/10/2024 9:00 AM EDT Appointment [facility] [address] [place] [phone] 10/01/2024 1:45 PM EDT Office Visit Orthopedic Surgery [place] [address] [facility] [address] [place] [phone] Noemi Jones PA [address] [facility] [address] [place] [address] 11/16/2024 3:30 PM EDT Office Visit [facility] [address] [place] [address] Justin Larose MD [address] [place] [address] documented as of this encounter Procedures Procedure Name Priority Date/Time Associated Diagnosis Comments THYROID STIMULATING HORMONE Routine 06/19/2024 10:48 AM EST Hypothyroidism due to medication MANUAL DIFFERENTIAL - SYSMEX WAM Routine 06/19/2024 8:53 AM EST 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) CBC WITH AUTO DIFFERENTIAL Routine 06/19/2024 8:53 AM EST 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) CBC AND DIFFERENTIAL Routine 06/19/2024 8:53 AM EST 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) TYPE AND SCREEN STAT 06/19/2024 8:53 AM EST 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) Myelodysplasia (myelodysplastic syndrome) (CMS/HCC) COMPREHENSIVE METABOLIC PANEL STAT 06/19/2024 8:53 AM EST 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) documented in this encounter Results * (ABNORMAL) Thyroid stimulating hormone (06/19/2024 10:48 AM EST) Pathologist [facility] TSH 4.34(H) 0.40 - 4.00 mcIU/mL LAB CHEMISTRY METHOD 06/19/2024 4:33 PM [facility] Blood Blood sample taken from central line / Unknown Existing Catheter / Unknown 06/19/2024 10:48 AM EST 06/19/2024 11:45 AM EST Albert Mg MD LAB BLOOD ORDERABLE S Final Result [facility] [address] [place] [address], * (ABNORMAL) Manual differential (06/19/2024 8:53 AM EST) [facility] Neutrophils % 69.0 % LAB HEMETOLOGY METHOD 06/19/2024 9:39 AM [facility] Lymphocytes % 19.0 % LAB HEMETOLOGY METHOD 06/19/2024 9:39 AM [facility] Monocytes % 9.0 % LAB HEMETOLOGY METHOD 06/19/2024 9:39 AM [facility] Eosinophils % 0.0 % LAB HEMETOLOGY METHOD 06/19/2024 9:39 AM [facility] Basophils % 0.0 % LAB HEMETOLOGY METHOD 06/19/2024 9:39 AM [facility] Metamyelocytes % 1.0(H) % LAB HEMETOLOGY METHOD 06/19/2024 9:39 AM [facility] Myelocytes % 2.0(H) % LAB HEMETOLOGY METHOD 06/19/2024 9:39 AM [facility] Neutrophils Absolute Manual 2.69 1.50 - 7.00 K/mcL LAB HEMETOLOGY METHOD 06/19/2024 9:39 AM [facility] Lymphocytes Absolute 0.74(L) 1.00 - 5.00 K/mcL LAB HEMETOLOGY METHOD 06/19/2024 9:39 AM [facility] Monocytes Absolute Manual 0.35 0.20 - 1.00 K/mcL LAB HEMETOLOGY METHOD 06/19/2024 9:39 AM [facility] Eosinophils Absolute Manual 0.00 0.00 - 0.50 K/[facility] LAB HEMETOLOGY METHOD 06/19/2024 9:39 AM [facility] Basophils Absolute Manual 0.00 0.00 - 0.20 K/[facility] LAB HEMETOLOGY METHOD 06/19/2024 9:39 AM [facility] Metamyelocytes Absolute Manual 0.04(H) 0.00 - 0.00 K/mcL LAB HEMETOLOGY METHOD 06/19/2024 9:39 AM [facility] Myelocytes Absolute Manual 0.08(H) 0.00 - 0.00 K/[facility] LAB HEMETOLOGY METHOD 06/19/2024 9:39 AM [facility] Rbc Morphology Present( A) Consistent with indices, Normal for LAB HEMETOLOGY METHOD 06/19/2024 9:39 AM [facility] Comment:RBC: Morphology agre es with CBC Platelet Morphology - WAM See Note(A) Normal LAB HEMETOLOGY METHOD 06/19/2024 9:39 AM [facility] Comment:PLT: Normal Polychromasia Present Present( A) (none) LAB HEMETOLOGY METHOD 06/19/2024 9:39 AM [facility] Schistocytes Present < 5%(A) (none) LAB HEMETOLOGY METHOD 06/19/2024 9:39 AM [facility] Blood Blood sample taken from central line / Unknown Existing Catheter / Unknown 06/19/2024 8:53 AM EST 06/19/2024 9:01 AM EST us Albert Mg MD LAB BLOOD ORDERABLE S Final Result [facility] [address] [place] [address], * (ABNORMAL) CBC auto differential (06/19/2024 8:53 AM EST) WBC 3.9(L) 4.8 - 10.8 K/mcL LAB HEMETOLOGY METHOD 06/19/2024 9:39 AM EST [facility] RBC 2.50(L) 3.80 - 4.80 M/mcL LAB HEMETOLOGY METHOD 06/19/2024 9:39 AM [facility] Hemoglobin 8.3(L) 11.5 - 16.0 g/dL LAB HEMETOLOGY METHOD 06/19/2024 9:39 AM [facility] Hematocrit 25.4(L) 35.0 - 47.0 % LAB HEMETOLOGY METHOD 06/19/2024 9:39 AM [facility] MCV 103.3(H) 79.0 - 98.0 FL LAB HEMETOLOGY METHOD 06/19/2024 9:39 AM [facility] MCH 33.7(H) 27.0 - 32.0 pcg LAB HEMETOLOGY METHOD 06/19/2024 9:39 AM [facility] MCHC 32.7 32.0 - 37.0 g/dL LAB HEMETOLOGY METHOD 06/19/2024 9:39 AM [facility] RDW 24.7(H) 11.0 - 15.0 % LAB HEMETOLOGY METHOD 06/19/2024 9:39 AM [facility] Platelets 194 130 - 400 K/mcL LAB HEMETOLOGY METHOD 06/19/2024 9:39 AM [facility] MPV 9.7 7.0 - 11.0 FL LAB HEMETOLOGY METHOD 06/19/2024 9:39 AM [facility] NRBC 2.9(H) <1.0 % LAB HEMETOLOGY METHOD 06/19/2024 9:39 AM [facility] NRBC Absolute 0.11(H) <0.10 K/mcL LAB HEMETOLOGY METHOD 06/19/2024 9:39 AM EST [facility] Blood Blood sample taken from central line / Unknown Existing Catheter / Unknown 06/19/2024 8:53 AM EST 06/19/2024 9:01 AM EST Subramrosalind Mg MD LAB BLOOD ORDERABLE S Final Result [facility] [address] [place] [address], * (ABNORMAL) Comprehensive metabolic panel (06/19/2024 8:53 AM EST) Sodium 142 133 - 145 mmol/L LAB CHEMISTRY METHOD 06/19/2024 9:41 AM [facility] Potassium 3.4(L) 3.5 - 5.5 mmol/L LAB CHEMISTRY METHOD 06/19/2024 9:41 AM [facility] Chloride 108 96 - 110 mmol/L LAB CHEMISTRY METHOD 06/19/2024 9:41 AM [facility] CO2 26 21 - 32 mmol/L LAB CHEMISTRY METHOD 06/19/2024 9:41 AM [facility] Anion Gap 8 3 - 11 LAB CHEMISTRY METHOD 06/19/2024 9:41 AM [facility] Glucose 145(H) 70 - 100 mg/dL LAB CHEMISTRY METHOD 06/19/2024 9:41 AM [facility] BUN 17 5 - 25 mg/dL LAB CHEMISTRY METHOD 06/19/2024 9:41 AM [facility] Creatinine 0.77 0.50 - 1.10 mg/dL LAB CHEMISTRY METHOD 06/19/2024 9:41 AM [facility] eGFR 81 >=60 mL/min/1. 73m2 LAB CHEMISTRY METHOD 06/19/2024 9:41 AM [facility] Comment:Calculation based on the??Chronic Kidney Disease Epidemiology Collaboration (CKD-EPI) equation refit??without adjustment for race. BUN/Creatinine Ratio 22.1 LAB CHEMISTRY METHOD 06/19/2024 9:41 AM [facility] Calcium 9.1 8.5 - 10.5 mg/dL LAB CHEMISTRY METHOD 06/19/2024 9:41 AM [facility] AST (SGOT) 19 10 - 42 unit/L LAB CHEMISTRY METHOD 06/19/2024 9:41 AM [facility] ALT (SGPT) 28 10 - 60 unit/L LAB CHEMISTRY METHOD 06/19/2024 9:41 AM [facility] Alkaline Phosphatase 56 42 - 121 unit/L LAB CHEMISTRY METHOD 06/19/2024 9:41 AM [facility] Total Protein 5.5(L) 6.0 - 8.0 g/dL LAB CHEMISTRY METHOD 06/19/2024 9:41 AM [facility] Albumin 3.6 3.2 - 5.0 g/dL LAB CHEMISTRY METHOD 06/19/2024 9:41 AM [facility] Total Bilirubin 1.7(H) 0.0 - 1.4 mg/dL LAB CHEMISTRY METHOD 06/19/2024 9:41 AM [facility] Blood Blood sample taken from central line / Unknown Existing Catheter / Unknown 06/19/2024 8:53 AM EST 06/19/2024 9:01 AM EST us Albert Mg MD LAB BLOOD ORDERABLE S Final Result [facility] [address] [place] [address], [place] [phone] * Type and screen (06/19/2024 8:53 AM EST) ABO Group A 06/19/2024 10:41 AM EST [facility] Rh Type Negative 06/19/2024 10:41 AM EST [facility] Antibody Screen Negative 06/19/2024 10:41 AM EST [facility] Blood Blood sample taken from central line / Unknown Existing Catheter / Unknown 06/19/2024 8:53 AM EST 06/19/2024 9:01 AM EST Albert Mg MD LAB BLOOD BANK TEST ORDERABLES Final Result Performing Organization Address [facility] Co de Phone Number [facility] [address] [place] [address], documented in this encounter Visit Diagnoses Diagnosis Hodgkin's lymphoma of bone marrow (CMS/HCC)- Primary 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),Hodgkin's lymphoma of bone marrow (CMS/HCC) Given 06/19/2024 10:08 AM EST 8 mg potassium chloride (KLOR-CON M20) CR tablet 20 mEq 20 mEq, oral, Once, On Tue06/19/24 at 1030, For 1 dose, Tablet may be swallowed whole (do not crush/chew/suck on) OR broken in half and each half swallowed separately OR dissolved (whole tablet) in ~4 ounces of water (allow ~2 minutes to dissolve, stir well and administer immediately).Indications:Mi xed cellularity 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 (CMS/HCC),Hodgkin's lymphoma of bone marrow (CMS/HCC) Given 06/19/2024 10:15 AM EST 20 mEq documented in this encounter Orders Nursing Count Last Ordered Date First Orde red Date NCCN PARAMETERS 1 06/19/2024 NCCN PARAMETERS - GEMCITABINE 1 06/19/2024 ONC NURSING COMMUNICATION 1 06/19/2024 ONC NURSING COMMUNICATION 10 1 06/19/2024 ONC NURSING COMMUNICATION 11 1 06/19/2024 ONC NURSING COMMUNICATION 12 1 06/19/2024 TREATMENT CONDITIONS 2 06/19/2024 documented in this encounter Care Teams Policy Advisor Relationship Specialty Start Date End Date Justin Larose MD [address] [place] [id number] PCP - General Internal Medicine 02/28/24 Inés Alexander MD, PhD [address] [place] [phone] Consulting Physician Hematology and Oncology 04/25/23 documented as of this encounter
--- OUTSIDE RECORDS SUMMARY | 2024-06-29 16:26 | XMS_ITS | Encounter Summary ---
Author Organization [facility] Address [address] [place] [address] Care Team Providers Care Supervisor Of Way Name Role Phone Justin Larose MD Primary Care Provider [phone] Reason for Visit * Reason Onset Date Comments faxed order 06/18/2024 [facility] order #[id number] Encounter Details Date Type Department Care Team ([facility] st Contact Info) Description 06/18/2024 Telephone Adult Medicine [address] [phone] Giovana Barroso MA faxed order ([facility] order #[id number]) Social History Tobacco Use Types Packs/Day Years [...] Progress Notes * Giovana Barroso MA - 06/18/2024 9:06 PM EST Received orders from [facility] order #[id number]. Please sign and fax to [phone] documented in this encounter Plan of Treatment Upcoming Encounters Date Type Department Care Team (Late st Contact Info) Description 07/03/2024 9:15 AM EDT Office Visit [facility] Hematology Oncology [address] [place] [phone] Albert Mg MD [address] [place] [phone] 07/03/2024 9:30 AM EDT Appointment [address] [phone] 07/10/2024 9:00 AM EDT Appointment [address] [phone] 10/01/2024 1:45 PM EDT Office Visit Orthopedic Surgery - [place] 175 [facility] [address] [place] [phone] Noemi Jones PA 174 [facility] [address] [place] [phone] 11/16/2024 3:30 PM EDT Office Visit Adult Medicine [facility] [address] [place] [phone] Justin Larose MD [address] [place] [phone] documented as of this encounter Visit Diagnoses Not on filedocumented in this encounter Care Teams Supervisor Of Way Relationship Specialty Start Date End Date Justin Larose MD [address] [place] [phone] PCP - General Internal Medicine 02/28/24 Inés Alexander MD, PhD [address] [place] [phone] Consulting Physician Hematology and Oncology 04/25/23 documented as of this encounter
--- OUTSIDE RECORDS SUMMARY | 2024-06-29 16:26 | XMS_ITS | Encounter Summary ---
Author Organization [facility] Address [address] [place] [address] Care Team Providers Care Burn Out Scarfing Operator Name Role Phone Justin Larose MD Primary Care Provider [phone] Reason for Visit * Reason Comments HOME HEALTH CERT Encounter Details Date Type Department Care Team (Late st Contact Info) Description 06/18/2024 Billing Patient Not Present Adult Medicine [address] [phone] Justin Larose MD [address] [place] [phone] Acute and chronic respiratory failure with hypoxia (CMS/HCC) (Primary Dx); Hodgkin lymphoma, unspecified Hodgkin lymphoma type, unspecified body region (CMS/HCC); Hyperlipidemia, unspecified hyperlipidemia type; Malignant neoplasm of left female breast, unspecified estrogen receptor status, unspecified site of breast (CMS/HCC); Anemia in chronic kidney disease, unspecified CKD stage; Pneumonia due to infectious organism, unspecified laterality, unspecified part of lung; Acute on chronic diastolic (congestive) heart failure (CMS/HCC); Hypothyroidism, unspecified type; Dependence on supplemental oxygen; [facility] (current) use of systemic steroids Social History Tobacco Use Types Packs/Day Years [...] documented in this encounter Progress Notes * Jodi Prince MA - 06/18/2024 10:32 AM EST Start of Care Date: 03/21/2024 Date of certification period: 03/21/2024-05/19/2024 Date of service = signature date 05/25/2024 Hospice patient: NO Home Care Agency: [facility] [address] [facility] [address] PHONE# [phone] FAX # [phone] Recertification Code [id number] Initial Code G0180 documented in this encounter Plan of Treatment Upcoming Encounters Date Type Department Care Team (Late st Contact Info) Description 07/03/2024 9:15 AM EDT Office Visit [facility] Hematology Oncology [address] [place] [phone] Albert Mg MD [address] [place] [phone] 07/03/2024 9:30 AM EDT Appointment [facility] Center [address] [place] [phone] 07/10/2024 9:00 AM EDT Appointment [facility] [address] [place] [phone] 10/01/2024 1:45 PM EDT Office Visit Orthopedic Surgery [facility] [address] [phone] Noemi Jones PA [address] [phone] 11/16/2024 3:30 PM EDT Office Visit Adult Medicine [facility] [address] [place] [phone] Justin Larose MD [address] [place] [address] documented as of this encounter Visit Diagnoses Diagnosis Acute and chronic respiratory failure with hypoxia (CMS/HCC)- Primary Hodgkin lymphoma, unspecified Hodgkin lymphoma type, unspecified body region (CMS/HCC) Hyperlipidemia, unspecified hyperlipidemia type Malignant neoplasm of left female breast, unspecified estrogen receptor status, unspecified site of breast (CMS/HCC) Anemia in chronic kidney disease, unspecified CKD stage Pneumonia due to infectious organism, unspecified laterality, unspecified part of lung Acute on chronic diastolic (congestive) heart failure (CMS/HCC) Hypothyroidism, unspecified type Dependence on supplemental oxygen [facility] (current) use of systemic steroids documented in this encounter Care Teams Burn Out Scarfing Operator Relationship Specialty Start Date End Date Justin Larose MD [address] [place] [phone] PCP - General Internal Medicine 02/28/24 Inés Alexander MD, PhD [address] [place] [phone] Consulting Physician Hematology and Oncology 04/25/23 documented as of this encounter
--- OUTSIDE RECORDS SUMMARY | 2024-06-29 16:26 | XMS_ITS ---
Author Organization [facility] Address [address] [place] [address] Phone Care Team Providers Care Post Doctoral Fellow Name Role Phone Justin Larose MD Primary Care Provider [phone] Active Problems Problem Noted Date Diagnosed Date [...] No medications scheduled. 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 Treatments may have been administered in another system. Resolved Problems Problem Noted Date Diagnosed Date Resolved Date Pneumonia of both lungs due to infectious organism 03/15/2024 03/19/2024 Anemia complicating neoplastic disease 01/11/2020 03/15/2024 Overview (01/31/2024): Pending iron studies, referred to GI and hematology.
--- OUTSIDE RECORDS SUMMARY | 2024-06-29 16:26 | XMS_ITS | Encounter Summary ---
Author Organization [facility] Address [address] [place] [address] Care Team Providers Care Pediatric Physician Assistant Name Role Phone Justin Larose MD Primary Care Provider [phone] Encounter Details Date Type Department Care Team (Late st Contact Info) Description 06/20/2024 Billing Patient Not Present Adult Medicine [address] [phone] Justin Larose MD [address] [place] [id number] Social History Tobacco Use Types Packs/Day Years [...] [facility] Hematology Oncology [address] [place] [address] Albert Mg MD [address] [place] [address] 07/03/2024 9:30 AM EDT Appointment [facility] Center [address] [phone] 07/10/2024 9:00 AM EDT Appointment [address] [phone] 10/01/2024 1:45 PM EDT Office Visit Orthopedic Surgery [facility] [address] [phone] Noemi Jones PA [address] [phone] 11/16/2024 3:30 PM EDT Office Visit Adult Medicine [address] [phone] Justin Larose MD [address] [place] [address] documented as of this encounter Visit Diagnoses Not on filedocumented in this encounter Care Teams Pediatric Physician Assistant Relationship Specialty Start Date End Date Justin Larose MD [address] [place] [phone] PCP - General Internal Medicine 02/28/24 Inés Alexander MD, PhD [address] [place] [phone] Consulting Physician Hematology and Oncology 04/25/23 documented as of this encounter
--- OUTSIDE RECORDS SUMMARY | 2024-06-29 16:26 | XMS_ITS | Encounter Summary ---
Author Organization [facility] Address [address] [place] [address] Care Team Providers Care Band Booker Name Role Phone Justin Larose MD Primary Care Provider [phone] Reason for Visit * Reason Onset Date Comments faxed order 06/15/2024 [facility] order #[id number] Encounter Details Date Type Department Care Team ([facility] st Contact Info) Description 06/15/2024 Telephone Adult Medicine [address] [phone] Giovana Barroso MA faxed order ([facility] order #[id number]) Social History Tobacco Use Types Packs/Day Years [...] Progress Notes * Giovana Barroso MA - 06/15/2024 10:53 AM EST Received orders from [facility] order #[id number]. Please sign and fax to [phone] documented in this encounter Plan of Treatment Upcoming Encounters Date Type Department Care Team (Late st Contact Info) Description 07/03/2024 9:15 AM EDT Office Visit [facility] Hematology Oncology [address] [place] [phone] Albert Mg MD [address] [place] [phone] 07/03/2024 9:30 AM EDT Appointment [address] [address] 07/10/2024 9:00 AM EDT Appointment [address] [phone] 10/01/2024 1:45 PM EDT Office Visit Orthopedic Surgery - [place] 175 [facility] [address] [place] [phone] Noemi Jones PA 174 [facility] [address] [place] [phone] 11/16/2024 3:30 PM EDT Office Visit Adult Medicine [facility] [address] [place] [phone] Justin Larose MD [address] [place] [phone] documented as of this encounter Visit Diagnoses Not on filedocumented in this encounter Care Teams Band Booker Relationship Specialty Start Date End Date Justin Larose MD [address] [place] [phone] PCP - General Internal Medicine 02/28/24 Inés Alexander MD, PhD [address] [place] [phone] Consulting Physician Hematology and Oncology 04/25/23 documented as of this encounter
--- OUTSIDE RECORDS SUMMARY | 2024-06-29 16:26 | XMS_ITS ---
Author Organization [facility] Address [address] [place] [address] Care Team Providers Care Food Order Expediter Name Role Phone Justin Larose MD Primary Care Provider Active Problems Problem Noted Date Diagnosed Date [...] B - Symptoms) - Signed by Albert oLmas MD on 03/27/2020 Night sweats 02/28/2020 Lymphadenopathy, generalized 01/21/2020 Anemia complicating neoplastic disease 0 Hypercalcemia of malignancy 01/21/2020 Splenomegaly 01/21/2020 Current Oncology Plans [facility] LUSPATERCEPT (REBLOZYL) INJECTION* Plan Start Date:10/20/2023 Plan Provider:Albert Lomas MD Linked Problems Myelodysplasia (myelodysplas tic syndrome) (HCC) Treatment Medications luspatercept-aamt (REBLOZYL) [facility] BCN OP PEMBROLIZUMAB (200 MG)* Plan Start [...] treatments are documented for this patient in [facility]. Treatments may have been administered in another system. Resolved Problems Problem Noted Date Diagnosed Date Resolved Date Recurrent Hodgkin's lymphoma of lymph node 09/18/2020 11/20/2020 Cancer with unknown primary site 01/21/2020 03/27/2020
--- OUTSIDE RECORDS SUMMARY | 2024-06-29 16:26 | XMS_ITS | Encounter Summary ---
Author Organization [facility] Address [address] [place] [address] Care Team Providers Care Brass Reclaimer Name Role Phone Justin Larose MD Primary Care Provider [phone] Encounter Details Date Type Department Care Team [...] resulted, Hg 8.7 reported to Sary SEPULVEDA monotype mechanic. No orders for blood today. Pt returnsfor luspatercept on , will get labs rechecked next week. Left in wheelchair with , stable at D/C. documented in this encounter Plan of Treatment Upcoming Encounters Date Type Department Care Team (Late st Contact Info) Description 07/03/2024 9:15 AM EDT Office Visit [facility] Hematology Oncology [address] [place] [phone] Albert Mg MD [address] [place] [phone] 07/03/2024 9:30 AM EDT Appointment [facility] Infusion Center [address] [place] [phone] 07/10/2024 9:00 AM EDT Appointment [facility] [address] [place] [phone] 10/01/2024 1:45 PM EDT Office Visit Orthopedic Surgery [facility] [address] [phone] Noemi Jones PA [address] [phone] 11/16/2024 3:30 PM EDT Office Visit Adult Medicine [address] [phone] Justin Larose MD [address] [place] [phone] documented as of this encounter Visit Diagnoses [...] documented as of this encounter Care Teams Brass Reclaimer Relationship Specialty Start Date End Date Justin Larose MD PCP - General Internal Medicine 09/29/20 02/27/24 Inés Alexander MD, PhD [address] [place] [phone] Consulting Physician Hematology and Oncology 04/25/23 documented as of this encounter
--- OUTSIDE RECORDS SUMMARY | 2024-06-29 16:26 | XMS_ITS | Clinical Summary ---
Author Organization 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 Active sertraline (ZOLOFT) 100 mg tablet TAKE 1 TABLET BY MOUTH EVERY DAY 90 tablet 1 05/24/2024 Active predniSONE (DELTASONE) 10 mg tablet Take 2 tablets (20 mg total) by mouth 2 (two) times a day. 60 tablet 2 06/12/2024 07/13/19 25 Active LORazepam (ATIVAN) 0.5 mg tablet Take 1 tablet (0.5 mg total) by mouth every 8 (eight) hours if needed for anxiety. Max Daily Amount: 1.5 mg 60 tablet 06/12/2024 07/13/19 25 Active pantoprazole (PROTONIX) 40 mg EC tablet Take 1 tablet (40 mg total) by mouth 1 (one) time each day before breakfast. Do not crush, chew, or split. 30 each 1 04/26/2024 06/26/19 Active Problems Problem Noted Date Diagnosed Date [...] of left mastectomy 08/27/2016 Overview (01/31/2024): 1989 Resolved Problems Problem Noted Date Diagnosed Date Resolved Date Pneumonia of both lungs due to infectious organism 03/15/2024 03/19/2024 Anemia complicating neoplastic disease 01/11/2020 03/15/2024 Overview (01/31/2024): Pending iron studies, referred to GI and hematology. 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); Myelodysplasia (myelodysplastic syndrome) (CMS/HCC) 06/22/2024 Billing Patient Not Present Adult Medicine [address] [phone] Justin Larose MD 06/20/2024 Billing Patient Not Present Adult Medicine [address] [phone] Justin Larose MD 06/20/2024 Billing Patient Not Present Adult Medicine [address] [phone] Justin Larose MD 06/19/2024 8:31 AM EST - 06/19/2024 11:59 PM EST Hospital Encounter [address] [phone] Albert Mg MD Hodgkin's lymphoma of bone marrow (CMS/HCC) (Primary Dx); 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); Myelodysplasia (myelodysplastic syndrome) (CMS/HCC); Hypothyroidism due to medication Discharge Disposition: Home or Self Care 06/18/2024 Telephone Adult Medicine [address] [phone] Giovana Barroso [place] faxed order ([facility] order #[id number]) 06/18/2024 Billing Patient Not Present Adult Medicine [place] [address] [phone] Justin Larose MD Acute and chronic respiratory failure with hypoxia [...] Hypothyroidism, unspecified type; Dependence on supplemental oxygen; custodial (current) use of systemic steroids 06/15/2024 Telephone Adult Medicine [address] [phone] Giovana Barroso [place] faxed order ([facility] order #[id number]) 06/12/2024 10:00 AM EST - 06/12/2024 11:59 PM EST Hospital Encounter [facility] Infusion Center [address] [place] [phone] Albert Mg MD Hodgkin's lymphoma of bone marrow (CMS/HCC) (Primary Dx); 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) Discharge Disposition: Home or Self Care 06/12/2024 9:45 AM EST Office Visit [facility] Hematology Oncology [address] [place] [phone] Albert Mg MD 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) (Primary Dx); Hypercalcemia; Acute respiratory failure with hypoxia (CMS/HCC); Pneumonitis; Drug-induced peripheral neuropathy (CMS/HCC); Supraclavicular lymphadenopathy; Symptomatic anemia; Hodgkin's lymphoma of bone marrow (CMS/HCC); Hypothyroidism due to medication 06/12/2024 9:00 AM EST - 06/12/2024 11:59 PM EST Hospital Encounter [address] [phone] Albert Mg MD 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); Myelodysplasia (myelodysplastic syndrome) (CMS/HCC); Hodgkin's lymphoma of bone marrow (CMS/HCC) Discharge Disposition: Home or Self Care 05/29/2024 9:00 AM EST - 05/29/2024 11:59 PM EST Hospital Encounter [facility] [address] [place] [phone] Albert Mg MD 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 Please sign, date and fax back to [phone]. Placed in provider's bin.) 05/23/2024 Telephone Adult Medicine [address] [phone] Justin Larose MD Request For Order(s) ([facility] order #'s [id number] (missed visit), [id number], [id number]. Placed in provider's bin. 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) (Primary Dx); Hodgkin's lymphoma of bone marrow (CMS/HCC); Symptomatic anemia; Supraclavicular lymphadenopathy; Pneumonitis; Acute respiratory failure with hypoxia (CMS/HCC) 05/22/2024 9:04 AM EST - 05/22/2024 11:59 PM EST Hospital Encounter [facility]fusion [facility] [address] [place] [phone] Albert Mg MD 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) (Primary Dx); Hodgkin's lymphoma of bone marrow (CMS/HCC); Myelodysplasia (myelodysplastic syndrome) (CMS/HCC) Discharge Disposition: Home or Self Care 05/21/2024 Telephone Adult Medicine [address] [phone] Giovana Barroso [place] faxed order ([facility] order #[id number]) 05/17/2024 9:30 AM EST - 05/17/2024 11:59 PM EST Hospital Encounter [facility] [address] [place] [phone] Albert Mg MD 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) (Primary Dx); Myelodysplasia (myelodysplastic syndrome) (CMS/HCC) Discharge Disposition: Home or Self Care 05/15/2024 9:30 AM EST - 05/15/2024 11:59 PM EST Hospital Encounter [address] [phone] Albert Mg MD Myelodysplasia (myelodysplastic syndrome) (CMS/HCC) (Primary Dx); 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) Discharge Disposition: Home or Self Care 05/11/2024 2:30 PM EST Office Visit Adult Medicine [address] [phone] Justin Larose MD Acute on chronic respiratory failure with hypoxia (CMS/HCC) (Primary Dx); Hodgkin's lymphoma of bone marrow (CMS/HCC); Pneumonitis 05/11/2024 Billing Patient Not Present Adult Medicine [address] [phone] Justin Larose MD Hodgkin lymphoma, unspecified Hodgkin lymphoma type, unspecified body region (CMS/HCC) (Primary Dx); Pure hypercholesterolemia, unspecified; Anemia in chronic kidney disease (CODE); Pneumonia due to infectious organism, unspecified laterality, unspecified part of lung; Acute on chronic diastolic congestive heart failure (CMS/HCC); Hypothyroidism, unspecified type; Dependence on supplemental oxygen 05/08/2024 9:00 AM EST - 05/08/2024 11:59 PM EST Hospital Encounter [facility] [address] [place] [phone] Albert Mg MD Myelodysplasia (myelodysplastic syndrome) (CMS/HCC) (Primary Dx); 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); Lymphadenopathy, generalized; Hodgkin's lymphoma of bone marrow (CMS/HCC) Discharge Disposition: Home or Self Care 05/07/2024 Telephone Adult Medicine [address] [phone] Giovana Barroso [place] faxed order ([facility] order #[id number], ) 05/07/2024 Telephone Adult Medicine [address] [phone] Giovana Barroso [place] faxed order ([facility] order #[id number]) 05/07/2024 Telephone Adult Medicine [address] [phone] Giovana Barroso [place] faxed order ([facility] order #[id number]) 05/04/2024 Telephone Adult Medicine [address] [phone] Giovana Barroso [place] faxed order ([facility] order #[id number]) 05/01/2024 9:00 AM EST - 05/01/2024 11:59 PM EST Hospital Encounter [facility] [address] [place] [phone] Albert Mg MD Myelodysplasia (myelodysplastic syndrome) (CMS/HCC) (Primary Dx); 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); Hodgkin's lymphoma of bone marrow (CMS/HCC) Discharge Disposition: Home or Self Care 04/30/2024 7:49 AM EST - 04/30/2024 11:59 PM EST Hospital Encounter [facility] Ortho Xray [address] [place] [phone] Pain Discharge Disposition: Home or Self Care 04/27/2024 1:30 PM EST Office Visit Adult Medicine [address] [phone] Justin Larose MD Pneumonitis (Primary Dx); Acute hypoxemic respiratory failure (CMS/HCC); 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); Hodgkin's lymphoma of bone marrow (CMS/HCC) 04/26/2024 10:15 AM EST Office Visit [facility] Hematology Oncology [address] [place] [phone] Albert Mg MD Drug-induced peripheral neuropathy (CMS/HCC) (Primary Dx); Acute respiratory failure with hypoxia (CMS/HCC); Osteopenia of multiple sites; Primary osteoarthritis of both knees; Hypercalcemia; 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); Lymphadenopathy, generalized; Hodgkin's lymphoma of bone marrow (CMS/HCC); Supraclavicular lymphadenopathy 04/26/2024 9:45 AM EST - 04/26/2024 11:59 PM EST Hospital Encounter [facility] [address] [place] [phone] Myelodysplasia (myelodysplastic syndrome) (CMS/HCC) (Primary Dx); Hodgkin's lymphoma of bone marrow (CMS/HCC) Discharge Disposition: Home or Self Care 04/24/2024 9:00 AM EST - 04/24/2024 11:59 PM EST Hospital Encounter [facility] [address] [place] [phone] 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); Myelodysplasia (myelodysplastic syndrome) (CMS/HCC) Discharge Disposition: Home or Self Care 04/20/2024 1:30 PM EST - 04/20/2024 11:59 PM EST Hospital Encounter [facility] [address] [place] [phone] 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); Myelodysplasia (myelodysplastic syndrome) (CMS/HCC) Discharge Disposition: Home or Self Care 04/10/2024 8:52 AM EST - 04/16/2024 5:48 PM EST Hospital Encounter [facility] Intermediate Care Unit B [address] [place] [phone] Surjit Amador MD Bukalo, Nermina, MD Bell, Alistair A, MD Japaridze, Anna, MD Acute respiratory failure with hypoxia (CMS/HCC) (Primary Dx); Hypoxia; Pneumonia of both lower lobes due to infectious organism; Bilateral pleural effusion; Acute hypoxemic respiratory failure (CMS/HCC); Shortness of breath Discharge Disposition: Home-Health Care [facility] 04/06/2024 Telephone [facility] Hematology Oncology [address] [place] [phone] Albert Mg MD Referral 04/05/2024 10:00 AM EST Office Visit [facility] Hematology Oncology [address] [place] [phone] Albert Mg MD 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) (Primary Dx); Lymphadenopathy, generalized; Symptomatic anemia; Supraclavicular lymphadenopathy; Acute respiratory failure with hypoxia (CMS/HCC); Drug-induced peripheral neuropathy (CMS/HCC); Hodgkin's lymphoma of bone marrow (CMS/HCC); Hypothyroidism due to medication 04/04/2024 Telephone [facility] Medicine [address] [phone] Justin Larose MD VNA Order ([facility]Order #[id number]) 04/03/2024 9:00 AM EST - 04/03/2024 11:59 PM EST Hospital Encounter [facility] Infusion Center [address] [place] [address] [place] [phone] Hypothyroidism, unspecified type (Primary Dx); 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 ([facility]/HCC); Myelodysplasia (myelodysplastic syndrome) ([facility]); Hodgkin's lymphoma of bone marrow ([facility]); Hypothyroidism due to medication Discharge Disposition: Home or Self Care 04/03/2024 Telephone Adult Medicine [address] [phone] [place], [place] faxed order ([facility] order #[id number]) 04/02/2024 1:00 PM EST Procedure visit Orthopedic Surgery - [place] [address] [facility] [address] [place] [phone] Noemi Jones PA Primary osteoarthritis of both knees (Primary Dx) 04/01/2024 Telephone Adult Medicine [address] [phone] [place], [place] faxed order ([facility] order #[id number]) 04/01/2024 Telephone Adult Medicine [address] [phone] [place], [place] faxed order ([facility] order #[id number]) from Last 3 Months Immunizations Name Administration Dates Next Due Influenza trivalent, 0.5mL ( Fluad) 65yo and older 01/28/2022,01/27/2021,01/29/2020,01/23,01/01/2018,01/30/2017 [facility] SARS-CoV-2 COVID -19, vector-nr, rS-Ad26, preservative free [...] EXTRACTION Bilateral PROCEDURE: HISTORICAL CATARACT REMOVAL; COMMENT: [id number] OTHER SURGICAL HISTORY PROCEDURE: LEUKEMIA/LYMPHOMA EVALUATION; COMMENT: [...] Relation Name Comments Other cancer Aunt pancreatic, mat ernal aunt Other: pancreatic cancer Aunt Art hritis Other: Heart Disease Father d at 78 Other cancer Maternal Grandmother stomach CA Breast cancer Mother at 78 of mets, Arthritis Other: Other Paternal Grandmother in her 90s Other: pancreatic cancer Uncle mat ernal aunt Relation Name Status Comments Aunt Father [...] Orientation Straight 05/08/2024 9: 20 AM EST Obstetrics History Last Filed Vital Signs Vital [...] oz) 06/19/2024 9:01 A M EST Height 170.2 cm (5' 7 ) 05/11/2024 2:10 PM EST Body Mass Index 20.13 05/11/2024 2:10 PM EST Plan of Treatment Upcoming Encounters Date Type Department Care Team (Late st Contact Info) Description 07/03/2024 9:15 AM EDT Office Visit [facility] Hematology Oncology [address] [place] [phone] Albert Mg MD [address] [place] [phone] 07/03/2024 9:30 AM EDT Appointment [address] [phone] 07/10/2024 9:00 AM EDT Appointment [address] [phone] 10/01/2024 1:45 PM EDT Office Visit Orthopedic Surgery - [place] [address] [facility] [address] [place] [address] Noemi Jones PA [address] [facility] [address] [place] [address] 11/16/2024 3:30 PM EDT Office Visit Adult Medicine [facility] [address] [place] [phone] Justin Larose MD [address] [place] [address] Health Maintenance Due Date Last Done Comments Breast Cancer Screening 1950 Depression Screening 04/02/2022 Medicare Annual Wellness Visit 04/02/2022 Social Influencers of Health Screening 04/02/2022 Colorectal Cancer Screening: Colonoscopy 05/13/2024 05/13/2014 Falls Risk Assessment 06/12/2025 06/12/2024, 024 Hypertension/CHF/CAD Annual BMP Blood Test 06/19/2025 06/19/2024, 06/12/2024, 05/29/2024, Additional history exists Cholesterol Screening (Lipid Panel) 03/23/2027 03/23/2022 DTaP,Tdap,and Td Vaccines (3 - Td or Tdap) 01/03/2028 01/02/2018, 07/25/2007 Osteoporosis Screening (Bone Density Screening) 08/19/2032 08/19/2022, 02/24/2018 Pneumococcal Vaccine: 50+ Years Completed 02/23/2017, 05/09/2015 Hepatitis C Screening [...] patient's age to complete this topic Meningococcal B Vacine Aged Out No lo nger eligible based on patient's age to complete [...] Myelodysplasia (myelodysplastic syndrome) (CMS/HCC) THYROID STIMULATING HORMONE Routine 06/19/2024 10:48 AM [...] of multiple regions (CMS/HCC) COMPREHENSIVE METABOLIC PANEL STAT 06/19/2024 8:53 [...] syndrome) (CMS/HCC) MANUAL DIFFERENTIAL - [facility] STAT 06/12/2024 9:22 AM EST 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) Myelodysplasia (myelodysplastic syndrome) (CMS/HCC) CBC WITH AUTO DIFFERENTIAL STAT 06/12/2024 9:22 AM EST 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) Myelodysplasia (myelodysplastic syndrome) (CMS/HCC) COMPREHENSIVE METABOLIC PANEL STAT 06/12/2024 9:22 AM EST 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) TYPE AND SCREEN STAT 06/12/2024 9:22 AM EST 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) Myelodysplasia (myelodysplastic syndrome) (CMS/HCC) CBC AND DIFFERENTIAL STAT 06/12/2024 9:22 AM EST 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) Myelodysplasia (myelodysplastic syndrome) (CMS/HCC) MANUAL DIFFERENTIAL - [facility] STAT 05/29/2024 9:37 AM EST 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) Myelodysplasia (myelodysplastic syndrome) (CMS/HCC) CBC WITH AUTO DIFFERENTIAL STAT 05/29/2024 9:37 AM EST 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) Myelodysplasia (myelodysplastic syndrome) (CMS/HCC) COMPREHENSIVE METABOLIC PANEL STAT 05/29/2024 9:37 AM EST 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..] multiple regions (CMS/HCC) Myelodysplasia (myelodysplastic syndrome) (CMS/HCC) [place] ARTHROCENTESIS/ASPIRAT ION/INJECTION MAJOR JOINT/BURSA W/O U/S GUIDANCE Routine 04/02/2024 1:00 PM EST Primary osteoarthritis of both knees FALLS RISK ASSESSMENT Routine 11/07/2023 DXA BONE DENSITY STUDY 1+ SITS AXIAL SKEL Routine 08/19/2022 11:36 AM EDT Encounter for screening for osteoporosis LIPID PANEL Routine 03/23/2022 HEPATITIS C SCREENING Routine 01/18/2018 COLONOSCOPY Routine 05/13/2014 from Last 3 Months or Most Recently Relevant to Health Maintenance Results * (ABNORMAL) Manual differential (06/26/2024 9:19 AM EST) Only the most recent of5 resultswithin the time period is included. Neutrophils % 80.0 % LAB HEMETOLOGY METHOD 06/26/2024 10:49 AM [facility] Lymphocytes % 10.0 % LAB HEMETOLOGY METHOD 06/26/2024 10:49 AM [facility] Monocytes % 7.0 % LAB HEMETOLOGY METHOD 06/26/2024 10:49 AM [facility] Eosinophils % 0.0 % LAB HEMETOLOGY METHOD 06/26/2024 10:49 AM [facility] Basophils % 0.0 % LAB HEMETOLOGY METHOD 06/26/2024 10:49 AM [facility] Metamyelocytes % 1.0(H) % LAB HEMETOLOGY METHOD 06/26/2024 10:49 AM [facility] Myelocytes % 2.0(H) % LAB HEMETOLOGY METHOD 06/26/2024 10:49 AM [facility] Neutrophils Absolute Manual 4.48 1.50 - 7.00 K/mcL LAB HEMETOLOGY METHOD 06/26/2024 10:49 AM [facility] Lymphocytes Absolute 0.56(L) 1.00 - 5.00 K/mcL LAB HEMETOLOGY METHOD 06/26/2024 10:49 AM [facility] Monocytes Absolute Manual 0.39 0.20 - 1.00 K/mcL LAB HEMETOLOGY METHOD 06/26/2024 10:49 AM [facility] Eosinophils Absolute Manual 0.00 0.00 - 0.50 K/mcL LAB HEMETOLOGY METHOD 06/26/2024 10:49 AM EST [facility] Basophils Absolute Manual 0.00 0.00 - 0.20 K/mcL LAB HEMETOLOGY METHOD 06/26/2024 10:49 AM [facility] Metamyelocytes Absolute Manual 0.06(H) 0.00 - 0.00 K/mcL LAB HEMETOLOGY METHOD 06/26/2024 10:49 AM [facility] Myelocytes Absolute Manual 0.11(H) 0.00 - 0.00 K/mcL LAB HEMETOLOGY METHOD 06/26/2024 10:49 AM [facility] Rbc Morphology Present( A) Consistent with indices, Normal for [place] LAB HEMETOLOGY METHOD 06/26/2024 10:49 AM [facility] Comment:RBC: Morphology agre es with CBC Platelet Morphology - [facility] See Note(A) Normal LAB HEMETOLOGY METHOD 06/26/2024 10:49 AM [facility] Comment:PLT: Normal Polychromasia Present Present( A) (none) LAB HEMETOLOGY METHOD 06/26/2024 10:49 AM [facility] Schistocytes Present < 5%(A) (none) LAB HEMETOLOGY METHOD 06/26/2024 10:49 AM [facility] Blood Blood sample taken from central line / Unknown Existing Catheter / Unknown 06/26/2024 9:19 AM EST 06/26/2024 9:35 AM EST us Subramrosalind Mg MD LAB BLOOD ORDERABLE S Final Result [facility] [address] [place] [address], * (ABNORMAL) CBC auto differential (06/26/2024 9:19 AM EST) Only the most recent of18 resultswithin the time period is included. WBC 5.6 4.8 - 10.8 K/mcL LAB HEMETOLOGY METHOD 06/26/2024 10:49 AM [facility] RBC 2.50(L) 3.80 - 4.80 M/mcL LAB HEMETOLOGY METHOD 06/26/2024 10:49 AM [facility] Hemoglobin 8.6(L) 11.5 - 16.0 g/dL LAB HEMETOLOGY METHOD 06/26/2024 10:49 AM [facility] Hematocrit 26.1(L) 35.0 - 47.0 % LAB HEMETOLOGY METHOD 06/26/2024 10:49 AM [facility] MCV 105.7(H) 79.0 - 98.0 FL LAB HEMETOLOGY METHOD 06/26/2024 10:49 AM [facility] MCH 34.8(H) 27.0 - 32.0 pcg LAB HEMETOLOGY METHOD 06/26/2024 10:49 AM [facility] MCHC 33.0 32.0 - 37.0 g/dL LAB HEMETOLOGY METHOD 06/26/2024 10:49 AM [facility] RDW 25.0(H) 11.0 - 15.0 % LAB HEMETOLOGY METHOD 06/26/2024 10:49 AM [facility] Platelets 73(L) 130 - 400 K/mcL LAB HEMETOLOGY METHOD 06/26/2024 10:49 AM [facility] Comment:previously verified by slide MPV 12.9(H) 7.0 - 11.0 FL LAB HEMETOLOGY METHOD 06/26/2024 10:49 AM [facility] NRBC 2.3(H) <1.0 % LAB HEMETOLOGY METHOD 06/26/2024 10:49 AM [facility] NRBC Absolute 0.13(H) <0.10 K/[facility] LAB HEMETOLOGY METHOD 06/26/2024 10:49 AM EST [facility] Blood Blood sample taken from central line / Unknown Existing Catheter / Unknown 06/26/2024 9:19 AM EST 06/26/2024 9:35 AM EST us Albert Mg MD LAB BLOOD ORDERABLE S Final Result Performing Organization Address [facility]/ZIP Co de Phone Number [facility] [address] [place] [address], * Type and screen (06/26/2024 9:19 AM EST) Only the most recent of12 resultswithin the time period is included. ABO Group A 06/26/2024 10:29 AM EST [facility] Rh Type Negative 06/26/2024 10:29 AM EST [facility] Antibody Screen Negative 06/26/2024 10:29 AM EST [facility] Blood Blood sample taken from central line / Unknown Existing Catheter / Unknown 06/26/2024 9:19 AM EST 06/26/2024 9:35 AM EST us Albert Mg MD LAB BLOOD BANK TEST ORDERABLES Final Result Performing Organization Address [facility] Co de Phone Number [facility] [address] [place] [address], * (ABNORMAL) Thyroid stimulating hormone (06/19/2024 10:48 AM EST) Only the most recent of2 resultswithin the time period is included. TSH 4.34(H) 0.40 - 4.00 mcIU/mL LAB CHEMISTRY METHOD 06/19/2024 4:33 PM EST [facility] Blood Blood sample taken from central line / Unknown Existing Catheter / Unknown 06/19/2024 10:48 AM EST 06/19/2024 11:45 AM EST Albert Mg MD LAB BLOOD ORDERABLE S Final Result [facility] [address] [place] [address], [place] [phone] * (ABNORMAL) Comprehensive metabolic panel (06/19/2024 8:53 AM EST) Only the most recent of8 resultswithin the time period is included. Sodium 142 133 - 145 mmol/L LAB CHEMISTRY METHOD 06/19/2024 9:41 AM [facility] Potassium 3.4(L) 3.5 - 5.5 mmol/L LAB CHEMISTRY METHOD 06/19/2024 9:41 AM [facility] Chloride 108 96 - 110 mmol/L LAB CHEMISTRY METHOD 06/19/2024 9:41 AM [facility] CO2 26 21 - 32 mmol/L LAB CHEMISTRY METHOD 06/19/2024 9:41 AM [facility] Anion Gap 8 3 - 11 LAB CHEMISTRY METHOD 06/19/2024 9:41 AM [facility] Glucose 145(H) 70 - 100 mg/dL LAB CHEMISTRY METHOD 06/19/2024 9:41 AM [facility] BUN 17 5 - 25 mg/dL LAB CHEMISTRY METHOD 06/19/2024 9:41 AM [facility] Creatinine 0.77 0.50 - 1.10 mg/dL LAB CHEMISTRY METHOD 06/19/2024 9:41 AM [facility] eGFR 81 >=60 mL/min/1. 73m2 LAB CHEMISTRY METHOD 06/19/2024 9:41 AM [facility] Comment:Calculation based on the??Chronic Kidney Disease Epidemiology Collaboration (CKD-EPI) equation refit??without adjustment for race. BUN/Creatinine Ratio 22.1 LAB CHEMISTRY METHOD 06/19/2024 9:41 AM [facility] Calcium 9.1 8.5 - 10.5 mg/dL LAB CHEMISTRY METHOD 06/19/2024 9:41 AM [facility] AST (SGOT) 19 10 - 42 unit/L LAB CHEMISTRY METHOD 06/19/2024 9:41 AM [facility] ALT (SGPT) 28 10 - 60 unit/L LAB CHEMISTRY METHOD 06/19/2024 9:41 AM [facility] Alkaline Phosphatase 56 42 - 121 unit/L LAB CHEMISTRY METHOD 06/19/2024 9:41 AM [facility] Total Protein 5.5(L) 6.0 - 8.0 g/dL LAB CHEMISTRY METHOD 06/19/2024 9:41 AM [facility] Albumin 3.6 3.2 - 5.0 g/dL LAB CHEMISTRY METHOD 06/19/2024 9:41 AM [facility] Total Bilirubin 1.7(H) 0.0 - 1.4 mg/dL LAB CHEMISTRY METHOD 06/19/2024 9:41 AM [facility] Blood Blood sample taken from central line / Unknown Existing Catheter / Unknown 06/19/2024 8:53 AM EST 06/19/2024 9:01 AM EST Albert Mg MD LAB BLOOD ORDERABLE S Final Result [facility] [address] [place] [address], * Transfuse RBC (05/17/2024 1:33 PM EST) Only the most recent of6 resultswithin the time period is included. us Kim Tony DO BLOOD TRANSFUSION ORD ERABLES Final Result * Prepare RBC: 1 Units (05/17/2024 10:45 AM EST) Only the most recent of5 resultswithin the time period is included. Product Code [id number] 05/17/2024 10:57 AM [facility] Unit Number [id number] 05/17/19 10:57 AM [facility] Crossmatch Compatible 05/17/2024 10:46 AM [facility] Dispense Status Transfused 05/17/2024 10:57 AM [facility] Unit ABO Rh ANEG 05/17/2024 10:57 AM [facility] Unit Expiration Date Time 05/17/2024 10:57 AM [facility] Unit Blood Type 0600 05/17/2024 10:57 AM [facility] Blood Venous blood specimen / Unknown 05/17/2024 10:45 AM EST 05/15/2024 10:33 AM EST us Kim Tony DO BLOOD BANK PRODUCT OR DERABLES Final Result [facility] [address] [place] [address], [place] [phone] * XR Shoulder 2+ Views Left (04/30/2024 9:24 AM EST) Narrative RIS PACS/VR - 04/30/2024 9:24 AM EST This order has been auto-finalized and does not contain a result. us Nehemias Ordoñez MD IMG XR PROCEDURES Final Result RIS PACS/VR * Vascular US duplex lower [...] Signed Date: 04/17/2024 07:26 ET Workstation ID: [id number] Transcribed By: Self Edit Transcribed Date: 04/17/2024 [...] Signed Date: 04/17/2024 07:26 ET Workstation ID: [id number] Transcribed By: Self Edit Transcribed Date: 04/17/2024 07:23 ET us Eli Cooper MD CV VASCULAR PROCEDURES Final R esult * Phosphorus (04/16/2024 6:11 AM EST) Only the most recent of4 resultswithin the time period is included. Phosphorus 2.6 2.5 - 4.5 mg/dL LAB CHEMISTRY METHOD 04/16/2024 8:04 AM [facility] Blood Venous blood specimen / Unknown Venipuncture / Unknown 04/16/2024 6:11 AM EST 04/16/2024 6:44 AM EST us Kendall Edge MD LAB BLOOD ORDERABLES Final Re sult Performing Organization Address City/[facility]/ZIP Co de Phone Number [facility] [address] [place] [address], [place] [phone] * Magnesium (04/16/2024 6:11 AM EST) Only the most recent of4 resultswithin the time period is included. Pathologist [facility] Magnesium 2.3 1.9 - 2.6 mg/dL LAB CHEMISTRY METHOD 04/16/2024 8:04 AM EST [facility] Blood Venous blood specimen / Unknown Venipuncture / Unknown 04/16/2024 6:11 AM EST 04/16/2024 6:44 AM EST us Kendall Edge MD LAB BLOOD ORDERABLES Final Re sult Performing Organization Address City/[facility]/ZIP Co de Phone Number [facility] [address] [place] [address], [place] [phone] * (ABNORMAL) Basic metabolic panel (04/16/2024 6:11 AM EST) Only the most recent of7 resultswithin the time period is included. [facility] Sodium 140 133 - 145 mmol/L LAB CHEMISTRY METHOD 04/16/2024 8:04 AM EST [facility] Potassium 3.6 3.5 - 5.5 mmol/L LAB CHEMISTRY METHOD 04/16/2024 8:04 AM EST [facility] Chloride 104 96 - 110 mmol/L LAB CHEMISTRY METHOD 04/16/2024 8:04 AM [facility] CO2 31 21 - 32 mmol/L LAB CHEMISTRY METHOD 04/16/2024 8:04 AM [facility] Anion Gap 5 3 - 11 LAB CHEMISTRY METHOD 04/16/2024 8:04 AM [facility] Glucose 106(H) 70 - 100 mg/dL LAB CHEMISTRY METHOD 04/16/2024 8:04 AM [facility] BUN 20 5 - 25 mg/dL LAB CHEMISTRY METHOD 04/16/2024 8:04 AM [facility] Creatinine 0.52 0.50 - 1.10 mg/dL LAB CHEMISTRY METHOD 04/16/2024 8:04 AM [facility] eGFR 98 >=60 mL/min/1. 73m2 LAB CHEMISTRY METHOD 04/16/2024 8:04 AM [facility] Comment:Calculation based on the??Chronic Kidney Disease Epidemiology Collaboration (CKD-EPI) equation refit??without adjustment for race. BUN/Creatinine Ratio 38.5 LAB CHEMISTRY METHOD 04/16/2024 8:04 AM [facility] Calcium 9.0 8.5 - 10.5 mg/dL LAB CHEMISTRY METHOD 04/16/2024 8:04 AM [facility] Blood Venous blood specimen / Unknown Venipuncture / Unknown 04/16/2024 6:11 AM EST 04/16/2024 6:44 AM EST us Kendall Edge MD LAB BLOOD ORDERABLES Final Re sult [facility] [address] [place] [address], * XR Chest 2 Views (04/15/2024 9:55 AM EST) Anatomical Region Laterality Modality Body [...] Signed Date: 04/15/2024 10:34 ET Workstation ID: [id number] Transcribed By: Self Edit Transcribed Date: 04/15/2024 [...] pneumothorax. Limited bone detail. Procedure Note Edmar Yanse MD - 04/15/2024 EXAMINATION: CHEST CLINICAL INFORMATION: [...] Signed Date: 04/15/2024 10:34 ET Workstation ID: [id number] Transcribed By: Self Edit Transcribed Date: 04/15/2024 10:32 ET us Alfonso Navarro MD IMG XR PROCEDURES Final Result * Procalcitonin (04/13/2024 5:26 AM EST) Only the most recent of2 resultswithin the time period is included. Procalcitonin 0.12 <=0.16 ng/mL LAB CHEMISTRY METHOD 04/13/2024 2:45 PM EST [facility] Blood Venous blood specimen / Unknown Venipuncture / Unknown 04/13/2024 5:26 AM EST 04/13/2024 6:36 AM EST Narrative [facility] - 04/13/2024 2:45 PM EST Procalcitonin [...] if any concentrations <2.0 ng/mL are obtained. us Brisa Wild MD LAB BLOOD ORDERABLES Final Resul t [facility] [address] [place] [address], [place] [phone] * MRSA molecular study (04/12/2024 2:21 PM EST) [facility] MRSA Screen PCR Not Detected Not Detected LAB MICROBIOLOGY METHOD 04/12/2024 8:07 PM EST [facility] Swab Both anterior nares / Unknown Non-blood Collection / Unknown 04/12/2024 2:21 PM EST 04/12/2024 5:38 PM EST us Kendall Edge MD LAB MICROBIOLOGY - GENERAL OR DERABLES Final Result Performing Organization Address City/[facility]/ZIP Co de Phone Number [facility] [address] [place] [address], [place] [phone] * Cell count with reflex differential, body fluid (04/12/2024 2:08 PM EST) [facility] Body Fluid Total Nucleated Cells 42 /mm3 LAB HEMETOLOGY METHOD 04/12/2024 3:45 PM EST [facility] Body Fluid RBC 0 /mm3 LAB HEMETOLOGY METHOD 04/12/2024 3:45 PM EST [facility] Body Fluid Color Yellow 04/12/2024 3:45 PM EST [facility] Body Fluid Clarity Clear 04/12/2024 3:45 PM EST [facility] Body Fluid Source Pleural 04/12/2024 3:45 PM EST [facility] Pleural Fluid Structure of left pleural cavity / Unknown Non-blood Collection / Unknown 04/12/2024 2:08 PM EST 04/12/2024 2:17 PM EST Narrative [facility] - 04/12/2024 3:45 PM EST No reference ranges have been established for body fluids. Clinical correlation recommended. us Kendall Edge MD LAB BODY FLUIDS AND STOOLS OR DERABLES Final Result Performing Organization Address City/[facility]/ZIP Co de Phone Number [facility] [address] [place] [address], [place] [phone] * Culture body fluid with gram stain (04/12/2024 2:08 PM EST) Fluid Culture No growth LAB MICROBIOLOGY METHOD 04/15/2024 9:46 AM EST [facility] Gram Stain Result No polymorphonuclear leukocytes, No epithelial cells, and No organisms noted 04/15/2024 9:46 AM EST [facility] Pleural Fluid Structure of left pleural cavity / Unknown Non-blood Collection / Unknown 04/12/2024 2:08 PM EST 04/12/2024 2:17 PM EST Kendall Edge MD LAB MICROBIOLOGY - GENERAL OR DERABLES Final Result Performing Organization Address [facility]/ZIP Co de Phone Number [facility] [address] [place] [address], [place] [phone] * Differential body fluid (04/12/2024 2:08 PM EST) Fluid Neutrophils % 18 % 04/12/2024 3:45 PM EST [facility] Fluid Lymphocytes % 32 % 04/12/2024 3:45 PM [facility] Fluid Monocytes/Macrop hages 50 % 04/12/2024 3:45 PM EST [facility] Fluid Eosinophils % 0 % 04/12/2024 3:45 PM EST [facility] Fluid Basophils % 0 % 04/12/2024 3:45 PM EST [facility] Fluid Other Cells % 0 % 04/12/2024 3:45 PM [facility] Pleural Fluid Structure of left pleural cavity / Unknown Non-blood Collection / Unknown 04/12/2024 2:08 PM EST 04/12/2024 2:[address] [facility] - 04/12/2024 3:45 PM EST No reference ranges have been established for body fluids. Clinical correlation recommended. us Kendall Edge MD LAB BODY FLUIDS AND STOOLS OR DERABLES Final Result Performing Organization Address [facility] de Phone Number [facility] [address] [place] [address], [place] [phone] * Protein, body fluid (04/12/2024 2:08 PM EST) Protein, Fluid 2.8 See Comment g/dL LAB CHEMISTRY METHOD 04/12/2024 3:00 PM EST [facility] Pleural Fluid Structure of left pleural cavity / Unknown Non-blood Collection / Unknown 04/12/2024 2:08 PM EST 04/12/2024 2:[address] [facility] - 04/12/2024 3:00 PM EST No reference ranges have been established for body fluids. Clinical correlation recommended. us Kendall Edge MD LAB BODY FLUIDS AND STOOLS OR DERABLES Final Result Performing Organization Address [facility] de Phone Number [facility] [address] [place] [address], [place] [phone] * Lactate dehydrogenase, body fluid (04/12/2024 2:08 PM EST) LD, Fluid 125 See Comment unit/L LAB CHEMISTRY METHOD 04/12/2024 3:02 PM EST [facility] Pleural Fluid Structure of left pleural cavity / Unknown Non-blood Collection / Unknown 04/12/2024 2:08 PM EST 04/12/2024 2:[address] [facility] - 04/12/2024 3:02 PM EST No reference ranges have been established for body fluids. Clinical correlation recommended. us Kendall Edge MD LAB BODY FLUIDS AND STOOLS OR DERABLES Final Result [facility] [address] [place] [address], * [place] Thoracentesis w Image Guidance Left [...] Signed Date: 04/13/2024 08:35 ET Workstation ID: [id number] Transcribed By: Self Edit Transcribed Date: 04/12/2024 14:32 ET Resident/PA/ASSEMBLER [employer]: Vicky Grover Narrative 04/13/2024 8:35 AM EST HISTORY: Diagnostic thoracentesis, bedside. PROCEDURE/FINDINGS: Preliminary ultrasound performed documenting small left pleural effusion. Skin at the left lung base marked and prepped and draped sterilely. Buffered lidocaine anesthetic placed superficially and deeply. Effusion accessed with a 5 Norwegian One Step catheter. Catheter connected to suction [...] superficially and deeply. Effusionaccessed with a 5 Norwegian One Step catheter. Catheter connected to suctiontubing [...] Signed Date: 04/13/2024 08:35 ET Workstation ID: [id number] Transcribed By: Self Edit Transcribed Date: 04/12/2024 14:32 ET Resident/PA/ASSEMBLER [employer]: Vicky Grover us Kendall Egde MD IMG US PROCEDURES Final Resul t * (ABNORMAL) Vancomycin, trough (04/12/2024 1:03 AM EST) Pathologist [facility] Vancomycin Trough 6.9(L) 10.0 - 20.0 mcg/mL LAB CHEMISTRY METHOD 04/12/2024 1:46 AM EST [facility] Blood Venous blood specimen / Unknown Venipuncture / Unknown 04/12/2024 1:03 AM EST 04/12/2024 1:07 AM EST us Guillermina Mijares MD LAB BLOOD ORDERABLES Final Res ult [facility] [address] [place] [address], [place] [phone] * TRANSTHORACIC ECHOCARDIOGRAM (TTE) COMPLETE (04/11/2024 2:02 PM EST) RA Area 11.3 cm2 CV PACS RA [...] adequate. Kendall Edge MD CV ECHO PROCEDURES Final Resu lt * Legionella antigen urine, EIA (04/11/2024 1:29 PM EST) Legionella Antigen, Ur Negative Negative 04/11/2024 2:03 PM EST [facility] Urine Urine specimen from urinary conduit / Unknown Non-blood Collection / Unknown 04/11/2024 1:29 PM EST 04/11/2024 1:34 PM EST Narrative [facility] - 04/11/2024 2:03 PM EST Negative for Legionella pneumophilia serogroup 1 antigen. This presumptive result suggests no current or recent infection due to L. pneumophilia serogroup 1. Culture is recommended if Legionella infection is till suspected, as other serogroups and species of Legionella are not detected by this test. Brisa Wild MD LAB URINE ORDERABLES Final Resul t [facility] [address] [place] [address], [place] [phone] * (ABNORMAL) Iron and TIBC (04/11/2024 5:37 AM EST) Iron 78 40 - 150 mcg/dL LAB CHEMISTRY METHOD 04/11/2024 8:22 AM EST [facility] TIBC 67(L) 250 - 450 mcg/dL LAB CHEMISTRY METHOD 04/11/2024 8:22 AM EST [facility] Iron Saturation 116(H) 15 - 50 % LAB CHEMISTRY METHOD 04/11/2024 8:22 AM EST [facility] Blood Venous blood specimen / Unknown Venipuncture / Unknown 04/11/2024 5:37 AM EST 04/11/2024 6:34 AM EST Kendall Edge MD LAB BLOOD ORDERABLES Final Re sult [facility] [address] [place] [address], [place] [phone] * (ABNORMAL) Reticulocyte count (04/11/2024 5:37 AM EST) Retic Ct Abs 0.010(L) 0.030 - 0.090 M/mcL LAB HEMETOLOGY METHOD 04/11/2024 8:10 AM EST [facility] Retic Ct Pct 0.3(L) 0.7 - 1.7 % LAB HEMETOLOGY METHOD 04/11/2024 8:10 AM [facility] Immature Retic Fract 4.0 2.3 - 15.9 % LAB HEMETOLOGY METHOD 04/11/2024 8:10 AM EST [facility] Reticulocyte Hemoglobin 31.1 >29.0 pcg LAB HEMETOLOGY METHOD 04/11/2024 8:10 AM [facility] Blood Venous blood specimen / Unknown Venipuncture / Unknown 04/11/2024 5:37 AM EST 04/11/2024 6:34 AM EST us Kendall Edge MD LAB BLOOD ORDERABLES Final Re sult [facility] [address] [place] [address], * (ABNORMAL) Complete blood count (04/11/2024 5:37 AM EST) WBC 6.6 4.8 - 10.8 K/mcL LAB HEMETOLOGY METHOD 04/11/2024 7:15 AM [facility] RBC 2.10(L) 3.80 - 4.80 M/[facility] LAB HEMETOLOGY METHOD 04/11/2024 7:15 AM [facility] Hemoglobin 5.9(LL) 11.5 - 16.0 g/dL LAB HEMETOLOGY METHOD 04/11/2024 7:15 AM [facility] Hematocrit 18.2(LL) 35.0 - 47.0 % LAB HEMETOLOGY METHOD 04/11/2024 7:15 AM [facility] MCV 89.8 79.0 - 98.0 FL LAB HEMETOLOGY METHOD 04/11/2024 7:15 AM EST [facility] MCH 28.6 27.0 - 32.0 pcg LAB HEMETOLOGY METHOD 04/11/2024 7:15 AM EST [facility] MCHC 31.9(L) 32.0 - 37.0 g/dL LAB HEMETOLOGY METHOD 04/11/2024 7:15 AM EST [facility] RDW 13.8 11.0 - 15.0 % LAB HEMETOLOGY METHOD 04/11/2024 7:15 AM EST [facility] Platelets 288 130 - 400 K/mcL LAB HEMETOLOGY METHOD 04/11/2024 7:15 AM EST [facility] MPV 11.2(H) 7.0 - 11.0 FL LAB HEMETOLOGY METHOD 04/11/2024 7:15 AM EST [facility] NRBC 0.0 <1.0 % LAB HEMETOLOGY METHOD 04/11/2024 7:15 AM EST [facility] NRBC Absolute 0.00 <0.10 K/mcL LAB HEMETOLOGY METHOD 04/11/2024 7:15 AM EST [facility] Blood Venous blood specimen / Unknown Venipuncture / Unknown 04/11/2024 5:37 AM EST 04/11/2024 6:34 AM EST us Guillermina Mijares MD LAB BLOOD ORDERABLES Final Res ult [facility] [address] [place] [address], * Lactate dehydrogenase (04/11/2024 5:37 AM EST) LDH 127 120 - 246 unit/L LAB CHEMISTRY METHOD 04/11/2024 8:56 AM EST [facility] Blood Venous blood specimen / Unknown Venipuncture / Unknown 04/11/2024 5:37 AM EST 04/11/2024 6:34 AM EST us Kendall Edge MD LAB BLOOD ORDERABLES Final Re sult Performing Organization Address [facility]/ZIP Co de Phone Number [facility] [address] [place] [address], [place] [phone] * (ABNORMAL) Haptoglobin (04/11/2024 5:37 AM EST) [facility] Haptoglobin 433(H) 16 - 200 mg/dL LAB CHEMISTRY METHOD 04/11/2024 8:22 AM EST [facility] Blood Venous blood specimen / Unknown Venipuncture / Unknown 04/11/2024 5:37 AM EST 04/11/2024 6:34 AM EST us Kendall Edge MD LAB BLOOD ORDERABLES Final Re sult Performing Organization Address [facility] Co de Phone Number [facility] [address] [place] [address], [place] [phone] * (ABNORMAL) Ferritin (04/11/2024 5:37 AM EST) [facility] Ferritin 4,023(H) 8 - 252 ng/mL LAB CHEMISTRY METHOD 04/11/2024 9:28 AM EST [facility] Blood Venous blood specimen / Unknown Venipuncture / Unknown 04/11/2024 5:37 AM EST 04/11/2024 6:34 AM EST us Kendall Edge MD LAB BLOOD ORDERABLES Final Re sult Performing Organization Address [facility] Co de Phone Number [facility] [address] [place] [address], [place] [phone] * (ABNORMAL) Hepatic function panel (04/11/2024 5:37 AM EST) [facility] Total Protein 4.7(L) 6.0 - 8.0 g/dL LAB CHEMISTRY METHOD 04/11/2024 8:56 AM [facility] Albumin 1.9(L) 3.2 - 5.0 g/dL LAB CHEMISTRY METHOD 04/11/2024 8:56 AM [facility] Total Bilirubin 0.5 0.0 - 1.4 mg/dL LAB CHEMISTRY METHOD 04/11/2024 8:56 AM [facility] Bilirubin, Direct 0.2 0.0 - 0.3 mg/dL LAB CHEMISTRY METHOD 04/11/2024 8:56 AM [facility] Bilirubin, Indirect 0.3 0.0 - 1.1 mg/dL LAB CHEMISTRY METHOD 04/11/2024 8:56 AM [facility] ALT (SGPT) 34 10 - 60 unit/L LAB CHEMISTRY METHOD 04/11/2024 8:56 AM [facility] AST (SGOT) 19 10 - 42 unit/L LAB CHEMISTRY METHOD 04/11/2024 8:56 AM [facility] Alkaline Phosphatase 73 42 - 121 unit/L LAB CHEMISTRY METHOD 04/11/2024 8:56 AM [facility] Blood Venous blood specimen / Unknown Venipuncture / Unknown 04/11/2024 5:37 AM EST 04/11/2024 6:34 AM EST us Kendall Edge MD LAB BLOOD ORDERABLES Final Re sult [facility] [address] [place] [address], * CT Angio Chest wo and/or w Contrast (04/10/2024 11:29 AM EST) Anatomical Region Laterality Modality Body Computed Tomogra [...] Signed Date: 04/10/2024 12:42 ET Workstation ID: [id number] Transcribed By: Self Edit Transcribed Date: 04/10/2024 [...] Signed Date: 04/10/2024 12:42 ET Workstation ID: [id number] Transcribed By: Self Edit Transcribed Date: 04/10/2024 12:20 ET Surjit Amador MD IMG CT PROCEDURES Final R esult * Troponin I high sensitivity (04/10/2024 11:05 AM EST) Only the most recent of2 resultswithin the time period is included. High Sensitivity Troponin I 11 <=54 ng/L LAB CHEMISTRY METHOD 04/10/2024 11:54 AM EST [facility] Blood Venous blood specimen / Unknown Venipuncture / Unknown 04/10/2024 11:05 AM EST 04/10/2024 11:25 AM EST Narrative [facility] - 04/10/2024 11:54 AM EST High levels of biotin in samples may falsely decrease hsTroponin values. ??Use caution when interpreting hsTroponin results in patients taking biotin who exhibit renal impairment (eGFR <60) or in patients taking more than 20 mg/day of biotin. Surjit Amador MD LAB BLOOD ORDERABLES Dalila l Result [facility] [address] [place] [address], * Respiratory virus panel molecular study (04/10/2024 10:27 AM EST) Adenovirus Detection by PCR Not Detected Not Detected LAB MICROBIOLOGY METHOD 04/10/2024 11:44 AM EST [facility] Influenza A PCR Not Detected Not Detected LAB MICROBIOLOGY METHOD 04/10/2024 11:44 AM EST [facility] Influenza B PCR Not Detected Not Detected LAB MICROBIOLOGY METHOD 04/10/2024 11:44 AM EST [facility] Coronavirus 229E Not Detected Not Detected LAB MICROBIOLOGY METHOD 04/10/2024 11:44 AM [facility] Coronavirus HKU1 Not Detected Not Detected LAB MICROBIOLOGY METHOD 04/10/2024 11:44 AM EST [facility] Coronavirus OC43 Not Detected Not Detected LAB MICROBIOLOGY METHOD 04/10/2024 11:44 AM [facility] Coronavirus NL63 Not Detected Not Detected LAB MICROBIOLOGY METHOD 04/10/2024 11:44 AM EST [facility] Parainfluenza Virus 1 Not Detected Not Detected LAB MICROBIOLOGY METHOD 04/10/2024 11:44 AM [facility] Parainfluenza Virus 2 Not Detected Not Detected LAB MICROBIOLOGY METHOD 04/10/2024 11:44 AM EST [facility] Parainfluenza Virus 3 Not Detected Not Detected LAB MICROBIOLOGY METHOD 04/10/2024 11:44 AM [facility] Parainfluenza Virus 4 Not Detected Not Detected LAB MICROBIOLOGY METHOD 04/10/2024 11:44 AM [facility] RSV PCR Not Detected Not Detected LAB MICROBIOLOGY METHOD 04/10/2024 11:44 AM [facility] Human Metapneumovirus A and B Not Detected Not Detected LAB MICROBIOLOGY METHOD 04/10/2024 11:44 AM EST [facility] Rhinovirus/Entero virus Not Detected Not Detected LAB MICROBIOLOGY METHOD 04/10/2024 11:44 AM EST [facility] Bordetella pertussis Not Detected Not Detected LAB MICROBIOLOGY METHOD 04/10/2024 11:44 AM [facility] Bordetella parapertussis Not Detected Not Detected LAB MICROBIOLOGY METHOD 04/10/2024 11:44 AM EST [facility] Mycoplasma pneumo by PCR Not Detected Not Detected LAB MICROBIOLOGY METHOD 04/10/2024 11:44 AM EST [facility] Chlamydia pneumoniae Not Detected Not Detected LAB MICROBIOLOGY METHOD 04/10/2024 11:44 AM [facility] SARS COV-2 Not Detected Not Detected LAB MICROBIOLOGY METHOD 04/10/2024 11:44 AM [facility] Swab Both anterior nares / Unknown Non-blood Collection / Unknown 04/10/2024 10:27 AM EST 04/10/2024 10:[address] [facility] - 04/10/2024 11:44 AM EST Testing was performed using the [employer] Respiratory Pathogen PCR Assay. All results must [...] that are below the limit of detection. us Surjit Amador MD LAB MICROBIOLOGY - GENERA L ORDERABLES Final Result [facility] [address] [place] [address], * ECG 12 lead (04/10/2024 9:38 AM EST) Ventricular Rate ECG 94 BPM GEMUSE Atrial Rate 94 BPM GEMUSE P-R Interval 140 ms GEMUSE QRS Duration 78 ms GEMUSE Q-T Interval 344 ms GEMUSE QTc 430 ms GEMUSE P Wave Dorena 64 degrees GEMUSE R Dorena 85 degrees GEMUSE T Dorena 34 degrees GEMUSE ECG Interpretation Sinus rhythm with Premature atrial complexes T wave abnormality, consider inferior ischemia Abnormal ECG When compared with ECG of 16-MAR-2024 03:34, Premature atrial complexes are now Present T wave inversion no longer evident in Anterior leads Confirmed by Baron LOPEZ JAMES ([id number]) on 04/10/2024 5:07:00 PM GEMUSE 04/10/2024 9:38 AM EST 04/10/2024 5:07 PM EST us Surjit Amador MD ECG ORDERABLES Final Res ult GEMUSE * XR Chest 1 View (04/10/2024 9:36 AM EST) Anatomical Region Laterality Modality Body [...] Signed Date: 04/10/2024 09:42 ET Workstation ID: [id number] Transcribed By: Self Edit Transcribed Date: 04/10/2024 [...] Signed Date: 04/10/2024 09:42 ET Workstation ID: [id number] Transcribed By: Self Edit Transcribed Date: 04/10/2024 09:40 ET us Surjit Amador MD IMG XR PROCEDURES Final R esult * [id number], RSV, Influenza A and B qualitative RT-PCR (04/10/2024 9:35 AM EST) Influenza A PCR Not Detected Not Detected LAB MICROBIOLOGY METHOD 04/10/2024 10:55 AM EST [facility] Influenza B PCR Not Detected Not Detected LAB MICROBIOLOGY METHOD 04/10/2024 10:55 AM [facility] RSV PCR Not Detected Not Detected LAB MICROBIOLOGY METHOD 04/10/2024 10:55 AM [facility] SARS COV-2 Not Detected Not Detected LAB MICROBIOLOGY METHOD 04/10/2024 10:55 AM EST [facility] Swab Both anterior nares / Unknown Non-blood Collection / Unknown 04/10/2024 9:35 AM EST 04/10/2024 10:11 AM EST Narrative [facility] - 04/10/2024 10:55 AM EST Disclaimer: ??Testing was performed using the [employer] GeneXpert Xpress SARS-CoV-2 _Flu_RSV PLUS PCR assay. [...] for Healthcare providers can be found at https://www.fda.gov/media/091097/download. ?? Fact sheet for Healthcare patients can be found at https://www.fda.gov/media/707357/download. us Surjit Amador MD LAB MICROBIOLOGY - GENERA L ORDERABLES Final Result [facility] [address] [place] [address], * Blood Culture, Peripheral Draw #1 (04/10/2024 9:24 AM EST) Only the most recent of2 resultswithin the time period is included. Culture, Blood No growth at 5 days LAB MICROBIOLOGY METHOD 04/15/2024 10:01 AM EST [facility] Blood Venous blood specimen / Unknown Venipuncture / Unknown 04/10/2024 9:24 AM EST 04/10/2024 9:31 AM EST Surjit Amador MD LAB MICROBIOLOGY - GENERA L ORDERABLES Final Result [facility] [address] [place] [address], [place] [phone] * APTT (04/10/2024 9:20 AM EST) aPTT 35.5 24.1 - 39.3 sec LAB COAGULATION METHOD 04/10/2024 9:58 AM EST [facility] Blood Venous blood specimen / Unknown Venipuncture / Unknown 04/10/2024 9:20 AM EST 04/10/2024 9:32 AM EST Surjit Amador MD LAB BLOOD ORDERABLES Dalila l Result Performing Organization Address City/[facility]/ZIP Co de Phone Number [facility] [address] [place] [address], [place] [phone] * (ABNORMAL) Protime-INR (04/10/2024 9:20 AM EST) Protime 17.0(H) 10.6 - 13.9 sec LAB COAGULATION METHOD 04/10/2024 9:58 AM EST [facility] INR 1.4 LAB COAGULATION METHOD 04/10/2024 9:58 AM EST [facility] Blood Venous blood specimen / Unknown Venipuncture / Unknown 04/10/2024 9:20 AM EST 04/10/2024 9:32 AM EST us Surjit Amador MD LAB BLOOD ORDERABLES Dalila l Result [facility] [address] [place] [address], * B-type natriuretic peptide (04/10/2024 9:20 AM EST) [facility] BNP 73 <=100 pcg/mL LAB CHEMISTRY METHOD 04/10/2024 10:03 AM EST [facility] Blood Venous blood specimen / Unknown Venipuncture / Unknown 04/10/2024 9:20 AM EST 04/10/2024 9:32 AM EST Surjit Amador MD LAB BLOOD ORDERABLES Dalila l Result Performing Organization Address [facility]/ZIP Co de Phone Number [facility] [address] [place] [address], [place] [phone] * Lactate (04/10/2024 9:20 AM EST) [facility] Lactate 1.4 0.4 - 2.0 mmol/L LAB CHEMISTRY METHOD 04/10/2024 9:56 AM EST [facility] Blood Venous blood specimen / Unknown Venipuncture / Unknown 04/10/2024 9:20 AM EST 04/10/2024 9:31 AM EST Surjit Amador MD LAB BLOOD ORDERABLES Dalila l Result Performing Organization Address City/[facility]/ZIP Co de Phone Number [facility] [address] [place] [address], [place] [phone] * [place] [facility] 30-74 MINUTES (04/10/2024 8:46 AM [...] to decision making regarding care and treatment. us Surjit Amador MD IN CLINIC/BEDSIDE ORDERAB LES Final Result * ECG-Outside (04/10/2024) us Provider Onbase MD ECG ORDERABLES Final Result * ECG-Annotated (04/10/2024) us Provider Onbase MD ECG ORDERABLES Final Result * [place] ARTHROCENTESIS/ASPIRATION/INJECTION MAJOR JOINT/BURSA W/O U/S GUIDANCE (04/02/2024 [...] ?? Verbal ??Pre-procedure timeout performed: yes ?? us Noemi SEPULVEDA IN CLINIC/BEDSIDE ORDERABLES Edited Result - Final * Falls Risk Assessment (11/07/2023) Falls Risk Assessment abstracted us Historical Provider HEALTH MAINTENANCE Final Result * DXA BONE DENSITY STUDY 1+ SITS [...] should be classified as having osteopenia. [facility] Department of Internal Medicine recommends using National [...] Reilly should beclassified as having osteopenia. [facility] Department of Internal Medicine recommendsusing National Osteoporosis [...] or over-estimation of fracture risk by FRAX. Result [facility] Justin Larose MD IMG DXA PROCEDURES Final Result * (ABNORMAL) Lipid panel (03/23/2022) [facility] LDL/HDL Ratio 4 0 - 4 Triglycerides 138 0 - 150 mg/dL Cholesterol 198 0 - 200 mg/dL HDL 54 >=40 mg/dL LDL Cholesterol 117(A) 0 - 100 mg/dL Blood Venous blood specimen / Unknown Result [facility] Provider LAB BLOOD ORDERABLES Dalila l Result * Hepatitis C Screening (01/18/2018) [facility] Hepatitis C Screening abstracted Result [facility] Provider HEALTH MAINTENANCE Final Result * Colonoscopy (05/13/2014) [facility] Colonoscopy no interpretation , abstracted Anatomical Region Laterality Modality Other Result [facility] Provider HEALTH MAINTENANCE Final Result from Last 3 Months or Most Recently Relevant to Health Maintenance Insurance MEDICARE [facility] Advance Directives Documents on File Type Date Recorded Patient Range Rider Expl anation Advance Directives and Living Will 04/17/2024 2:17 PM Advance Directives and Living Will 04/17/2024 2:11 PM Advance Directives and Living Will 04/11/2024 12:36 PM Jose L Reilly Health Care Proxy * Full Code - [...] Agents on File Name Relationship Healthcare Agent Relationshi p Communication Jose L Reilly Spouse Health Care Agent Care Teams Corduroy Cutting Supervisor Relationship Specialty Start Date End Date Justin Larose MD [address] [place] [address] PCP - General Internal Medicine 02/28/24 Inés Alexander MD, PhD [address] [place] [address] Consulting Physician Hematology and Oncology 04/25/23
--- OUTSIDE RECORDS SUMMARY | 2024-06-29 16:26 | XMS_ITS | Encounter Summary ---
Author Organization [facility] Address [address] [place] [address] Care Team Providers Care Certified Caregiver Name Role Phone Justin Larose MD Primary Care Provider [phone] Encounter Details Date Type Department Care Team [...] Message sent to Dr Gurrola concerning- per order received for 1 unit PRBC. Pt [...] 07/03/2024 9:15 AM EDT Office Visit [facility] Hematology Oncology [address] [place] [phone] Scott-Albert Gurrola MD [address] [place] [address] 07/03/2024 9:[address] [facility] [address] [phone] 07/10/2024 9:[address] [facility] [address] [place] [phone] 10/01/2024 1:45 PM EDT Office Visit Orthopedic Surgery [facility] 175 [facility] [address] [place] [phone] Noemi Jones PA [address] [address] 11/16/2024 3:30 PM EDT Office Visit Adult [facility] [address] [place] [address] Justin Larose MD [address] [place] [address] documented as of this encounter Visit Diagnoses [...] documented as of this encounter Care Teams Certified Caregiver Relationship Specialty Start Date End Date Justin Larose MD PCP - General Internal Medicine 09/29/20 02/27/24 Inés Alexander MD, PhD [address] [place] [address] Consulting Physician Hematology and Oncology 04/25/23 documented as of this encounter
--- OUTSIDE RECORDS SUMMARY | 2024-06-29 16:26 | XMS_ITS | Encounter Summary ---
Author Organization [facility] Address [address] [place] [address] Care Team Providers Care Baseball Player Name Role Phone Justin Larose MD Primary Care Provider [phone] Encounter Details Date Type Department Care Team [...] 07/03/2024 9:15 AM EDT Office Visit [facility] Hematology Oncology [address] [place] [address] Scott-Albert Gurrola MD [address] [place] [address] 07/03/2024 9:30 AM EDT Appointment [facility] [address] [phone] 07/10/2024 9:00 AM EDT Appointment [facility] [address] [place] [phone] 10/01/2024 1:45 PM EDT Office Visit Orthopedic Surgery - [place] [address] [phone] Noemi Jones PA 174 [facility] [address] [place] [phone] 11/16/2024 3:30 PM EDT Office Visit Adult Medicine [facility] [address] [place] [phone] Justin Larose MD [address] [place] [address] documented as of this encounter Visit Diagnoses [...] documented as of this encounter Care Teams Baseball Player Relationship Specialty Start Date End Date Justin Larose MD PCP - General Internal Medicine 09/29/20 02/27/24 Inés Alexander MD, PhD [address] [place] [address] Consulting Physician Hematology and Oncology 04/25/23 documented as of this encounter
--- OUTSIDE RECORDS SUMMARY | 2024-06-29 16:26 | XMS_ITS | Encounter Summary ---
Author Organization [facility] Address [address] [place] [address] Care Team Providers Care Marine Mammal Trainer Name Role Phone Justin Larose MD Primary Care Provider [phone] Encounter Details Date Type Department Care Team [...] Description 07/03/2024 9:15 AM EDT Office Visit [facility] Hematology Oncology [address] [place] [address] Albert Mg MD [address] [place] [address] 07/03/2024 9:30 AM EDT Appointment [facility] [address] [phone] 07/10/2024 9:00 AM EDT Appointment [facility] [address] [phone] 10/01/2024 1:45 PM EDT Office Visit Orthopedic Surgery - [place] 175 [facility] [address] [place] [address] Noemi Jones PA 174 [facility] [address] [place] [address] 11/16/2024 3:30 PM EDT Office Visit Adult Medicine [facility] [address] [place] [address] Justin Larose MD [address] [place] [address] documented as of this encounter Procedures Procedure Name Priority Date/Time Associated Diagnosis Comments ..MISCELLANEOUS REFERENCE LAB TEST 02/02/2024 documented in this encounter Results * Miscellaneous reference lab test (02/02/2024) us Provider Onbase LAB BLOOD ORDERABLES Final Re sult documented [...] documented as of this encounter Care Teams Marine Mammal Trainer Relationship Specialty Start Date End Date Justin Larose MD PCP - General Internal Medicine 09/29/20 02/27/24 Inés Alexander MD, PhD [address] [place] [address] Consulting Physician Hematology and Oncology 04/25/23 documented as of this encounter
--- OUTSIDE RECORDS SUMMARY | 2024-06-29 16:26 | XMS_ITS | Encounter Summary ---
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) (Primary Dx); Hypercalcemia; Acute respiratory failure with hypoxia (CMS/HCC); Pneumonitis; Drug-induced peripheral neuropathy (CMS/HCC); Supraclavicular lymphadenopathy; Symptomatic anemia; Hodgkin's lymphoma of bone marrow (CMS/HCC); Hypothyroidism due to medication Social History Tobacco Use Types Packs/Day Years [...] Sign Reading Time Taken Comments Blood Pressure 117/69 06/12/2024 9:47 AM EST Pulse 84 06/12/2024 9:47 AM EST Temperature 36.4 ??C (97.5 ??F) 06/12/2024 9:47 AM ES T Respiratory Rate - - Oxygen Saturation 99% 06/12/2024 9:47 AM EST Inhaled Oxygen Concentration - - Weight 58.3 kg (128 lb 9.6 oz) 06/12/2024 9:47 A M EST Height - - Body Mass Index 20.14 05/11/2024 2:10 PM EST documented in this [...] Donna Mahajan RN documented in this encounter Ordered Prescriptions Prescription Sig Dispense Quantity Refills Last Filled Start Date End Date LORazepam (ATIVAN) 0.5 mg tablet Take 1 tablet (0.5 mg total) by mouth every 8 (eight) hours if needed for anxiety. Max Daily Amount: 1.5 mg 60 tablet 06/12/2024 5 predniSONE (DELTASONE) 10 mg tablet Take 2 tablets (20 mg total) by mouth 2 (two) times a day. 60 tablet 2 06/12/2024 5 documented in this encounter Progress Notes * Albert Mg MD - 06/12/2024 9:45 AM EST CONTINUE prednisone 20 mg daily -- 2 more weeks Then down to 10 mg daily * Albert Mg MD - 06/12/2024 9:45 AM EST CHIEF COMPLAINT: No chief complaint [...] 2024- please refer to notes from prior [facility] EMR last note dated 01/26/24 The [...] second opinion evaluation with Dr. Marsh at [facility]. Recommendation was to initiate pembrolizumab. She completed 13 cycles of the medication However discontinued due to pneumonitis currently on prednisone taper with significant improvement in hypoxia symptoms On prednisone taper-had episodes of hypoxia while on 10 Mg, may increase to 20 Mg for the next 2 more weeks Systemic therapy-she is on gemcitabine, tolerated 2 cycles of treatment quite well with an apparentclinical response However may be related to steroid also Mobility has improved over the past few weeks. Weight gain noted. Denies any nausea. Completed second opinion pulmonology evaluation, has PFT scheduled in early June and thereafter follow-up The following is copied, reviewed and edited [...] cycles Administration: 8 mg (05/01/2024), 8 mg (05/08/2024), 8 mg (05/22/2024), 8 mg (05/29/2024) gemcitabine (GEMZAR) 1,600 mg in sodium chloride 292.08 mL chemo IVPB, 1,640 mg (80 % of original dose 1,250 mg/m2), intravenous, Once, 2 of 6 cycles Dose modification: 1,000 mg/m2 (80 % of original dose 1,250 mg/m2, Cycle 1, Reason: Dose Not Tolerated) Administration: 1,600 mg (05/01/2024), 1,600 mg (05/08/2024), 1,600 mg (05/22/2024), 1,600 mg (05/29/2024) alteplase (CATHFLO ACTIVASE) injection 2 mg, 2 [...] cycles Administration: 8 mg (05/01/2024), 8 mg (05/08/2024), 8 mg (05/22/2024), 8 mg (05/29/2024) gemcitabine (GEMZAR) 1,600 mg in sodium chloride 292.08 mL chemo IVPB, 1,640 mg (80 % of original dose 1,250 mg/m2), intravenous, Once, 2 of 6 cycles Dose modification: 1,000 mg/m2 (80 % of original dose 1,250 mg/m2, Cycle 1, Reason: Dose Not Tolerated) Administration: 1,600 mg (05/01/2024), 1,600 mg (05/08/2024), 1,600 mg (05/22/2024), 1,600 mg (05/29/2024) alteplase (CATHFLO ACTIVASE) injection 2 mg, 2 [...] neoplastic disease 06/30/2023 - 06/30/2023 Supportive Therapy [facility]N EPOETIN SUZETTE (PROCRIT, EPOGEN) Plan Provider: Albert Gurrola MD 07/05/2023 - 09/29/2023 Supportive Therapy [facility] EPOETIN SUZETTE-EPBX (RETACRIT, EPOGEN) Plan Provider: [...] lymph nodes as above. 04/07/2023 - Chemotherapy [facility] OP PEMBROLIZUMAB (200 MG) Plan Provider: [...] we will also involve Dr. Alexander at [facility],who has evaluated patient before. 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 ([facility]/HCC) 02/28/2020 Hypercalcemia 01/21/2020 Lymphadenopathy, generalized 01/21/2020 Hypercholesterolemia 08/27/2016 Hypothyroidism 11/07/2023 Symptomatic anemia 01/30/2020 Hodgkin's lymphoma of bone marrow ([facility]/HCC) 01/31/2024 Migraine with aura and without status migrainosus, not intractable 02/23/2017 Osteopenia 08/27/2016 Primary osteoarthritis of both knees 02/23/2021 Hearing loss of both ears 08/27/2016 History of left mastectomy 08/27/2016 Other fatigue 01/30/2020 Hungry bone syndrome 03/06/2024 Hypothyroidism due to medication 03/07/2024 Hypoxia 03/15/2024 Acute respiratory failure with hypoxia ([facility]) 03/15/2024 Acute CHF ([facility]) 03/15/2024 Acute hypoxemic respiratory failure ([facility]) 03/15/2024 Supraclavicular lymphadenopathy 02/14/2023 Splenomegaly 01/21/2020 Shortness of breath 04/28/2023 Night sweats 02/28/2020 Nausea 05/05/2020 Drug-induced peripheral neuropathy ([facility]) 04/08/2020 Dizzy spells 07/30/2021 Diarrhea due to drug 2020 Acute left-sided low back pain without sciatica 07/30/2021 Acute cystitis without hematuria 05/19/2020 Pneumonitis 04/13/2024 Resolved Ambulatory Problems Diagnosis Date Noted Anemia complicating neoplastic disease 01/11/2020 Pneumonia of both lungs due to infectious organism 03/15/2024 Past Medical History: Diagnosis Date Anemia Arthritis Breast cancer ([facility]) History of breast cancer 08/27/2016 History of vitamin D deficiency 08/27/2016 Hodgkin's lymphoma ([facility]) Hypokalemia Migraine SOCIAL HISTORY: Social [...] or split., Disp: 30 each, Rfl: 1 pregabalin (LYRICA) 50 mg capsule, Take 1 capsule (50 mg total) by mouth at bedtime., Disp: , Rfl: sertraline (ZOLOFT) 100 mg tablet, TAKE 1 TABLET BY MOUTH EVERY DAY, Disp: 90 tablet, Rfl: 1 No Known Allergies PHYSICAL EXAM: Visit Vitals Smoking Status Never APPEARANCE: Alert and in no acute distress [...] interpreted Lab Results Component Value Date WBC 3.5 (L) 05/29/2024 HGB 9.6 (L) 05/29/2024 HCT 29.7 (L) 05/29/2024 MCV 98.3 (H) 05/29/2024 PLT 241 05/29/2024 Lab Results Component Value Date NA 140 05/29/2024 K 3.9 05/29/2024 CL 105 05/29/2024 CO2 28 05/29/2024 GLUCOSE 132 (H) 05/29/2024 BUN 19 05/29/2024 CREATININE 0.83 05/29/2024 CALCIUM 9.1 05/29/2024 PROT 5.6 (L) 05/29/2024 ALBUMIN 3.7 05/29/2024 BILITOT 1.4 05/29/2024 AST 14 05/29/2024 ALT 30 05/29/2024 PHOS 2.6 04/16/2024 MG 2.3 04/16/2024 ALKPHOS 53 05/29/2024 EGFR 74 05/29/2024 Review of Imaging, interpreted XR Shoulder 2+ Views Left This order has been auto-finalized and does not contain a result. Review of External Documentation Tests ordered - IMPRESSION: 1. 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 Hypercalcemia 3. Acute respiratory failure with hypoxia (CMS/HCC) 4. Pneumonitis 5. Drug-induced peripheral neuropathy (CMS/HCC) 6. Supraclavicular lymphadenopathy 7. 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 On prednisone 60 mg daily, written instructions for taper provided, will plan to wean off -- Dose reduced to 10 Mg but with some concern for hypoxia, off oxygen, therefore will maintain at 20 Mg for 2 more weeks and thereafter cut back #3 anemia of neoplastic disease recurrence, increasing [...] at nighttime # 5-second opinion evaluation at [facility], since she has had disease progression [...] for 2 to 4 weeks thereafter #7 anxiety-improved over the last 2 weeks continues on on Zoloft 100 Mg, and Had to resume lorazepam after about 8 weeks Currently using half a tablet at nighttime only #8 debility-may benefit from physical therapy/Occupational Therapy via [facility], will await patient's decision whether she wants to go through therapy Follow-up in 3 weeks, and sooner if new issues arise Pain Control--no issues Health Care Proxy--her Jose L Albert Mg MD Cc Justin Larose MD Cc TAWNYA TONEY -pulmonology, [employer] Cc INÉS ALEXANDER - DFCI documented in this encounter Plan of Treatment Upcoming Encounters Date Type Department Care Team (Late st Contact Info) Description 07/03/2024 9:15 AM EDT Office Visit [facility] Hematology Oncology [address] [place] [phone] Albert Mg MD [address] [place] [phone] 07/03/2024 9:30 AM EDT Appointment [facility] [address] [place] [phone] 07/10/2024 9:00 AM EDT Appointment [facility] [address] [place] [phone] 10/01/2024 1:45 PM EDT Office Visit [facility] - [place] [address] [phone] Noemi Jones PA [address] [phone] 11/16/2024 3:30 PM EDT Office Visit [address] [address] Justin Larose MD [address] [place] [address] Scheduled Orders Name Type Priority Associated Diagnoses Orde r Schedule CBC and differential Lab Routine 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) Hodgkin's lymphoma of bone marrow (CMS/HCC) Expected: 07/03/2024, Expires: 07/03/2025 Comprehensive metabolic panel Lab STAT 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) Hodgkin's lymphoma of bone marrow (CMS/HCC) Expected: 07/03/2024, Expires: 07/03/2025 CBC and differential Lab Routine 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) Hodgkin's lymphoma of bone marrow (CMS/HCC) Expected: 07/10/2024, Expires: 07/10/2025 Thyroid stimulating hormone Lab Routine Hypothyroidism due to medication Every 12 weeks for 4 Occurrences starting 06/12/2024 until 06/12/2025, 1 completed documented as of this encounter Results * (ABNORMAL) Thyroid stimulating hormone (06/19/2024 10:48 AM EST) Pathologist [facility] TSH 4.34(H) 0.40 - 4.00 mcIU/mL LAB CHEMISTRY METHOD 06/19/2024 4:33 PM EST [facility] Blood Blood sample taken from central line / Unknown Existing Catheter / Unknown 06/19/2024 10:48 AM EST 06/19/2024 11:45 AM EST us Subramony Saurav SAMANIEGO LAB BLOOD ORDERABLE S Final Result [facility] [address] [place] [address], * (ABNORMAL) Comprehensive metabolic panel (06/19/2024 8:53 AM EST) [facility] Sodium 142 133 - 145 mmol/L LAB CHEMISTRY METHOD 06/19/2024 9:41 AM [facility] Potassium 3.4(L) 3.5 - 5.5 mmol/L LAB CHEMISTRY METHOD 06/19/2024 9:41 AM [facility] Chloride 108 96 - 110 mmol/L LAB CHEMISTRY METHOD 06/19/2024 9:41 AM [facility] CO2 26 21 - 32 mmol/L LAB CHEMISTRY METHOD 06/19/2024 9:41 AM [facility] Anion Gap 8 3 - 11 LAB CHEMISTRY METHOD 06/19/2024 9:41 AM [facility] Glucose 145(H) 70 - 100 mg/dL LAB CHEMISTRY METHOD 06/19/2024 9:41 AM [facility] BUN 17 5 - 25 mg/dL LAB CHEMISTRY METHOD 06/19/2024 9:41 AM [facility] Creatinine 0.77 0.50 - 1.10 mg/dL LAB CHEMISTRY METHOD 06/19/2024 9:41 AM [facility] eGFR 81 >=60 mL/min/1. 73m2 LAB CHEMISTRY METHOD 06/19/2024 9:41 AM [facility] Comment:Calculation based on the??Chronic Kidney Disease Epidemiology Collaboration (CKD-EPI) equation refit??without adjustment for race. BUN/Creatinine Ratio 22.1 LAB CHEMISTRY METHOD 06/19/2024 9:41 AM [facility] Calcium 9.1 8.5 - 10.5 mg/dL LAB CHEMISTRY METHOD 06/19/2024 9:41 AM [facility] AST (SGOT) 19 10 - 42 unit/L LAB CHEMISTRY METHOD 06/19/2024 9:41 AM [facility] ALT (SGPT) 28 10 - 60 unit/L LAB CHEMISTRY METHOD 06/19/2024 9:41 AM [facility] Alkaline Phosphatase 56 42 - 121 unit/L LAB CHEMISTRY METHOD 06/19/2024 9:41 AM EST [facility] Total Protein 5.5(L) 6.0 - 8.0 g/dL LAB CHEMISTRY METHOD 06/19/2024 9:41 AM [facility] Albumin 3.6 3.2 - 5.0 g/dL LAB CHEMISTRY METHOD 06/19/2024 9:41 AM [facility] Total Bilirubin 1.7(H) 0.0 - 1.4 mg/dL LAB CHEMISTRY METHOD 06/19/2024 9:41 AM [facility] Blood Blood sample taken from central line / Unknown Existing Catheter / Unknown 06/19/2024 8:53 AM EST 06/19/2024 9:01 AM EST Albert Mg MD LAB BLOOD ORDERABLE S Final Result [facility] [address] [place] [address], * (ABNORMAL) Comprehensive metabolic panel (06/12/2024 9:22 AM EST) Sodium 140 133 - 145 mmol/L LAB CHEMISTRY METHOD 06/12/2024 9:53 AM [facility] Potassium 3.5 3.5 - 5.5 mmol/L LAB CHEMISTRY METHOD 06/12/2024 9:53 AM [facility] Chloride 107 96 - 110 mmol/L LAB CHEMISTRY METHOD 06/12/2024 9:53 AM [facility] CO2 29 21 - 32 mmol/L LAB CHEMISTRY METHOD 06/12/2024 9:53 AM [facility] Anion Gap 4 3 - 11 LAB CHEMISTRY METHOD 06/12/2024 9:53 AM [facility] Glucose 147(H) 70 - 100 mg/dL LAB CHEMISTRY METHOD 06/12/2024 9:53 AM [facility] BUN 18 5 - 25 mg/dL LAB CHEMISTRY METHOD 06/12/2024 9:53 AM [facility] Creatinine 0.89 0.50 - 1.10 mg/dL LAB CHEMISTRY METHOD 06/12/2024 9:53 AM [facility] eGFR 68 >=60 mL/min/1. 73m2 LAB CHEMISTRY METHOD 06/12/2024 9:53 AM [facility] Comment:Calculation based on the??Chronic Kidney Disease Epidemiology Collaboration (CKD-EPI) equation refit??without adjustment for race. BUN/Creatinine Ratio 20.2 LAB CHEMISTRY METHOD 06/12/2024 9:53 AM [facility] Calcium 9.1 8.5 - 10.5 mg/dL LAB CHEMISTRY METHOD 06/12/2024 9:53 AM [facility] AST (SGOT) 13 10 - 42 unit/L LAB CHEMISTRY METHOD 06/12/2024 9:53 AM [facility] ALT (SGPT) 21 10 - 60 unit/L LAB CHEMISTRY METHOD 06/12/2024 9:53 AM [facility] Alkaline Phosphatase 54 42 - 121 unit/L LAB CHEMISTRY METHOD 06/12/2024 9:53 AM [facility] Total Protein 5.7(L) 6.0 - 8.0 g/dL LAB CHEMISTRY METHOD 06/12/2024 9:53 AM [facility] Albumin 3.6 3.2 - 5.0 g/dL LAB CHEMISTRY METHOD 06/12/2024 9:53 AM [facility] Total Bilirubin 1.8(H) 0.0 - 1.4 mg/dL LAB CHEMISTRY METHOD 06/12/2024 9:53 AM [facility] Blood Blood sample taken from central line / Unknown Existing Catheter / Unknown 06/12/2024 9:22 AM EST 06/12/2024 9:26 AM EST us Subramony SubramChapo SAMANIEGO LAB BLOOD ORDERABLE S Final Result 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 documented in this encounter Orders Lab Orders Without Results Count Last Ordered D ate First Ordered Date COMPREHENSIVE METABOLIC PANEL 1 06/12/2024 Appointment Requests Count Last Ordered Date Fi rst Ordered Date ONCBCN CALCULATED LENGTH INF USION APPOINTMENT REQUEST 1 1 06/12/2024 ONCBCN CALCULATED LENGTH INF USION APPOINTMENT REQUEST 2 1 06/12/2024 ONCBCN CLINIC APPOINTMENT REQUEST 1 025 documented in this encounter Care Teams Branch Library Clerk Relationship Specialty Start Date End Date Justin Larose MD [address] [place] [phone] PCP - General Internal Medicine 02/28/24 Inés Alexander MD, PhD [address] [place] [phone] Consulting Physician Hematology and Oncology 04/25/23 documented as of this encounter
--- OUTSIDE RECORDS SUMMARY | 2024-06-29 16:26 | XMS_ITS | Encounter Summary ---
Author Organization [facility] Address [address] [place] [address] Care Team Providers Care Alarm Adjuster Name Role Phone Justin Larose MD Primary Care Provider [phone] Encounter Details Date Type Department Care Team (Late st Contact Info) Description 06/22/2024 Billing Patient Not Present Adult Medicine [address] [phone] Justin Larose MD [address] [place] [phone] Social History Tobacco Use Types Packs/Day Years [...] Description 07/03/2024 9:15 AM EDT Office Visit [facility] Hematology Oncology [address] [place] [phone] Albert Mg MD [address] [place] [phone] 07/03/2024 9:30 AM EDT Appointment [facility] [address] [phone] 07/10/2024 9:00 AM EDT Appointment [address] [phone] 10/01/2024 1:45 PM EDT Office Visit Orthopedic Surgery [facility] [address] [phone] Noemi Jones PA [address] [phone] 11/16/2024 3:30 PM EDT Office Visit Adult Medicine [address] [phone] Justin Larose MD [address] [place] [phone] documented as of this encounter Visit Diagnoses Not on filedocumented in this encounter Care Teams Alarm Adjuster Relationship Specialty Start Date End Date Justin Larose MD [address] [place] [phone] PCP - General Internal Medicine 02/28/24 Inés Alexander MD, PhD [address] [place] [phone] Consulting Physician Hematology and Oncology 04/25/23 documented as of this encounter
--- OUTSIDE RECORDS SUMMARY | 2024-06-29 16:26 | XMS_ITS | Encounter Summary ---
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 Stable patient assessment. Patient only using supplemental oxygen as needed. Patient's reports she has not needed it in almost two weeks. Patientwalking more and appetite has increased. Patient's labs reviewed with Dr. Izabela, Bilirubin increasedto 1.8. Protocol reviewed with pharmacy and Dr. Gurrola. advised to keep Gemzar dose the same as itis already dose reduced to 80%. Patient pre-medicated and resting comfortably in chair with call jara in reach. 1230-Patient completed treatment without incident. Patient's port flushed and deaccessd per protocol. Patient has her next appointments in place. Patient stable upon discharge. documented in this encounter Plan of Treatment Upcoming Encounters Date Type Department Care Team (Late st Contact Info) Description 07/03/2024 9:15 AM EDT Office Visit [facility] Hematology Oncology [address] [place] [phone] Albert Mg MD [address] [place] [address] 07/03/2024 9:[address] [facility] [address] [place] [phone] 07/10/2024 9:00 AM EDT Appointment [facility] [address] [place] [phone] 10/01/2024 1:45 PM EDT Office Visit Orthopedic Surgery [facility] [address] [phone] Noemi Jones PA [address] [phone] 11/16/2024 3:30 PM EDT Office Visit Adult [facility] [address] [place] [phone] Justin Larose MD [address] [place] [phone] documented as of this encounter Visit Diagnoses Diagnosis Hodgkin's lymphoma [...] mL/hr, Administer over 30 Minutes, Once, On Tue06/12/24 at 1145, For 1 dose, This agent is an irritant. Order Dose 1,000 mg/m2 Admin Dose 1,680 mg . Dose rounded to 1600 per protocol. NS Flush Only. HAZARDOUS Drug Precautions - High Risk (Category C/NIOSH Group 1) Antineoplastic: - Double pair of ASTM standard D6978 certified chemotherapy gloves - Chemotherapy gown - Closed-System Transfer Device (CSTD) recommended - Eye protection (goggles or face shield) required only with a potential for facial contact (i.e. 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
--- OUTSIDE RECORDS SUMMARY | 2024-06-29 16:26 | XMS_ITS | Encounter Summary ---
Author Organization [facility] Address [address] [place] [address] Care Team Providers Care Plush Finisher Name Role Phone Justin Larose MD Primary Care Provider [phone] Encounter Details Date Type Department Care Team [...] Visit [facility] Hematology Oncology [address] [place] [phone] Albert Mg MD [address] [place] [phone] 07/03/2024 9:30 AM EDT Appointment [facility] Infusion Center [address] [place] [phone] 07/10/2024 9:00 AM EDT Appointment [facility]fusion [facility] [address] [place] [phone] 10/01/2024 1:45 PM EDT Office Visit Orthopedic Surgery [facility] [address] [phone] Noemi Jones PA [address] [phone] 11/16/2024 3:30 PM EDT Office Visit Adult Medicine [facility] [address] [place] [phone] Justin Larose MD [address] [place] [phone] documented as of this encounter Visit Diagnoses [...] documented as of this encounter Care Teams Plush Finisher Relationship Specialty Start Date End Date Justin Larose MD PCP - General Internal Medicine 09/29/20 02/27/24 Inés Alexander MD, PhD [address] [place] [phone] Consulting Physician Hematology and Oncology 04/25/23 documented as of this encounter
--- OUTSIDE RECORDS SUMMARY | 2024-06-29 16:26 | XMS_ITS | Encounter Summary ---
Author Organization [facility] Address [address] [place] [address] Care Team Providers Care Vulnerability Researcher Name Role Phone Justin Larose MD Primary Care Provider [phone] Encounter Details Date Type Department Care Team (Late Contact Info) Description 02/13/2024 7:39 AM EDT Hospital Encounter TH HISTORIC ENCOUNTERS EASTERN CONVERSION ONLY Mannie Quinteros MD [address] [place] [phone] Social History Tobacco Use Types Packs/Day Years [...] Description 07/03/2024 9:15 AM EDT Office Visit [facility] Hematology Oncology [address] [place] [phone] Albert Mg MD [address] [place] [phone] 07/03/2024 9:30 AM EDT Appointment [facility] Infusion Center [address] [phone] 07/10/2024 9:00 AM EDT Appointment [facility] Infusion [facility] [address] [place] [phone] 10/01/2024 1:45 PM EDT Office Visit Orth[facility] [place] [address] [phone] Noemi Jones PA [address] [phone] 11/16/2024 3:30 PM EDT Office Visit Adult Medicine [facility] [address] [place] [phone] Justin Larose MD [address] [place] [phone] documented as of this encounter Visit Diagnoses [...] documented as of this encounter Care Teams Vulnerability Researcher Relationship Specialty Start Date End Date Justin Larose MD PCP - General Internal Medicine 09/29/20 02/27/24 Inés Alexander MD, PhD [address] [place] [address] Consulting Physician Hematology and Oncology 04/25/23 documented as of this encounter
--- OUTSIDE RECORDS SUMMARY | 2024-06-29 16:26 | XMS_ITS | Encounter Summary ---
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 ([facility]/HCC) Albert Mg MD [address] [place] [phone] Phone: tel: fax: [facility] [address] [place] [phone] Phone: tel: fax: Referral ID Status Reason Start Date Expiration Date V isits Requested Visits Authorized [id number] Authorized 04/26/2024 04/26/2025 1 20 Encounter Details Date Type Department Care Team (Latest Contact Info) Description 05/29/2024 9:00 AM EST - 05/29/2024 11:59 PM EST Hospital Encounter [facility] Infusion Center [address] [place] [phone] Albert Mg MD [address] [place] [phone] Mixed cellularity Hodgkin lymphoma of lymph [...] Sign Reading Time Taken Comments Blood Pressure 128/65 05/29/2024 9:27 AM EST Pulse 73 05/29/2024 9:27 AM EST Temperature 36.5 ??C (97.7 ??F) 05/29/2024 9:27 AM ES T Respiratory Rate - - Oxygen Saturation 97% 05/29/2024 9:27 AM EST Inhaled Oxygen Concentration - - Weight 57.7 kg (127 lb 3.2 oz) 05/29/2024 9:27 A M EST Height - - Body Mass Index 19.92 05/11/2024 2:10 PM EST documented in this [...] documented in this encounter Progress Notes * Lizeth Reynolds RN - 05/29/2024 9:00 AM EST Pt arrives today accompanied by for stat labs and D8C2 treatment. Pt reports feeling well overall. Medications, allergies, and assessment reviewed. RIGHT upper chest port accessed per protocol. Stat labs CBCD CMP T&S drawn and sent. Pt requested O2 tank 1.5LNC - pt was 97% on RA. 1030 labs resulted and reviewed with Dr Gurrola. Ok to treat received. Medication released to pharmacy. Premeds given. 1220 Gemzar infused over 30 minutes. Pt tolerated well. Port deaccessed without difficulty. Appointments made for next treatment. Stable at discharge. documented in this encounter Plan of Treatment Upcoming Encounters Date Type Department Care Team (Late st Contact Info) Description 07/03/2024 9:15 AM EDT Office Visit [facility] Hematology Oncology [address] [place] [phone] Albert Mg MD [address] [place] [phone] 07/03/2024 9:30 AM EDT Appointment [facility] Infusion Center [address] [place] [phone] 07/10/2024 9:00 AM EDT Appointment [facility] [address] [place] [phone] 10/01/2024 1:45 PM EDT Office Visit Orthopedic Surgery [facility] [address] [phone] Noemi Jones PA [address] [phone] 11/16/2024 3:30 PM EDT Office Visit Adult Medicine [facility] [address] [place] [phone] Justin Larose MD [address] [place] [phone] documented as of this encounter Procedures Procedure Name Priority Date/Time Associated Diagnosis Comments MANUAL DIFFERENTIAL - SYSMEX WAM STAT 05/29/2024 [...] (myelodysplastic syndrome) (CMS/HCC) TYPE AND SCREEN STAT 05/29/2024 9:37 AM EST 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) Myelodysplasia (myelodysplastic syndrome) (CMS/HCC) COMPREHENSIVE METABOLIC PANEL STAT 05/29/2024 9:37 AM EST 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) documented in this encounter Results * (ABNORMAL) Manual differential (05/29/2024 9:37 AM EST) Neutrophils % 46.0 % LAB HEMETOLOGY METHOD 05/29/2024 10:20 AM [facility] Bands % 1.0 % LAB HEMETOLOGY METHOD 05/29/2024 10:20 AM [facility] Lymphocytes % 33.0 % LAB HEMETOLOGY METHOD 05/29/2024 10:20 AM [facility] Monocytes % 5.0 % LAB HEMETOLOGY METHOD 05/29/2024 10:20 AM [facility] Eosinophils % 0.0 % LAB HEMETOLOGY METHOD 05/29/2024 10:20 AM [facility] Basophils % 1.0 % LAB HEMETOLOGY METHOD 05/29/2024 10:20 AM [facility] Metamyelocytes % 2.0(H) % LAB HEMETOLOGY METHOD 05/29/2024 10:20 AM [facility] Myelocytes % 7.0(H) % LAB HEMETOLOGY METHOD 05/29/2024 10:20 AM [facility] Promyelocytes % 2.0(H) % LAB HEMETOLOGY METHOD 05/29/2024 10:20 AM [facility] Blasts % 3.0(H) % LAB HEMETOLOGY METHOD 05/29/2024 10:20 AM [facility] Neutrophils Absolute Manual 1.61 1.50 - 7.00 K/mcL LAB HEMETOLOGY METHOD 05/29/2024 10:20 AM [facility] Bands Absolute Manual 0.04(H) 0.00 - 0.00 K/mcL LAB HEMETOLOGY METHOD 05/29/2024 10:20 AM [facility] Lymphocytes Absolute 1.16 1.00 - 5.00 K/mcL LAB HEMETOLOGY METHOD 05/29/2024 10:20 AM [facility] Monocytes Absolute Manual 0.18(L) 0.20 - 1.00 K/mcL LAB HEMETOLOGY METHOD 05/29/2024 10:20 AM [facility] Eosinophils Absolute Manual 0.00 0.00 - 0.50 K/mcL LAB HEMETOLOGY METHOD 05/29/2024 10:20 AM [facility] Basophils Absolute Manual 0.04 0.00 - 0.20 K/mcL LAB HEMETOLOGY METHOD 05/29/2024 10:20 AM [facility] Metamyelocytes Absolute Manual 0.07(H) 0.00 - 0.00 K/mcL LAB HEMETOLOGY METHOD 05/29/2024 10:20 AM [facility] Myelocytes Absolute Manual 0.25(H) 0.00 - 0.00 K/mcL LAB HEMETOLOGY METHOD 05/29/2024 10:20 AM [facility] Promyelocytes Absolute Manual 0.07(H) 0.00 - 0.00 K/mcL LAB HEMETOLOGY METHOD 05/29/2024 10:[address] [facility] Blasts Absolute 0.11(H) 0.00 - 0.00 K/mcL LAB HEMETOLOGY METHOD 05/29/2024 10:[address] [facility] Rbc Morphology See comment( A) Consistent with indices, Normal for [place] LAB HEMETOLOGY METHOD 05/29/2024 10:[address] [facility] Comment:RBC: Morphology agre es with CBC Platelet Morphology - WAM See Note(A) Normal LAB HEMETOLOGY METHOD 05/29/2024 10:20 AM [facility] Comment:PLT: Normal Blood Blood sample taken from central line / Unknown Existing Catheter / Unknown 05/29/2024 9:37 AM EST 05/29/2024 9:49 AM EST us Subramony SubramChapo [facility] LAB BLOOD ORDERABLE S Final Result [facility] [address] [place] [address], * (ABNORMAL) CBC auto differential (05/29/2024 9:37 AM EST) WBC 3.5(L) 4.8 - 10.8 K/mcL LAB HEMETOLOGY METHOD 05/29/2024 10:20 AM [facility] RBC 3.00(L) 3.80 - 4.80 M/mcL LAB HEMETOLOGY METHOD 05/29/2024 10:20 AM [facility] Hemoglobin 9.6(L) 11.5 - 16.0 g/dL LAB HEMETOLOGY METHOD 05/29/2024 10:20 AM [facility] Hematocrit 29.7(L) 35.0 - 47.0 % LAB HEMETOLOGY METHOD 05/29/2024 10:20 AM [facility] MCV 98.3(H) 79.0 - 98.0 FL LAB HEMETOLOGY METHOD 05/29/2024 10:[address] [facility] MCH 31.8 27.0 - 32.0 pcg LAB HEMETOLOGY METHOD 05/29/2024 10:[address] [facility] MCHC 32.3 32.0 - 37.0 g/dL LAB HEMETOLOGY METHOD 05/29/2024 10:[address] [facility] RDW 21.8(H) 11.0 - 15.0 % LAB HEMETOLOGY METHOD 05/29/2024 10:[address] [facility] Platelets 241 130 - 400 K/mcL LAB HEMETOLOGY METHOD 05/29/2024 10:20 AM [facility] MPV 9.4 7.0 - 11.0 FL LAB HEMETOLOGY METHOD 05/29/2024 10:[address] [facility] NRBC 0.9 <1.0 % LAB HEMETOLOGY METHOD 05/29/2024 10:20 AM [facility] NRBC Absolute 0.03 <0.10 K/mcL LAB HEMETOLOGY METHOD 05/29/2024 10:20 AM [facility] Blood Blood sample taken from central line / Unknown Existing Catheter / Unknown 05/29/2024 9:37 AM EST 05/29/2024 9:49 AM EST us Subramrosalind Mg MD LAB BLOOD ORDERABLE S Final Result [facility] [address] [place] [address], * Type and screen (05/29/2024 9:37 AM EST) ABO Group A 05/29/2024 10:[address] [facility] Rh Type Negative 05/29/2024 10:[address] [facility] Antibody Screen Negative 05/29/2024 10:32 AM [facility] Blood Blood sample taken from central line / Unknown Existing Catheter / Unknown 05/29/2024 9:37 AM EST 05/29/2024 9:49 AM EST Albert Mg MD LAB BLOOD BANK TEST ORDERABLES Final Result [facility] [address] [place] [address], [place] [phone] * (ABNORMAL) Comprehensive metabolic panel (05/29/2024 9:37 AM EST) Sodium 140 133 - 145 mmol/L LAB CHEMISTRY METHOD 05/29/2024 10:14 AM [facility] Potassium 3.9 3.5 - 5.5 mmol/L LAB CHEMISTRY METHOD 05/29/2024 10:14 AM [facility] Chloride 105 96 - 110 mmol/L LAB CHEMISTRY METHOD 05/29/2024 10:14 AM [facility] CO2 28 21 - 32 mmol/L LAB CHEMISTRY METHOD 05/29/2024 10:14 AM [facility] Anion Gap 7 3 - 11 LAB CHEMISTRY METHOD 05/29/2024 10:14 AM [facility] Glucose 132(H) 70 - 100 mg/dL LAB CHEMISTRY METHOD 05/29/2024 10:14 AM [facility] BUN 19 5 - 25 mg/dL LAB CHEMISTRY METHOD 05/29/2024 10:14 AM [facility] Creatinine 0.83 0.50 - 1.10 mg/dL LAB CHEMISTRY METHOD 05/29/2024 10:14 AM [facility] eGFR 74 >=60 mL/min/1. 73m2 LAB CHEMISTRY METHOD 05/29/2024 10:14 AM [facility] Comment:Calculation based on the??Chronic Kidney Disease Epidemiology Collaboration (CKD-EPI) equation refit??without adjustment for race. BUN/Creatinine Ratio 22.9 LAB CHEMISTRY METHOD 05/29/2024 10:14 AM [facility] Calcium 9.1 8.5 - 10.5 mg/dL LAB CHEMISTRY METHOD 05/29/2024 10:14 AM [facility] AST (SGOT) 14 10 - 42 unit/L LAB CHEMISTRY METHOD 05/29/2024 10:14 AM [facility] ALT (SGPT) 30 10 - 60 unit/L LAB CHEMISTRY METHOD 05/29/2024 10:14 AM [facility] Alkaline Phosphatase 53 42 - 121 unit/L LAB CHEMISTRY METHOD 05/29/2024 10:14 AM [facility] Total Protein 5.6(L) 6.0 - 8.0 g/dL LAB CHEMISTRY METHOD 05/29/2024 10:14 AM [facility] Albumin 3.7 3.2 - 5.0 g/dL LAB CHEMISTRY METHOD 05/29/2024 10:14 AM [facility] Total Bilirubin 1.4 0.0 - 1.4 mg/dL LAB CHEMISTRY METHOD 05/29/2024 10:14 AM [facility] Blood Blood sample taken from central line / Unknown Existing Catheter / Unknown 05/29/2024 9:37 AM EST 05/29/2024 9:49 AM EST us Albert Mg MD LAB BLOOD ORDERABLE S Final Result [facility] [address] [place] [address], documented in this encounter Visit Diagnoses Diagnosis [...] mL/hr, Administer over 30 Minutes, Once, On Tue05/29/24 at 1100, For 1 dose, This agent is an irritant. Dose rounded per [facility] rounding policy NS Flush Only. 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
--- OUTSIDE RECORDS SUMMARY | 2024-06-29 16:26 | XMS_ITS | Encounter Summary ---
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 Patient's port accessed without difficulty. + blood return. Labs drawn and sent to lab. Patient's port remains accessed for use. Patient down to MD office to see Dr. Gurrola for follow-up visit and to return for treatment and/or supportive care. documented in this encounter Plan of Treatment Upcoming Encounters Date Type Department Care Team (Late st Contact Info) Description 07/03/2024 9:15 AM EDT Office Visit [facility] Hematology Oncology [address] [place] [phone] Albert Mg MD [address] [place] [address] 07/03/2024 9:30 AM EDT Appointment [facility] [address] [place] [phone] 07/10/2024 9:00 AM EDT Appointment [address] [phone] 10/01/2024 1:45 PM EDT Office Visit [facility] [place] [address] [phone] Noemi Jones PA [address] [phone] 11/16/2024 3:30 PM EDT Office Visit [facility] [address] [place] [phone] Justin Larose MD [address] [place] [address] documented as of this encounter Procedures Procedure Name Priority Date/Time Associated Diagnosis Comments MANUAL DIFFERENTIAL - SYSMEX WAM STAT 06/12/2024 [...] (myelodysplastic syndrome) (CMS/HCC) TYPE AND SCREEN STAT 06/12/2024 9:22 AM EST 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) Myelodysplasia (myelodysplastic syndrome) (CMS/HCC) COMPREHENSIVE METABOLIC PANEL STAT 06/12/2024 9:22 AM EST 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) documented in this encounter Results * (ABNORMAL) Manual differential (06/12/2024 9:22 AM EST) Neutrophils % 79.0 % LAB HEMETOLOGY METHOD 06/12/2024 10:04 AM EST [facility]) [facility] Bands % 2.0 % LAB HEMETOLOGY METHOD 06/12/2024 10:04 AM [facility] Lymphocytes % 9.0 % LAB HEMETOLOGY METHOD 06/12/2024 10:04 AM [facility] Monocytes % 7.0 % LAB HEMETOLOGY METHOD 06/12/2024 10:04 AM [facility] Eosinophils % 3.0 % LAB HEMETOLOGY METHOD 06/12/2024 10:04 AM [facility] Basophils % 0.0 % LAB HEMETOLOGY METHOD 06/12/2024 10:04 AM [facility] Metamyelocytes % 1.0(H) % LAB HEMETOLOGY METHOD 06/12/2024 10:04 AM [facility] Neutrophils Absolute Manual 5.53 1.50 - 7.00 K/mcL LAB HEMETOLOGY METHOD 06/12/2024 10:04 AM [facility] Bands Absolute Manual 0.14(H) 0.00 - 0.00 K/mcL LAB HEMETOLOGY METHOD 06/12/2024 10:04 AM [facility] Lymphocytes Absolute 0.63(L) 1.00 - 5.00 K/mcL LAB HEMETOLOGY METHOD 06/12/2024 10:04 AM [facility] Monocytes Absolute Manual 0.49 0.20 - 1.00 K/mcL LAB HEMETOLOGY METHOD 06/12/2024 10:04 AM [facility] Eosinophils Absolute Manual 0.21 0.00 - 0.50 K/mcL LAB HEMETOLOGY METHOD 06/12/2024 10:04 AM [facility] Basophils Absolute Manual 0.00 0.00 - 0.20 K/mcL LAB HEMETOLOGY METHOD 06/12/2024 10:04 AM [facility] Metamyelocytes Absolute Manual 0.07(H) 0.00 - 0.00 K/mcL LAB HEMETOLOGY METHOD 06/12/2024 10:04 AM EST [facility] Rbc Morphology See comment( A) Consistent with indices, Normal for LAB HEMETOLOGY METHOD 06/12/2024 10:04 AM EST [facility] Comment:RBC: Morphology agre es with CBC Platelet Morphology - WAM See Note(A) Normal LAB HEMETOLOGY METHOD 06/12/2024 10:04 AM [facility] Comment:PLT: Normal Blood Blood sample taken from central line / Unknown Existing Catheter / Unknown 06/12/2024 9:22 AM EST 06/12/2024 9:26 AM EST Albert Mg MD LAB BLOOD ORDERABLE S Final Result [facility] [address] [place] [address], * (ABNORMAL) CBC auto differential (06/12/2024 9:22 AM EST) WBC 7.0 4.8 - 10.8 K/mcL LAB HEMETOLOGY METHOD 06/12/2024 10:04 AM [facility] RBC 2.50(L) 3.80 - 4.80 M/mcL LAB HEMETOLOGY METHOD 06/12/2024 10:04 AM [facility] Hemoglobin 8.4(L) 11.5 - 16.0 g/dL LAB HEMETOLOGY METHOD 06/12/2024 10:04 AM [facility] Hematocrit 26.2(L) 35.0 - 47.0 % LAB HEMETOLOGY METHOD 06/12/2024 10:04 AM [facility] MCV 103.1(H) 79.0 - 98.0 FL LAB HEMETOLOGY METHOD 06/12/2024 10:04 AM [facility] MCH 33.1(H) 27.0 - 32.0 pcg LAB HEMETOLOGY METHOD 06/12/2024 10:04 AM EST [facility] MCHC 32.1 32.0 - 37.0 g/dL LAB HEMETOLOGY METHOD 06/12/2024 10:04 AM [facility] RDW 24.6(H) 11.0 - 15.0 % LAB HEMETOLOGY METHOD 06/12/2024 10:04 AM [facility] Platelets 269 130 - 400 K/mcL LAB HEMETOLOGY METHOD 06/12/2024 10:04 AM [facility] MPV 10.4 7.0 - 11.0 FL LAB HEMETOLOGY METHOD 06/12/2024 10:04 AM [facility] NRBC 0.7 <1.0 % LAB HEMETOLOGY METHOD 06/12/2024 10:04 AM [facility] NRBC Absolute 0.05 <0.10 K/mcL LAB HEMETOLOGY METHOD 06/12/2024 10:04 AM [facility] Blood Blood sample taken from central line / Unknown Existing Catheter / Unknown 06/12/2024 9:22 AM EST 06/12/2024 9:26 AM EST us Mazinramrosalind Mg MD LAB BLOOD ORDERABLE S Final Result [facility] [address] [place] [address], * (ABNORMAL) Comprehensive metabolic panel (06/12/2024 9:22 AM EST) Sodium 140 133 - 145 mmol/L LAB CHEMISTRY METHOD 06/12/2024 9:53 AM [facility] Potassium 3.5 3.5 - 5.5 mmol/L LAB CHEMISTRY METHOD 06/12/2024 9:53 AM [facility] Chloride 107 96 - 110 mmol/L LAB CHEMISTRY METHOD 06/12/2024 9:53 AM [facility] CO2 29 21 - 32 mmol/L LAB CHEMISTRY METHOD 06/12/2024 9:53 AM [facility] Anion Gap 4 3 - 11 LAB CHEMISTRY METHOD 06/12/2024 9:53 AM [facility] Glucose 147(H) 70 - 100 mg/dL LAB CHEMISTRY METHOD 06/12/2024 9:53 AM [facility] BUN 18 5 - 25 mg/dL LAB CHEMISTRY METHOD 06/12/2024 9:53 AM [facility] Creatinine 0.89 0.50 - 1.10 mg/dL LAB CHEMISTRY METHOD 06/12/2024 9:53 AM [facility] eGFR 68 >=60 mL/min/1. 73m2 LAB CHEMISTRY METHOD 06/12/2024 9:53 AM [facility] Comment:Calculation based on the??Chronic Kidney Disease Epidemiology Collaboration (CKD-EPI) equation refit??without adjustment for race. BUN/Creatinine Ratio 20.2 LAB CHEMISTRY METHOD 06/12/2024 9:53 AM [facility] Calcium 9.1 8.5 - 10.5 mg/dL LAB CHEMISTRY METHOD 06/12/2024 9:53 AM [facility] AST (SGOT) 13 10 - 42 unit/L LAB CHEMISTRY METHOD 06/12/2024 9:53 AM [facility] ALT (SGPT) 21 10 - 60 unit/L LAB CHEMISTRY METHOD 06/12/2024 9:53 AM [facility] Alkaline Phosphatase 54 42 - 121 unit/L LAB CHEMISTRY METHOD 06/12/2024 9:53 AM [facility] Total Protein 5.7(L) 6.0 - 8.0 g/dL LAB CHEMISTRY METHOD 06/12/2024 9:53 AM [facility] Albumin 3.6 3.2 - 5.0 g/dL LAB CHEMISTRY METHOD 06/12/2024 9:53 AM EST [facility] Total Bilirubin 1.8(H) 0.0 - 1.4 mg/dL LAB CHEMISTRY METHOD 06/12/2024 9:53 AM EST [facility] Blood Blood sample taken from central line / Unknown Existing Catheter / Unknown 06/12/2024 9:22 AM EST 06/12/2024 9:26 AM EST us Albert Mg MD LAB BLOOD ORDERABLE S Final Result Performing Organization Address [facility] Co de Phone Number [facility] [address] [place] [address], [place] [phone] * Type and screen (06/12/2024 9:22 AM EST) ABO Group A 06/12/2024 10:23 AM [facility] Rh Type Negative 06/12/2024 10:23 AM [facility] Antibody Screen Negative 06/12/2024 10:23 AM [facility] Blood Blood sample taken from central line / Unknown Existing Catheter / Unknown 06/12/2024 9:22 AM EST 06/12/2024 9:26 AM EST us Albert Mg MD LAB BLOOD BANK TEST ORDERABLES Final Result Performing Organization Address City/[facility]/ZIP Co de Phone Number [facility] [address] [place] [address], [place] [phone] documented in this encounter Visit Diagnoses Diagnosis 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
== END 2024-06-29 14:43 | disposition home or self-care (01) ==
LOC: HO.RESP 14:42
PROVIDERS: PCP Internal Medicine; Visit Provider Hospitalist
DX: J98.4 Other disorders of lung (principal); J18.9 Pneumonia, unspecified organism
CPT/HCPCS: 94010; 94640; 94727; 94729

== ENCOUNTER → 2024-06-29 14:45 | Outpatient (BNV) | payer MEDICARE, OTHER, SELFPAY | PROVIDERS: PCP Internal Medicine; Visit Provider Hospitalist | DX: J98.4 Other disorders of lung (principal); J18.9 Pneumonia, unspecified organism | CPT/HCPCS: 94060; 94727 ==

== ENCOUNTER 2024-10-15 09:16 | Outpatient (AMB) | payer MEDICARE, OTHER, SELFPAY ==
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
[2024-10-15 09:21] VITALS: BP 118/66; PULSE 95; O2SAT 97; BMI 20.7
--- NOTE | 2024-10-15 09:21 | A.OFFVIS_ITS ---
Vital Signs 10/15/24 09:21 Height 5 ft 7 in Weight 132 lb 4.438 oz BMI 20.7 BP 118/66 Blood Pressure Location Rt brachial Position Sitting Pulse 95 Pulse Source Pulse Oximeter Pulse Oximetry (%) 97 Oxygen Delivery Method Room Air Intake Visit Reasons: Lymph Nodes/PFT Follow Up Associate Dentist Required: No Accompanied by: Spouse Allergies No Known Allergies Allergy (Verified 10/15/24 09:26) HPI Comments Details: The patient is a 74-year-old woman with known history of lymphoma who apparently had been on Keytruda started developing worsening respiratory symptoms. Initially back in February she presented to the hospital with acute respiratory failure. She had a CT scan of the chest PE protocol that demonstrated bilateral patchy consolidations and ground-glass opacities. He was given antibiotics and also was evaluated by Pulmonary there. She did undergo a bronchoscopy. I do not have the results of the cultures but apparently per report there were negative for any infectious process and also had biopsies that I do not have a this time. The patient did have some bleeding during the biopsies so therefore only limited biopsies were gather. She was able to be discharged on oxygen and a prednisone taper. The patient did complete the antibiotics. Once she tapered off the prednisone her symptoms worsen and even on the oxygen she desaturated down to 70%. Therefore her son called 911 she was brought back to [facility] where she was readmitted to the hospital. She had a repeat CT scan of the chest I do not have the results and the patient was evaluated by Oncology. Is felt that based on the negative cultures from the bronchoscopy that this was likely related to the immune therapy resulting in pneumonitis. Therefore she was taken off the immune therapy and placed on prednisone. Currently she is on 30 mg of prednisone and will tapering down slowly from there. The patient also placed on gemcitabine which she seems to be tolerating well for her lymphoma. The patient otherwise is feeling well today we did a 6 minute walk test the pat ient did very well and did not require any additional oxygen at this time. Although we will reassess as she is weaning off the prednisone. She will come back for a pulmonary function study and also request a chest x-ray at that time. And will follow-up after the breathing studies. Hopefully she can wean off the prednisone and we can consider inhaled cortical steroids to provide her some anti-inflammatory effect in the meantime. She will follow-up with Oncology and she will have additional imaging studies at [facility]. 10/15/2024 the patient is here for pulmonary follow-up visit. Overall she is doing overall better. She did have several admissions to [facility] since we last spoke. Clinically she is doing better. She is weaning off the prednisone. Currently on 20 mg of prednisone going to taper slowly. We did talk about even slower prednisone taper but right now clinically she is doing well. Will start her on inhaled corticosteroid to minimize withdrawal symptoms on the steroid. She also did have a PET scan. I am going to request a copy of the PET scan to review. But her respiratory exam is reassuring do believe that the pneumonitis at now settled. She is on chemotherapy now so therefore she is immunosuppressed. We did review her PFTs demonstrating a mild restrictive ventilatory defect and a moderate diffusion impairment. Overall better. The patient does not require oxygen supplementation a longer period. She will continue weaning off the prednisone completely and will stay on the inhaled corticosteroid. He can stay on the inhaler for few months as long she can not tolerate it. She knows to rinse and gargle well to avoid thrush. [facility] Medical History (Updated 10/15/24 @ 22:00 by Salvador Feliciano MD) Pneumonia Pneumonitis History of left breast cancer Osteoarthritis of knees, bilateral Hodgkin lymphoma Social History Household Members: Spouse Housing: House Are you a primary healthcare administration internship to a significant other at home: No Do you presently have visiting nurse or other home services: No 75 years or older and lives alone: No Alcohol intake: never Patient Tobacco Use Status: Never used Tobacco e-Cigarette/Vaping Use: Never Used service: No Current occupational status: retired Review of Systems Const Reports weakness Eyes Reports no additional complaints ENT Reports no additional complaints Card Denies chest pain and Reports dyspnea on exertion Resp Reports dyspnea on exertion and Denies wheezing GI Reports no additional complaints Musc Reports myalgias and Reports muscle weakness Skin/Breast Denies rash Neuro Reports weakness Psych Reports no additional complaints Terry/Lymph Denies easy bleeding and Denies easy bruising Aller/Immun Denies wheezing Physical Exam Vital Signs: Last Vital Signs Pulse 95 10/15/24 09:21 BP 118/66 10/15/24 09:21 Pulse Ox 97 10/15/24 09:21 Oxygen Delivery Method Room Air 10/15/24 09:21 BMI result Body Mass Index 20.7 Const General: comfortable HEENT Head: Yes normocephalic Neck Neck: Yes supple Chest Chest palpation & inspection: normal inspection of the chest Resp Effort & Inspection: normal respiratory effort Auscultation: no rales, no rhonchi, no wheezes and diminished lung sounds Cardio Heart sounds: S1 normal heart sound present and S2 normal heart sound present GI Palpation (GI): Soft to palpation Skin General skin exam: no rashes or lesions noted Extrem General: Yes no clubbing, cyanosis or edema Assessment & Plan Assessment & Plan (1) Pneumonitis: Comment: Likely due to the Ketruda, better Code(s): J98.4 - Other disorders of lung Category: Medical (2) Pneumonia: Code(s): J18.9 - Pneumonia, unspecified organism Category: Medical Qualifiers: Laterality: bilateral Lung location: unspecified part of lung Pneumonia type: due to unspecified organism Qualified Code(s): J18.9 - Pneum onia, unspecified organism (3) Acute respiratory failure: Comment: resolved Code(s): J96.00 - Acute respiratory failure, unspecified whether with hypoxia or hypercapnia Category: Medical Qualifiers: Respiratory failure complication: hypoxia Qualified Code(s): J96.01 - Acute respiratory failure with hypoxia (4) Hodgkin lymphoma: Code(s): C81.90 - Hodgkin lymphoma, unspecified, unspecified site Category: Medical Qualifiers: Hodgkin lymphoma type: unspecified type Lymphoma site: unspecified region Qualified Code(s): C81.90 - Hodgkin lymphoma, unspecified, unspecified site Plan Weaned off oxygen, keep pox 92-96% continue slow prednisone taper-->20mg -->20/10mg -->10mg start ICS 1-2 months Awaiting PET results F/U 4-6 months Medications: New fluticasone furoate 100 mcg/actuation (Arnuity Ellipta) 1 inh inhalation DAILY 30 ea 11RF 30 days Coding Level of Care Code Est Pt Level 4 (42229) Complex EM visit Add On G2211 Diagnoses Pneumonitis J98.4 Pneumonia of both lungs due to infectious organism, unspecified part of lung J18.9 Laterality: bilateral Lung location: unspecified part of lung Pneumonia type: due to unspecified organism Acute respiratory failure with hypoxia J96.01 Respiratory failure complication: hypoxia Hodgkin lymphoma, unspecified Hodgkin lymphoma type, unspecified body region C81.90 Hodgkin lymphoma type: unspecified type Lymphoma site: unspecified region Time Spent (min) 17
== END 2024-10-15 09:54 | disposition home or self-care (01) ==
LOC: HO.HPS 09:16
PROVIDERS: PCP Internal Medicine; Visit Provider Hospitalist
DX: J98.4 Other disorders of lung (principal); J18.9 Pneumonia, unspecified organism; J96.01 Acute respiratory failure with hypoxia; C81.90 Hodgkin lymphoma, unspecified, unspecified site
CPT/HCPCS: 99214; G2211

== ENCOUNTER → 2024-10-15 09:16 | Outpatient (BNVA) | payer MEDICARE, OTHER, SELFPAY | PROVIDERS: PCP Internal Medicine; Visit Provider Hospitalist | DX: J98.4 Other disorders of lung (principal); J96.01 Acute respiratory failure with hypoxia; J18.9 Pneumonia, unspecified organism; C81.90 Hodgkin lymphoma, unspecified, unspecified site | CPT/HCPCS: 99212 ==

== ENCOUNTER 2025-02-18 09:44 | Outpatient (AMB) | payer MEDICARE, OTHER, SELFPAY ==
[2025-02-18 09:49] VITALS: BP 146/64; PULSE 79; O2SAT 100; BMI 23.3
--- NOTE | 2025-02-18 09:49 | A.OFFVIS_ITS ---
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 Initially back in February she presented to the hospital with acute respiratory failure. She had a CT scan of the chest PE protocol that demonstrated bilateral patchy consolidations and ground-glass opacities. He was given antibiotics and also was evaluated by Pulmonary there. She did undergo a bronchoscopy. I do not have the results of the cultures but apparently per report there were negative for any infectious process and also had biopsies that I do not have a this time. The patient did have some bleeding during the biopsies so therefore only limited biopsies were gather. She was able to be discharged on oxygen and a prednisone taper. The patient did complete the antibiotics. Once she tapered off the prednisone her symptoms worsen and even on the oxygen she desaturated down to 70%. Therefore her son called 911 she was brought back to [facility] where she was readmitted to the hospital. She had a repeat CT scan of the chest I do not have the results and the patient was evaluated by Oncology. Is felt that based on the negative cultures from the bronchoscopy that this was likely related to the immune therapy resulting in pneumonitis. Therefore she was taken off the immune therapy and placed on prednisone. Currently she is on 30 mg of prednisone and will tapering down slowly from there. The patient also placed on gemcitabine which she seems to be tolerating well for her lymphoma. The patient otherwise is feeling well today we did a 6 minute walk test the patient did very well and did not require any additional oxygen at this time. Although we will reassess as she is weaning off the prednisone. She will come back for a pulmonary function study and also request a chest x-ray at that time. And will follow-up after the breathing studies. Hopefully she can wean off the prednisone and we can consider inhaled cortical steroids to provide her some anti-inflammatory effect in the meantime. She will follow-up with Oncology and she will have additional imaging studies at [facility]. 10/15/2024 the patient is here for pulmonary follow-up visit. Overall she is doing overall better. She did have several admissions to [facility] since we last spoke. Clinically she is doing better. She is weaning off the prednisone. Currently on 20 mg of prednisone going to taper slowly. We did talk about even slower prednisone taper but right now clinically she is doing well. Will start her on inhaled corticosteroid to minimize withdrawal symptoms on the steroid. She also did have a PET scan. I am going to request a copy of the PET scan to review. But her respiratory exam is reassuring do believe that the pneumonitis at now settled. She is on chemotherapy now so therefore she is immunosuppressed. We did review her PFTs demonstrating a mild restrictive ventilatory defect and a moderate diffusion impairment. Overall better. The patient does not require oxygen supplementation a longer period. She will continue weaning off the prednisone completely and will stay on the inhaled corticosteroid. He can stay on the inhaler for few months as long she can not tolerate it. She knows to rinse and gargle well to avoid thrush. 02/18/2025 the patient is here for a pulmonary follow-up visit. Since we last spoke she was admitted to the hospital again with respiratory failure pneumonitis. She had just received a dose of gemcitabine. She was placed on a steroid taper. She is back on oxygen. She is feeling better. She is sleeping with the oxygen. Sometimes when she has the oxygen fall off her oxygen pulse ox drops to about 84. She does have some snoring she may indeed have some sleep apnea. Will consider looking at the later. We did go for brief walking oximetry. The patient did well on a portable oxygen concentrator at 3 L pulse. They will consider getting a POC though think about it for now. For now she has the portable oxygen tanks that they have the filling station at home. Her does most of the work from that standpoint. She is due for gemcitabine tomorrow. Will see if she develops any worsening respiratory symptoms. If she does she may need to have an higher dose of prednisone. The patient is currently on 5 mg every other day for the next 20 days and then she will stop. No recent imaging studies for us to review. Will plan to follow-up in 3 months. If she has any worsening symptoms she will call for an earlier assessment. [facility] Medical History (Updated 02/18/25 @ 21:37 by Salvador Feliciano MD) Pneumonia Pneumonitis History of left breast cancer Osteoarthritis of knees, bilateral Hodgkin lymphoma Social History Household Members: Spouse Housing: House Are you a primary acute care assistant to a significant other at home: No Do you presently have visiting nurse or other home services: No 75 years or older and lives alone: No Alcohol intake: never Patient Tobacco Use Status: Never used Tobacco e-Cigarette/Vaping Use: Never Used service: No Current occupational status: retired Review of Systems Const Reports weakness Eyes Reports no additional complaints ENT Reports no additional complaints Card Denies chest pain and Reports dyspnea on exertion Resp Reports dyspnea on exertion and Denies wheezing GI Reports no additional complaints Musc Reports myalgias and Reports muscle weakness Skin/Breast Denies rash Neuro Reports weakness Psych Reports no additional complaints Terry/Lymph Denies easy bleeding and Denies easy bruising Aller/Immun Denies wheezing Physical Exam Vital Signs: Last Vital Signs Pulse 79 02/18/25 09:49 BP 146/64 H 02/18/25 09:49 Pulse Ox 100 02/18/25 09:49 Oxygen Delivery Method Nasal Cannula 02/18/25 09:49 Oxygen Flow Rate 3 02/18/25 09:49 BMI result Body Mass Index 23.3 Const General: comfortable HEENT Head: Yes normocephalic Neck Neck: Yes supple Chest Chest palpation & inspection: normal inspection of the chest Resp Effort & Inspection: normal respiratory effort Auscultation: no rales, no rhonchi, no wheezes and diminished lung sounds Cardio Heart sounds: S1 normal heart sound present and S2 normal heart sound present GI Palpation (GI): Soft to palpation Skin General skin exam: no rashes or lesions noted Extrem General: Yes no clubbing, cyanosis or edema Office Procedures 6 Minute Walk Time:: 21:41 SPO2 % at rest: 94 Pulse at rest: 78 SPO2 % during excercise: 88 Pulse during excercise: 96 Supplemental Oxygen: desaturated on RA with activity to 88%, placed on 2 then 3l/pulse keeping pox 93% with activity 28133 - 6 Minute Walk Assessment & Plan Assessment & Plan (1) Pneumonitis: Comment: Due to the Ketruda initially, recurrent episode ?Gemcitabine related Code(s): J98.4 - Other disorders of lung Category: Medical (2) Pneumonia: Code(s): J18.9 - Pneumonia, unspecified organism Category: Medical Qualifiers: Laterality: bilateral Lung location: unspecified part of lung Pneumonia type: due to unspecified organism Qualified Code(s): J18.9 - Pneumonia, unspecified organism (3) Acute respiratory failure: Comment: resolved Code(s): J96.00 - Acute respiratory failure, unspecified whether with hypoxia or hypercapnia Category: Medical Qualifiers: Respiratory failure complication: hypoxia Qualified Code(s): J96.01 - Acute respiratory failure with hypoxia (4) Hodgkin lymphoma: Code(s): C81.90 - Hodgkin lymphoma, unspecified, unspecified site Category: Medical Qualifiers: Hodgkin lymphoma type: unspecified type Lymphoma site: unspecified region Qualified Code(s): C81.90 - Hodgkin lymphoma, unspecified, unspecified site Plan conitnue oxygen, keep pox 92-96%. Did Qualify for POC 3L/pulse with activity. 2l/min while sleeping continue slow prednisone taper-->5mg-->every other day, will call if symptoms worsen F/U 4-6 months Coding Level of Care Code Est Pt Level 4 (21296) Complex EM visit Add On G2211 Diagnoses Pneumonitis J98.4 Pneumonia of both lungs due to infectious organism, unspecified part of lung J18.9 Laterality: bilateral Lung location: unspecified part of lung Pneumonia type: due to unspecified organism Acute respiratory failure with hypoxia J96.01 Respiratory failure complication: hypoxia Hodgkin lymphoma, unspecified Hodgkin lymphoma type, unspecified body region C81.90 Hodgkin lymphoma type: unspecified type Lymphoma site: unspecified region CPT Codes Coding ([id number]) Time Spent (min) 18
--- OUTSIDE RECORDS SUMMARY | 2025-02-18 11:05 | XMS_ITS ---
Author Name [facility] Organization Unknown Care Team Organization Name Specialty Phone Email Start Date End Da te [facility] Termed, PROVIDER Primary Care 06/30/202211/23 [facility] WESTLEY FISCHER Primary Care 03/02/2022
--- OUTSIDE RECORDS SUMMARY | 2025-02-18 11:05 | XMS_ITS | Patient Health Record ---
[facility] Address [address] [place] [address] Care Team Providers Care Marketing Analytics Manager Name Role Phone Tony Banks MD Primary Care Provider Crispin Vences Unavailable [phone] Reason For Referral No Information Medications Medication SIG (Take, Route, Fr equency, Duration) Notes Start Date End Date Status Amitriptyline HCl 10 MG 1 tablet at bedt brianna Orally Once a day; Duration: 30 day(s) Active Aspirin 81 MG 1 tablet Orally Once a day; Duration: 30 day(s) Active Physical Therapy . . . 2-3x/week; Durat ion: 3-4 weeks 01/11/2013 Active Problems Problem Type SNOMED Code ICD Code Onset Dates Problem Status W/U Status Risk Notes Problem Disorder of joint of ankle and/or foot (134189918) Arthritis - Degenerative (719.97) Active confirmed Problem Hallux rigidus (9930045) Hallux Rigidus (735.2) Active confirmed Problem Pain in limb (33100970) Pain in Limb (729.5) Active confirmed Plan Of Treatment Pending Test Test Name Order Date X ray : Foot, left 2V 07/31/2012 X ray : Foot, right 2V 10/12/2012 X ray : Foot, right 2V 10/23/2012 X ray : Foot, right 2V 11/08/2012 X ray : Foot, right 2V 01/11/2013 X ray : Foot, right 2V 04/05/2013 X ray : Foot, right 2V 07/31/2012, J3128-JINAJ/INJECT, JOINT/BURSA 0 10/04/201381216, B2137-PQMFG/INJECT, JOINT/BURSA 1 57637, J0702- Neuroma/Injection 02/15/20 14 60281, J0702- Neuroma/Injection 08/01/19 13 03640, J0702- Neuroma/Injection 09/22/19 13 99369, J0702- Neuroma/Injection 10/05/19 14 Insurance Providers Payer Name Payer Address Payer Phone Subscriber Number Group Number Insured Name Patient Relationship to Insured Coverage Start Date Coverage End Date [facility] ([facility]) [address] [place] [id number] Lynn Reilly Self - patient is the insured Medical (General) History Medical History History ICD Code Arthritis cataracts back, hip, knee pain headaches/migraines breast cancer measles chicken pox Surgical History Surgery Date(Month/Year) left mastectomy 02/1989 right foot bunionectomy
--- OUTSIDE RECORDS SUMMARY | 2025-02-18 11:06 | XMS_ITS | Clinical Summary ---
Author Organization [facility] Address [address] [place] [address] Phone Care Team Providers Care Molecular Technologist Name Role Phone Justin Larose MD Primary Care Provider + Albert Mg MD Unavailable [phone] Allergies No known active allergies Medications cholecalciferol (VITAMIN D3) 1,000 unit tablet Take 1 tablet by mouth daily. Active cyanocobalamin (VITAMIN B-12) 500 MCG tablet Take 1 tablet by mouth daily. Active multivitamins with iron-folic acid (CENTRUM COMPLETE) 18-400 mg-mcg Tab Take by mouth. Active multivitamin with minerals tablet Take by mouth. Active clotrimazole (LOTRIMIN) 1 % cream APPLY TO SKIN AND TOENAILS ONCE DAILY FOR 12 WEEKS 02/02/2023 Active gabapentin (NEURONTIN) 100 MG capsule Take 100 mg by mouth 3 (three) times a day. Active pregabalin (LYRICA) 50 MG capsule Take 50 mg by mouth 3 (three) times a day. 01/27/2022 Active mometasone (ELOCON) 0.1 % topical solution APPLY TO SCALP TWICE DAILY NEEDED FOR ITCHING 01/31/2023 Active senna-docusate (PERICOLACE) 8.6-50 mg Take 1 tablet by mouth daily. 03/26/2022 Active loratadine (CLARITIN) 10 mg tablet Take 10 mg by mouth daily. Active acetaminophen (TYLENOL) 650 MG CR tablet Take 650 mg by mouth every 8 (eight) hours as needed for pain (specific location in comments). Active naproxen (NAPROSYN) 250 MG tablet Take 250 mg by mouth daily as needed. Active levothyroxine (SYNTHROID, LEVOTHROID) 50 MCG tablet 09/01/2023 Active sertraline (ZOLOFT) 50 MG tablet Take 75 mg by mouth daily. 04/28/2023 Active Active Problems No known active problems Family History Medical History Relation Comments Pancreatic cancer Maternal Aunt Pancreatitis Maternal Aunt Breast cancer Mother Abnormal EKG Paternal Grandmother Relation Status Comments Maternal Aunt Mother Paternal Grandmother Social History Tobacco Use Types Packs/Day Years Used Date Smoking Tobacco: Never Smokeless Tobacco: Never Alcohol Use Standard Drinks/Week Comments Not Currently 0 (1 standard drink = 0.6 oz pur e alcohol) Education Answer Date Recorded Are you interested in more education? Not on ray e 08/19/2022 Are you concerned about learning? Not on file 08/19/2022 No 08/19/2022 No 08/19/2022 Digital Access Answer Date Recorded No 09/20/2022 No 09/20/2022 Reliable internet access at home? Not on file 09/20/2022 Device with a working camera? Not on file Comments Unknown Sex and Gender Information Value Date Recorded Sex Assigned at Female 10/08/2020 2:40 PM EDT Legal Sex Female 10:02 PM EDT Gender Identity Female 10/08/2020 2:40 PM EDT Sexual Orientation Straight 10/17/2020 9: 20 AM EDT Last Filed Vital Signs Vital Sign Reading Time Taken Comments Blood Pressure 133/61 10/05/2023 1:04 PM EDT Pulse 86 10/05/2023 1:04 PM EDT Temperature 36.6 C (97.9 F) 10/05/2023 1:04 PM EDT Respiratory Rate 16 10/05/2023 1:04 PM EDT Oxygen Saturation 97% 10/05/2023 1:04 PM EDT Inhaled Oxygen Concentration - - Weight 70.8 kg (156 lb 1.4 oz) 10/05/2023 9:21 A M EDT Height 171.5 cm (5' 7.52 ) 10/05/2023 12:17 PM E DT Body Mass Index 24.97 03/25/2023 10:07 AM EST Plan of Treatment Health Maintenance Due Date Last Done Comments DEPRESSION SCREENING 1962 HEPATITIS C SCREENING 1968 MAMMOGRAM 1990 COLOGUARD 1995 COLONOSCOPY 1995 COLORECTAL CANCER SCREENING 1995 FIT TEST 1995 FOBT 1995 SIGMOIDOSCOPY 1995 VIRTUAL COLONOSCOPY 1995 OSTEOPOROSIS SCREENING INITIAL (ONE-TIME) 2015 INFLUENZA VACCINE (#1) 2024 , 01/17/2023, 01/28/2022, Additional history exists COVID-19 VACCINE ( season) 2024 12/30/2023, 01/24/2023, 09/24/2022, Additional history exists TSH LEVEL 04/03/2025 04/03/2024, 03/06/2024 LIPID PANEL 03/23/2027 03/23/2022, 05/25/2016 Adult Td,Tdap Booster 01/03/2028 01/02/2018, 008 PNEUMOCOCCAL VACCINES (50+ years) Completed 02/23/2017, 05/09/2015, 01/23/2009 ZOSTER VACCINES Completed 01/31/2018, 10/24, 09/13/2014 RSV VACCINE Completed 12/21/2022 SMOKING STATUS SCREENING (Once After 26 Yrs) Completed 09/23/2023 HEPATITIS A VACCINES Aged Out No long er eligible based on patient's age to complete this topic HIB VACCINES Aged Out No longer eligi ble based on patient's age to complete this topic MENINGOCOCCAL VACCINES (ACWY) Aged Out No longer eligible based on patient's age to complete this topic MENINGOCOCCAL VACCINES (B) Aged Out N o longer eligible based on patient's age to complete this topic Medical Devices Not on file Insurance MEDICARE PART A & B [facility] MEDICARE SUPPLEMENT MEDICARE PART A & B Member Subscriber Plan / Payer ([facility] 02/23/2015-Present) Name:Lynn Reilly Member ID:[id number] Relation to Subscriber:Self Name:Lynn Reilly Subscriber ID:[id number] Payer ID:[id number] Group ID:Not on file Type:Medicare Address: [place] [address] [place] [phone] [facility] MEDICARE SUPPLEMENT MEDICARE PART A & B [facility] MEDICARE SUPPLEMENT MEDICARE PART A & B [facility] MEDICARE SUPPLEMENT MEDICARE PART A & B [employer] EXTENSION MEDICARE SUPPLEMENT MEDICARE PART A & B [employer] MEDICARE SUPPLEMENT MEDICARE PART A & B Member Subscriber Plan / Payer ( fective 2015-Present) Name:Trevin Reillya Member ID:[id number] Relation to Subscriber:Self Name:Lynn Reilly Subscriber ID:[id number] Payer ID:[id number] Group ID:Not on file Type:Medicare Address: [place] [address] [place] [phone] [employer] MEDICARE SUPPLEMENT MEDICARE PART A & [place] [employer] [place] [id number] MEDICARE PART A & B [facility] [place] [id number] Care Teams Molecular Technologist Relationship Specialty Start Date End Date Justin Larose MD [address] [place] [id number] PCP - General Internal Medicine 10/17/20 Albert Mg MD [address] [place] [phone] [email or web address] Medicine 03/25/23 Additional Source Comments The information contained in this document represents components of the legal health record. It is not the complete legal health record.[facility]
--- OUTSIDE RECORDS SUMMARY | 2025-02-18 11:06 | XMS_ITS ---
Author Organization [facility] Address [address] [place] [address] Care Team Providers Care Employee Benefits Specialist Name Role Phone Justin Larose MD Primary Care Provider [phone] Active Problems Problem Noted Date Diagnosed Date [...] malignancy 01/21/2020 Splenomegaly 01/21/[address] [facility] LUSPATERCEPT (REBLOZYL) INJECTION* Plan Start Date:10/20/2023 Plan Provider:Albert Lomas MD Linked Problems Myelodysplasia (myelodysplas tic syndrome) (HCC) Treatment Medications luspatercept-aamt (REBLOZYL) [facility] OP PEMBROLIZUMAB (200 MG)* Plan Start [...] documented for this patient in [facility]. Treatments may have been administered in another system. Resolved Problems Problem Noted Date Diagnosed Date Resolved Date Recurrent Hodgkin's lymphoma of lymph node 09/18/2020 11/20/2020 Cancer with unknown primary site 01/21/2020 03/27/2020
--- OUTSIDE RECORDS SUMMARY | 2025-02-18 11:06 | XMS_ITS | Clinical Summary ---
Author Organization [facility] Address [address] [place] [address] Care Team Providers Care Supervisor Aircraft Maintenance Name Role Phone Justin Larose MD Primary Care Provider [phone] Allergies No known active allergies Medications Medication [...] 86 02/23/2024 10:00 AM EDT Temperature 36.6 C (97.8 F) 02/23/2024 10:00 AM EDT Respiratory Rate 18 02/23/2024 10:00 AM EDT [...] Vaccine ( season) 2024 12/30/2023, 07/23/2021, 09/19/2020 Influenza Vaccine (#1) 2024 , 01/28/2022, 01/27/2021, Additional history exists DTap / Tdap / Td (2 - Td or Tdap) 01/03/2028 01/02/2018 Pneumococcal Vaccine Completed 02/23/2017, 05/09/19 16 Hepatitis B Vaccines Aged Out No long er eligible based on patient's age to complete this topic RSV Ped < 20 months Aged Out No longe r eligible based on patient's age to complete this topic Care Teams Supervisor Aircraft Maintenance Relationship Specialty Start Date End Date Justin Larose MD PCP - General Internal Medicine 10/20/20 Inés Alexander MD, PhD Lymphoma Program [facility] Cancer [place] Consulting Physician Hematology and Oncology 10/17/20
[2025-02-18 21:39] VITALS: PULSE 78; O2SAT 94
== END 2025-02-18 10:29 | disposition home or self-care (01) ==
LOC: HO.HPS 09:44
PROVIDERS: PCP Internal Medicine; Visit Provider Hospitalist
DX: J98.4 Other disorders of lung (principal); J18.9 Pneumonia, unspecified organism; J96.01 Acute respiratory failure with hypoxia; C81.90 Hodgkin lymphoma, unspecified, unspecified site
CPT/HCPCS: 94618; 99214; G2211

== ENCOUNTER → 2025-02-18 09:44 | Outpatient (BNVA) | payer MEDICARE, OTHER, SELFPAY | PROVIDERS: PCP Internal Medicine; Visit Provider Hospitalist | DX: J98.4 Other disorders of lung (principal); J18.9 Pneumonia, unspecified organism; J96.21 Acute and chronic respiratory failure with hypoxia; C81.90 Hodgkin lymphoma, unspecified, unspecified site; Z79.899 Other long term (current) drug therapy | CPT/HCPCS: 94618; 99212 ==